=== PATIENT | female | born 1935 | race Caucasian/White ===

== ENCOUNTER 2017-04-04 11:18 | Emergency (ER) | payer MEDICARE ==
[~2017-04-04] VITALS: Ht 157.5 cm; Wt 55.8 kg
[~2017-04-04 11:18] MED LIST: ALPR0.254 PO; ASCO10002 PO; ASPI-630 PO; ATOR10TA60 PO; CEPH250C PO; CHOL200074 PO; CLON0.5T3 PO; CLOP75TA57 PO; CRAN500C6 PO; CYCL10TA2 PO; DIGO125T PO; DIGO125T16 PO; DIPH25CA3 PO; DIPH50CA PO; DOCU-150 PO; FERR-26 PO; FEXO180T81 PO; FISH400C4 PO; FURO20TA3 PO; FURO40TA4 PO; LEVO500T8 PO; LOSA100T6 PO; MULT-212 PO; OMEP40CA5 PO; ONDA4TAB12 PO; POTASSIUM CHLO10 MEQ PO; UBID30CA9 PO; VIT1TABL34 PO; VITA1CAP PO; WHEA1POW8 PO
--- NOTE | 2017-04-04 11:33 | EKG ---
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
[2017-04-04 11:55] LABS: BASO % 1 % (0-3); EOS % 2 % (0-3); HEMATOCRIT 29.4 % (36.0-47.0); HEMOGLOBIN 9.7 g/dL (12.0-15.5); LYMPH # 0.6 x10^3/uL (1.0-4.8); LYMPH % 9 % (24-48); MEAN CORPUSCULAR HEMOGLOBIN 27 pg (25-35); MEAN CORPUSCULAR HGB CONC 33 g/dL (31-37); MEAN CORPUSCULAR VOLUME 80 fL (79-100); MONO % 13 % (0-9); NEUT % 76 % (31-73); PLATELET COUNT 330 x10^3/uL (140-400); RED BLOOD COUNT 3.65 x10^6/uL (3.50-5.40); RED CELL DISTRIBUTION WIDTH 14.4 % (11.5-14.5); WHITE BLOOD COUNT 6.7 x10^3/uL (4.0-11.0)
[2017-04-04] MEDS ORDERED: LIDO:MAALOX:DONNATAL 1:1:1 15 ML SINGLE DOSE SWSW ONE (12:00)
[2017-04-04 12:02] LABS: INR 1.1 (0.8-1.1); PROTHROMBIN TIME PATIENT 13.1 SEC (11.7-14.0)
[2017-04-04 12:10] LABS: CALCIUM 8.8 mg/dL (8.5-10.1); CREATININE 0.6 mg/dL (0.6-1.0); GFR 95.9; POTASSIUM 3.6 mmol/L (3.5-5.1)
--- NOTE | 2017-04-04 12:14 | RAD ---
Indication chest pain. Shortness of air. History of cardiac arrhythmia. A single view of the chest was obtained. Comparison is made to an exam October 16, 2016. There is mild stable cardiomegaly. There is no gross congestive heart failure. There is no consolidated pneumonia significant pleural fluid collection or pneumothorax. IMPRESSION: Stable mild enlargement of the heart. No acute finding in the chest
[2017-04-04 12:16] LABS: ALBUMIN 3.2 g/dL (3.4-5.0); ALBUMIN/GLOBULIN RATIO 0.9 (1.0-1.7); MAGNESIUM 1.6 mg/dL (1.8-2.4); TOTAL BILIRUBIN 0.3 mg/dL (0.2-1.0); TOTAL PROTEIN 6.6 g/dL (6.4-8.2)
[2017-04-04] MEDS ORDERED: IV NORMAL SALINE 500ML BAG 500 ML IV ONE (12:30)
--- NOTE | 2017-04-04 12:33 | PHYS DOC ---
Past Medical History Past Medical History: A-Fib, Hypertension, MT Additional Past Medical Histor: CARDIOMYOPATHY, OSTEOARTHRITIS, CHRONIC BACK PAIN Past Surgical History: Other Additional Past Surgical Histo: BACK SX Alcohol Use: Rarely Drug Use: None Adult General Chief Complaint Chief Complaint: diarrhea HPI HPI Patient is a 81 year old female who presents with diarrhea that's been occurring since Saturday of this week. She states it's been watery, foul-smelling , difficult to get to the restroom and she's had several accidents. She denies any fevers, no abdominal pain. She's had some intermittent body aches when she gets frequently with GERD. She's not taking any medication for this specifically. She gets a acidic feeling in the base of her throat. She denies any dysuria or increased urinary frequency. Primary care physician is Dr. Jaron Briggs Review of Systems Review of Systems Constitutional: Denies fever or chills [] Eyes: Denies change in visual acuity, redness, or eye pain [] HENT: Denies nasal congestion or sore throat [] Respiratory: Denies cough or shortness of breath [] Cardiovascular: Chest pain substernal that radiates up into her throat, she also has diffuse chest and back pain at times GI: Denies aren't abdominal pain, nausea, or vomiting : Denies dysuria or hematuria [] Musculoskeletal: Denies back pain or joint pain [] Integument: Denies rash or skin lesions [] Neurologic: Denies headache, focal weakness or sensory changes [] Current Medications Current Medications Current Medications Medications (Trade) Dose Ordered Sig/Zander Start Time Stop Time Status Last Admin Dose Admin Ketorolac Tromethamine (Toradol) 30 mg 1X ONCE 04/04/17 13:00 04/04/17 13:01 DC 04/04/17 12:46 30 MG Multi-Ingredient Mouthwash/Gargle (Gi Cocktail Single Dose) 15 ml 1X ONCE 04/04/17 12:00 04/04/17 12:01 DC 04/04/17 12:00 15 ML Sodium Chloride 500 ml @ 500 mls/hr 1X ONCE 04/04/17 12:30 04/04/17 13:29 DC 04/04/17 12:46 500 MLS/HR Allergies Allergies Allergies Coded Allergies Type Severity Reaction Last Updated Verified acyclovir Allergy Intermediate Itching 01/02/16 Yes amitriptyline Allergy Intermediate Itching 01/02/16 Yes amlodipine Allergy Intermediate Itching 01/02/16 Yes atenolol Allergy Intermediate Itching 01/02/16 Yes fentanyl Allergy Intermediate Itching 01/02/16 Yes lisinopril Allergy Intermediate Itching 01/02/16 Yes tramadol Allergy Intermediate Itching 01/02/16 Yes warfarin Allergy Intermediate 01/03/16 Yes I S O L A T I O N *CONTACT* Allergy Unknown 01/06/16 Yes codeine Adverse Reaction Intermediate Nausea and Vomiting 01/02/16 Yes hydromorphone Adverse Reaction Intermediate Nausea and Vomiting 01/02/16 Yes Physical Exam Physical Exam Constitutional: Well developed, well nourished, no acute distress, non-toxic appearance. Pale HENT: Normocephalic, atraumatic, bilateral external ears normal, oropharynx moist, no oral exudates, nose normal. [] Eyes: PERRLA, EOMI, conjunctiva normal, no discharge. [] Neck: Normal range of motion, no tenderness, supple, no stridor. [] Cardiovascular:Heart rate regular with regular rhythm, no murmur [] Lungs & Thorax: Bilateral breath sounds clear to auscultation, no wheeze or crackles Abdomen: Bowel sounds normal, soft, no tenderness, no masses, no pulsatile masses.no guarding or peritoneal signs Skin: Warm, dry, no erythema, no rash. [] Back: No tenderness, no CVA tenderness. [] Extremities: No tenderness, no cyanosis, no clubbing, ROM intact, no edema. [] Neurologic: Alert and oriented X 3, normal motor function, normal sensory function, no focal deficits noted. [] Psychologic: Affect normal, judgement normal, mood normal. [] Current Patient Data Vital Signs Vital Signs Date Time Temp Pulse Resp B/P (MAP) Pulse Ox O2 Delivery O2 Flow Rate FiO2 04/04/17 13:50 78 18 159/74 (102) 96 04/04/17 11:29 98.3 Room Air 98.3 Lab Values Laboratory Tests Test 04/04/17 11:40 White Blood Count 6.7 x10^3/uL (4.0-11.0) Red Blood Count 3.65 x10^6/uL (3.50-5.40) Hemoglobin 9.7 g/dL (12.0-15.5) L Hematocrit 29.4 % (36.0-47.0) L Mean Corpuscular Volume 80 fL (79-100) Mean Corpuscular Hemoglobin 27 pg (25-35) Mean Corpuscular Hemoglobin Concent 33 g/dL (31-37) Red Cell Distribution Width 14.4 % (11.5-14.5) Platelet Count 330 x10^3/uL (140-400) Neutrophils (%) (Auto) 76 % (31-73) H Lymphocytes (%) (Auto) 9 % (24-48) L Monocytes (%) (Auto) 13 % (0-9) H Eosinophils (%) (Auto) 2 % (0-3) Basophils (%) (Auto) 1 % (0-3) Neutrophils # (Auto) 5.1 x10^3uL (1.8-7.7) Lymphocytes # (Auto) 0.6 x10^3/uL (1.0-4.8) L Monocytes # (Auto) 0.8 x10^3/uL (0.0-1.1) Eosinophils # (Auto) 0.1 x10^3/uL (0.0-0.7) Basophils # (Auto) 0.0 x10^3/uL (0.0-0.2) Prothrombin Time 13.1 SEC (11.7-14.0) Prothrombin Time INR 1.1 (0.8-1.1) Sodium Level 134 mmol/L (136-145) L Potassium Level 3.6 mmol/L (3.5-5.1) Chloride Level 98 mmol/L (98-107) Carbon Dioxide Level 27 mmol/L (21-32) Anion Gap 9 (6-14) Blood Urea Nitrogen 11 mg/dL (7-20) Creatinine 0.6 mg/dL (0.6-1.0) Estimated GFR (Cockcroft-Gault) 95.9 BUN/Creatinine Ratio 18 (6-20) Glucose Level 99 mg/dL (70-99) Calcium Level 8.8 mg/dL (8.5-10.1) Magnesium Level 1.6 mg/dL (1.8-2.4) L Total Bilirubin 0.3 mg/dL (0.2-1.0) Aspartate Amino Transferase (AST) 23 U/L (15-37) Alanine Aminotransferase (ALT) 22 U/L (14-59) Alkaline Phosphatase 103 U/L (46-116) Troponin I Quantitative 0.022 ng/mL (0.000-0.055) ID-Ytk-S-Type Natriuretic Peptide 2736 pg/mL (0-449) H Total Protein 6.6 g/dL (6.4-8.2) Albumin 3.2 g/dL (3.4-5.0) L Albumin/Globulin Ratio 0.9 (1.0-1.7) L Laboratory Tests 04/04/17 11:40 Laboratory Tests 04/04/17 11:40 EKG EKG 90 beats per minute, afib normal axis, QTC of 459, no ST elevation, ST depression noted in V4 him interpreted by me [] Radiology/Procedures Radiology/Procedures CXR: IMPRESSION: Stable mild enlargement of the heart. No acute finding in the chest [] Course & Med Decision Making Course & Med Decision Making Pertinent Labs and Imaging studies reviewed. (See chart for details) Pt given GI cocktail. Pt could be c diff but wasn't able to provide stool in ED , WBC normal, more likely gastroenteritis. Pt wants to go home. Recommend loperamide for stool, f/u with PCP. Dragon Disclaimer Dragon Disclaimer This electronic medical record was generated, in whole or in part, using a voice recognition dictation system. Departure Departure Impression: Primary Impression: Gastroenteritis Disposition: 01 HOME, SELF-CARE Condition: STABLE Referrals: MATTHEW BRAMBILA (PCP) Scripts Loperamide Hcl (LOPERAMIDE) 2 Mg Tablet 2 MG PO after loose stool Y for DIARRHEA, #16 TAB take 1 tablet after each loose stool, up to 8 tablets per day. Prov: JOSE BANSAL MD 04/04/17 JOSE BANSAL MD Apr 04, 2017 12:33
[2017-04-04] MEDS ORDERED: KETOROLAC TROMETHAMINE 30 MG/ML INJ. IV ONE (13:00)
[2017-04-04] MEDS ORDERED: LOPE2TAB27 PO (13:16)
[2017-04-04] MEDS ORDERED: IV NORMAL SALINE 1000ML BAG 1,000 ML IV ONE (13:30)
[2017-04-04 13:50] VITALS: BP 159/74
== END 2017-04-04 14:00 | disposition home or self-care (01) ==
LOC: ER 11:18
DX: K52.9 Noninfective gastroenteritis and colitis, unspecified (principal); I48.91 Unspecified atrial fibrillation; I11.9 Hypertensive heart disease without heart failure; I42.9 Cardiomyopathy, unspecified; K21.9 Gastro-esophageal reflux disease without esophagitis; G89.29 Other chronic pain; I25.2 Old myocardial infarction; M19.90 Unspecified osteoarthritis, unspecified site; Z88.5 Allergy status to narcotic agent; Z88.8 Allergy status to other drugs, medicaments and biological substances; Z88.4 Allergy status to anesthetic agent; Z91.041 Radiographic dye allergy status
CPT/HCPCS: 36415; 71010; 80053; 83735; 83880; 84484; 85027; 85610; 93005; 96361; 96374; 99285; C1887; J1885; J7040

== ENCOUNTER → 2017-10-17 | Outpatient (CLI) | payer MEDICARE | END | disposition home or self-care (01) | LOC: ECHO 12:47 | DX: I36.1 Nonrheumatic tricuspid (valve) insufficiency (principal); I37.1 Nonrheumatic pulmonary valve insufficiency; I27.20 Pulmonary hypertension, unspecified; I70.0 Atherosclerosis of aorta; Z95.0 Presence of cardiac pacemaker | CPT/HCPCS: 93306 ==

== ENCOUNTER 2017-12-06 11:14 | Outpatient (CLI) | payer MEDICARE | END 2017-12-10 | disposition home or self-care (01) | LOC: MAMMO 12-10 09:22 | DX: N63.20 Unspecified lump in the left breast, unspecified quadrant (principal) | CPT/HCPCS: 76641; 77066; G0279 ==

== ENCOUNTER → 2017-12-27 | Outpatient (CLI) | payer MEDICARE ==
[~2017-12-27] MED LIST changes: -ALPR0.254 PO; -ASCO10002 PO; -ASPI-630 PO; -ATOR10TA60 PO; -CEPH250C PO; -CHOL200074 PO; -CLON0.5T3 PO; -CLOP75TA57 PO; -CRAN500C6 PO; -CYCL10TA2 PO; -DIGO125T PO; -DIGO125T16 PO; -DIPH25CA3 PO; -DIPH50CA PO; -DOCU-150 PO; -FERR-26 PO; -FEXO180T81 PO; -FISH400C4 PO; -FURO20TA3 PO; -FURO40TA4 PO; -LEVO500T8 PO; +LIDOCAINE 2%/EPI 1:100,000 20 ML VIAL. IJ; -LOSA100T6 PO; -MULT-212 PO; -OMEP40CA5 PO; -ONDA4TAB12 PO; -POTASSIUM CHLO10 MEQ PO; -UBID30CA9 PO; -VIT1TABL34 PO; -VITA1CAP PO; -WHEA1POW8 PO
== END | disposition home or self-care (01) ==
LOC: US 09:16
DX: C50.912 Malignant neoplasm of unspecified site of left female breast (principal); Z98.41 Cataract extraction status, right eye; Z98.42 Cataract extraction status, left eye; I50.9 Heart failure, unspecified; I42.9 Cardiomyopathy, unspecified; I48.91 Unspecified atrial fibrillation; I11.0 Hypertensive heart disease with heart failure; Z87.01 Personal history of pneumonia (recurrent); Z90.49 Acquired absence of other specified parts of digestive tract; K21.9 Gastro-esophageal reflux disease without esophagitis; M19.90 Unspecified osteoarthritis, unspecified site; F41.9 Anxiety disorder, unspecified; D64.9 Anemia, unspecified; Z98.890 Other specified postprocedural states; Z88.8 Allergy status to other drugs, medicaments and biological substances; Z88.5 Allergy status to narcotic agent; Z90.710 Acquired absence of both cervix and uterus; Z95.5 Presence of coronary angioplasty implant and graft; Z96.611 Presence of right artificial shoulder joint; Z87.440 Personal history of urinary (tract) infections; Z79.01 Long term (current) use of anticoagulants
CPT/HCPCS: 19081; 76942; 77065; 88305; 88361; C1713

== ENCOUNTER → 2018-01-08 | Outpatient (CLI) | payer MEDICARE ==
[2018-01-08 14:07] LABS: ADD MAN DIFF? NO
[2018-01-08 14:10] LABS: BASO % 1 % (0-3); EOS # 0.1 x10^3/uL (0.0-0.7); EOS % 1 % (0-3); HEMATOCRIT 42.6 % (36.0-47.0); HEMOGLOBIN 14.5 g/dL (12.0-15.5); LYMPH # 1.2 x10^3/uL (1.0-4.8); LYMPH % 20 % (24-48); MEAN CORPUSCULAR HEMOGLOBIN 31 pg (25-35); MEAN CORPUSCULAR HGB CONC 34 g/dL (31-37); MEAN CORPUSCULAR VOLUME 90 fL (79-100); MONO # 0.7 x10^3/uL (0.0-1.1); MONO % 11 % (0-9); NEUT # 4.2 x10^3uL (1.8-7.7); NEUT % 68 % (31-73); PLATELET COUNT 307 x10^3/uL (140-400); RED BLOOD COUNT 4.76 x10^6/uL (3.50-5.40); RED CELL DISTRIBUTION WIDTH 13.8 % (11.5-14.5); WHITE BLOOD COUNT 6.2 x10^3/uL (4.0-11.0)
[2018-01-08 14:19] LABS: ANION GAP 7 (6-14); BLOOD UREA NITROGEN 17 mg/dL (7-20); CALCIUM 9.2 mg/dL (8.5-10.1); CARBON DIOXIDE 31 mmol/L (21-32); CHLORIDE 98 mmol/L (98-107); CREATININE 0.8 mg/dL (0.6-1.0); GFR 68.7; GLUCOSE 123 mg/dL (70-99); POTASSIUM 4.1 mmol/L (3.5-5.1); SODIUM 136 mmol/L (136-145)
== END | disposition home or self-care (01) ==
LOC: SURGPAT 13:26
DX: Z01.818 Encounter for other preprocedural examination (principal); C50.912 Malignant neoplasm of unspecified site of left female breast
CPT/HCPCS: 36415; 80048; 85025

== ENCOUNTER 2018-01-13 07:30 | Inpatient (IN) | payer MEDICARE ==
[~2018-01-13 07:30] MED LIST changes: +LIDOCAINE 1% PF 2 ML VIAL. ID; -LIDOCAINE 2%/EPI 1:100,000 20 ML VIAL. IJ; +MORPHINE SULFATE 4 MG/ML DISP.SYRIN. IV; +ONDANSETRON PF 4 MG/2 ML VIAL. IV; +PROCHLORPERAZINE 10 MG/2 ML VIAL. IV
[2018-01-13] MEDS: IV RINGERS,LACTATED 1000ML 1,000 ML IV ×2 (08:31→11:59)
[2018-01-13] MEDS ORDERED: DEXAMETHASONE SOD PHOS 20 MG/5 ML VIAL. (08:50)
[2018-01-13] MEDS ORDERED: PROPOFOL 20 ML IV (08:50)
[2018-01-13] MEDS ORDERED: LIDOCAINE 2% PF Vial for OR 5 ML VIAL. (08:50)
[2018-01-13] MEDS ORDERED: ONDANSETRON PF 4 MG/2 ML VIAL. (08:50)
[2018-01-13] MEDS ORDERED: fentaNYL PF VIAL 100 MCG/2 ML VIAL (08:51)
[2018-01-13] MEDS: LIDOCAINE WITH 8.4% SOD BICARB 3 ML DISP.SYRIN. INJ (09:23)
[2018-01-13] MEDS: ISOSULFAN BLUE 50 MG/5 ML VIAL. SQ (10:10)
[2018-01-13] MEDS ORDERED: ceFAZolin 2GM PREMIX 2 GM/50 ML BAG IV (12:00)
[2018-01-13] MEDS ORDERED: LIDOCAINE 1% PF 2 ML VIAL. ID (12:00)
[2018-01-13] MEDS ORDERED: fentaNYL PF VIAL 100 MCG/2 ML VIAL IV (12:00)
[2018-01-13] MEDS ORDERED: MORPHINE SULFATE 2 MG/ML DISP.SYRIN. IV (12:00)
[2018-01-13] MEDS ORDERED: ONDANSETRON PF 4 MG/2 ML VIAL. IV ×2 (12:00→12:15)
[2018-01-13] MEDS ORDERED: PROCHLORPERAZINE 10 MG/2 ML VIAL. IV (12:00)
[2018-01-13] MEDS: fentaNYL PF VIAL 100 MCG/2 ML VIAL IV ×5 (12:07→14:10)
[2018-01-13] MEDS ORDERED: CYCLOBENZAPRINE 10 MG TABLET. PO (12:15)
[2018-01-13] MEDS ORDERED: 0.9 % SODIUM CHLORIDE 10 ML DISP.SYRIN. IV (12:15)
[2018-01-13] MEDS ORDERED: diphenhydrAMINE 50 MG/ML VIAL IV (12:15)
[2018-01-13] MEDS ORDERED: hydrALAZINE 20 MG/ML VIAL. (12:56)
[2018-01-13] MEDS: hydrALAZINE 20 MG/ML VIAL. IVP (12:58)
[2018-01-13] MEDS: POTASSIUM CL 20MEQ-0.45% NACL 1,000 ML IV (14:00)
[2018-01-13] MEDS: CARVEDILOL 6.25 MG TABLET. PO (17:30)
[2018-01-13] MEDS: HYDROcodone/APAP 5/325MG 1 TAB TABLET PO ×2 (17:30→22:29)
[2018-01-13] MEDS: clonazePAM 0.5 MG TABLET PO (21:21)
[2018-01-13] MEDS: ATORVASTATIN CALCIUM 10 MG TABLET. PO (21:21)
[2018-01-13] MEDS: ALPRAZolam 0.25 MG TABLET PO (21:22)
[2018-01-13] MEDS: DOCUSATE SODIUM 100 MG CAPSULE. PO (21:22)
[2018-01-13] MEDS: POTASSIUM CHLORIDE 10 MEQ TABLET.ER. PO (21:22)
[2018-01-14] MEDS: HYDROcodone/APAP 5/325MG 1 TAB TABLET PO ×3 (02:45→21:24)
[2018-01-14] MEDS: POTASSIUM CL 20MEQ-0.45% NACL 1,000 ML IV (03:14)
[2018-01-14] MEDS: ENOXAPARIN 30 MG/0.3 ML SYRINGE. SQ (05:48)
[2018-01-14] MEDS: POTASSIUM CHLORIDE 10 MEQ TABLET.ER. PO ×2 (09:32→21:25)
[2018-01-14] MEDS: DIGOXIN 125 MCG TABLET. PO (09:33)
[2018-01-14] MEDS: ALPRAZolam 0.25 MG TABLET PO ×2 (09:34→21:25)
[2018-01-14] MEDS: CARVEDILOL 6.25 MG TABLET. PO ×2 (09:35→17:42)
[2018-01-14] MEDS: FERROUS SULFATE 325 MG TABLET. PO (09:36)
[2018-01-14] MEDS: FUROSEMIDE 20 MG TABLET PO (09:37)
[2018-01-14] MEDS: DOCUSATE SODIUM 100 MG CAPSULE. PO ×2 (09:37→21:25)
[2018-01-14] MEDS: CETIRIZINE HCL 10 MG TABLET. PO (09:37)
[2018-01-14] MEDS: ASPIRIN CHEWABLE 81 MG TABLET. PO (09:38)
[2018-01-14] MEDS: clonazePAM 0.5 MG TABLET PO (21:25)
[2018-01-14] MEDS: ATORVASTATIN CALCIUM 10 MG TABLET. PO (21:25)
[2018-01-14] MEDS: diphenhydrAMINE HCL 25 MG CAPSULE PO (21:25)
[2018-01-15] MEDS: HYDROcodone/APAP 5/325MG 1 TAB TABLET PO ×2 (04:44→13:02)
[2018-01-15] MEDS: ENOXAPARIN 30 MG/0.3 ML SYRINGE. SQ (06:11)
[2018-01-15] MEDS: DOCUSATE SODIUM 100 MG CAPSULE. PO (08:32)
[2018-01-15] MEDS: FUROSEMIDE 20 MG TABLET PO (08:32)
[2018-01-15] MEDS: ASPIRIN CHEWABLE 81 MG TABLET. PO (08:32)
[2018-01-15] MEDS: ALPRAZolam 0.25 MG TABLET PO (08:32)
[2018-01-15] MEDS: FERROUS SULFATE 325 MG TABLET. PO (08:32)
[2018-01-15] MEDS: POTASSIUM CHLORIDE 10 MEQ TABLET.ER. PO (08:32)
[2018-01-15] MEDS: CETIRIZINE HCL 10 MG TABLET. PO (08:32)
[2018-01-15] MEDS: CARVEDILOL 6.25 MG TABLET. PO (08:33)
[2018-01-15] MEDS: DIGOXIN 125 MCG TABLET. PO (08:34)
== END 2018-01-15 13:25 | disposition home or self-care (01) | DRG 581 ==
LOC: SURG 07:30 → 4 NORTH 12:06
PROC: 0HTT0ZZ Resection of Right Breast, Open Approach (ICD-10-PCS; principal; 2018-01-13 09:30)
PROC: 07B60ZX Excision of Left Axillary Lymphatic, Open Approach, Diagnostic (ICD-10-PCS; 2018-01-13 09:30)
PROC: 0HTU0ZZ Resection of Left Breast, Open Approach (ICD-10-PCS; 2018-01-13 09:30)
DX: C50.912 Malignant neoplasm of unspecified site of left female breast (principal); I48.91 Unspecified atrial fibrillation; K21.9 Gastro-esophageal reflux disease without esophagitis; Z88.1 Allergy status to other antibiotic agents; Z90.13 Acquired absence of bilateral breasts and nipples; Z88.6 Allergy status to analgesic agent; Z88.8 Allergy status to other drugs, medicaments and biological substances; Z79.01 Long term (current) use of anticoagulants; Z90.49 Acquired absence of other specified parts of digestive tract
CPT/HCPCS: 38792; 96374; 97116-GP; 97162-GP; 97166-GO; A7015; A9541; J0360; J0690; J1100; J1650; J2405; J2704; J3010; J7030; Q0163; Q9968

== ENCOUNTER → 2018-02-25 | Outpatient (CLI) | payer MEDICARE | END | disposition home or self-care (01) | LOC: KCIC DEXA 13:59 | DX: C50.912 Malignant neoplasm of unspecified site of left female breast (principal); M85.88 Other specified disorders of bone density and structure, other site; I13.0 Hypertensive heart and chronic kidney disease with heart failure and stage 1 through stage 4 chronic kidney disease, or unspecified chronic kidney disease; I50.9 Heart failure, unspecified; N18.9 Chronic kidney disease, unspecified; Z78.0 Asymptomatic menopausal state | CPT/HCPCS: 77080 ==

== ENCOUNTER → 2018-10-17 | Outpatient (CLI) | payer MEDICARE ==
[2018-09-01 11:46] VITALS: BP 148/53
[~2018-10-17] MED LIST changes: +ALPR0.254 PO; +ASCO10002 PO; +ASPI-630 PO; +ATOR10TA60 PO; +CARV6.25 PO; +CARV6.2511 PO; +CEPH250C PO; +CHOL200074 PO; +CLON0.5T11 PO; +CLOP75TA PO; +CLOP75TA57 PO; +CRAN500C6 PO; +CYCL10TA2 PO; +DIGO125T PO; +DIGO125T79 PO; +DIPH25CA3 PO; +DIPH50CA PO; +DOCU-150 PO; +FERR325T14 PO; +FEXO180T81 PO; +FISH400C4 PO; +FLUT9.9S NS; +FURO20TA3 PO; +FURO40TA4 PO; +HYDR-2761 PO; +LEVO500T8 PO; -LIDOCAINE 1% PF 2 ML VIAL. ID; +LOPE2TAB27 PO; +LORA10TA68 PO; +LOSA100T14 PO; -MORPHINE SULFATE 4 MG/ML DISP.SYRIN. IV; +MULT-212 PO; +NITR50CA PO; +OMEP40CA5 PO; +ONDA4TAB12 PO; -ONDANSETRON PF 4 MG/2 ML VIAL. IV; +POTA10TA12 PO; -PROCHLORPERAZINE 10 MG/2 ML VIAL. IV; +PROP150T2 PO; +RANO500T2 PO; +REGADENOSON 0.4 MG/5 ML DISP.SYRIN. IV ONE; +UBID30CA9 PO; +VIT1TABL34 PO; +VITA1CAP PO; +WHEA1POW8 PO
--- NOTE | 2018-10-17 12:28 | RAD ---
MR#: [id number] Date of Study: 10/17/2018 Ordering Physician: RAPHAEL HOLT, Referring Physician: MARLENE CHAVEZ Tech: GRACE Kaminski, ARRT (R) (N) APPROVED REPORT Test Type: Pharmacological Stress Nurse/Tech: Doris Zhang RN Test Indications: CAD, chest pain, reflux Cardiac History: stent x 2, HTN, pacemaker Medications: See Electronic Medical Record Medical History: See Electronic Medical Record Resting ECG: v paced Resting Heart Rate: 69 bpm Resting Blood Pressure: 161/75mmHg Pretest Chest Pain: None Nurse/Tech Notes Lungs CTA, S1S2 Consent: The procedure was explained to the patient in lay terms. Informed consent was witnessed. Brando eout was entered into [employer]. History and Stress Test performed by Doris Zhang Pharm. Details Pharmacologic stress testing was performed using 0.4mg per 5ml of regadenoson given intravenously ove r 7-10 seconds. Stress Symptoms dyspnea, chest pain 6/10 that resolved by end of test. Pt very light headed after exam POST EXERCISE Reason for Termination: Infusion complete Max HR: 103 bpm Max Blood Pressure: 154/62mmHg Blood Pressure response to exercise: Normal blood pressure response during stress. Heart Rate response to exercise: Normal response Chest Pain: Yes. 6/10 that resolved by termination of test Arrhythmia: No. ST Change: No. INTERPRETATION Stress EKG Conclusion: Baseline EKG showed ventricular paced rhythm. Nondiagnostic changes at peak st ress. No arrhythmias. Imaging Protocol IMAGE PROTOCOL: Rest Tc-99m/stress Tc-99m 1 day Rest: Stress: Viability: Radiopharm.Tc99m NffkqlldjIj37m Sestamibi Tdiy99yNo 32mCi Img Date 10/17/2018 10/17/2018 Inj-Img Lmgh50jxm. 60min. Rest Admin Site:IV - Right AntecubitalAdministrator:Mac Russo RT (R)(N) Stress Admin Site: IV - Right AntecubitalAdministrator: RT Gisella (R)(N) STRESS DATA End Diast. Vol.128.0mlAv. Heart Rate75.0bpm End Syst. Vol.60.0mlCO Index BSA0.0L/min Myocardial Ivdn781.0gEject. Fnfchztq86.0% Stress Rates Pk. Fill Rate1.96EDV/secLVtime Pk. Fill 166.40msec Pk. Empty Rate3.29ESV/secLVtime Pk. Nvazq537.90msec 1/3 Pk. Fill0.82EDV/sec Stress Scores Regional WT3.00Summed WT24.00 Regional WM0.00Summed WM21.00 LV Perfusion Scintigraphic images did not show any significant perfusion defects. However, there was transient isc hemic dilatation of 1.63 at peak stress. Wall Motion Abnormal septal motion probably from paced rhythm. The ejection fraction is preserved at 53%. LV Perf. Quant 17 Seg. SSS4.00 17 Seg. SRS3.00 17 Seg. SDS1.00 Stress Defect Extent (% LAD)0.00Rest Defect Extent (% LAD)0.00Rev. Defect Extent (% LAD)0.00 Stress Defect Extent (% LCX) 27.50Rest Defect Extent (% LCX)31.30Rev. Defect Extent (% LCX)0.00 Stress Defect Extent (% RCA)4.40Rest Defect Extent (% RCA)0.00Rev. Defect Extent (% RCA)0.00 Stress Defect Extent (% ZACH)5.70Rest Defect Extent (% ZACH)5.40Rev. Defect Extent (% ZACH)0.00 Conclusion 1. Regadenoson cardioisotope stress test did not show any significant perfusion defects but there was transient ischemic dilatation of 1.63 that could indicate balanced ischemia/multivessel disease. 2. Abnormal septal motion probably from paced rhythm. The ejection fraction is preserved at 53%. 3. Consider cardiac catheterization. Signed by : Davi Mtz, Electronically Approved : 10/17/2018 12:26:18
== END | disposition home or self-care (01) ==
LOC: NM 09:04
PROVIDERS: ATTEND Internal Medicine Cardiovascular Disease
DX: I25.10 Atherosclerotic heart disease of native coronary artery without angina pectoris (principal); I10 Essential (primary) hypertension; Z95.0 Presence of cardiac pacemaker
CPT/HCPCS: 78452; 93017; 96374; A9500; J2785

== ENCOUNTER 2018-11-12 08:45 | Observation (INO) | payer MEDICARE ==
[~2018-11-12] VITALS: Ht 158.8 cm; Wt 57.3 kg
[2018-11-12] VITALS (15 sets, daily range): BP systolic 120–163; BP diastolic 44–79
[~2018-11-12 08:45] MED LIST changes: -REGADENOSON 0.4 MG/5 ML DISP.SYRIN. IV ONE
[2018-11-12] MEDS ORDERED: CYAN100072 PO (09:12)
[2018-11-12] MEDS ORDERED: OMEG1CAP38 PO (09:12)
[2018-11-12 09:26] LABS: HEMATOCRIT 26.4 % (36.0-47.0); HEMOGLOBIN 8.2 g/dL (12.0-15.5); RED BLOOD COUNT 4.32 x10^6/uL (3.50-5.40); RED CELL DISTRIBUTION WIDTH 18.4 % (11.5-14.5); WHITE BLOOD COUNT 9.6 x10^3/uL (4.0-11.0)
[2018-11-12 09:40] LABS: PROTHROMBIN TIME PATIENT 14.8 SEC (11.7-14.0)
[2018-11-12 09:59] LABS: CALCIUM 9.2 mg/dL (8.5-10.1); CREATININE 0.9 mg/dL (0.6-1.0); GFR 59.8; POTASSIUM 4.2 mmol/L (3.5-5.1)
[2018-11-12] MEDS ORDERED: IOHEXOL 300 MG/ML 100ML VIAL. ONE ×2 (11:04→12:11)
[2018-11-12] MEDS ORDERED: HEPARIN for ARTERIAL LINE 1,500 ML ONE (11:04)
[2018-11-12] MEDS ORDERED: LIDOCAINE 1% Multi-Dose 20 ML VIAL. ONE (11:04)
[2018-11-12] MEDS ORDERED: fentaNYL PF VIAL 100 MCG/2 ML VIAL ONE (11:22)
[2018-11-12] MEDS ORDERED: MIDAZOLAM HCL/PF 2 MG/2 ML VIAL. ONE ×3 (11:23→13:20)
[2018-11-12] MEDS ORDERED: ONDANSETRON PF 4 MG/2 ML VIAL. ONE (11:34)
[2018-11-12] MEDS ORDERED: MORPHINE SULFATE 10 MG/ML VIAL. ONE (11:34)
[2018-11-12] MEDS ORDERED: NITROGLYCERIN OINT 1 GM PACKET. ONE (11:49)
[2018-11-12] MEDS ORDERED: HEPARIN for IV BOLUS 10,000 UNIT/10 ML VIAL. ONE (12:04)
[2018-11-12] MEDS ORDERED: BIVALIRUDIN 250 MG VIAL. IV ONE ×2 (12:12→14:30)
[2018-11-12] MEDS ORDERED: NITROGLYCERIN 200 MCG/2 ML SYRINGE FOR CATH/VASC LAB. ONE (12:38)
[2018-11-12] MEDS ORDERED: IODIXANOL 320 MG/ML 100 ML VIAL. ONE (12:40)
[2018-11-12] MEDS ORDERED: CLOPIDOGREL BISULFATE 75 MG TABLET ONE (13:03)
[2018-11-12] MEDS ORDERED: MIDAZOLAM HCL/PF 2 MG/2 ML VIAL. IV ONE ×3 (14:30)
[2018-11-12] MEDS ORDERED: CLOPIDOGREL BISULFATE 75 MG TABLET PO ONE (14:30)
[2018-11-12] MEDS ORDERED: MORPHINE SULFATE 10 MG/ML VIAL. IV ONE (14:30)
[2018-11-12] MEDS ORDERED: IOHEXOL 300 MG/ML 100ML VIAL. IART ONE (14:30)
[2018-11-12] MEDS ORDERED: HEPARIN for IV BOLUS 10,000 UNIT/10 ML VIAL. IV ONE (14:30)
[2018-11-12] MEDS ORDERED: ONDANSETRON PF 4 MG/2 ML VIAL. IV ONE (14:30)
[2018-11-12] MEDS ORDERED: NITROGLYCERIN OINT 1 GM PACKET. TP ONE (14:30)
[2018-11-12] MEDS ORDERED: LIDOCAINE 1% Multi-Dose 20 ML VIAL. INJ ONE (14:30)
--- NOTE | 2018-11-12 14:53 | CARD ---
MR#: [id number] Date of Study: 11/12/2018 Ordering Physician: RAPHAEL RIVERA, Referring Physician: RAPAHEL RIVERA, Tech: Santana Dejesus RT (R) APPROVED REPORT Procedures Left heart catheterization Left ventriculogram Selective coronary angiogram IFR measurements of the LAD and left circumflex vessels 2 bare-metal stents placed to the LAD. The patient is an 83-year-old female with a history of coronary artery disease. She was evaluated for increasing shortness of breath. MPI testing showed a significant TID. Patient's discomfort was progr essive. Cardiac catheterization was recommended. Risks and benefits were discussed with the patient. She agreed to proceed. After informed consent was obtained the patient was brought to the heart catheterization lab. The are a of the right femoral artery was prepared usual manner with Betadine, sterile draping and local anes thetic. An 18-gauge needle was used to enter the right femoral artery, a wire placed and a Wallisian she ath placed over the wire. A 6 Wallisian JL4 diagnostic catheter was advanced to the ascending aorta. It was then used to engage the left system and sequential injections in various views were obtained. A 6 Wallisian Deni diagnostic catheter was advanced to the ascending aorta. It was used to engage the r ight coronary artery and sequential injections in various views were obtained. A pigtail catheter was then passed to the ascending aorta and then the left ventricle. A 30 WHITE left ventriculogram was pe rformed. Pull back pressures were measured. The images were reviewed and the patient was found to hav e possibly significant lesions in the LAD and LCX. We proceeded to do a IFR measurements of these ves sels. 1000 units of heparin was administered. A 6 Wallisian JL4 guiding catheter was used to engage the left c oronary system. IFR measurements of the LAD lesion was positive with a measurement of < 0.70. We then proceeded to revascularize this area. Using a PT choice wire the lesion was recrossed. There was a 7 0-80% lesion in the vessel just proximally to a previously placed stent and a 70-80% lesion at the di stal portion of the stent. Angiomax as protocol was administered. A 2.5 x [address] ent was placed at the proximal lesion. The stent was deployed at 15 adan for 15 seconds. Residual lesi on was 0. Attempts at plain balloon angioplasty of the more distal lesion in the stent proved to be s uboptimal. Therefore an additional 2.5 x 15 MultiLink mini vision was stent was deployed at the dista l part of the stent. The stent was deployed at 15 adan for 15 seconds. Sequential inflation of this ba lloon more proximally throughout the previously placed stent were performed at 15 adan for 10 seconds. Residual lesion was 0%. We then turned our attention to a borderline left circumflex lesion. This le neda was then crossed with the FloWire. However measurements of this lesion were normal at 0.99. The wire and the guiding system were removed from the patient. Injection the sheath showed normal placeme nt. The sheath was removed and sealed with an Angio-Seal product. The patient was moved to the [facility] in stable condition. Findings. Hemodynamics. LV pressure of 160/12, aortic root pressure of 154/82. Coronaries. Left main. Left main had a 10% distal lesion. Left anterior descending. The LAD had a mid 30% lesion. In its mid to distal vessel there was a previ ously placed stent with 80% lesion in the vessel just prior to the stent and an additional 80% lesion in the distal stent into the distal vessel. A small diagonal 1 branch had a 90% ostial lesion. Left circumflex. The left circumflex had a proximal 20% lesion mid 50-60% lesion and a distal 40% les ion. Right coronary artery. The right coronary was a very small nondominant vessel. It had a mid 70% lesion and a more distal 85% lesion. Left ventriculogram. The left ventricle showed normal left ventricular systolic function with an ejection fraction of 55%. <Conclusion> Severe single-vessel coronary disease in the LAD as above. Bare-metal stent placement 2 with a 0% re sidual lesion. Moderate disease in the left circumflex. IFR measurements were within normal limits. Very small nondominant right coronary artery with lesions as above. This will be treated medically du e to its small size. Intact LV systolic function. Signed by : Raphael Rivera MD Electronically Approved : 11/12/2018 14:52:50
[2018-11-12] MEDS ORDERED: ACETAMINOPHEN 325 MG TABLET. PO PRN ×2 (15:15→17:00)
[2018-11-12] MEDS ORDERED: ONDANSETRON PF 4 MG/2 ML VIAL. IV PRN (15:45)
[2018-11-12] MEDS ORDERED: MORPHINE SULFATE 4 MG/ML VIAL. IV ONE (15:45)
[2018-11-12] MEDS ORDERED: IV NORMAL SALINE 1000ML BAG 1,000 ML IV SCH (16:53)
[2018-11-12] MEDS ORDERED: ATROPINE 0.5 MG/5 ML DISP.SYRINGE. IV PRN (17:00)
[2018-11-12] MEDS ORDERED: AMIODARONE 150 MG in IV DEXTROSE 5% 100ML 100 ML IV PRN (17:00)
[2018-11-12] MEDS ORDERED: fentaNYL PF VIAL 100 MCG/2 ML VIAL IV PRN (17:00)
[2018-11-12] MEDS ORDERED: 0.9 % SODIUM CHLORIDE 10 ML DISP.SYRIN. IV PRN (17:00)
[2018-11-12] MEDS ORDERED: NITROGLYCERIN SUBLINGUAL 0.4 MG BOTTLE OF 25. SL PRN (17:00)
[2018-11-12] MEDS ORDERED: LIDOCAINE 2% 100 MG/5 ML SYRINGE. IV PRN (17:00)
--- NOTE | 2018-11-12 17:21 | EKG ---
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
[2018-11-12] MEDS: POTASSIUM CHLORIDE 10 MEQ TABLET.ER. PO SCH (18:03)
[2018-11-12] MEDS: CARVEDILOL 6.25 MG TABLET. PO SCH (18:05)
[2018-11-12] MEDS: PROPAFENONE 150 MG TABLET. PO SCH (21:28)
[2018-11-12] MEDS: clonazePAM 0.5 MG TABLET PO SCH (21:29)
[2018-11-12] MEDS: RANOLAZINE 500 MG TAB.ER.12H PO SCH (21:30)
[2018-11-13 02:03] VITALS: BP 129/51
[2018-11-13 04:41] LABS: BASO % 1 % (0-3); EOS # 0.1 x10^3/uL (0.0-0.7); EOS % 2 % (0-3); HEMATOCRIT 23.2 % (36.0-47.0); HEMOGLOBIN 7.1 g/dL (12.0-15.5); LYMPH # 2.4 x10^3/uL (1.0-4.8); LYMPH % 40 % (24-48); MEAN CORPUSCULAR HEMOGLOBIN 19 pg (25-35); MEAN CORPUSCULAR HGB CONC 31 g/dL (31-37); MEAN CORPUSCULAR VOLUME 61 fL (79-100); MONO # 0.5 x10^3/uL (0.0-1.1); MONO % 8 % (0-9); NEUT # 2.9 x10^3uL (1.8-7.7); NEUT % 49 % (31-73); PLATELET COUNT 330 x10^3/uL (140-400); RED CELL DISTRIBUTION WIDTH 18.6 % (11.5-14.5); WHITE BLOOD COUNT 5.9 x10^3/uL (4.0-11.0)
[2018-11-13 05:10] LABS: CALCIUM 8.4 mg/dL (8.5-10.1); CREATININE 0.9 mg/dL (0.6-1.0); GFR 59.8; POTASSIUM 4.4 mmol/L (3.5-5.1)
[2018-11-13] MEDS: PANTOPRAZOLE 40 MG TABLET.DR. PO SCH ×2 (06:20→08:17)
--- NOTE | 2018-11-13 06:25 | EKG ---
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
[2018-11-13 07:00] VITALS: BP 154/68
[2018-11-13] MEDS ORDERED: CLOPIDOGREL BISULFATE 75 MG TABLET PO SCH (08:00)
[2018-11-13] MEDS: POTASSIUM CHLORIDE 10 MEQ TABLET.ER. PO SCH ×2 (08:16→17:09)
[2018-11-13] MEDS: CARVEDILOL 6.25 MG TABLET. PO SCH ×2 (08:16→17:08)
[2018-11-13] MEDS: FUROSEMIDE 40 MG TABLET. PO SCH (08:16)
[2018-11-13] MEDS: ASPIRIN ENTERIC COATED 325 MG TABLET.DR. PO SCH (08:17)
[2018-11-13] MEDS: RANOLAZINE 500 MG TAB.ER.12H PO SCH ×2 (08:17→21:49)
[2018-11-13] MEDS: DIGOXIN 125 MCG TABLET. PO SCH (08:17)
[2018-11-13] MEDS: CLOPIDOGREL BISULFATE 75 MG TABLET PO SCH (09:00)
[2018-11-13] MEDS: PROPAFENONE 150 MG TABLET. PO SCH ×2 (09:35→21:50)
[2018-11-13 10:43] LABS: % EOS 3 % (0-5); % LYMPHS 11 % (24-48); % MONOS 14 % (0-10); % SEGS 72 % (35-66)
[2018-11-13 10:44] LABS: ANISOCYTOSIS SLIGHT; HYPOCHROMIA MARKED; MICROCYTOSIS MARKED; PLT ESTIMATE ADEQUATE (ADEQUATE)
[2018-11-13 10:45] LABS: ACANTHOCYTES PRESENT; POIKILOCYTOSIS PRESENT; SCHISTOCYTES FEW
[2018-11-13 11:00] VITALS: BP 138/65
--- NOTE | 2018-11-13 11:15 | NUR ---
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 Pt to be in contact precautions.
--- NOTE | 2018-11-13 12:51 | PDOC ---
CARDIO Progress Notes Date and Time Date of Service 11/13/18 Time of Evaluation 1145 Subjective Subjective: No Chest Pain, No shortness of breath, No Palpitations Vitals Vitals Vital Signs Date Time Temp Pulse Resp B/P (MAP) Pulse Ox O2 Delivery O2 Flow Rate FiO2 11/13/18 11:00 98.0 64 18 138/65 (89) 95 Room Air 98.0 11/12/18 14:30 2.0 Weight Weight [ ] Input and Output Intake and Output Intake and Output 11/13/18 06:59 Intake Total 830 ml Balance 830 ml Intake Oral 830 ml # Voids 3 Laboratory Labs Laboratory Tests Test 11/13/18 04:30 White Blood Count 5.9 x10^3/uL (4.0-11.0) Red Blood Count 3.80 x10^6/uL (3.50-5.40) Hemoglobin 7.1 g/dL (12.0-15.5) Hematocrit 23.2 % (36.0-47.0) Mean Corpuscular Volume 61 fL (79-100) Mean Corpuscular Hemoglobin 19 pg (25-35) Mean Corpuscular Hemoglobin Concent 31 g/dL (31-37) Red Cell Distribution Width 18.6 % (11.5-14.5) Platelet Count 330 x10^3/uL (140-400) Neutrophils (%) (Auto) 49 % (31-73) Lymphocytes (%) (Auto) 40 % (24-48) Monocytes (%) (Auto) 8 % (0-9) Eosinophils (%) (Auto) 2 % (0-3) Basophils (%) (Auto) 1 % (0-3) Neutrophils # (Auto) 2.9 x10^3uL (1.8-7.7) Lymphocytes # (Auto) 2.4 x10^3/uL (1.0-4.8) Monocytes # (Auto) 0.5 x10^3/uL (0.0-1.1) Eosinophils # (Auto) 0.1 x10^3/uL (0.0-0.7) Basophils # (Auto) 0.0 x10^3/uL (0.0-0.2) Segmented Neutrophils % 72 % (35-66) Lymphocytes % 11 % (24-48) Monocytes % 14 % (0-10) Eosinophils % 3 % (0-5) Platelet Estimate Adequate (ADEQUATE) Hypochromasia Marked Poikilocytosis Present Anisocytosis Slight Microcytosis Marked Acanthocytes Present Schistocytes Few Sodium Level 134 mmol/L (136-145) Potassium Level 4.4 mmol/L (3.5-5.1) Chloride Level 98 mmol/L (98-107) Carbon Dioxide Level 25 mmol/L (21-32) Anion Gap 11 (6-14) Blood Urea Nitrogen 17 mg/dL (7-20) Creatinine 0.9 mg/dL (0.6-1.0) Estimated GFR (Cockcroft-Gault) 59.8 Glucose Level 147 mg/dL (70-99) Calcium Level 8.4 mg/dL (8.5-10.1) Triglycerides Level 86 mg/dL (0-150) Cholesterol Level 132 mg/dL (0-200) LDL Cholesterol, Calculated 71 mg/dL (0-100) VLDL Cholesterol, Calculated 17 mg/dL (0-40) Non-HDL Cholesterol Calculated 88 mg/dL (0-129) HDL Cholesterol 44 mg/dL (40-60) Cholesterol/HDL Ratio 3.0 Physical Exam HEENT: Neck Supple W Full Motion Chest: Symmetric LUNGS: Clear to Auscultation Heart: S1S2, RRR Abdomen: Soft N/T Extremities: Other (right LE 1+ pitting edema. right groin arteriotomy site soft, clean, and dry. No hematoma present. Neurovascular status intact) Neurology: alert, oriented, follow commands Assessment Assessment 1. CAD s/p PCI/BMS to LAD. Tolerated procedure well. No acute events overnight on tele. 2. PAFIB; maintaining SR. On propafenone for rhythm maintenance 3. Chronic systolic heart failure; compensated 4. ICM; LVEF 45% 5. SSS s/p PPM 6. Hypertension; controlled 7. Iron deficiency anemia; pervious transfusions. hgb now 7.1. Normally in 9.0 range per review. Unable to take oral iron as it makes her sick 8. Right lower extremity edema, pain; has been present since 08/2018. Recommendations Monitor hgb overnight. Recheck labs in am. Transfuse if hgb <7.0 Secondary prevention measures including DAPT with ASA and Plavix Continue BB, add statin RLE US to r/o DVT Cardiac rehab referral. ANAHI MIN APRN Nov 13, 2018 12:51
--- NOTE | 2018-11-13 13:54 | NUR ---
SS following for discharge planning. SS reviewed pt chart. Pt is from home with spouse and is currently on room air. No discharge needs noted at this time. SS will continue to follow for pending discharge needs.
[2018-11-13 15:00] VITALS: BP 158/67
--- NOTE | 2018-11-13 19:21 | RAD ---
MR#: [id number] Date of Study: 11/13/2018 Ordering Physician: ANAHI MIN, Referring Physician: RAPHAEL HOLT, Tech: Rosalind Porter RDMS RVT APPROVED REPORT Right Lower Extremity Venous Study for DVT Patient Location: IN-PATIENT Indications Lower Extremity Pain: Right Lower Extremity Edema: Right Findings The right lower extremity deep veins were evaluated for thrombus with color Doppler, spectral and gra yscale images. On the right the grayscale images of the common femoral, superficial femoral and popliteal veins do n ot demonstrate any evidence of thrombus and these veins appear to be compressible. The below-knee vei ns were not well visualized but grossly appear to be compressible. Spectral imaging and color Doppler do not reveal any evidence of obstruction to flow with normal respirophasic variation above the knee . Below the knee there is spontaneous flow noted. Critical Notification Critical Value: No <Conclusion> 1. No evidence of DVT in the RLE Signed by : Bartolo Fernandez, Electronically Approved : 11/13/2018 19:21:15
[2018-11-13 19:30] VITALS: BP 119/65
[2018-11-13] MEDS ORDERED: ATORVASTATIN CALCIUM 40 MG TABLET. PO SCH (21:00)
[2018-11-13] MEDS: clonazePAM 0.5 MG TABLET PO SCH (21:49)
[2018-11-13 23:25] VITALS: BP 143/48
[2018-11-14 02:26] VITALS: BP 139/95
[2018-11-14 04:38] LABS: BASO # 0.1 x10^3/uL (0.0-0.2); BASO % 1 % (0-3); EOS # 0.1 x10^3/uL (0.0-0.7); EOS % 2 % (0-3); HEMATOCRIT 23.4 % (36.0-47.0); HEMOGLOBIN 7.1 g/dL (12.0-15.5); LYMPH # 2.7 x10^3/uL (1.0-4.8); LYMPH % 40 % (24-48); MEAN CORPUSCULAR HEMOGLOBIN 19 pg (25-35); MEAN CORPUSCULAR HGB CONC 30 g/dL (31-37); MEAN CORPUSCULAR VOLUME 61 fL (79-100); MONO # 0.7 x10^3/uL (0.0-1.1); MONO % 10 % (0-9); NEUT # 3.3 x10^3uL (1.8-7.7); NEUT % 48 % (31-73); PLATELET COUNT 339 x10^3/uL (140-400); RED BLOOD COUNT 3.82 x10^6/uL (3.50-5.40); RED CELL DISTRIBUTION WIDTH 18.1 % (11.5-14.5); WHITE BLOOD COUNT 6.8 x10^3/uL (4.0-11.0)
[2018-11-14 04:45] LABS: CALCIUM 8.3 mg/dL (8.5-10.1); CREATININE 0.9 mg/dL (0.6-1.0); GFR 59.8; POTASSIUM 4.3 mmol/L (3.5-5.1)
[2018-11-14 07:00] VITALS: BP 168/70
[2018-11-14] MEDS: ASPIRIN ENTERIC COATED 325 MG TABLET.DR. PO SCH (08:36)
[2018-11-14] MEDS: FUROSEMIDE 40 MG TABLET. PO SCH (08:36)
[2018-11-14] MEDS: POTASSIUM CHLORIDE 10 MEQ TABLET.ER. PO SCH (08:37)
[2018-11-14] MEDS: CARVEDILOL 6.25 MG TABLET. PO SCH (08:37)
[2018-11-14] MEDS: DIGOXIN 125 MCG TABLET. PO SCH (08:38)
[2018-11-14] MEDS: PANTOPRAZOLE 40 MG TABLET.DR. PO SCH (08:38)
[2018-11-14] MEDS: RANOLAZINE 500 MG TAB.ER.12H PO SCH (08:39)
[2018-11-14] MEDS: PROPAFENONE 150 MG TABLET. PO SCH (08:40)
--- NOTE | 2018-11-14 09:31 | DISCH ---
DISCHARGE INSTRUCTIONS Condition on Discharge Condition on Discharge: Stable Activity After Discharge Activity Instructions for Disc: No restrictions Bathing Instructions: Shower-keep dressing dry (May shower, no tub baths. ) Lifting Instructions after Dis: No heavy lifting, No pulling or pushing, Do not lift >10 pounds Exercise Instruction after Dis: Progress as tolerated Driving Instructions after Dis: Other, see below Weight Bearing Status after Di: Full weight bearing Diet after Discharge Diet after Discharge: Cardiac, No Added Salt Diet Texture: Regular Liquid Texture: Thin Liquid Swallowing Supervision: None needed Wound Incision Care Wound/Incision Care: Keep wound/cast CDI (Keep right groin cath site clean and dry) Contacting the DRReva after DC Call your doctor for: Concerns you may have Treatment/Equipment after DC Adaptive Equipment Issued: None ANAHI MIN APRN Nov 14, 2018 09:31
--- NOTE | 2018-11-14 09:35 | PDOC3 ---
Discharge Summary Visit Information Date of Admission: Nov 12, 2018 Date of Discharge: Nov 14, 2018 Admitting Diagnosis: CAD, abnormal MPI Final Diagnosis CAD Brief Hospital Course Allergies Allergies Coded Allergies Type Severity Reaction Last Updated Verified acyclovir Allergy Intermediate Itching 01/13/18 Yes amitriptyline Allergy Intermediate Itching 01/13/18 Yes amlodipine Allergy Intermediate Itching 01/13/18 Yes atenolol Allergy Intermediate Itching 01/13/18 Yes fentanyl Allergy Intermediate Itching 01/13/18 Yes lisinopril Allergy Intermediate Itching 01/13/18 Yes tramadol Allergy Intermediate Itching 01/13/18 Yes warfarin Allergy Intermediate 01/13/18 Yes I S O L A T I O N *CONTACT* Allergy Unknown 01/14/18 Yes codeine Adverse Reaction Intermediate Nausea and Vomiting 01/13/18 Yes hydromorphone Adverse Reaction Intermediate Nausea and Vomiting 01/13/18 Yes Vital Signs Vital Signs Date Time Temp Pulse Resp B/P (MAP) Pulse Ox O2 Delivery O2 Flow Rate FiO2 11/14/18 08:40 83 168/70 11/14/18 07:00 97.4 18 93 Room Air 97.4 11/13/18 17:34 2.0 Lab Results Laboratory Tests Test 11/13/18 04:30 11/14/18 04:30 White Blood Count 5.9 x10^3/uL (4.0-11.0) 6.8 x10^3/uL (4.0-11.0) Red Blood Count 3.80 x10^6/uL (3.50-5.40) 3.82 x10^6/uL (3.50-5.40) Hemoglobin 7.1 g/dL (12.0-15.5) 7.1 g/dL (12.0-15.5) Hematocrit 23.2 % (36.0-47.0) 23.4 % (36.0-47.0) Mean Corpuscular Volume 61 fL (79-100) 61 fL (79-100) Mean Corpuscular Hemoglobin 19 pg (25-35) 19 pg (25-35) Mean Corpuscular Hemoglobin Concent 31 g/dL (31-37) 30 g/dL (31-37) Red Cell Distribution Width 18.6 % (11.5-14.5) 18.1 % (11.5-14.5) Platelet Count 330 x10^3/uL (140-400) 339 x10^3/uL (140-400) Neutrophils (%) (Auto) 49 % (31-73) 48 % (31-73) Lymphocytes (%) (Auto) 40 % (24-48) 40 % (24-48) Monocytes (%) (Auto) 8 % (0-9) 10 % (0-9) Eosinophils (%) (Auto) 2 % (0-3) 2 % (0-3) Basophils (%) (Auto) 1 % (0-3) 1 % (0-3) Neutrophils # (Auto) 2.9 x10^3uL (1.8-7.7) 3.3 x10^3uL (1.8-7.7) Lymphocytes # (Auto) 2.4 x10^3/uL (1.0-4.8) 2.7 x10^3/uL (1.0-4.8) Monocytes # (Auto) 0.5 x10^3/uL (0.0-1.1) 0.7 x10^3/uL (0.0-1.1) Eosinophils # (Auto) 0.1 x10^3/uL (0.0-0.7) 0.1 x10^3/uL (0.0-0.7) Basophils # (Auto) 0.0 x10^3/uL (0.0-0.2) 0.1 x10^3/uL (0.0-0.2) Segmented Neutrophils % 72 % (35-66) Lymphocytes % 11 % (24-48) Monocytes % 14 % (0-10) Eosinophils % 3 % (0-5) Platelet Estimate Adequate (ADEQUATE) Hypochromasia Marked Poikilocytosis Present Anisocytosis Slight Microcytosis Marked Acanthocytes Present Schistocytes Few Sodium Level 134 mmol/L (136-145) 136 mmol/L (136-145) Potassium Level 4.4 mmol/L (3.5-5.1) 4.3 mmol/L (3.5-5.1) Chloride Level 98 mmol/L (98-107) 99 mmol/L (98-107) Carbon Dioxide Level 25 mmol/L (21-32) 27 mmol/L (21-32) Anion Gap 11 (6-14) 10 (6-14) Blood Urea Nitrogen 17 mg/dL (7-20) 20 mg/dL (7-20) Creatinine 0.9 mg/dL (0.6-1.0) 0.9 mg/dL (0.6-1.0) Estimated GFR (Cockcroft-Gault) 59.8 59.8 Glucose Level 147 mg/dL (70-99) 114 mg/dL (70-99) Calcium Level 8.4 mg/dL (8.5-10.1) 8.3 mg/dL (8.5-10.1) Triglycerides Level 86 mg/dL (0-150) Cholesterol Level 132 mg/dL (0-200) LDL Cholesterol, Calculated 71 mg/dL (0-100) VLDL Cholesterol, Calculated 17 mg/dL (0-40) Non-HDL Cholesterol Calculated 88 mg/dL (0-129) HDL Cholesterol 44 mg/dL (40-60) Cholesterol/HDL Ratio 3.0 Laboratory Tests Test 11/14/18 04:30 White Blood Count 6.8 x10^3/uL (4.0-11.0) Red Blood Count 3.82 x10^6/uL (3.50-5.40) Hemoglobin 7.1 g/dL (12.0-15.5) Hematocrit 23.4 % (36.0-47.0) Mean Corpuscular Volume 61 fL (79-100) Mean Corpuscular Hemoglobin 19 pg (25-35) Mean Corpuscular Hemoglobin Concent 30 g/dL (31-37) Red Cell Distribution Width 18.1 % (11.5-14.5) Platelet Count 339 x10^3/uL (140-400) Neutrophils (%) (Auto) 48 % (31-73) Lymphocytes (%) (Auto) 40 % (24-48) Monocytes (%) (Auto) 10 % (0-9) Eosinophils (%) (Auto) 2 % (0-3) Basophils (%) (Auto) 1 % (0-3) Neutrophils # (Auto) 3.3 x10^3uL (1.8-7.7) Lymphocytes # (Auto) 2.7 x10^3/uL (1.0-4.8) Monocytes # (Auto) 0.7 x10^3/uL (0.0-1.1) Eosinophils # (Auto) 0.1 x10^3/uL (0.0-0.7) Basophils # (Auto) 0.1 x10^3/uL (0.0-0.2) Sodium Level 136 mmol/L (136-145) Potassium Level 4.3 mmol/L (3.5-5.1) Chloride Level 99 mmol/L (98-107) Carbon Dioxide Level 27 mmol/L (21-32) Anion Gap 10 (6-14) Blood Urea Nitrogen 20 mg/dL (7-20) Creatinine 0.9 mg/dL (0.6-1.0) Estimated GFR (Cockcroft-Gault) 59.8 Glucose Level 114 mg/dL (70-99) Calcium Level 8.3 mg/dL (8.5-10.1) Brief Hospital Course Ms. Matute is a 83 old female, with a history of coronary artery disease s/ p PCI/stent to the LAD, hypertension, congestive heart failure, atrial fibrillation, pacemaker implantation, and iron deficiency anemia, who presented to our office with complaints of atypical chest pain. Patient underwent Regadenoson cardioisotope stress test, which did not show any significant perfusion defects but there was transient ischemic dilatation of 1.63 that could indicate balanced ischemia/multivessel disease. Due to these findings recurrent episodes of chest pain, cardiac catheterization was discussed for definitive evaluation. Risk, benefits, and alternative were discussed and patient agreed to proceed. Patient underwent coronary angiogram, which revealed severe single-vessel coronary disease in the LAD, very small nondominant right coronary artery with a mid 70% lesion and a more distal 85% lesion, which will be treated medically due to its small size. There was also moderate disease in the left circumflex. IFR measurements were within normal limits. Patient underwent PCI/bare-metal stent placement 2 with a 0% residual lesion. Patient tolerated procedure will and was monitored overnight without any complications. Routine labs the following note a hemoglobin of 7.1, which was down from 8.2 the morning prior. No obvious signs or symptoms of bleeding. Right groin arteriotomy site was soft, clean, and dry. No hematoma present. Neurovascular status was intact. Patient also complained of right calf pain and had swelling in the right lower extremity. With concerns for DVT, patient underwent venous ultrasound, which did not reveal any acute abnormalities. Due to concerns for possible need for blood transfusion, patient was kept overnight with followup labs. Hemiglobin was stable at 7.1, so patient was discharged the following morning. Discharge instruction were review and patient verbalized an understanding. Patient was instructed to resume oral iron supplement and follow up with her primary care physician within one week. Discharge Information Condition at Discharge: Stable Follow Up: Weeks (4 weeks. 12/16/18 @ 2:15 pm.) Disposition/Orders: D/C to Home Scheduled Aspirin (Aspirin) 81 Mg Tab.chew, 1 TAB PO DAILY for heart, #30 Ref 3 (Reported) Entered as Reported by: JASE NORIEGA on 01/03/16215 Last Taken: Unknown Dose on 11/11/18 Last Action: Last Taken Edited on 911 by KEY CONTEH Atorvastatin Calcium (Atorvastatin Calcium) 40 Mg Tablet, 40 MG PO QHS for cholesterol for 30 Days, #30 Ref 2 Prescribed by: ANAHI MIN APRN on 11/14/18942 Carvedilol (Coreg ) 6.25 Mg Tablet, 6.25 MG PO BIDWMEALS for CARDIAC, ( Reported) Entered as Reported by: Hernan Eisenberg on 08/29/181938 Last Taken: Unknown Dose on 11/12/18 Last Action: Continued on 11/12/181500 by KAILEE SYED Cholecalciferol (Vitamin D3) (Vitamin D-3) 2,000 Unit Capsule, 2,000 UNIT PO DAILY, (Reported) Entered as Reported by: JASE NORIEGA on 01/03/16215 Last Taken: Unknown Dose on 11/11/18 Last Action: Last Taken Edited on 911 by KEY CONTEH Clonazepam (Clonazepam) 0.5 Mg Tablet, 1 TAB PO HS for ANXIETY, #30 (Reported) Entered as Reported by: JASE NORIEGA on 01/03/16215 Last Taken: Unknown Dose on 11/11/18 Last Action: Continued on 11/12/18 150 by KAILEE SYED Clopidogrel Bisulfate (Clopidogrel) 75 Mg Tablet, 1 TAB PO DAILY for afib, #90 Ref 1 (Reported) Entered as Reported by: Hernan Eisenberg on 08/29/181938 Last Taken: Unknown Dose on 11/11/18 Last Action: Continued on 11/12/18 1501 by KAILEE SYED Cranberry Extract (Cranberry) 500 Mg Capsule, 500 MG PO DAILY for supplement, ( Reported) Entered as Reported by: JASE NORIEGA on 01/03/16215 Last Taken: Unknown Dose on 11/11/18 Last Action: Last Taken Edited on 911 by KEY CONTEH Cyanocobalamin (Vitamin B-12) (B-12) 1,000 Mcg Tablet, 1,000 MCG PO DAILY for supplement, (Reported) Entered as Reported by: KEY CONTEH on 11/12/18911 Last Taken: Unknown Dose on 11/11/18 Last Action: New Order on 11/12/18911 by KEY CONTEH Digoxin (Lanoxin) 125 Mcg Tablet, 125 MCG PO DAILY, #30 Ref 3 Prescribed by: Memo Morris on 10/22/16 1024 Last Taken: Unknown Dose on 11/12/18 Last Action: Continued on 11/12/18 1501 by KAILEE SYED Fluticasone Propionate (Flonase Allergy Relief) 9.9 Ml [place].susp, 2 SPRAYS NS DAILY for allergy, (Reported) Entered as Reported by: KAILEE RODRIGUEZ on 08/03/18 1510 Last Taken: Unknown Dose on 11/11/18 Last Action: Last Taken Edited on 911 by KEY CONTEH Furosemide (Furosemide) 40 Mg Tablet, 1 TAB PO DAILY for edema, #90 Ref 3 ( Reported) Entered as Reported by: KAILEE RODRIGUEZ on 08/03/18 1510 Last Taken: Unknown Dose on 11/11/18 Last Action: Continued on 11/12/18 150 by KAILEE SYED Loratadine (Claritin) 10 Mg Tablet, 1 TAB PO DAILY, #30 Ref 5 (Reported) Entered as Reported by: JJ EISENBERG on 01/08/18 1354 Last Taken: Unknown Dose on 11/11/18 Last Action: Last Taken Edited on 911 by KEY CONTEH Multivit With Calcium,Iron,Min (Women's Daily Multivitamin) 1 Each Tablet, 1 EACH PO DAILY for supplement, (Reported) Entered as Reported by: JASE NORIEGA on 01/03/16215 Last Taken: Unknown Dose on 11/11/18 Last Action: Last Taken Edited on 911 by KEY CONTEH [place]-3 Fatty Acids/Fish Oil ([place] 3 Fish Oil Softgel) 1 Each Capsule.dr, 1 EACH PO DAILY for supplement, (Reported) Entered as Reported by: KEY CONTEH on 11/12/18911 Last Taken: Unknown Dose on 11/11/18 Last Action: New Order on 11/12/18911 by KEY CONTEH Omeprazole (Omeprazole) 40 Mg Capsule.dr, 40 MG PO BID for gerd, (Reported) Entered as Reported by: KAILEE RODRIGUEZ on 08/03/181509 Last Taken: Unknown Dose on 11/11/18 Last Action: Converted on 11/12/181500 by KAILEE SYED Potassium Chloride (Potassium Chloride) 10 Meq Capsule.er, 1 CAP PO BID for supplement, #90 Ref 1 (Reported) Entered as Reported by: JASE NORIEGA on 01/03/16215 Last Taken: Unknown Dose on 11/11/18 Last Action: Continued on 11/12/18 150 by KAILEE SYED Propafenone Hcl (Propafenone Hcl) 150 Mg Tablet, 0.5 TAB PO BID for hypertension , (Reported) Entered as Reported by: Hernan Eisenberg on 08/29/181938 Last Taken: Unknown Dose on 11/11/18 Last Action: Converted on 11/12/181500 by KAILEE SYED Ranolazine (Ranexa) 500 Mg Tab.er.12h, 1 TAB PO BID for v, #60 Ref 3 (Reported) Entered as Reported by: KAILEE RODRIGUEZ on 08/03/181509 Last Taken: Unknown Dose on 11/11/18 Last Action: Continued on 11/12/18 150 by KAILEE SYED Vit A/Vit C/Vit E/Zinc/Copper (Preservision Areds Tablet) 1 Each Tablet, 1 EACH PO DAILY for supplement, (Reported) Entered as Reported by: JASE NORIEGA on 01/03/16215 Last Taken: Unknown Dose on 11/11/18 Last Action: Last Taken Edited on 911 by KEY CONTEH Scheduled PRN Ondansetron (Ondansetron Odt) 4 Mg Tab.rapdis, 4 MG PO TID PRN PRN for NAUSEA, ( Reported) Entered as Reported by: KAILEE RODRIGUEZ on 08/03/18 6260 Patient Instructions Patient Instructions GENERAL INSTRUCTIONS: 1. Your dressing should be removed prior to leaving the hospital. 2. It is OK to shower the day after your procedure. 3. If you received stents, be sure to carry your stent information card with you in your wallet/purse at all times. 4. Call the office immediately at [phone] if you notice any fever or if there is redness, worsening tenderness/pain, increased bruising, or drainage from the puncture site. 5. Should you have bleeding from the site, lie down immediately & put pressure on the site. The pressure should be hard enough to stop the bleeding. Have the nearest person call 911. DO NOT try to drive to the ER with active bleeding. 6. If you notice a change in color, coolness to touch, or loss of feeling in the affected extremity, come to the emergency room. Please have someone drive you or call 911 if no one is available. DO NOT drive yourself. 7. If you normally take glucophage (metformin), please do not take this medicine for 48 hours following your procedure. 8. DO NOT STOP TAKING YOUR PLAVIX OR ASPIRIN UNLESS IT IS CLEARED BY A BLANKET WEAVER OF YOUR ORNAMENTAL IRON WORKER AT OUR OFFICE. 9. QUIT SMOKING: the [place] [employer], [employer] [employer], & [place] [employer] have cessation resources available on their websites 10. Please have someone available to drive you home from the hospital as you may be limited by sedation medications given during the procedure. Femoral (Groin) access: 1. Do no lifting, pushing, pulling, bending, stooping, or recurrent stair climbing for 3 days following your procedure. 2. Once past the first 3 days, do not do any HEAVY exertion or lifting for one week following the procedure. No gym workouts, running, lifting greater than a gallon of milk, etc 3. Do not submerge in bath or pool for one week. OK to drive 3 days following your procedure, but if going long distance, do not go alone & take hourly breaks to get out of car and walk around. Radial Artery (Wrist) access: 1. No pushing, pulling, lifting, typing, or anything that requires repetitive use/movement of the affected wrist for 3 days following your procedure. 2. OK to drive the day following your procedure. (This is because of effects of sedating medications.) Call the office at [phone] for any questions or concerns. ANAHI MIN APRN Nov 14, 2018 09:35
[2018-11-14] MEDS: CLOPIDOGREL BISULFATE 75 MG TABLET PO SCH (09:36)
--- NOTE | 2018-11-14 09:37 | PDOC ---
Core Measures: STEMI/NSTEMI Preference Ernesto: ASA on Arrival: No (NA- outpatient cardiac cath) ASA on Discharge: Yes Discharge Beta Gregory: No (Allergy to BB) Discharge KEISHA-I/ARB: No (Allergy to ACEi) Discharge statin: Yes Smoking cessation counseling: No (NA) Cardiac rehabilitation: Yes Eval of LV Systolic Function: Yes (LVEF 45%) ANAHI MIN APRN Nov 14, 2018 09:37
[2018-11-14] MEDS ORDERED: ATOR40TA59 PO (09:43)
[2018-11-14 11:00] VITALS: BP 153/65
--- NOTE | 2018-11-14 13:38 | NUR ---
Discharge Note: MARCIN SMITH [address] [place] [address] Discharge instructions and discharge home medications reviewed with Patient and a copy given. All questions have been answered and understanding verbalized. The following instructions and handouts were given: Coronary Anigiography with stent after care Discontinued IV Patient discharged to home with self care via wheelchair
== END 2018-11-14 13:43 | disposition home or self-care (01) ==
LOC: CCL 08:45 → INTOOBSV 12:30 → 2 SOUTH 12:30
PROVIDERS: ADMIT Internal Medicine Cardiovascular Disease; ATTEND Internal Medicine Cardiovascular Disease
DX: I25.10 Atherosclerotic heart disease of native coronary artery without angina pectoris (principal); R07.89 Other chest pain; I11.0 Hypertensive heart disease with heart failure; I50.9 Heart failure, unspecified; D50.9 Iron deficiency anemia, unspecified; I25.2 Old myocardial infarction; Z95.0 Presence of cardiac pacemaker; I48.91 Unspecified atrial fibrillation; K21.9 Gastro-esophageal reflux disease without esophagitis; M54.9 Dorsalgia, unspecified; M19.90 Unspecified osteoarthritis, unspecified site; K44.9 Diaphragmatic hernia without obstruction or gangrene; Z85.3 Personal history of malignant neoplasm of breast; Z90.710 Acquired absence of both cervix and uterus; Z98.890 Other specified postprocedural states; M79.661 Pain in right lower leg; M79.89 Other specified soft tissue disorders
CPT/HCPCS: 36415; 80048; 80061; 85007; 85025; 85027; 85610; 92928; 93005; 93458; 93571; 93971; 96374; 96375; 96376; C1725; C1769; C1771; C1877; C1887; G0269; G0378; G0379; J0583; J1644; J2250; J2270; J2405; J7030; Q9967; 37252; 99152; 99153; C1760

== ENCOUNTER → 2018-12-29 | Outpatient (CLI) | payer MEDICARE ==
[~2018-12-29] MED LIST changes: +ATOR40TA59 PO; +CYAN100072 PO; +HYDR-3164 PO; +OMEG1CAP38 PO
--- NOTE | 2018-12-29 16:05 | KCIC ---
ABDOMEN COMPLETE History: Abdominal mass, midline hernia surgery about 9 years ago Comparison: None. Findings: Multiple sonographic images of the abdomen are submitted. Pancreas is not well-visualized due to bowel gas. There is coarsening of the hepatic echotexture. Right lobe of liver measured about 13.4 cm longitudinal. Abdominal aortic caliber is within normal limits up to about 1.9 cm proximally. There has been cholecystectomy. Common bile duct measures about 0.9 cm in caliber. Right kidney measured 100.4 x 3.5 x 4.6 cm. Left kidney measured 10.1 x 4.4 x 4.3 cm. There is no hydronephrosis of either kidney. Spleen is poorly visualized, estimated about 8.2 cm in length. At the area of lump near the surgical site at midline, there is vague focus of hypoechogenicity and shadowing, no discrete fluid collection or definitive bowel. Impression: 1. There is a vague focus of hypoechogenicity and shadowing at site of surgery which may be due to fibrotic change, no defined fluid collection or bowel containing hernia. 2. Common bile duct can be considered within normal limits given previous cholecystectomy and patient's age. 3. There is hepatic steatosis. Electronically signed by: Memo Alcala MD (12/29/2018 4:02 PM) [facility]
== END | disposition home or self-care (01) ==
LOC: KCIC US 11:50
PROVIDERS: ATTEND Physician Assistant
DX: K76.0 Fatty (change of) liver, not elsewhere classified (principal); R19.00 Intra-abdominal and pelvic swelling, mass and lump, unspecified site; Z90.49 Acquired absence of other specified parts of digestive tract
CPT/HCPCS: 76700

== ENCOUNTER 2019-01-01 04:07 | Emergency (ER) | payer MEDICARE ==
[~2019-01-01] VITALS: Ht 167.6 cm; Wt 57.2 kg
[~2019-01-01 04:07] MED LIST changes: -HYDR-3164 PO
[2019-01-01] MEDS ORDERED: HYDROcodone/APAP 5/325MG 1 TAB TABLET PO ONE (04:30)
[2019-01-01] MEDS ORDERED: ONDANSETRON ODT 4 MG TAB.RAPDIS. PO ONE (04:30)
--- NOTE | 2019-01-01 05:15 | RAD ---
CT cervical spine without contrast PQRS statement: CT scans at this facility use dose reduction including either automated exposure control, iterative reconstructions, and /or weight based radiation dosing via mA and kV modification when appropriate to reduce radiation dose to as low as reasonably achievable. HISTORY: Neck pain after fall. TECHNIQUE: Helical multiplanar reconstructed noncontrast CT imaging of the cervical spine was acquired. FINDINGS: Craniocervical junction intact. Cervical vertebral body height and alignment intact. 2 mm anterolisthesis C2 on C3 associated with facet arthritis. No fracture of the cervical spine. Cervical discectomy and interbody bone fusion C3-C4 through C6-C7, and cerclage wires C5-C7 and posterior lateral osseous fusion at C4-C7. Endplate osteophyte C3-C4 with spinal canal stenosis. At the C1 and C2 atlantodental joint there is marked joint capsular thickening which combined with C2 anterolisthesis contributes to severe canal stenosis between the joint capsule and the C1 lamina and likely increases the probability for spinal cord impingement. Lung apices and paraspinal tissues are unremarkable. IMPRESSION: No acute osseous injury of the cervical spine. Postsurgical changes as described above. Cervical disc disease and arthritic change most notably at the C1-C2 vertebral level with severe spinal canal stenosis as described above. Electronically signed by: Satinder Carpenter MD (01/01/2019 5:11 AM) [facility] [place]
[2019-01-01] MEDS ORDERED: HYDR-3164 PO (05:31)
--- NOTE | 2019-01-01 05:45 | PHYS DOC ---
Past Medical History Past Medical History: A-Fib, Cancer, CHF, Hypertension, HI, Other Additional Past Medical Histor: CARDIOMYOPATHY, OSTEOARTHRITIS, CHRONIC BACK PAIN,BOWEL OBSTRUCTION Past Surgical History: Pacemaker, Other Additional Past Surgical Histo: HERNIA REPAIR WITH MESH,SMALL BOWEL RESECTION, BILAT MASTECTOMY Alcohol Use: Rarely Drug Use: None Adult General Chief Complaint Chief Complaint: MECHANICAL FALL HPI HPI Patient is a 83 year old female is presenting with a chief complaint of neck pain and back pain apparently she had a mechanical fall she tripped she bumped the left side of her neck on the wall or a piece of furniture last week no loss of consciousness she has had progressive left lateral neck pain she woke up tonight with upper back pain it scared her she called 911 she has chronic shortness of breath no change recently no fever she has been taking Concord but she only has one left it did help her a little bit the pain was dull in nature. Review of Systems Review of Systems Constitutional: Denies fever or chills [] Respiratory: Cardiovascular: No additional information not addressed in HPI [] GI: Denies abdominal pain, nausea, vomiting, bloody stools or diarrhea [] Musculoskeletal: Integument: Denies rash or skin lesions [] Neurologic: Denies headache, focal weakness or sensory changes [] Endocrine: Denies polyuria or polydipsia [] All other systems were reviewed and found to be within normal limits, except as documented in this note. Current Medications Current Medications Current Medications Medications (Trade) Dose Ordered Sig/Zander Start Time Stop Time Status Last Admin Dose Admin Acetaminophen/ Hydrocodone Bitart (Lortab 5/325) 2 tab 1X ONCE 01/01/19 04:30 01/01/19 04:31 DC 01/01/19 04:57 2 TAB Ondansetron HCl (Zofran Odt) 4 mg 1X ONCE 01/01/19 04:30 01/01/19 04:31 DC 01/01/19 04:57 4 MG Allergies Allergies Allergies Coded Allergies Type Severity Reaction Last Updated Verified acyclovir Allergy Intermediate Itching 01/13/18 Yes amitriptyline Allergy Intermediate Itching 01/13/18 Yes amlodipine Allergy Intermediate Itching 01/13/18 Yes atenolol Allergy Intermediate Itching 01/13/18 Yes fentanyl Allergy Intermediate Itching 01/13/18 Yes lisinopril Allergy Intermediate Itching 01/13/18 Yes tramadol Allergy Intermediate Itching 01/13/18 Yes warfarin Allergy Intermediate 01/13/18 Yes I S O L A T I O N *CONTACT* Allergy Unknown 01/14/18 Yes codeine Adverse Reaction Intermediate Nausea and Vomiting 01/13/18 Yes hydromorphone Adverse Reaction Intermediate Nausea and Vomiting 01/13/18 Yes Physical Exam Physical Exam Constitutional: Well developed, well nourished, no acute distress, non-toxic appearance. [] HENT: Normocephalic, atraumatic, bilateral external ears normal, oropharynx moist, no oral exudates, nose normal. [] Eyes: PERRLA, EOMI, conjunctiva normal, no discharge. [] Neck: Patient is lateral neck tenderness in the C4-5 area and a very pinpoint location. There is mild tenderness to palpation noted there Cardiovascular:Heart rate regular rhythm, no murmur [] Lungs & Thorax: Decreased percent of the lung bases Abdomen: Bowel sounds normal, soft, no tenderness, no masses, no pulsatile masses. [] Skin: Warm, dry, no erythema, no rash. [] Back: There is midline tenderness at T4-5 area upper back Extremities: No tenderness, no cyanosis, no clubbing, ROM intact, 1+ edema bilaterally patient is improved from baseline Neurologic: Alert and oriented X 3, normal motor function, normal sensory function, no focal deficits noted. [] Psychologic: Affect normal, judgement normal, mood normal. [] Current Patient Data Vital Signs Vital Signs Date Time Temp Pulse Resp B/P (MAP) Pulse Ox O2 Delivery O2 Flow Rate FiO2 01/01/19 04:57 20 Room Air 01/01/19 04:15 98.6 98 157/83 (107) 99 98.6 EKG EKG [] Radiology/Procedures Radiology/Procedures []My read of the thoracic spine x-ray showed arthritis was no obvious fracture my read of the chest x-ray showed a stable appearing opacity at the left lung base probably a pleural effusion similar to prior Impressions: IMPRESSION: No acute osseous injury of the cervical spine. Postsurgical changes as described above. Cervical disc disease and arthritic change most notably at the C1-C2 vertebral level with severe spinal canal stenosis as described above. Electronically signed by: Satinder Carpenter MD (01/01/2019 5:11 AM) [facility] [place] DICTATED and SIGNED BY: SATINDER CARPENTER MD DATE: 01/01/19510 Course & Med Decision Making Course & Med Decision Making Pertinent Labs and Imaging studies reviewed. (See chart for details) []83-year-old female with a known history of prior cervical neck surgery congestive heart failure breast cancer multiple other medical problems who is presenting after mechanical fall with progressive upper neck and back pain 1 week there is reproducibility on examination CT of the neck was negative acute as noted above likely revealed thoracic spine was also negative patient was stable in the emergency room was given Concord with some improvement she was counseled on the risks of this medication short-term use only. At this point time she'll be discharged in stable condition apparently she is going to wait until sunrise to call her family member to come pick her up. No neurologic deficits noted Dragon Disclaimer Dragon Disclaimer This electronic medical record was generated, in whole or in part, using a voice recognition dictation system. Departure Departure Impression: Primary Impression: Neck pain Disposition: 01 HOME, SELF-CARE Condition: STABLE Patient Instructions: Strain-SportsMed Scripts Hydrocodone/Apap 5-325 (NORCO 5-325 TABLET) 1 Each Tablet 1-2 EACH PO PRN Q6HRS PRN for PAIN, #15 as needed for pain Prov: NELLY VELASQUEZ MD 01/01/19 NELLY VELASQUEZ MD Jan 01, 2019 05:45
[2019-01-01 07:30] VITALS: BP 133/58
--- NOTE | 2019-01-01 08:07 | RAD ---
Portable chest, 01/01/2019: HISTORY: Upper back pain after a fall Comparison is made to a study from 08/29/2018. Comparison is made to a study from 08/29/2018. A left-sided transvenous pacemaker remains in place with a single lead extending into the right ventricle. The heart is enlarged. The pulmonary vascularity is within normal limits. No pulmonary infiltrate is seen. There is no evidence of pleural fluid or pneumothorax. Postsurgical change is noted at the right shoulder. IMPRESSION: 1. Mild cardiomegaly. 2. No acute abnormality is detected. Electronically signed by: Shaq Jones MD (01/01/2019 8:04 AM) [facility]
--- NOTE | 2019-01-01 08:13 | RAD ---
Thoracic spine, 3 views, 01/01/2019: HISTORY: Fall, back pain The bony structures are demineralized. There are mild scattered marginal spurs. No thoracic fracture or subluxation is evident. Postsurgical changes are noted in the lower cervical spine. There is mild anterolisthesis at C2-3 as described on the current CT cervical spine exam. IMPRESSION: 1. Demineralization. 2. Scattered degenerative changes. 3. No acute thoracic spine abnormality is detected. Electronically signed by: Shaq Jones MD (01/01/2019 8:10 AM) [facility]
== END 2019-01-01 09:14 | disposition home or self-care (01) ==
LOC: ER 04:07
DX: M54.2 Cervicalgia (principal); M54.6 Pain in thoracic spine; G89.11 Acute pain due to trauma; G89.29 Other chronic pain; I11.0 Hypertensive heart disease with heart failure; I50.9 Heart failure, unspecified; I48.91 Unspecified atrial fibrillation; I25.2 Old myocardial infarction; Z95.0 Presence of cardiac pacemaker; Z98.890 Other specified postprocedural states; Z88.4 Allergy status to anesthetic agent; Z88.5 Allergy status to narcotic agent; Z91.041 Radiographic dye allergy status; Z88.6 Allergy status to analgesic agent; Z88.8 Allergy status to other drugs, medicaments and biological substances; W01.198A Fall on same level from slipping, tripping and stumbling with subsequent striking against other object, initial encounter; Y93.89 Activity, other specified; Y92.89 Other specified places as the place of occurrence of the external cause; Y99.8 Other external cause status
CPT/HCPCS: 71045; 72072; 72125; 99284; Q0162

== ENCOUNTER → 2019-01-09 | Outpatient (CLI) | payer MEDICARE ==
[2019-01-01 07:30] VITALS: BP 133/58
[~2019-01-09] MED LIST changes: +HYDR-3164 PO
[2019-01-09 14:45] LABS: BASO % 1 % (0-3); EOS % 1 % (0-3); HEMATOCRIT 36.3 % (36.0-47.0); HEMOGLOBIN 11.7 g/dL (12.0-15.5); LYMPH # 1.4 x10^3/uL (1.0-4.8); LYMPH % 22 % (24-48); MEAN CORPUSCULAR HEMOGLOBIN 26 pg (25-35); MEAN CORPUSCULAR HGB CONC 32 g/dL (31-37); MEAN CORPUSCULAR VOLUME 79 fL (79-100); MONO # 0.5 x10^3/uL (0.0-1.1); MONO % 8 % (0-9); NEUT # 4.4 x10^3uL (1.8-7.7); NEUT % 68 % (31-73); PLATELET COUNT 282 x10^3/uL (140-400); RED BLOOD COUNT 4.59 x10^6/uL (3.50-5.40); RED CELL DISTRIBUTION WIDTH 29.7 % (11.5-14.5); WHITE BLOOD COUNT 6.5 x10^3/uL (4.0-11.0)
[2019-01-09 15:26] LABS: HYPOCHROMIA SLIGHT; PLT ESTIMATE ADEQUATE (ADEQUATE)
[2019-01-09 15:27] LABS: ANISOCYTOSIS MOD; MICROCYTOSIS SLIGHT; POIKILOCYTOSIS SLIGHT; SCHISTOCYTES OCC; TARGET CELLS OCC
== END | disposition home or self-care (01) ==
LOC: LAB 14:15
PROVIDERS: ATTEND Internal Medicine Gastroenterology
DX: K62.5 Hemorrhage of anus and rectum (principal)
CPT/HCPCS: 36415; 85025

== ENCOUNTER → 2019-02-04 | Outpatient (CLI) | payer MEDICARE ==
[~2019-02-04] MED LIST changes: +CONTRAST GIVEN. MC PRN; +IOHEXOL 240 MG/ML 50ML VIAL. PO ONE; +IOHEXOL 300 MG/ML 100ML VIAL. IV ONE
--- NOTE | 2019-02-04 12:41 | RAD ---
CT of the abdomen and pelvis with contrast, 02/04/2019: HISTORY: Epigastric pain Multidetector CT imaging was performed following oral and IV administration of contrast. There is moderate generalized cardiomegaly. A transvenous pacing lead extends into the right ventricle. Coronary artery calcifications are present. The gallbladder is surgically absent. The common bile duct is mildly prominent compatible with the postcholecystectomy state. No pancreatic abnormality is detected. The spleen is of normal size. The right kidney is malrotated. There is mild renal cortical scarring, worse on the right. The kidneys show no evidence of obstruction. There is a 1.7 cm left adrenal nodule demonstrates an internal CT number of approximately 109 Hounsfield units on these postcontrast scans. It is unchanged since 08/04/2018. The right adrenal gland is unremarkable. There is moderate aortoiliac calcific plaquing. There is a surgical clip in the region of the proximal right renal artery. No abdominal or pelvic adenopathy is evident. The uterus appears be surgically absent. The cecum extends medially to the midline. There appears to be soft tissue thickening involving the colon near the level of the ileocecal valve. There is no evidence of bowel obstruction. A small amount of free fluid is present in the abdomen and pelvis. Moderate multilevel degenerative changes are present in the spine. There is streaky subcutaneous edema particularly in the flank regions and pelvis suggesting anasarca. IMPRESSION: 1. Probable mass involving the right colon near the ileocecal valve level. Correlation with colonoscopic findings is suggested. 2. Small volume of ascites. 3. Mild anasarca. 4. Stable left adrenal nodule. 5. Additional miscellaneous chronic findings as described above. PQRS Compliance Statement: One or more of the following individualized dose reduction techniques were utilized for this examination: 1. Automated exposure control 2. Adjustment of the mA and/or kV according to patient size 3. Use of iterative reconstruction technique Electronically signed by: Shaq Jones MD (02/04/2019 12:39 PM) [facility]
== END | disposition home or self-care (01) ==
LOC: CT 10:25
PROVIDERS: ATTEND Surgery
DX: E27.8 Other specified disorders of adrenal gland (principal); R18.8 Other ascites; I25.10 Atherosclerotic heart disease of native coronary artery without angina pectoris; M47.819 Spondylosis without myelopathy or radiculopathy, site unspecified; I11.0 Hypertensive heart disease with heart failure; I50.9 Heart failure, unspecified; I48.91 Unspecified atrial fibrillation; M19.90 Unspecified osteoarthritis, unspecified site; Z90.49 Acquired absence of other specified parts of digestive tract; Z90.722 Acquired absence of ovaries, bilateral; Z90.710 Acquired absence of both cervix and uterus; Z95.0 Presence of cardiac pacemaker; Z88.5 Allergy status to narcotic agent; Z88.8 Allergy status to other drugs, medicaments and biological substances; Z85.3 Personal history of malignant neoplasm of breast
CPT/HCPCS: 74177; Q9966; Q9967

== ENCOUNTER 2019-02-13 07:14 | Observation (INO) | payer MEDICARE ==
[2019-02-13] VITALS (14 sets, daily range): BP systolic 134–178; BP diastolic 65–87
[~2019-02-13] VITALS: Ht 157.5 cm; Wt 58.1 kg
[~2019-02-13 07:14] MED LIST changes: -CONTRAST GIVEN. MC PRN; -IOHEXOL 240 MG/ML 50ML VIAL. PO ONE; -IOHEXOL 300 MG/ML 100ML VIAL. IV ONE
[2019-02-13 07:47] LABS: HEMATOCRIT 38.7 % (36.0-47.0); HEMOGLOBIN 12.9 g/dL (12.0-15.5); RED BLOOD COUNT 4.52 x10^6/uL (3.50-5.40); RED CELL DISTRIBUTION WIDTH 15.2 % (11.5-14.5); WHITE BLOOD COUNT 5.5 x10^3/uL (4.0-11.0)
[2019-02-13] MEDS ORDERED: LIDOCAINE 1% Multi-Dose 20 ML VIAL. ONE (07:54)
[2019-02-13] MEDS ORDERED: IODIXANOL 320 MG/ML 100 ML VIAL. ONE (07:54)
[2019-02-13] MEDS ORDERED: HEPARIN for ARTERIAL LINE 1,500 ML ONE (07:54)
[2019-02-13 07:56] LABS: PROTHROMBIN TIME PATIENT 14.8 SEC (11.7-14.0)
[2019-02-13 08:04] LABS: CALCIUM 9.2 mg/dL (8.5-10.1); CREATININE 0.8 mg/dL (0.6-1.0); GFR 68.5; POTASSIUM 4.1 mmol/L (3.5-5.1)
[2019-02-13] MEDS ORDERED: MIDAZOLAM HCL/PF 2 MG/2 ML VIAL. ONE ×2 (08:11→09:11)
[2019-02-13] MEDS ORDERED: fentaNYL PF VIAL 100 MCG/2 ML VIAL ONE (08:11)
--- NOTE | 2019-02-13 08:47 | PDOC ---
MODERATE SEDATION ASSESSMENT RISKS/ALTERNATIVES Risks/Alternatives Risks and alternatives of this type of sedation and procedure discussed with: RISK/ALTERNATIVES: Patient H & P ON CHART H & P H & P on chart and reviewed for co-morbid conditions and appropriate labs. H&P ON CHART: Yes STATUS PREG STATUS ASSESSED: Yes MEDS/ALLERGIES REVIEWED Meds/Allergies Reviewed Medications and Allergies including time and route of recently administered narcotics and sedatives. MEDS/ALLERGIES REVIEWED: Yes ASA RATING ASA RATING: II AIRWAY ASSESSMENT Airway Assessment Airway patency, oral function limitations, presence of caps, crowns, dentures, partials, and ability to extend neck assessed. AIRWAY ASSESSMENT: Yes MALLAMPATI SCORE MALLAMPATI SCORE: II PRE-SEDATION ASSESSMENT PRE-SEDATION ASSESSMENT: Yes RAPHAEL HOLT MD February 13, 2019 08:47
[2019-02-13] MEDS ORDERED: MORPHINE SULFATE 10 MG/ML VIAL. ONE (08:56)
[2019-02-13] MEDS ORDERED: MORPHINE SULFATE 2 MG/ML VIAL. IV ONE (09:15)
[2019-02-13] MEDS ORDERED: MIDAZOLAM HCL/PF 2 MG/2 ML VIAL. IV ONE (09:15)
[2019-02-13] MEDS ORDERED: LIDOCAINE 1% Multi-Dose 20 ML VIAL. INJ ONE (09:15)
[2019-02-13] MEDS ORDERED: IODIXANOL 320 MG/ML 100 ML VIAL. IART ONE (09:15)
[2019-02-13] MEDS ORDERED: BIVALIRUDIN 250 MG VIAL. IV ONE ×2 (09:17→09:21)
[2019-02-13] MEDS ORDERED: IOHEXOL 300 MG/ML 100ML VIAL. ONE (09:36)
[2019-02-13] MEDS ORDERED: TICAGRELOR 90 MG TABLET. PO ONE (10:00)
[2019-02-13] MEDS ORDERED: IV NORMAL SALINE 1000ML BAG 1,000 ML IV SCH (10:08)
[2019-02-13] MEDS ORDERED: NITROGLYCERIN SUBLINGUAL 0.4 MG BOTTLE OF 25. SL PRN (10:15)
[2019-02-13] MEDS ORDERED: 0.9 % SODIUM CHLORIDE 10 ML DISP.SYRIN. IV PRN (10:15)
[2019-02-13] MEDS ORDERED: ACETAMINOPHEN 325 MG TABLET. PO PRN (10:15)
[2019-02-13] MEDS ORDERED: AMIODARONE 150 MG in IV DEXTROSE 5% 100ML 100 ML IV PRN (10:15)
[2019-02-13] MEDS ORDERED: ATROPINE 0.5 MG/5 ML DISP.SYRINGE. IV PRN (10:15)
[2019-02-13] MEDS ORDERED: LIDOCAINE 2% 100 MG/5 ML SYRINGE. IV PRN (10:15)
[2019-02-13] MEDS ORDERED: MORPHINE SULFATE 10 MG/ML VIAL. IV ONE (10:15)
--- NOTE | 2019-02-13 10:56 | NUR ---
right groin site continued to ooze , even with v-pad and pressure dressing in place. femstop applied to site , pressure upto 67 hgmm- no oozing, rt pedal pulse remains weak like it was prior to procedure and femstop application.
--- NOTE | 2019-02-13 11:15 | EKG ---
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
--- NOTE | 2019-02-13 13:12 | CARD ---
MR#: [id number] Date of Study: 02/13/2019 Ordering Physician: RAPHAEL RIVERA, Referring Physician: RAPHAEL RIVERA, Tech: Ra Robles, RT (R) APPROVED REPORT Procedures Left heart catheterization Selective coronary angiogram Balloon PTCA of restenosis of previously placed LAD stents. The patient is an 83-year-old female who had a catheterization 3 months ago that showed restenosis of the previously placed LAD stent. The procedure showed restenosis both in the proximal and distal por tion of the stent and the patient had overlapping bare metal stents placed both to to both locations. Patient's chest discomfort resolved but has recently returned. In the setting of recurrent chest di scomfort after resolution of chest discomfort post-stenting we recommended cardiac catheterization an d possible revascularization. Risks and benefits were discussed with the patient and she agreed to pr oceed. After informed consent was obtained the patient was brought to the heart catheterization lab. The are a of the right femoral artery was prepared the usual manner with Betadine, sterile draping and local anesthetic. An 18-gauge needle was used to enter the right femoral artery, a wire placed and a 6 Fren ch sheath placed over the wire. A 6 Azerbaijani JL4 diagnostic catheter was used to engage the left chandler ry system and sequential injections in various views were obtained. A 6 [place] Deni right diagnos tic catheter used to engage the right coronary artery and sequential injections in various views were obtained. A pigtail catheter was advanced to the ascending aorta and then the left ventricle. No lef t ventriculogram was performed. Pressures were obtained including pullback pressures. All exchanges w ere made over a J-wire. Review of the patient's images showed an unchanged angiogram except for reste nosis throughout the length of her LAD stents. This restenosis was up to 85-90%. We proceeded to milagro scularize the vessel. Angiomax as per protocol was administered. A 6 Azerbaijani JL4 guide was used to engage the left coronary system. The restenotic stents were crossed with a PT choice wire. Initial dilatations were with a 2.5 x 20 high pressure balloon with 6 inflations at 16 adan with a maximum pressure of with maximum time of 20 seconds. This greatly improved flow with at least was still some mild restenosis. A 2.75 x 12 high pressure balloon was then used for an additional 6 inflations at 17 adan for maximum time was 17 seconds across the length of the stent. Residual lesion following this was 10% or less. The balloon a nd wire were removed from the patient. The sheath was also removed. Injection of the sheath showed no rmal placement. The sheath was removed and sealed with an Angio-Seal product. The patient was moved t o the holding area in stable condition. Findings. Hemodynamics LV pressure of 132/80, 16. Aortic root pressure of 130/60. Coronaries. Left main. The left main was a normal-size vessel with a 10% distal lesion. Left anterior descending. The LAD had a mid 30% lesion. At the area of the previously placed stents t here was restenosis throughout the entire length of up to 90%. A small diagonal branch had a 90% lesi on. Left circumflex. The left circumflex is a dominant vessel. It had a proximal 30% lesion, a mid 50-60% lesion and a distal 40% lesion. IFR on the mid lesion was normal 3 months ago and the appearance is unchanged. Right coronary artery. Right coronary is a nondominant relatively small vessel. It has a mid 70% and a distal 85% lesion. A right ventricular branch has an 85% lesion. 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 Successful balloon angioplasty of the restenotic areas decreasing them to less than 10%. Moderate disease in the left circumflex system which is unchanged from an angiogram of 3 months ago. Diffuse disease in the small nondominant right coronary artery also not significantly changed from 3 months ago. Signed by : Raphael Rivera MD Electronically Approved : 02/13/2019 13:11:44
[2019-02-13] MEDS ORDERED: ONDANSETRON ODT 4 MG TAB.RAPDIS. PO PRN (15:30)
--- NOTE | 2019-02-13 16:12 | EKG ---
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
[2019-02-13] MEDS: PANTOPRAZOLE 40 MG TABLET.DR. PO SCH (16:46)
[2019-02-13] MEDS: CARVEDILOL 6.25 MG TABLET. PO SCH (16:47)
[2019-02-13] MEDS: POTASSIUM CHLORIDE 10 MEQ TABLET.ER. PO SCH (16:47)
[2019-02-13] MEDS ORDERED: CARVEDILOL 6.25 MG TABLET. PO SCH (17:00)
[2019-02-13] MEDS ORDERED: HYDR-2761 PO (20:45)
--- NOTE | 2019-02-13 20:56 | NUR ---
Pt started on frequent vitals after admitting to floor following ballooning of previous stents. Fem stop in place to right groin area. electrical laboratory technician remioved femstop frompt clean and dry dressing in place. No bleeding, oozing and site is still soft to touch. Vital signs printed and put into the chart.
[2019-02-13] MEDS ORDERED: clonazePAM 0.5 MG TABLET PO SCH (21:00)
[2019-02-13] MEDS ORDERED: ATORVASTATIN CALCIUM 40 MG TABLET. PO SCH (21:00)
[2019-02-13] MEDS ORDERED: ATORVASTATIN CALCIUM 20 MG TABLET PO SCH (21:00)
--- NOTE | 2019-02-13 21:10 | NUR ---
pt is requesting hs meds at 2230, because that is when she takes them at home.
[2019-02-13] MEDS: PROPAFENONE 150 MG TABLET. PO SCH (22:41)
[2019-02-14 03:32] VITALS: BP 119/61
[2019-02-14 05:00] LABS: BASO % 1 % (0-3); EOS # 0.1 x10^3/uL (0.0-0.7); EOS % 1 % (0-3); HEMOGLOBIN 11.5 g/dL (12.0-15.5); LYMPH % 16 % (24-48); MEAN CORPUSCULAR HEMOGLOBIN 28 pg (25-35); MEAN CORPUSCULAR HGB CONC 33 g/dL (31-37); MEAN CORPUSCULAR VOLUME 85 fL (79-100); MONO # 0.6 x10^3/uL (0.0-1.1); MONO % 10 % (0-9); NEUT # 4.5 x10^3uL (1.8-7.7); NEUT % 72 % (31-73); PLATELET COUNT 211 x10^3/uL (140-400); RED BLOOD COUNT 4.09 x10^6/uL (3.50-5.40); RED CELL DISTRIBUTION WIDTH 15.6 % (11.5-14.5); WHITE BLOOD COUNT 6.2 x10^3/uL (4.0-11.0)
[2019-02-14 05:42] LABS: CALCIUM 8.7 mg/dL (8.5-10.1); CREATININE 0.7 mg/dL (0.6-1.0); GFR 79.9; POTASSIUM 4.2 mmol/L (3.5-5.1)
[2019-02-14 05:44] LABS: CHOLESTEROL/HDL RATIO 2.8
--- NOTE | 2019-02-14 06:26 | EKG ---
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
[2019-02-14 06:47] LABS: % BANDS 1 % (0-9); % EOS 1 % (0-5); % LYMPHS 13 % (24-48); % MONOS 4 % (0-10); % SEGS 81 % (35-66)
[2019-02-14 06:48] LABS: ANISOCYTOSIS PRESENT; PLT ESTIMATE ADEQUATE (ADEQUATE); TARGET CELLS OCC
[2019-02-14] MEDS ORDERED: ASPIRIN ENTERIC COATED 81 MG TABLET.DR. PO SCH (08:00)
[2019-02-14 08:04] VITALS: BP 126/55
[2019-02-14] MEDS: PANTOPRAZOLE 40 MG TABLET.DR. PO SCH (08:50)
[2019-02-14] MEDS: POTASSIUM CHLORIDE 10 MEQ TABLET.ER. PO SCH (08:50)
[2019-02-14] MEDS: CARVEDILOL 6.25 MG TABLET. PO SCH (08:53)
[2019-02-14] MEDS: PROPAFENONE 150 MG TABLET. PO SCH (08:54)
[2019-02-14] MEDS ORDERED: CYANOCOBALAMIN (VITAMIN B-12) 1,000 MCG TABLET. PO SCH (09:00)
[2019-02-14] MEDS ORDERED: ASPIRIN CHEWABLE 81 MG TABLET. PO SCH (09:00)
[2019-02-14] MEDS ORDERED: OMEGA-3 FATTY ACIDS/FISH OIL 1,000 MG CAPSULE. PO SCH (09:00)
[2019-02-14] MEDS ORDERED: FUROSEMIDE 40 MG TABLET. PO SCH (09:00)
[2019-02-14] MEDS ORDERED: MULTIVITAMIN with MINERAL TABLET. PO SCH (09:00)
[2019-02-14] MEDS ORDERED: MULTIVITAMIN I-VITE TABLET. PO SCH (09:00)
[2019-02-14] MEDS ORDERED: NON FORMULARY ITEM (Cranberry Extract (Cranberry) 500 MG) PO SCH (09:00)
[2019-02-14] MEDS ORDERED: DIGOXIN 125 MCG TABLET. PO SCH (09:00)
[2019-02-14] MEDS ORDERED: CHOLECALCIFEROL (VITAMIN D3) 1,000 UNIT TABLET PO SCH (09:00)
[2019-02-14] MEDS ORDERED: TICAGRELOR 90 MG TABLET. PO SCH (09:00)
[2019-02-14] MEDS ORDERED: CETIRIZINE HCL 10 MG TABLET. PO SCH (09:00)
[2019-02-14 11:04] VITALS: BP 127/55
[2019-02-14] MEDS ORDERED: CLOPIDOGREL BISULFATE 75 MG TABLET PO ONE (11:45)
[2019-02-14] MEDS ORDERED: CLOP75TA PO (12:33)
--- NOTE | 2019-02-14 13:42 | NUR ---
Discharge Note: MARCIN SMITH [address] [place] [address] Discharge instructions and discharge home medications reviewed with Patient and a copy given. All questions have been answered and understanding verbalized. The following instructions and handouts were given: CP info, angioplasty/cardiac cath after care info, discharge instructions. Discontinued lines and drains: Peripheral IV intact. R groin dressing removed, site was soft, no bleeding, new dressing placed. Patient discharged to Home or Self Care with Family Member via Wheelchair at 1342.
[2019-02-15] MEDS ORDERED: CLOPIDOGREL BISULFATE 75 MG TABLET PO SCH (08:00)
--- NOTE | 2019-02-18 15:48 | PDOC3 ---
Discharge Summary Visit Information Date of Admission: February 13, 2019 Date of Discharge: Feb 14, 2019 Admitting Diagnosis: unstable angina Final Diagnosis Unstable angina. Restenosis of coronary artery stents. Brief Hospital Course Allergies Allergies Coded Allergies Type Severity Reaction Last Updated Verified acyclovir Allergy Intermediate Itching 01/13/18 Yes amitriptyline Allergy Intermediate Itching 01/13/18 Yes amlodipine Allergy Intermediate Itching 01/13/18 Yes atenolol Allergy Intermediate Itching 01/13/18 Yes fentanyl Allergy Intermediate Itching 01/13/18 Yes lisinopril Allergy Intermediate Itching 01/13/18 Yes tramadol Allergy Intermediate Itching 01/13/18 Yes warfarin Allergy Intermediate 01/13/18 Yes I S O L A T I O N *CONTACT* Allergy Unknown 01/14/18 Yes codeine Adverse Reaction Intermediate Nausea and Vomiting 01/13/18 Yes hydromorphone Adverse Reaction Intermediate Nausea and Vomiting 01/13/18 Yes Brief Hospital Course Patient is an 83-year-old female who had coronary stents placed approximately 3 months ago. ON her cath she had a previously existing LAD stent which had restenosed both in its proximal and distal portions and bare metal stents were placed both at the proximal and distal areas of the original stent. Residual lesion was 0%. She also had moderate disease in her left circumflex and right coronary systems. The patient's chest discomfort resolved after stenting for approximately 6 weeks. However over the past 4 weeks her chest pain had resumed. She is also being considered for possible upcoming surgery. In this setting she was scheduled for an outpatient catheterization. Catheterization was performed without complications and showed aggressive restenosis in the previously placed stents as was the original stent in the LAD. This area was treated with balloon angioplasty with a less than 0% residual lesion. Patient was monitored overnight and remained stable. She was discharged the following day in stable condition. Home medications are unchanged. Follow-up in 3 weeks. Discharge Information Condition at Discharge: Improved Follow Up: Weeks Disposition/Orders: D/C to Home Scheduled Aspirin (Aspirin) 81 Mg Tab.chew, 1 TAB PO DAILY for heart, #30 Ref 3 (Reported) Entered as Reported by: JASE NORIEGA on 01/03/16 0216 Last Taken: Unknown Dose on 02/12/19 Last Action: Continued on 02/13/19 1117 by ANAHI MIN APRN Atorvastatin Calcium (Atorvastatin Calcium) 40 Mg Tablet, 40 MG PO QHS for cholesterol for 30 Days, #30 Ref 2 Prescribed by: ANAHI MIN APRN on 11/14/18 0943 Last Taken: Unknown Dose on 02/12/19 Last Action: Continued on 02/13/191116 by ANAHI MIN APRN Carvedilol (Coreg ) 6.25 Mg Tablet, 6.25 MG PO BIDWMEALS for CARDIAC, (Reported) Entered as Reported by: Hernan Eisenberg on 08/29/181938 Last Taken: Unknown Dose on 02/12/19 Last Action: Continued on 02/13/191116 by ANAHI MIN APRN Cholecalciferol (Vitamin D3) (Vitamin D-3) 2,000 Unit Capsule, 2,000 UNIT PO DAILY, (Reported) Entered as Reported by: JASE NORIEGA on 01/03/16215 Last Taken: Unknown Dose on 02/12/19 Last Action: Converted on 02/13/191116 by ANAHI MIN APRN Clonazepam (Clonazepam) 0.5 Mg Tablet, 1 TAB PO HS for ANXIETY, #30 (Reported) Entered as Reported by: JASE NORIEGA on 01/03/16215 Last Taken: Unknown Dose on 02/12/19 Last Action: Continued on 02/13/191116 by ANAHI MIN APRN Clopidogrel Bisulfate (Clopidogrel) 75 Mg Tablet, 1 TAB PO DAILY for stent, #90 Ref 1 (Reported) Entered as Reported by: ALIA CARDOZO on 02/14/19 1233 Cranberry Extract (Cranberry) 500 Mg Capsule, 500 MG PO DAILY for supplement, (Reported) Entered as Reported by: JASE NORIEGA on 01/03/16215 Last Taken: Unknown Dose on 02/12/19 Last Action: Converted on 02/13/191116 by ANAHI MIN APRN Cyanocobalamin (Vitamin B-12) (B-12) 1,000 Mcg Tablet, 1,000 MCG PO DAILY for supplement, (Reported) Entered as Reported by: KEY CONTEH on 11/12/18 0912 Last Taken: Unknown Dose on 02/12/19 Last Action: Continued on 02/13/191116 by ANAHI MIN APRN Digoxin (Lanoxin) 125 Mcg Tablet, 125 MCG PO DAILY, #30 Ref 3 Prescribed by: Memo Morris on 10/22/16 1024 Last Taken: Unknown Dose on 02/12/19 Last Action: Continued on 02/13/191116 by ANAHI MIN APRN Furosemide (Furosemide) 40 Mg Tablet, 1 TAB PO DAILY for edema, #90 Ref 3 (Reported) Entered as Reported by: KAILEE RODRIGUEZ on 08/03/18 1510 Last Taken: Unknown Dose on 02/12/19 Last Action: Continued on 02/13/191116 by ANAHI MIN APRN Loratadine (Claritin) 10 Mg Tablet, 1 TAB PO DAILY, #30 Ref 5 (Reported) Entered as Reported by: JJ EISENBERG on 01/08/18 1354 Last Taken: Unknown Dose on 02/12/19 Last Action: Converted on 02/13/191116 by ANAHI MIN APRN Multivit With Calcium,Iron,Min (Women's Daily Multivitamin) 1 Each Tablet, 1 EACH PO DAILY for supplement, (Reported) Entered as Reported by: JASE NORIEGA on 01/03/16215 Last Taken: Unknown Dose on 02/12/19 Last Action: Converted on 02/13/191116 by ANAHI MIN APRN [place]-3 Fatty Acids/Fish Oil ([place] 3 Fish Oil Softgel) 1 Each Capsule.dr, 1 EACH PO DAILY for supplement, (Reported) Entered as Reported by: KEY CONTEH on 11/12/18 0912 Last Taken: Unknown Dose on 02/12/19 Last Action: Converted on 02/13/191116 by ANAHI MIN APRN Omeprazole (Omeprazole) 40 Mg Capsule.dr, 40 MG PO BID for gerd, (Reported) Entered as Reported by: KAILEE RODRIGEUZ on 08/03/18 1510 Last Taken: Unknown Dose on 02/12/19 Last Action: Converted on 02/13/191116 by ANAHI MIN APRN Potassium Chloride (Potassium Chloride) 10 Meq Capsule.er, 1 CAP PO BID for supplement, #90 Ref 1 (Reported) Entered as Reported by: JASE NORIEGA on 01/03/16 0216 Last Taken: Unknown Dose on 02/12/19 Last Action: Continued on 02/13/191116 by ANAHI MIN APRN Propafenone Hcl (Propafenone Hcl) 150 Mg Tablet, 0.5 TAB PO BID for hypertension, (Reported) Entered as Reported by: Hernan Eisenberg on 08/29/181938 Last Taken: Unknown Dose on 02/13/19 Last Action: Converted on 02/13/191116 by ANAHI MIN APRN Vit A/Vit C/Vit E/Zinc/Copper (Preservision Areds Tablet) 1 Each Tablet, 1 EACH PO DAILY for supplement, (Reported) Entered as Reported by: JASE NORIEGA on 01/03/16215 Last Taken: Unknown Dose on 02/12/19 Last Action: Converted on 02/13/191116 by ANAHI MIN APRN Scheduled PRN Hydrocodone Bit/Acetaminophen (Hydrocodone-Apap 5-325 ) 1 Tab Tablet, 1 TAB PO PRN Q6HRS PRN for PAIN, Ref 0 (Reported) Entered as Reported by: FRANCOIS MCKEE on 02/13/192044 Last Action: New Order on 02/13/192044 by FRANCOIS MCKEE Hydrocodone Bit/Acetaminophen (Hydrocodone-Apap 5-325 ) 1 Tab Tablet, 2 TAB PO PRN Q6HRS PRN for PAIN, Ref 0 (Reported) Entered as Reported by: FRANCOIS MCKEE on 02/13/192044 Last Action: New Order on 02/13/192044 by FRANCOIS MCKEE Discontinued Medications Clopidogrel Bisulfate (Clopidogrel) 75 Mg Tablet, 1 TAB PO DAILY for afib, #90 Ref 1 (Reported) Entered as Reported by: Hernan Eisenberg on 08/29/181938 Last Taken: Unknown Dose on 02/12/19 Last Action: Discontinued on 02/13/191116 by ANAHI MIN APRN Patient Instructions Patient Instructions 1. Continue present medications including Plavix. 2. Gradually increase activities. 3. Office follow-up in 3 weeks. RAPHAEL HOLT MD Feb 18, 2019 15:48
== END 2019-02-14 13:42 | disposition home or self-care (01) ==
LOC: CCL 07:14 → 2 NORTH 09:40
PROVIDERS: ADMIT Internal Medicine Cardiovascular Disease; ATTEND Internal Medicine Cardiovascular Disease
DX: I25.110 Atherosclerotic heart disease of native coronary artery with unstable angina pectoris (principal); I48.91 Unspecified atrial fibrillation; K21.9 Gastro-esophageal reflux disease without esophagitis; M54.9 Dorsalgia, unspecified; I11.0 Hypertensive heart disease with heart failure; I50.9 Heart failure, unspecified; J30.2 Other seasonal allergic rhinitis; K44.9 Diaphragmatic hernia without obstruction or gangrene; M19.90 Unspecified osteoarthritis, unspecified site; I25.2 Old myocardial infarction; Z85.3 Personal history of malignant neoplasm of breast; Z90.49 Acquired absence of other specified parts of digestive tract; Z90.710 Acquired absence of both cervix and uterus; Z95.0 Presence of cardiac pacemaker; Z98.890 Other specified postprocedural states; Z95.5 Presence of coronary angioplasty implant and graft
CPT/HCPCS: 36415; 80048; 80061; 85007; 85025; 85027; 85610; 87086; 87186; 92920; 93005; 93458; C1725; C1760; C1769; C1887; C1892; G0269; G0378; G0379; J0583; J1644; J2250; J2270; J7030; Q0162; Q9967; 99152; 99153; C1771

== ENCOUNTER → 2019-05-05 | Outpatient (CLI) | payer MEDICARE ==
[~2019-05-05] MED LIST changes: +CLON-77 PO; -CLON0.5T11 PO
[2019-05-05 15:53] LABS: BASO % 1 % (0-3); EOS # 0.1 x10^3/uL (0.0-0.7); EOS % 2 % (0-3); HEMATOCRIT 36.8 % (36.0-47.0); HEMOGLOBIN 12.7 g/dL (12.0-15.5); LYMPH # 1.2 x10^3/uL (1.0-4.8); LYMPH % 20 % (24-48); MEAN CORPUSCULAR HEMOGLOBIN 31 pg (25-35); MEAN CORPUSCULAR HGB CONC 35 g/dL (31-37); MEAN CORPUSCULAR VOLUME 89 fL (79-100); MONO # 0.7 x10^3/uL (0.0-1.1); MONO % 12 % (0-9); NEUT % 66 % (31-73); PLATELET COUNT 274 x10^3/uL (140-400); RED BLOOD COUNT 4.13 x10^6/uL (3.50-5.40); RED CELL DISTRIBUTION WIDTH 14.5 % (11.5-14.5)
[2019-05-05 16:11] LABS: ANION GAP 9 (6-14); BLOOD UREA NITROGEN 14 mg/dL (7-20); CALCIUM 8.9 mg/dL (8.5-10.1); CARBON DIOXIDE 27 mmol/L (21-32); CHLORIDE 93 mmol/L (98-107); CREATININE 0.7 mg/dL (0.6-1.0); DIG 0.6 ng/mL (0.9-2.0); GFR 79.9; GLUCOSE 107 mg/dL (70-99); SODIUM 129 mmol/L (136-145)
== END | disposition home or self-care (01) ==
LOC: LAB 15:16
PROVIDERS: ATTEND Internal Medicine Cardiovascular Disease
DX: I25.10 Atherosclerotic heart disease of native coronary artery without angina pectoris (principal); I48.91 Unspecified atrial fibrillation; R53.1 Weakness
CPT/HCPCS: 36415; 80048; 80162; 83735; 85025

== ENCOUNTER 2019-06-28 01:09 | Inpatient (IN) | payer MEDICARE ==
[~2019-06-28] VITALS: Ht 152.4 cm; Wt 56.8 kg
[~2019-06-28 01:09] MED LIST changes: +DIPH25CA23 PO; -DIPH25CA3 PO; +OMEP40CA45 PO; -OMEP40CA5 PO
--- NOTE | 2019-06-28 01:24 | PHYS DOC ---
Past Medical History Past Medical History: A-Fib, Cancer, CHF, Hypertension, MS, Other Additional Past Medical Histor: CARDIOMYOPATHY, OSTEOARTHRITIS, CHRONIC BACK PAIN,BOWEL OBSTRUCTION Past Surgical History: Pacemaker, Other Additional Past Surgical Histo: HERNIA REPAIR WITH MESH,SMALL BOWEL RESEC TION,BILAT MASTECTOMY Alcohol Use: Rarely Drug Use: None Adult General Chief Complaint Chief Complaint: CHEST PAIN [facility] HPI Patient is an 83-year-old female who presents with complaint of chest pain that started a little over an hour ago at home. She states the pain radiates up into her neck and her jaw. She states the pain also radiates into her back. She states the pain is sharp and stabbing in nature. She reports worsening of pain with breathing and with movement. She does have a cardiac history, having had stents in the past. Patient rates her pain had a 10 out of 10. She states that nothing is improving her pain.[] Review of Systems Review of Systems Constitutional: Denies fever or chills [] Respiratory: Denies cough or shortness of breath [] Cardiovascular: No additional information not addressed in HPI [] GI: Denies abdominal pain, nausea, vomiting or diarrhea [] Integument: Denies rash or skin lesions [] Neurologic: Denies headache, focal weakness or sensory changes [] All other systems were reviewed and found to be within normal limits, except as documented in this note. Current Medications Current Medications Current Medications Medications (Trade) Dose Ordered Sig/Zander Start Time Stop Time Status Last Admin Dose Admin Morphine Sulfate (Morphine Sulfate) 2 mg PRN Q15MIN PRN 06/28/19 01:30 06/29/19 01:29 06/28/19 01:44 2 MG Ondansetron HCl (Zofran) 4 mg 1X ONCE 06/28/19 01:30 06/28/19 01:31 DC 06/28/19 01:46 4 MG Sodium Chloride 1,000 ml @ 1,000 mls/hr Q1H 06/28/19 01:30 06/28/19 02:29 DC 06/28/19 01:47 1,000 MLS/HR Allergies Allergies Allergies Coded Allergies Type Severity Reaction Last Updated Verified acyclovir Allergy Intermediate Itching 01/13/18 Yes amitriptyline Allergy Intermediate Itching 01/13/18 Yes amlodipine Allergy Intermediate Itching 01/13/18 Yes atenolol Allergy Intermediate Itching 01/13/18 Yes fentanyl Allergy Intermediate Itching 01/13/18 Yes lisinopril Allergy Intermediate Itching 01/13/18 Yes tramadol Allergy Intermediate Itching 01/13/18 Yes warfarin Allergy Intermediate 01/13/18 Yes I S O L A T I O N *CONTACT* Allergy Unknown 01/14/18 Yes codeine Adverse Reaction Intermediate Nausea and Vomiting 01/13/18 Yes hydromorphone Adverse Reaction Intermediate Nausea and Vomiting 01/13/18 Yes Physical Exam Physical Exam Constitutional: Well developed, well nourished, no acute distress, non-toxic appearance. [] HENT: Normocephalic, atraumatic, bilateral external ears normal, oropharynx moist, no oral exudates, nose normal. [] Eyes: PERRLA, EOMI, conjunctiva normal, no discharge. [] Neck: Normal range of motion, no tenderness, supple, no stridor. [] Cardiovascular: Regular rate and rhythm[] Lungs & Thorax: Bilateral breath sounds clear to auscultation [] Abdomen: Bowel sounds normal, soft, no tenderness. [] Skin: Warm, dry, no erythema, no rash. [] Extremities: No tenderness, no cyanosis, no clubbing, ROM intact. [] Neurologic: Alert and oriented X 3, no focal deficits noted. [] Current Patient Data Vital Signs Vital Signs Date Time Temp Pulse Resp B/P (MAP) Pulse Ox O2 Delivery O2 Flow Rate FiO2 06/28/19 01:44 28 91 Nasal Cannula 2.0 06/28/19 01:12 97.8 63 180/83 (115) 97.8 Lab Values Laboratory Tests Test 06/28/19 01:35 White Blood Count 7.1 x10^3/uL (4.0-11.0) Red Blood Count 4.22 x10^6/uL (3.50-5.40) Hemoglobin 12.9 g/dL (12.0-15.5) Hematocrit 38.2 % (36.0-47.0) Mean Corpuscular Volume 91 fL (79-100) Mean Corpuscular Hemoglobin 31 pg (25-35) Mean Corpuscular Hemoglobin Concent 34 g/dL (31-37) Red Cell Distribution Width 13.6 % (11.5-14.5) Platelet Count 258 x10^3/uL (140-400) Neutrophils (%) (Auto) 69 % (31-73) Lymphocytes (%) (Auto) 16 % (24-48) L Monocytes (%) (Auto) 12 % (0-9) H Eosinophils (%) (Auto) 2 % (0-3) Basophils (%) (Auto) 1 % (0-3) Neutrophils # (Auto) 4.9 x10^3/uL (1.8-7.7) Lymphocytes # (Auto) 1.1 x10^3/uL (1.0-4.8) Monocytes # (Auto) 0.9 x10^3/uL (0.0-1.1) Eosinophils # (Auto) 0.2 x10^3/uL (0.0-0.7) Basophils # (Auto) 0.0 x10^3/uL (0.0-0.2) Sodium Level 133 mmol/L (136-145) L Potassium Level 4.0 mmol/L (3.5-5.1) Chloride Level 96 mmol/L (98-107) L Carbon Dioxide Level 26 mmol/L (21-32) Anion Gap 11 (6-14) Blood Urea Nitrogen 17 mg/dL (7-20) Creatinine 0.9 mg/dL (0.6-1.0) Estimated GFR (Cockcroft-Gault) 59.8 BUN/Creatinine Ratio 19 (6-20) Glucose Level 123 mg/dL (70-99) H Calcium Level 9.4 mg/dL (8.5-10.1) Magnesium Level 2.0 mg/dL (1.8-2.4) Total Bilirubin 0.5 mg/dL (0.2-1.0) Aspartate Amino Transferase (AST) 30 U/L (15-37) Alanine Aminotransferase (ALT) 23 U/L (14-59) Alkaline Phosphatase 137 U/L (46-116) H Troponin I Quantitative < 0.017 ng/mL (0.000-0.055) FK-Mhh-R-Type Natriuretic Peptide 3344 pg/mL (0-449) H Total Protein 7.4 g/dL (6.4-8.2) Albumin 3.6 g/dL (3.4-5.0) Albumin/Globulin Ratio 0.9 (1.0-1.7) L Laboratory Tests 06/28/19 01:35 Laboratory Tests 06/28/19 01:35 EKG EKG [] Interpretation Time: EKG demonstrates a ventricular paced rhythm with rate of 62. Radiology/Procedures Radiology/Procedures [] Course & Med Decision Making Course & Med Decision Making Pertinent Labs and Imaging studies reviewed. (See chart for details) [] Dragon Disclaimer Dragon Disclaimer This electronic medical record was generated, in whole or in part, using a voice recognition dictation system. Departure Departure Impression: Primary Impression: Chest pain Disposition: ADMITTED INPATIENT Admitting Physician: Jaron Briggs Condition: IMPROVED Referrals: JARON BRIGGS MD (PCP) Problem Qualifiers Primary Impression: Chest pain Chest pain type: unspecified Qualified Codes: R07.9 - Chest pain, unspecified DALIA BRUNO Jr. DO Jun 28, 2019 01:24
[2019-06-28] MEDS ORDERED: ONDANSETRON PF 4 MG/2 ML VIAL. IV ONE (01:30)
[2019-06-28] MEDS ORDERED: IV NORMAL SALINE 1000ML BAG 1,000 ML IV SCH (01:30)
[2019-06-28 01:42] LABS: BASO % 1 % (0-3); EOS # 0.2 x10^3/uL (0.0-0.7); EOS % 2 % (0-3); HEMATOCRIT 38.2 % (36.0-47.0); HEMOGLOBIN 12.9 g/dL (12.0-15.5); LYMPH # 1.1 x10^3/uL (1.0-4.8); LYMPH % 16 % (24-48); MEAN CORPUSCULAR HEMOGLOBIN 31 pg (25-35); MEAN CORPUSCULAR HGB CONC 34 g/dL (31-37); MEAN CORPUSCULAR VOLUME 91 fL (79-100); MONO # 0.9 x10^3/uL (0.0-1.1); MONO % 12 % (0-9); NEUT # 4.9 x10^3/uL (1.8-7.7); NEUT % 69 % (31-73); PLATELET COUNT 258 x10^3/uL (140-400); RED BLOOD COUNT 4.22 x10^6/uL (3.50-5.40); RED CELL DISTRIBUTION WIDTH 13.6 % (11.5-14.5); WHITE BLOOD COUNT 7.1 x10^3/uL (4.0-11.0)
[2019-06-28] MEDS: MORPHINE SULFATE 2 MG/ML VIAL. IV/SQ PRN ×2 (01:44→03:02)
[2019-06-28 02:02] LABS: CALCIUM 9.4 mg/dL (8.5-10.1); CREATININE 0.9 mg/dL (0.6-1.0); GFR 59.8
[2019-06-28 02:06] LABS: ALBUMIN 3.6 g/dL (3.4-5.0); ALBUMIN/GLOBULIN RATIO 0.9 (1.0-1.7); TOTAL BILIRUBIN 0.5 mg/dL (0.2-1.0); TOTAL PROTEIN 7.4 g/dL (6.4-8.2)
[2019-06-28] MEDS ORDERED: ONDANSETRON PF 4 MG/2 ML VIAL. IV PRN (02:45)
[2019-06-28 03:30] VITALS: BP 191/97
[2019-06-28] MEDS ORDERED: cloNIDine HCL 0.1 MG TABLET PO PRN (03:45)
[2019-06-28] MEDS ORDERED: cloNIDine HCL 0.2 MG TABLET PO PRN (03:45)
[2019-06-28] MEDS: MORPHINE SULFATE 2 MG/ML VIAL. IV PRN ×4 (06:10→19:50)
[2019-06-28 07:48] VITALS: BP 147/65
--- NOTE | 2019-06-28 08:11 | RAD ---
PORTABLE CHEST 1V History: Chest pain Comparison: January 01, 2019 Findings: Single view of the chest is submitted. There is again single lead left electronic cardiac device. Pericardial cardiac silhouette is somewhat enlarged as seen previously. There is no pneumothorax or significant dependent pleural fluid. No new lobar consolidation is identified. Impression: 1. No acute radiographic abnormality is identified. Electronically signed by: Memo Alcala MD (06/28/2019 8:08 AM) [facility]
[2019-06-28] MEDS ORDERED: ONDA4TAB7 PO (09:21)
[2019-06-28] MEDS ORDERED: GUAI-108 PO (09:21)
[2019-06-28] MEDS ORDERED: FLUT9.9S NS (09:21)
[2019-06-28] MEDS ORDERED: NITR50CA PO (09:21)
[2019-06-28] MEDS ORDERED: FERR325T14 PO (09:21)
[2019-06-28 10:35] VITALS: BP 191/82
[2019-06-28] MEDS ORDERED: NITROGLYCERIN PREMIX 250 ML IV PRN (11:00)
[2019-06-28] MEDS ORDERED: HYDROcodone/APAP 5/325MG 1 TAB TABLET PO PRN (11:00)
--- NOTE | 2019-06-28 11:00 | PDOC ---
Provider Note Provider Note [id number] CHARLIE GERMAN MD Jun 28, 2019 11:00
[2019-06-28] MEDS ORDERED: HEPARIN for IV BOLUS 10,000 UNIT/10 ML VIAL. IV ONE (11:15)
[2019-06-28] MEDS: ONDANSETRON PF 4 MG/2 ML VIAL. IVP PRN ×2 (11:19→17:24)
[2019-06-28] MEDS ORDERED: HEPARIN for IV BOLUS 10,000 UNIT/10 ML VIAL. IV PRN (11:30)
[2019-06-28] MEDS ORDERED: HEPARIN 25,000UTS/500ML PREMIX 500 ML IV PRN (11:30)
[2019-06-28] MEDS ORDERED: DIGOXIN 125 MCG TABLET. PO SCH (12:00)
[2019-06-28] MEDS: ASPIRIN CHEWABLE 81 MG TABLET. PO SCH (12:11)
[2019-06-28] MEDS: CYANOCOBALAMIN (VITAMIN B-12) 1,000 MCG TABLET. PO SCH (12:11)
[2019-06-28] MEDS: CARVEDILOL 6.25 MG TABLET. PO SCH ×2 (12:11→16:33)
[2019-06-28] MEDS: CLOPIDOGREL BISULFATE 75 MG TABLET PO SCH (12:11)
[2019-06-28] MEDS: FUROSEMIDE 40 MG TABLET. PO SCH (12:12)
[2019-06-28] MEDS: POTASSIUM CHLORIDE 10 MEQ TABLET.ER. PO SCH ×2 (12:15→21:06)
--- NOTE | 2019-06-28 12:47 | HP ---
ADMIT DATE: 06/28/2019 CHIEF COMPLAINT: Chest pain. HISTORY OF PRESENT ILLNESS: This is an 83-year-old white female with history of coronary artery disease and a pacemaker and has had stents placed in the past and is uncertain when her last intervention was. She was doing normal activity at home when she was hit by fairly severe knife-like chest pain, midsternal to the neck and jaw and continues to have pain despite even morphine use, but now she has nausea too. She denies shortness of breath or any recent exertional chest pain. PAST MEDICAL HISTORY: MEDICATIONS: Multiple meds listed. ALLERGIES: See the old record for all the details. SOCIAL HISTORY: She is , lives alone, nonsmoker, nondrinker. FAMILY HISTORY: Unremarkable. REVIEW OF SYSTEMS: No other complaints. OBJECTIVE: ENT: All within normal limits except for mild pallor. NECK: No bruits, JVD or nodes. LUNGS: Clear. CARDIOVASCULAR: Regular rate, rate 90. No murmurs heard. ABDOMEN: Soft, benign, nontender. EXTREMITIES: Decreased pedal pulses, but the feet warm. No edema. No joint or skin lesions. NEUROLOGIC: Physiologic, alert, appropriate, responsive. ASSESSMENT: Non-ST elevated myocardial infarction, likely as troponin has gone above 1 with no apparent EKG changes present. She has a history of coronary artery disease as well as poor nutrition and chronic anemia. PLAN: DNR at her request. We will add morphine and nitroglycerin drip as well as heparin for now pending Cardiovascular consultation as she likely will need a consideration of urgent cardiac catheterization versus comfort care measures. CHARLIE GERMAN MD DR: ÁNGEL/parish JOB#: [id number] / [id number]
--- NOTE | 2019-06-28 12:50 | CONS ---
DATE OF CONSULTATION: 06/28/2019 REASON FOR CONSULTATION: Elevated troponin. HISTORY OF PRESENT ILLNESS: The patient is an 83-year-old woman with multiple cardiovascular comorbidities as noted below who presented to the hospital in the setting of progressive chest pain. Of note, she recently underwent percutaneous coronary intervention of her LAD in-stent restenosis in 01/2019. She reports that her pain progressively got worse after she was getting up to take her winter coat out of her closet and in this setting was brought to the ER. Upon arrival to the ER, she was noted to be significantly hypertensive with blood pressure above 200 and was admitted overnight for observation. Her peak troponin has now gone to 5.3 and she is currently on a nitroglycerin and heparin drip. Her EKG initially in the ER revealed a paced rhythm without any obvious ST-T wave changes to suggest occlusion of any coronary vessels. PAST MEDICAL HISTORY: 1. Atrial fibrillation, on no current anticoagulation, presumably due to history of anemia. 2. Coronary artery disease status post PCI to LAD. 3. Ischemic cardiomyopathy with ejection fraction 45%. 4. Sick sinus syndrome status post pacemaker. 5. Hypertension. 6. History of iron deficiency anemia, previous blood transfusions. SOCIAL HISTORY: The patient denies any alcohol, tobacco or illicit drug use. ALLERGIES: To multiple cardiovascular medications including AMLODIPINE, ATENOLOL and LISINOPRIL. FAMILY HISTORY: Noncontributory. REVIEW OF SYSTEMS: Negative unless otherwise mentioned above in HPI. PHYSICAL EXAMINATION: VITAL SIGNS: Afebrile, 60, 26, 177/82, 93% on 2 liters nasal cannula. GENERAL: She is in no acute distress, but appears emaciated and frail. HEAD AND NECK: Unremarkable. CARDIAC: Regular rate without any obvious murmurs, rubs or gallops. Her regular rate is likely related to pacing at 60 beats per minute rather than true sinus rhythm and I suspect she has underlying atrial fibrillation. ABDOMEN: Soft, nontender. CHEST: Unremarkable. ABDOMEN: Soft. NEUROLOGIC: No focal deficits. MUSCULOSKELETAL: No trauma. EXTREMITIES: 2+ radial and 1+ dorsalis pedis pulses. DIAGNOSTIC STUDIES: Troponin 5.5. BNP 3334. Hemoglobin 12.9 with normal platelet count. Creatinine and potassium are within normal limits. Coronary angiogram in 01/2019 revealed in-stent restenosis of the LAD status post balloon angioplasty with 2.75 x 12 mm stents. IMPRESSION: 1. Non-ST elevation myocardial infarction. 2. Hypertensive emergency. 3. Dyslipidemia. 4. Chronically debilitated and ill individual. RECOMMENDATIONS: 1. Agree with continuation of heparin drip and nitroglycerin drip. 2. Continue her home cardiovascular medications including aspirin, carvedilol, atorvastatin, Plavix. Plan for cardiac catheterization tomorrow morning with Dr. Adams. Thank you for this consultation. BARBER SAENZ MD DR: TYSON/parish JOB#: [id number] / [id number]
[2019-06-28 14:31] VITALS: BP 166/73
[2019-06-28] MEDS: hydrALAZINE 20 MG/ML VIAL. IVP PRN (16:34)
--- NOTE | 2019-06-28 17:32 | EKG ---
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
[2019-06-28] MEDS ORDERED: diphenhydrAMINE 50 MG/ML VIAL IM ONE (18:15)
[2019-06-28] MEDS ORDERED: LABETALOL 20 MG/4 ML DISP.SYRIN. IVP ONE (18:15)
[2019-06-28] MEDS ORDERED: clonazePAM 0.5 MG TABLET PO PRN (18:30)
--- NOTE | 2019-06-28 18:30 | NUR ---
PT reports increased chest pain 10/10 radiating to back and jaw. EKG changes and elevated trops called to tow picker. Received medication orders. will continue to monitor.
[2019-06-28 19:55] VITALS: BP 112/52
[2019-06-28] MEDS: clonazePAM 0.5 MG TABLET PO SCH (21:00)
--- NOTE | 2019-06-28 21:04 | NUR ---
HS dose of clonazepam held at this time. PRN dose given at 1828.
[2019-06-28] MEDS: ATORVASTATIN CALCIUM 40 MG TABLET. PO SCH (21:06)
[2019-06-28] MEDS: DIGOXIN 125 MCG TABLET. PO SCH (21:07)
[2019-06-28 22:29] VITALS: BP 118/57
[2019-06-29] VITALS (20 sets, daily range): BP systolic 102–172; BP diastolic 56–76
[2019-06-29] MEDS: MORPHINE SULFATE 2 MG/ML VIAL. IV PRN ×2 (05:05→08:26)
[2019-06-29 05:22] LABS: HEMATOCRIT 34.7 % (36.0-47.0); HEMOGLOBIN 11.9 g/dL (12.0-15.5); RED BLOOD COUNT 3.82 x10^6/uL (3.50-5.40); RED CELL DISTRIBUTION WIDTH 13.9 % (11.5-14.5); WHITE BLOOD COUNT 8.5 x10^3/uL (4.0-11.0)
[2019-06-29] MEDS: ASPIRIN CHEWABLE 81 MG TABLET. PO SCH (08:26)
[2019-06-29] MEDS: CLOPIDOGREL BISULFATE 75 MG TABLET PO SCH (08:26)
[2019-06-29] MEDS: CARVEDILOL 6.25 MG TABLET. PO SCH ×2 (08:26→18:21)
[2019-06-29] MEDS: ONDANSETRON PF 4 MG/2 ML VIAL. IVP PRN ×2 (08:27→20:17)
[2019-06-29 08:52] LABS: PROTHROMBIN TIME PATIENT 13.6 SEC (11.7-14.0)
[2019-06-29] MEDS ORDERED: MORPHINE SULFATE 2 MG/ML VIAL. IV PRN (09:00)
--- NOTE | 2019-06-29 09:01 | PDOC ---
Provider Note Provider Note still having some chest and jaw pain despite all measures- troponin bump noted- d/w daughter, cath today , ms as needed for comfort CHARLIE GERMAN MD Jun 29, 2019 09:01
--- NOTE | 2019-06-29 09:12 | NUR ---
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
--- NOTE | 2019-06-29 09:15 | EKG ---
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
[2019-06-29] MEDS ORDERED: IOHEXOL 300 MG/ML 100ML VIAL. ONE ×3 (10:47→12:12)
[2019-06-29] MEDS ORDERED: LIDOCAINE 1% PF 2 ML VIAL. ONE (10:47)
[2019-06-29] MEDS ORDERED: MIDAZOLAM HCL/PF 2 MG/2 ML VIAL. ONE (10:57)
[2019-06-29] MEDS ORDERED: HEPARIN for IV BOLUS 10,000 UNIT/10 ML VIAL. ONE (10:57)
[2019-06-29] MEDS ORDERED: fentaNYL PF VIAL 100 MCG/2 ML VIAL ONE (10:57)
[2019-06-29] MEDS ORDERED: NITROGLYCERIN 200 MCG/2 ML SYRINGE FOR CATH/VASC LAB. ONE (10:57)
[2019-06-29] MEDS ORDERED: VERAPAMIL 5 MG/2 ML VIAL. ONE ×2 (10:57→11:00)
[2019-06-29] MEDS ORDERED: MORPHINE SULFATE 10 MG/ML VIAL. ONE (10:59)
[2019-06-29] MEDS ORDERED: LIDOCAINE 1% Multi-Dose 20 ML VIAL. ONE (11:15)
[2019-06-29] MEDS ORDERED: ONDANSETRON PF 4 MG/2 ML VIAL. ONE (11:23)
[2019-06-29] MEDS ORDERED: VERAPAMIL 5 MG/2 ML VIAL. IART ONE (11:30)
[2019-06-29] MEDS ORDERED: NITROGLYCERIN 200 MCG/2 ML SYRINGE FOR CATH/VASC LAB. IART ONE ×2 (11:30→12:30)
[2019-06-29] MEDS ORDERED: ONDANSETRON PF 4 MG/2 ML VIAL. IVP ONE (11:30)
[2019-06-29] MEDS ORDERED: MIDAZOLAM HCL/PF 2 MG/2 ML VIAL. IV ONE (11:30)
[2019-06-29] MEDS ORDERED: IODIXANOL 320 MG/ML 100 ML VIAL. IART ONE (11:30)
[2019-06-29] MEDS ORDERED: HEPARIN for IV BOLUS 10,000 UNIT/10 ML VIAL. IART ONE (11:30)
[2019-06-29] MEDS ORDERED: MORPHINE SULFATE 10 MG/ML VIAL. IV ONE (11:30)
[2019-06-29] MEDS ORDERED: LIDOCAINE 1% Multi-Dose 20 ML VIAL. INJ ONE (11:30)
[2019-06-29] MEDS ORDERED: LIDOCAINE 1% PF 2 ML VIAL. INJ ONE (11:30)
[2019-06-29] MEDS ORDERED: BIVALIRUDIN 250 MG VIAL. IV ONE ×2 (11:50→12:00)
[2019-06-29] MEDS ORDERED: TICAGRELOR 90 MG TABLET. ONE (12:22)
[2019-06-29] MEDS ORDERED: TICAGRELOR 90 MG TABLET. PO ONE (12:30)
[2019-06-29] MEDS: FUROSEMIDE 40 MG TABLET. PO SCH (13:25)
[2019-06-29] MEDS: CYANOCOBALAMIN (VITAMIN B-12) 1,000 MCG TABLET. PO SCH (13:25)
[2019-06-29] MEDS: POTASSIUM CHLORIDE 10 MEQ TABLET.ER. PO SCH ×2 (13:25→22:53)
[2019-06-29] MEDS: hydrALAZINE 20 MG/ML VIAL. IVP PRN (13:27)
--- NOTE | 2019-06-29 16:02 | NUR ---
SS following for discharge planning. SS reviewed pt chart. Pt is from home and is currently requiring oxygen. SS will continue to follow for discharge planning.
--- NOTE | 2019-06-29 16:11 | CARD ---
MR#: [id number] Date of Study: 06/29/2019 Ordering Physician: CHARLIE GERMAN, Referring Physician: CHARLIE GERMAN Tech: ROBSON PORTILLO RTR APPROVED REPORT Procedures Left heart catheterization Left ventriculogram Selective coronary angiogram Bare-metal stent placements to the left circumflex vessel. The patient is an 83-year-old female with a history of coronary artery disease and previous stents in cluding stents to the LAD with recurrent restenosis. The patient was admitted to the hospital with a non-ST elevated myocardial infarction. In this setting catheterization and possible revascularization were recommended. Risks and benefits were discussed. The patient agreed to proceed. After informed consent was obtained the patient was brought to the heart catheterization lab. The are a of the right femoral artery was prepared in the usual manner with Betadine, sterile draping and loc al anesthetic. An 18-gauge needle was used to enter the right femoral artery, a wire placed and a 6 F rench sheath placed over the wire. A 6 [place] JL4 diagnostic catheter was advanced to the ascending a helena over a wire. It was then used to engage the left system and sequential injections in various vie ws were obtained. A 6 [place] Deni diagnostic right catheter was advanced to the ascending aorta. It was used to engage the right system and sequential injections were obtained. A pigtail catheter ad vanced ascending aorta and then the left ventricle. Pressure measurements were obtained. A 30 WHITE le ft ventriculogram was performed. Pullback pressures were measured. The catheter was removed from the patient. Imaging showed again restenosis of the stent to the LAD. However it showed a new total occlu neda of the mid left circumflex vessel. After reviewing the images and the patient's non-ST elevated myocardial infarction we proceeded to revascularize her left circumflex. Angiomax as per protocol was administered. A 6 [place] XB 3.5 guiding catheter was used to engage the left system. The total occlusion was crossed with a PT choice wire. A aspiration catheter was initial ly used in the area of the lesion with a single pass. The lesion was then dilated with a 2.5 x 15 mm Trek balloon. Initial resumption of flow showed a more distal 80% lesion which was also treated with the 2.5 x 15 mm balloon. A total of 5 inflations at a maximum pressure of 8 adan for maximum time of 2 0seconds were performed. A 2.5 x 23 bare metal multi-link mini vision stent was then used to cover th e area of the initial occlusion and the more distal lesion and deploted with one inflation at 15 adan for 15 seconds. A more proximal >70% lesion was treated with a 2.5 x 12 mm multi-link mini vision st ent with one inflation at 16 adan for 16 seconds. Residual lesions were 0%. The system was removed fro m the patient. Injection the sheath showed normal placement the sheath which was removed and sealed w ith an Angio-Seal product. The patient was then moved to the holding area in stable condition. Findings. Hemodynamics. Left ventricular pressure 125/12, 18. Aortic root pressure of 122/76. Coronaries. Left main. The left main was a normal-size vessel with no lesions. Left anterior descending. The LAD was a moderate size vessel. It had a mid 40% lesion. In a long area of previous stenting in the mid to distal vessel which again had restenosis of up to 90%. Left circumflex. The left circumflex had a mid occlusion. Once the occlusion was treated the vessel h ad a more distal 80% lesion. A branch vessel had a 75% lesion. Right coronary artery. The right coronary was a smaller nondominant vessel. It a mid 95% lesion and a right ventricular branch with 95% lesion. Left ventriculogram. The left ventricle showed inferior apical hypokinesis. Ejection fraction was estimated at 38%. <Conclusion> Occluded mid left circumflex vessel. Successful bare metal stents placed to the left circumflex vessel with 0% residual lesions. Continued aggressive restenosis of the patient's LAD stents with a 90% or greater area of restenosis. Nondominant right coronary artery with greater than 90% lesions in the vessel and a right ventricular branch. Moderately decreased LV systolic function in the setting of a myocardial infarction. Signed by : Marcos Rivera MD Electronically Approved : 06/29/2019 16:10:50
[2019-06-29] MEDS ORDERED: IV NORMAL SALINE 1000ML BAG 1,000 ML IV SCH (16:25)
[2019-06-29] MEDS ORDERED: LIDOCAINE 2% 100 MG/5 ML SYRINGE. IV PRN (16:30)
[2019-06-29] MEDS ORDERED: NITROGLYCERIN SUBLINGUAL 0.4 MG BOTTLE OF 25. SL PRN (16:30)
[2019-06-29] MEDS ORDERED: 0.9 % SODIUM CHLORIDE 10 ML DISP.SYRIN. IV PRN (16:30)
[2019-06-29] MEDS ORDERED: ACETAMINOPHEN 325 MG TABLET. PO PRN (16:30)
[2019-06-29] MEDS ORDERED: AMIODARONE 150 MG in IV DEXTROSE 5% 100ML 100 ML IV PRN (16:30)
[2019-06-29] MEDS ORDERED: ATROPINE 0.5 MG/5 ML DISP.SYRINGE. IV PRN (16:30)
--- NOTE | 2019-06-29 18:37 | EKG ---
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
[2019-06-29] MEDS: ATORVASTATIN CALCIUM 40 MG TABLET. PO SCH (22:52)
[2019-06-29] MEDS: clonazePAM 0.5 MG TABLET PO SCH (22:52)
[2019-06-29] MEDS: TICAGRELOR 90 MG TABLET. PO SCH (22:53)
[2019-06-29] MEDS: DIGOXIN 125 MCG TABLET. PO SCH (22:53)
[2019-06-30 03:00] VITALS: BP 100/52
[2019-06-30 04:29] LABS: BASO % 0 % (0-3); EOS % 0 % (0-3); HEMATOCRIT 34.1 % (36.0-47.0); HEMOGLOBIN 11.7 g/dL (12.0-15.5); LYMPH # 0.8 x10^3/uL (1.0-4.8); LYMPH % 8 % (24-48); MEAN CORPUSCULAR HEMOGLOBIN 31 pg (25-35); MEAN CORPUSCULAR HGB CONC 34 g/dL (31-37); MEAN CORPUSCULAR VOLUME 91 fL (79-100); MONO # 1.6 x10^3/uL (0.0-1.1); MONO % 16 % (0-9); NEUT # 7.6 x10^3/uL (1.8-7.7); NEUT % 76 % (31-73); PLATELET COUNT 208 x10^3/uL (140-400); RED BLOOD COUNT 3.74 x10^6/uL (3.50-5.40); RED CELL DISTRIBUTION WIDTH 14.1 % (11.5-14.5)
[2019-06-30 04:46] LABS: CALCIUM 8.7 mg/dL (8.5-10.1); CREATININE 0.8 mg/dL (0.6-1.0); GFR 68.5; POTASSIUM 4.3 mmol/L (3.5-5.1)
[2019-06-30 07:00] VITALS: BP 134/58
--- NOTE | 2019-06-30 07:20 | EKG ---
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
[2019-06-30] MEDS ORDERED: ASPIRIN ENTERIC COATED 81 MG TABLET.DR. PO SCH (08:00)
[2019-06-30] MEDS: POTASSIUM CHLORIDE 10 MEQ TABLET.ER. PO SCH ×2 (08:44→20:43)
[2019-06-30] MEDS: CYANOCOBALAMIN (VITAMIN B-12) 1,000 MCG TABLET. PO SCH (08:44)
[2019-06-30] MEDS: CARVEDILOL 6.25 MG TABLET. PO SCH ×2 (08:44→17:25)
[2019-06-30] MEDS: TICAGRELOR 90 MG TABLET. PO SCH ×2 (08:45→20:43)
[2019-06-30] MEDS: FUROSEMIDE 40 MG TABLET. PO SCH (08:45)
[2019-06-30] MEDS: ASPIRIN CHEWABLE 81 MG TABLET. PO SCH ×2 (08:45→20:43)
--- NOTE | 2019-06-30 08:47 | PDOC ---
Provider Note Provider Note feels better after 2 circ stents- vss, bp ok, labs same- cont same care for now CHARLIE GERMAN MD Jun 30, 2019 08:47
[2019-06-30] MEDS ORDERED: TICAGRELOR 90 MG TABLET. PO SCH (09:00)
[2019-06-30 11:00] VITALS: BP 131/62
[2019-06-30] MEDS: ONDANSETRON PF 4 MG/2 ML VIAL. IVP PRN ×2 (11:35→17:25)
[2019-06-30 11:45] LABS: CHOLESTEROL/HDL RATIO 2.5
--- NOTE | 2019-06-30 13:21 | PDOC ---
CARDIO Progress Notes Date and Time Date of Service 06/30/19 Time of Evaluation 1300 Subjective Subjective: No Chest Pain, No shortness of breath, Other (c/o cramping in her left foot. ) Vitals Vitals Vital Signs Date Time Temp Pulse Resp B/P (MAP) Pulse Ox O2 Delivery O2 Flow Rate FiO2 06/30/19 11:00 97.7 82 18 131/62 (85) 95 Room Air 97.7 06/29/19 19:37 2.0 Weight Weight [ ] Input and Output Intake and Output Intake and Output 06/30/19 06:59 Intake Total 440 ml Output Total 780 ml Balance -340 ml Intake Oral 440 ml Output Urine Total 780 ml # Voids 1 Laboratory Labs Laboratory Tests Test 06/30/19 03:55 White Blood Count 10.0 x10^3/uL (4.0-11.0) Red Blood Count 3.74 x10^6/uL (3.50-5.40) Hemoglobin 11.7 g/dL (12.0-15.5) Hematocrit 34.1 % (36.0-47.0) Mean Corpuscular Volume 91 fL (79-100) Mean Corpuscular Hemoglobin 31 pg (25-35) Mean Corpuscular Hemoglobin Concent 34 g/dL (31-37) Red Cell Distribution Width 14.1 % (11.5-14.5) Platelet Count 208 x10^3/uL (140-400) Neutrophils (%) (Auto) 76 % (31-73) Lymphocytes (%) (Auto) 8 % (24-48) Monocytes (%) (Auto) 16 % (0-9) Eosinophils (%) (Auto) 0 % (0-3) Basophils (%) (Auto) 0 % (0-3) Neutrophils # (Auto) 7.6 x10^3/uL (1.8-7.7) Lymphocytes # (Auto) 0.8 x10^3/uL (1.0-4.8) Monocytes # (Auto) 1.6 x10^3/uL (0.0-1.1) Eosinophils # (Auto) 0.0 x10^3/uL (0.0-0.7) Basophils # (Auto) 0.0 x10^3/uL (0.0-0.2) Sodium Level 133 mmol/L (136-145) Potassium Level 4.3 mmol/L (3.5-5.1) Chloride Level 99 mmol/L (98-107) Carbon Dioxide Level 28 mmol/L (21-32) Anion Gap 6 (6-14) Blood Urea Nitrogen 17 mg/dL (7-20) Creatinine 0.8 mg/dL (0.6-1.0) Estimated GFR (Cockcroft-Gault) 68.5 Glucose Level 103 mg/dL (70-99) Calcium Level 8.7 mg/dL (8.5-10.1) Triglycerides Level 53 mg/dL (0-150) Cholesterol Level 129 mg/dL (0-200) LDL Cholesterol, Calculated 66 mg/dL (0-100) VLDL Cholesterol, Calculated 11 mg/dL (0-40) Non-HDL Cholesterol Calculated 77 mg/dL (0-129) HDL Cholesterol 52 mg/dL (40-60) Cholesterol/HDL Ratio 2.5 Physical Exam HEENT: Neck Supple W Full Motion Chest: Symmetric LUNGS: Clear to Auscultation Heart: irregularly irregular, other (2/6 systolic murmur ) Abdomen: Soft N/T Extremities: 2+ Dorsalis Pedis, No Edema Neurology: alert, oriented, follow commands Assessment Assessment 1. NSTEMI 2. CAD; s/p PCI/stent to the LAD . Cath earlier this year with re- stenosis of LAD stent. S/p balloon angioplasty at that time. Cath yesterday showed in-stent restenosis of the LAD stenosis again along with occluded mid LCx. S/p successful PCI/BMS to the LCx. 3. ICM; LVEF 45% per echo 07/2018 4. Chronic systolic CHF; clinically compensated 5. Hypertension; controlled 6. Hyperlipidemia; statin 7. Chronic AFIB; rate controlled with dig and BB therapy 8. SSS s/p PPM ([facility]) Recommendations Echocardiogram Continue secondary prevention measures including DAPT with ASA and Brilinta Cardiac rehab referral Risk stratification modification Outpatient referral to CTS given recurrent in-stent restenosis of the LAD stent. ANAHI MIN APRN Jun 30, 2019 13:21
[2019-06-30 15:00] VITALS: BP 122/59
[2019-06-30 19:00] VITALS: BP 114/57
[2019-06-30] MEDS: clonazePAM 0.5 MG TABLET PO SCH (20:42)
[2019-06-30] MEDS: ATORVASTATIN CALCIUM 40 MG TABLET. PO SCH (20:43)
[2019-06-30] MEDS: DIGOXIN 125 MCG TABLET. PO SCH (20:43)
[2019-06-30 23:00] VITALS: BP 129/70
[2019-07-01 03:00] VITALS: BP 151/77
[2019-07-01 03:57] LABS: BILIRUBIN,URINE NEGATIVE (NEG); CLARITY,URINE CLEAR; COLOR,URINE YELLOW; NITRITE,URINE NEGATIVE (NEG); PH,URINE 5.5; PROTEIN,URINE NEGATIVE (NEG-TRACE)
[2019-07-01 04:05] LABS: BACTERIA,URINE MANY /HPF (0-FEW); RBC,URINE 0 /HPF (0-2); SQUAMOUS EPITHELIAL CELL,UR FEW /LPF
[2019-07-01 04:34] LABS: HEMATOCRIT 32.4 % (36.0-47.0); RED BLOOD COUNT 3.57 x10^6/uL (3.50-5.40); RED CELL DISTRIBUTION WIDTH 14.1 % (11.5-14.5)
[2019-07-01 07:42] VITALS: BP 146/67
[2019-07-01] MEDS: POTASSIUM CHLORIDE 10 MEQ TABLET.ER. PO SCH ×2 (09:42→22:30)
[2019-07-01] MEDS: CARVEDILOL 6.25 MG TABLET. PO SCH ×2 (09:42→17:27)
[2019-07-01] MEDS: TICAGRELOR 90 MG TABLET. PO SCH ×2 (09:42→22:31)
[2019-07-01] MEDS: CYANOCOBALAMIN (VITAMIN B-12) 1,000 MCG TABLET. PO SCH (09:43)
--- NOTE | 2019-07-01 09:45 | PDOC ---
Provider Note Provider Note c/o L foot pain 2 days, no injury- tender diffusely , no edema/redness, good pulses- will xr CHARLIE GERMAN MD Jul 01, 2019 09:45
--- NOTE | 2019-07-01 10:48 | NUR ---
SS following up with discharge planning. PT recommended home with home healthcare at discharge. SS met with pt to discuss home healthcare and home healthcare options. Pt reported that she did not feel that home healthcare was necessary at this time. Pt reported that she is independent at home and reported that she is initially going to discharge to her daughter's home until she feels fully recovered prior to returning home. SS will continue to follow for discharge planning.
--- NOTE | 2019-07-01 11:14 | CARD ---
MR#: [id number] Date of Study: 07/01/2019 Ordering Physician: ANAHI MIN, Referring Physician: ANAHI MIN, Tech: Rosalind Hidalgo TALIA APPROVED REPORT EXAM: Two-dimensional and M-mode echocardiogram with Doppler and color Doppler. Other Information Quality : AverageHR: 84bpm Rhythm : Other INDICATION Non STEMI 2D DIMENSIONS RVDd3.9 (2.9-3.5cm)Left Atrium(2D)4.7 (1.6-4.0cm) IVSd1.7 (0.7-1.1cm)Aortic Root(2D)2.7 (2.0-3.7cm) LVDd4.2 (3.9-5.9cm)LVOT Diameter2.0 (1.8-2.4cm) PWd1.5 (0.7-1.1cm)LVDs3.6 (2.5-4.0cm) FS (%) 16.1 %SV27.3 ml LVEF(%)34.2 (>50%) M-Mode DIMENSIONS Left Atrium(MM)4.72 (2.5-4.0cm)Aortic Root2.78 (2.2-3.7cm) Aortic Valve AoV Peak Wil.164.5cm/sAoV VTI23.3cm AO Peak GR.10.8mmHgLVOT VTI 8.28cm AO Mean GR.4mmHgAVA (VTI)1.30cm2 Mitral Valve MV E Vdjxtfgx191.4cm/sMV E Peak Gr.58mmHg MV DECEL ANIQ323kgGB A Mfljzuwd58.2cm/s MV E Mean Gr.3mmHgE/A Ratio4.9 MV A [id number] Tricuspid Valve TR P. Anidictm756tj/sRAP [id number] TR Peak Gr.49bcJrQHGT25cvWs LEFT VENTRICLE The left ventricle is normal size. There is moderate concentric left ventricular hypertrophy. The sys tolic function is moderately impaired. The Ejection Fraction is 35-40%. There is global hypokinesis o f the left ventricle. Septal motion suggestive of conduction defect. Tissue Doppler imaging reveals m oderate left ventricular diastolic dysfunction. RIGHT VENTRICLE The right ventricle is mildly dilated. There is normal right ventricular wall thickness. RV Systolic function is mildly reduced. ATRIA The left atrium is moderately dilated. The right atrium is moderately dilated. The interatrial septum is intact with no evidence for an atrial septal defect or patent foramen ovale as noted on 2-D or Do ppler imaging. AORTIC VALVE The aortic valve is mildly calcified. The aortic valve is trileaflet. Doppler and Color Flow revealed no significant aortic regurgitation. There is no significant aortic valvular stenosis. There is no a ortic valvular vegetation. MITRAL VALVE Mitral annular calcification is mild to moderate. There is no evidence of mitral valve prolapse. Ther e is no mitral valve stenosis. Doppler and Color-flow revealed trace mitral regurgitation. TRICUSPID VALVE The tricuspid valve is normal in structure and function. Doppler and Color Flow revealed mild tricusp id regurgitation. There is moderate pulmonary hypertension. The PA pressure was estimated at 47 mmHg. There is no tricuspid valve prolapse or vegetation. There is no tricuspid valve stenosis. PULMONIC VALVE Doppler and Color Flow revealed trace pulmonic valvular regurgitation. There is no pulmonic valvular stenosis. GREAT VESSELS The aortic root is normal in size. The ascending aorta is normal in size. The IVC is dilated and carmen apses >50% with inspiration. PERICARDIAL EFFUSION There is no evidence of significant pericardial effusion. Critical Notification Critical Value: No <Conclusion> The systolic function is moderately impaired. The Ejection Fraction is 35-40%. There is global hypokinesis of the left ventricle. Septal motion suggestive of conduction defect. Doppler and Color Flow revealed mild tricuspid regurgitation. There is moderate pulmonary hypertensio n. The PA pressure was estimated at 47 mmHg. Signed by : Bartolo Fernandez, Electronically Approved : 07/01/2019 11:13:46
[2019-07-01] MEDS ORDERED: FUROSEMIDE 40 MG/4 ML VIAL. IVP ONE (11:15)
--- NOTE | 2019-07-01 11:23 | PDOC ---
CARDIO Progress Notes Date and Time Date of Service 07/01/2019 Time of Evaluation 1040 Subjective Subjective: No Chest Pain, No shortness of breath, No Palpitations, Other (Still has SOA with activity) Vitals Vitals Vital Signs Date Time Temp Pulse Resp B/P (MAP) Pulse Ox O2 Delivery O2 Flow Rate FiO2 07/01/19 09:42 74 146/67 07/01/19 08:00 Room Air 07/01/19 07:42 97.5 93 2.0 97.5 07/01/19 03:00 20 Weight Weight [ ] Input and Output Intake and Output Intake and Output 07/01/19 07:00 Intake Total 1530 ml Output Total 750 ml Balance 780 ml Intake Oral 540 ml IV Total 990 ml Output Urine Total 750 ml # Voids 1 Laboratory Labs Laboratory Tests Test 07/01/19 02:45 07/01/19 04:15 Urine Color Yellow Urine Clarity Clear Urine pH 5.5 Urine Specific [place] 1.020 Urine Protein Negative mg/dL (NEG-TRACE) Urine Glucose (UA) Negative mg/dL (NEG) Urine Ketones (Stick) Negative mg/dL (NEG) Urine Blood Negative (NEG) Urine Nitrite Negative (NEG) Urine Bilirubin Negative (NEG) Urine Urobilinogen Dipstick 1.0 mg/dL (0.2 mg/dL) Urine Leukocyte Esterase Small (NEG) Urine RBC 0 /HPF (0-2) Urine WBC 5-10 /HPF (0-4) Urine Squamous Epithelial Cells Few /LPF Urine Bacteria Many /HPF (0-FEW) Urine Mucus Slight /LPF White Blood Count 8.0 x10^3/uL (4.0-11.0) Red Blood Count 3.57 x10^6/uL (3.50-5.40) Hemoglobin 11.0 g/dL (12.0-15.5) Hematocrit 32.4 % (36.0-47.0) Mean Corpuscular Volume 91 fL (79-100) Mean Corpuscular Hemoglobin 31 pg (25-35) Mean Corpuscular Hemoglobin Concent 34 g/dL (31-37) Red Cell Distribution Width 14.1 % (11.5-14.5) Platelet Count 202 x10^3/uL (140-400) Uric Acid 6.5 mg/dL (2.6-6.0) Physical Exam HEENT: Neck Supple W Full Motion Chest: Symmetric LUNGS: Other (basilar crackles) Heart: irregularly irregular (AFIB) Abdomen: Soft N/T Extremities: 2+ Dorsalis Pedis, No Edema Neurology: alert, oriented, follow commands Assessment Assessment 1. NSTEMI: S/P PCI/BMS to LCx and has significant lesion to smaller nondominant vessel. It a mid 95% lesion and a right ventricular branch with 95% lesion (treat medically) 2. CAD; s/p PCI/stent to the LAD with recent PTCA of ISR 3. ICM; past LVEF 45% now preliminary at 35% 4. Chronic systolic CHF: still overloaded but no SOA. 5. Hypertension; controlled 6. Hyperlipidemia; statin 7. Chronic AFIB; rate controlled with dig and BB therapy 8. SSS s/p PPM ([facility]) Recommendations 1. Continue secondary prevention measures including DAPT with ASA and Brilinta 2. Cardiac rehab referral 3. Start on imdur. Await final TTE report to note EF. Lasix therapy 4. Outpatient referral to CTS given recurrent in-stent restenosis of the LAD stent. If surgical candidate then SHELDON ligation would be possible 5. If not a surgical candidate then would need watchman referral. 6. Pt potentially developed LE microthrombosis with warfarin and would not like to start on Xa inhibitors due to cost. ASA for now for stroke prevention. Will discuss further for potential Xa inhibitor use as an outpt if she would qualify for assistance 7. Unable to place on ACEi due to allergy, no angioedema but notable for pruritus. PREETHI WADDELL APRN Jul 01, 2019 11:23
--- NOTE | 2019-07-01 12:29 | RAD ---
Examination: FOOT LEFT 2V History: Left foot pain. No known injury. Comparison/Correlation: None Findings: 2 view examination of the left foot was performed. Small calcaneal spur is present. Joint spaces are unremarkable. No acute fracture or bony destruction. Osteopenia noted. Impression: Osteopenia. No significant degenerative change for the patient's age. Electronically signed by: Joseluis Ramirez MD (07/01/2019 12:26 PM) [facility]
[2019-07-01 14:55] VITALS: BP 122/60
[2019-07-01] MEDS: ONDANSETRON PF 4 MG/2 ML VIAL. IVP PRN (17:26)
[2019-07-01 19:26] VITALS: BP 140/64
[2019-07-01] MEDS: clonazePAM 0.5 MG TABLET PO SCH (22:29)
[2019-07-01] MEDS: ATORVASTATIN CALCIUM 40 MG TABLET. PO SCH (22:30)
[2019-07-01] MEDS: DIGOXIN 125 MCG TABLET. PO SCH (22:30)
[2019-07-01] MEDS: ASPIRIN CHEWABLE 81 MG TABLET. PO SCH (22:31)
[2019-07-01 22:51] VITALS: BP 143/78
[2019-07-02 03:50] VITALS: BP 134/67
[2019-07-02 07:00] VITALS: BP 140/90
[2019-07-02 09:00] VITALS: BP 140/90
[2019-07-02] MEDS: CARVEDILOL 6.25 MG TABLET. PO SCH (09:00)
[2019-07-02] MEDS: POTASSIUM CHLORIDE 10 MEQ TABLET.ER. PO SCH (09:00)
[2019-07-02] MEDS ORDERED: FUROSEMIDE 40 MG TABLET. PO SCH (09:00)
[2019-07-02] MEDS: CYANOCOBALAMIN (VITAMIN B-12) 1,000 MCG TABLET. PO SCH (09:00)
[2019-07-02] MEDS ORDERED: ISOSORBIDE MONONITRATE ER 30 MG TAB.ER.24H PO SCH (09:00)
[2019-07-02] MEDS: TICAGRELOR 90 MG TABLET. PO SCH (09:01)
--- NOTE | 2019-07-02 09:10 | PDOC ---
Provider Note Provider Note [id number] CHARLIE GERMAN MD Jul 02, 2019 09:10
[2019-07-02 09:18] LABS: CALCIUM 8.9 mg/dL (8.5-10.1); CREATININE 0.7 mg/dL (0.6-1.0); GFR 79.9; MAGNESIUM 1.9 mg/dL (1.8-2.4)
[2019-07-02 09:45] LABS: POTASSIUM 4.3 mmol/L (3.5-5.1)
--- NOTE | 2019-07-02 10:51 | PDOC ---
CARDIO Progress Notes Date and Time Date of Service 07/02/19 Time of Evaluation 1035 Subjective Subjective: No Chest Pain, No shortness of breath, No Palpitations Vitals Vitals Vital Signs Date Time Temp Pulse Resp B/P (MAP) Pulse Ox O2 Delivery O2 Flow Rate FiO2 07/02/19 09:00 67 140/90 07/02/19 08:00 Room Air 07/02/19 07:00 97.5 16 91 97.5 07/01/19 20:00 2.0 Weight Weight [ ] Input and Output Intake and Output Intake and Output 07/02/19 07:00 Intake Total 410 ml Output Total 1025 ml Balance -615 ml Intake Oral 410 ml Output Urine Total 1025 ml Laboratory Labs Laboratory Tests Test 07/02/19 08:55 Sodium Level 133 mmol/L (136-145) Potassium Level 4.3 mmol/L (3.5-5.1) Chloride Level 97 mmol/L (98-107) Carbon Dioxide Level 27 mmol/L (21-32) Anion Gap 9 (6-14) Blood Urea Nitrogen 13 mg/dL (7-20) Creatinine 0.7 mg/dL (0.6-1.0) Estimated GFR (Cockcroft-Gault) 79.9 Glucose Level 116 mg/dL (70-99) Calcium Level 8.9 mg/dL (8.5-10.1) Magnesium Level 1.9 mg/dL (1.8-2.4) Physical Exam HEENT: Neck Supple W Full Motion Chest: Symmetric LUNGS: Other (basilar crackles) Heart: irregularly irregular (AFIB) Abdomen: Soft N/T Extremities: 2+ Dorsalis Pedis, No Edema Neurology: alert, oriented, follow commands Assessment Assessment 1. NSTEMI 2. CAD; s/p PCI/stent to the LAD . Cath earlier this year with re- stenosis of LAD stent. S/p balloon angioplasty at that time. Cath yesterday showed in-stent restenosis of the LAD stenosis again along with occluded mid LCx. S/p successful PCI/BMS to the LCx. 3. ICM; LVEF repeat echo with LVEF 35-40% 4. Chronic systolic CHF; clinically compensated 5. Hypertension; controlled 6. Hyperlipidemia; statin 7. Chronic AFIB; rate controlled with dig and BB therapy 8. SSS s/p PPM ([facility]) Recommendations Continue secondary prevention measures including DAPT with ASA and Brilinta. Will need Brilinta therapy rather than Plavix due to recurrent in-stent rethrombosis. 1 month supply of Brilinta samples provided along with co-pay card for Medicare patients. Office nurse will also apply for patient assistance program. Risk stratification modification Supportive care. Optimization therapy. Allergy to ACEi May discharge from a CV standpoint and f/u in our office with Dr. Adams 08/10/19 at 2:30pm. ANAHI MIN APRN Jul 02, 2019 10:51
[2019-07-02] MEDS ORDERED: ISOS30TA4 PO (10:56)
[2019-07-02] MEDS ORDERED: TICA90TA PO (10:56)
--- NOTE | 2019-07-02 13:15 | NUR ---
Discharge Note: [facility] Discharge instructions and discharge home medications reviewed with Patient and a copy given. All questions have been answered and understanding verbalized. Prescriptions given to patient. Follow up appointment information given to patient. The following instructions and handouts were given: Post cardiac catheterization care, brilinta, Imdur, chest pain, and angioplasty Discontinued lines and drains: Peripheral IV intact. Patient discharged to Home or Self Care with Self via Wheelchair
--- NOTE | 2019-07-02 17:50 | DS ---
DATE OF DISCHARGE: 07/02/2019 HOSPITAL SUMMARY: An 83-year-old white female with previous history of coronary artery disease, came in with increasing chest pain, very suspicious for unstable angina with increasing troponins of up from 1.2 to 17 after admission. Chemistry profile and CBC were normal and the cholesterol was 129, HDL 52, LDL 66. Uric acid was 6.5. Chest x-ray showed no acute change and the foot x-ray showed no changes as well. She was given IV heparin and nitroglycerin and ultimately taken to the animal laboratory helper and the stent was placed in the left circumflex with good improvement in her pain. Echocardiogram was done prior to dismissal and showed mildly reduced ejection fraction of about 35-40% with moderate pulmonary hypertension present. She is comfortable to be followed as an outpatient at this point now that she is medically stable. FINAL DIAGNOSES: 1. Non-ST elevated myocardial infarction. 2. Systolic dysfunction secondary to myocardial infarction. 3. Chronic atrial fibrillation. OPERATIONS AND PROCEDURES: Cardiac catheterization and stent placement. COMPLICATIONS: None. CONSULTATIONS: Dr. Fernandez's group. DISPOSITION: Meds remain the same with the addition of Imdur 30 mg daily and any other medications per Cardiology. Office followup with Dr. Briggs, in 1-[address] Fernandez as well and her prognosis is guarded. She remains a DNR patient by her own choice. CHARLIE BRIGGS MD DR: ÁNGEL/parish JOB#: [id number] / [id number]
--- NOTE | 2019-07-09 17:47 | PDOC4 ---
OPERATIVE NOTE: Additional note for clarification of a heart catheterization on 06/29/19. As outlined in the note the patient had a total occlusion of the left circumflex vessel. A wire was passed across the lesion and an aspiration catheter was passed into the lesion for an aspiration thrombectomy. The aspiration catheter was removed and the vessel stented as outlined in the catheterization note. Aspiration thrombectomy of a an occluded left circumflex vessel prior to stenting. RAPHAEL HOLT MD Jul 09, 2019 17:47
== END 2019-07-02 13:15 | disposition home or self-care (01) | DRG 248 ==
LOC: ER 01:09 → 2 SOUTH 02:41
PROVIDERS: ADMIT Family Medicine; ATTEND Family Medicine
PROC: 02703EZ Dilation of Coronary Artery, One Artery with Two Intraluminal Devices, Percutaneous Approach (ICD-10-PCS; principal; 2019-06-29)
PROC: 4A023N7 Measurement of Cardiac Sampling and Pressure, Left Heart, Percutaneous Approach (ICD-10-PCS; 2019-06-29)
PROC: B2111ZZ Fluoroscopy of Multiple Coronary Arteries using Low Osmolar Contrast (ICD-10-PCS; 2019-06-29)
PROC: B2151ZZ Fluoroscopy of Left Heart using Low Osmolar Contrast (ICD-10-PCS; 2019-06-29)
PROC: 02C03ZZ Extirpation of Matter from Coronary Artery, One Artery, Percutaneous Approach (ICD-10-PCS; 2019-06-29)
DX: T82.855A Stenosis of coronary artery stent, initial encounter (principal); I21.4 Non-ST elevation (NSTEMI) myocardial infarction; I50.23 Acute on chronic systolic (congestive) heart failure; I16.1 Hypertensive emergency; I48.20 Chronic atrial fibrillation, unspecified; I25.110 Atherosclerotic heart disease of native coronary artery with unstable angina pectoris; G89.29 Other chronic pain; I11.0 Hypertensive heart disease with heart failure; M19.90 Unspecified osteoarthritis, unspecified site; I25.10 Atherosclerotic heart disease of native coronary artery without angina pectoris; I25.5 Ischemic cardiomyopathy; I49.5 Sick sinus syndrome; E78.5 Hyperlipidemia, unspecified; I25.2 Old myocardial infarction; Z88.5 Allergy status to narcotic agent; Z88.8 Allergy status to other drugs, medicaments and biological substances; Z91.041 Radiographic dye allergy status; Z95.0 Presence of cardiac pacemaker; Z98.61 Coronary angioplasty status; Y83.1 Surgical operation with implant of artificial internal device as the cause of abnormal reaction of the patient, or of later complication, without mention of misadventure at the time of the procedure
CPT/HCPCS: 37184; 92928; 93458; 96361; 96374; 96375; 96376; 99285; G0269; 36415; 71045; 73620; 80048; 80053; 80061; 81001; 83735; 83880; 84484; 84550; 85025; 85027; 85520; 85610; 85730; 87086; 87186; 93005; 93306; 99152; 99153; C1725; C1757; C1760; C1769; C1876; C1887; C1892; J0360; J0583; J1200; J1644; J1940; J2250; J2270; J2405; J3490; J7030; Q9967; 97116; 97530; 97535; C1771; G0378

== ENCOUNTER 2020-02-27 11:40 | Emergency (ER) | payer MEDICARE ==
[~2020-02-27] VITALS: Ht 158.8 cm; Wt 54.3 kg
[~2020-02-27 11:40] MED LIST changes: -DIGO125T PO; +DIGO125T3 PO; +GUAI-108 PO; +ISOS30TA4 PO; +ONDA4TAB7 PO; +TICA90TA PO
--- NOTE | 2020-02-27 13:12 | RAD ---
EXAM: CT Head without IV contrast INDICATION: Reason: fell, neck pain / Spl. Instructions: / History: TECHNIQUE: Multi-detector row CT images were obtained of the head without the use of IV contrast. All CT scans performed at this facility utilize dose optimization techniques as appropriate to the exam, including the following: Automated exposure control and adjustment of the mA and/or KV according to patient size (this includes techniques or standardized protocols for targeted exams where dose is indication/reason for exam). COMPARISON: None FINDINGS: BRAIN PARENCHYMA: No evidence of acute intraparenchymal hemorrhage or infarct. No abnormal parenchymal density or mass. VENTRICLES & EXTRA-AXIAL SPACES: Ventricles are within normal limits. Basilar cisterns are patent. No pathologic extra-axial fluid collection or mass. ORBITS: Orbital contents are unremarkable. SINUSES: Visualized paranasal sinuses and mastoid air cells are clear. OSSEOUS & SOFT TISSUES: Calvarium and skull base are intact. IMPRESSION: No acute intracranial pathology EXAM: CT Maxillofacial without IV contrast INDICATION: Reason: fell, neck pain / Spl. Instructions: / History: TECHNIQUE: Multi-detector row CT images were obtained through the maxillofacial region without the use of IV contrast. Post-processing reconstructed images were obtained for interpretation. All CT scans performed at this facility utilize dose optimization techniques as appropriate to the exam, including the following: Automated exposure control and adjustment of the mA and/or KV according to patient size (this includes techniques or standardized protocols for targeted exams where dose is indication/reason for exam). COMPARISON: None FINDINGS: OSSEOUS: No evidence of fracture or bone destruction. VISUALIZED INTRACRANIAL STRUCTURES: Unremarkable. ORBITS: Orbital contents are unremarkable.. SINUSES: Visualized paranasal sinuses and mastoid air cells are clear. SOFT TISSUES: Unremarkable. IMPRESSION: Unremarkable CT maxillofacial without contrast. EXAM: CT Cervical Spine without IV contrast INDICATION: Reason: fell, neck pain / Spl. Instructions: / History: TECHNIQUE: Multi-detector row CT images were obtained through the cervical spine without the use of IV contrast. Post-processing sagittal and coronal reconstructed images were obtained for interpretation. All CT scans performed at this facility utilize dose optimization techniques as appropriate to the exam, including the following: Automated exposure control and adjustment of the mA and/or KV according to patient size (this includes techniques or standardized protocols for targeted exams where dose is indication/reason for exam). COMPARISON: 01/01/2019 CT C-spine without IV contrast FINDINGS: CRANIOCERVICAL JUNCTION: There persists prominent atlantodens soft tissue thickening compatible with pannus formation that in association with the posterior arch of C1, results in at least moderate central canal stenosis, similar to prior. AP diameter measures 4.5 mm. ALIGNMENT: Unchanged grade 1 anterolisthesis of C2 on C3 of 3 mm. OSSEOUS: No evidence of fracture or bone destruction. Generalized demineralization. No acute fracture or aggressive appearing osseous lesions. There are surgical changes from previous interbody fusion spanning C3-C4 through C6-C7 with interspinous cerclage wires. DISC SPACES: Mild disc space narrowing at C2-C3 and at C7-T1, similar to prior. FACET JOINTS: Unremarkable. 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 NEUROFORAMINA: Unremarkable. SOFT TISSUES: No prevertebral soft tissue swelling or evidence of an epidural or paraspinal hematoma. IMPRESSION: 1. No acute traumatic findings in the cervical spine. 2. 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 Probable additional sites of stenosis in the cervical spine would be better delineated with MRI or CT cervical myelography if clinically warranted. Electronically signed by: Eli Paniagua MD (02/27/2020 1:09 PM) [id number]
[2020-02-27] MEDS ORDERED: DIPH,PERTUSS(ACELL),TET VAC/PF 0.5 ML SYRINGE. VAX IM ONE (13:30)
--- NOTE | 2020-02-27 13:57 | RAD ---
EXAM: CHEST AP ONLY, WRIST BILAT 3V, KNEE BILAT 3V INDICATION: Reason: fell, chest pain / Spl. Instructions: / History: . TECHNIQUE: Single view COMPARISON: Chest x-ray 08/24/2019 FINDINGS: Left chest dual-chamber pacemaker is redemonstrated. Heart is enlarged, similar to prior. The great vessels appear unremarkable. There is no hilar or mediastinal mass. The lungs are clear. There is no pleural effusion or pneumothorax. Bones again show degenerative changes in the bilateral acromioclavicular joints and to a lesser extent the glenohumeral joints especially on the left. Cerclage wires in the lower cervical spine are present. Better demonstrated on this examination is a suture anchor in the right humeral head consistent with previous rotator cuff surgery. No acute fracture or aggressive appearing osseous lesions are seen. IMPRESSION: No active cardiopulmonary disease. PROCEDURE: CHEST AP ONLY, WRIST BILAT 3V, KNEE BILAT 3V STUDY DATE: 02/27/2020 CLINICAL INDICATION / HISTORY: Bilateral wrist pain after a fall. TECHNIQUE: Bilateral wrist 3 views. AP, lateral, oblique views. COMPARISON: None FINDINGS: In the right wrist, mild to moderate degenerative changes of the first CMC joint are noted. Otherwise the the radiocarpal and intracarpal relationships are maintained. There is no fracture or dislocation. The bone density is normal. No soft tissue abnormality is seen. Left wrist, there is suggestion of mild scapholunate widening and chondrocalcinosis along the radiocarpal row. Moderately advanced carpal metacarpal degenerative change of the first digit and triscaphe a joint degenerative change is present. No acute fracture or traumatic malalignment. Soft tissues show arterial vascular calcifications bilaterally. IMPRESSION: No acute osseous abnormality in either wrist but degenerative changes in the first CMC joints are apparent. PROCEDURE: CHEST AP ONLY, WRIST BILAT 3V, KNEE BILAT 3V STUDY DATE: 02/27/2020 CLINICAL INDICATION / HISTORY: Bilateral knee pain after a fall.. TECHNIQUE: AP, lateral, and tunnel views of the bilateral knees. COMPARISON: No relevant comparisons currently available FINDINGS: No acute fracture in either knee is identified. No traumatic malalignment shown. Both knees show chondrocalcinosis in the medial and lateral compartments consistent with meniscal degenerative change. Soft tissues show arterial vascular calcifications. No joint effusion or loose body.. IMPRESSION: No acute traumatic findings in either knee are identified. Electronically signed by: Eli Paniagua MD (02/27/2020 1:54 PM) [id number]
[2020-02-27 15:01] VITALS: BP 163/77
--- NOTE | 2020-02-27 15:16 | PHYS DOC ---
Past Medical History Past Medical History: A-Fib, Cancer, CHF, Hypertension, GA, Other Additional Past Medical Histor: CARDIOMYOPATHY, OSTEOARTHRITIS, CHRONIC BACK PAIN,BOWEL OBSTRUCTION Past Surgical History: Pacemaker, Other Additional Past Surgical Histo: HERNIA REPAIR WITH MESH,SMALL BOWEL RESECTION,BILAT MASTECTOMY Smoking Status: Never Smoker Alcohol Use: Rarely Drug Use: None General Adult EDM: Chief Complaint: MECHANICAL FALL HPI: HPI: Patient is a 84 year old female who presented to the ER for evaluation after a fall in her backyard. Patient said she was in her garden, missed a hole in her garden, and she fell forward, hit her face on the ground. Patient is on blood thinner. She was not sure if she passed out. She is complaining of facial pain, lips swollen, bilateral hands pain bilateral knees pain. Patient also complained of right side ribs pain. NO shortness of air, no back pain,no hip pain, no neck pain. Patient said it just happened about 45 minutes ago. Review of Systems: Review of Systems: Constitutional: Denies fever or chills. [] Eyes: Denies change in visual acuity. [] HENT: Denies nasal congestion or sore throat. [] Respiratory: Denies cough or shortness of breath. [] Cardiovascular: Denies chest pain or edema. [] GI: Denies abdominal pain, nausea, vomiting, bloody stools or diarrhea. [] : Denies dysuria. [] Musculoskeletal: Denies back pain , positive for wrists pain, knees pain. Integument: positive for skin abrasion. Neurologic: Positive for headache, no focal weakness or sensory changes. [] Endocrine: Denies polyuria or polydipsia. [] Lymphatic: Denies swollen glands. [] Psychiatric: Denies depression or anxiety. [] Heart Score: Risk Factors: Risk Factors: DM, Current or recent (<one month) smoker, HTN, HLP, family history of CAD, obesity. Risk Scores: Score 0 - 3: 2.5% MACE over next 6 weeks - Discharge Home Score 4 - 6: 20.3% MACE over next 6 weeks - Admit for Clinical Observation Score 7 - 10: 72.7% MACE over next 6 weeks - Early Invasive Strategies Current Medications: Current Medications Medications (Trade) Dose Ordered Sig/Zander Start Time Stop Time Status Last Admin Dose Admin Diphtheria/ Tetanus/Acell Pertussis (ADACEL TDap SYRINGE) 0.5 ml ONCE ONCE 02/27/20 13:30 02/27/20 13:31 DC 02/27/20 14:38 0.5 ML Allergies: Allergies: Allergies Coded Allergies Type Severity Reaction Last Updated Verified isosorbide Allergy Severe 08/25/19 Yes acyclovir Allergy Intermediate Itching 01/13/18 Yes amitriptyline Allergy Intermediate Itching 01/13/18 Yes amlodipine Allergy Intermediate Itching 01/13/18 Yes atenolol Allergy Intermediate Itching 01/13/18 Yes fentanyl Allergy Intermediate Itching 01/13/18 Yes lisinopril Allergy Intermediate Itching 01/13/18 Yes tramadol Allergy Intermediate Itching 01/13/18 Yes warfarin Allergy Intermediate 01/13/18 Yes acetaminophen Adverse Reaction Intermediate 08/25/19 Yes codeine Adverse Reaction Intermediate Nausea and Vomiting 01/13/18 Yes hydromorphone Adverse Reaction Intermediate Nausea and Vomiting 01/13/18 Yes Physical Exam: PE: Constitutional: Well developed, well nourished, no acute distress, non-toxic appearance. [] HENT: Normocephalic, forehead skin contusion, lower lip skin contusion and swelling with inner oral mucosa abrasion, no through and through laceration, upper lip swollen, nasal bridge contused and swelling, no septal hematoma, no active nose bleeding, bilateral external ears normal, oropharynx moist, no oral exudates. [] Eyes: PERRLA, EOMI, conjunctiva normal, no discharge. [] Neck: Normal range of motion, no tenderness, supple, no stridor. [] Cardiovascular:Heart rate regular rhythm, no murmur [] Lungs & Thorax: Bilateral breath sounds clear to auscultation , Right side chest wall tender to palpation, no crepitus... Abdomen: Bowel sounds normal, soft, no tenderness, no masses, no pulsatile masses. [] Skin: Warm, dry, facial skin contusion... Back: No tenderness, no CVA tenderness. [] Extremities: Bilateral palm contusion, bilateral knee contusion, no bony deformity, no laceration, no cyanosis, no clubbing, ROM intact, no edema. [] Neurologic: Alert and oriented X 3, normal motor function, normal sensory function, no focal deficits noted. [] Psychologic: Affect normal, judgement normal, mood normal. [] Current Patient Data: Vital Signs: Current Medications Medications (Trade) Dose Ordered Sig/Zander Route PRN Reason Start Time Stop Time Status Last Admin Dose Admin Diphtheria/ Tetanus/Acell Pertussis (ADACEL TDap SYRINGE) 0.5 ml ONCE ONCE VAX IM 02/27/20 13:30 02/27/20 13:31 DC 02/27/20 14:38 EKG: EKG: [] Radiology/Procedures: Radiology/Procedures: [facility] [address] [place] [address] IMAGING REPORT Signed PATIENT: MARCIN SMITH AACCOUNT: [id number] : 1935 LOCATION: ER AGE: 84 SEX: F EXAM STATUS: REG ER ORD. PHYSICIAN: JONG STEVENSON DO REASON: fell, hit head and face on ground, no plavix PROCEDURE: CT HEAD AND MAXILLOFACIAL WO EXAM: CT Head without IV contrast INDICATION: Reason: fell, neck pain / Spl. Instructions: / History: TECHNIQUE: Multi-detector row CT images were obtained of the head without the use of IV contrast. All CT scans performed at this facility utilize dose optimization techniques as appropriate to the exam, including the following: Automated exposure control and adjustment of the mA and/or KV according to patient size (this includes techniques or standardized protocols for targeted exams where dose is indication/reason for exam). COMPARISON: None FINDINGS: BRAIN PARENCHYMA: No evidence of acute intraparenchymal hemorrhage or infarct. No abnormal parenchymal density or mass. VENTRICLES & EXTRA-AXIAL SPACES: Ventricles are within normal limits. Basilar cisterns are patent. No pathologic extra-axial fluid collection or mass. ORBITS: Orbital contents are unremarkable. SINUSES: Visualized paranasal sinuses and mastoid air cells are clear. OSSEOUS & SOFT TISSUES: Calvarium and skull base are intact. IMPRESSION: No acute intracranial pathology EXAM: CT Maxillofacial without IV contrast INDICATION: Reason: fell, neck pain / Spl. Instructions: / History: TECHNIQUE: Multi-detector row CT images were obtained through the maxillofacial region without the use of IV contrast. Post-processing reconstructed images were obtained for interpretation. All CT scans performed at this facility utilize dose optimization techniques as appropriate to the exam, including the following: Automated exposure control and adjustment of the mA and/or KV according to patient size (this includes techniques or standardized protocols for targeted exams where dose is indication/reason for exam). COMPARISON: None FINDINGS: OSSEOUS: No evidence of fracture or bone destruction. VISUALIZED INTRACRANIAL STRUCTURES: Unremarkable. ORBITS: Orbital contents are unremarkable.. SINUSES: Visualized paranasal sinuses and mastoid air cells are clear. SOFT TISSUES: Unremarkable. IMPRESSION: Unremarkable CT maxillofacial without contrast. EXAM: CT Cervical Spine without IV contrast INDICATION: Reason: fell, neck pain / Spl. Instructions: / History: TECHNIQUE: Multi-detector row CT images were obtained through the cervical spine without the use of IV contrast. Post-processing sagittal and coronal reconstructed images were obtained for interpretation. All CT scans performed at this facility utilize dose optimization techniques as appropriate to the exam, including the following: Automated exposure control and adjustment of the mA and/or KV according to patient size (this includes techniques or standardized protocols for targeted exams where dose is indication/reason for exam). COMPARISON: 01/01/2019 CT C-spine without IV contrast FINDINGS: CRANIOCERVICAL JUNCTION: There persists prominent atlantodens soft tissue thickening compatible with pannus formation that in association with the posterior arch of C1, results in at least moderate central canal stenosis, similar to prior. AP diameter measures 4.5 mm. ALIGNMENT: Unchanged grade 1 anterolisthesis of C2 on C3 of 3 mm. OSSEOUS: No evidence of fracture or bone destruction. Generalized demineralization. No acute fracture or aggressive appearing osseous lesions. There are surgical changes from previous interbody fusion spanning C3-C4 through C6-C7 with interspinous cerclage wires. DISC SPACES: Mild disc space narrowing at C2-C3 and at C7-T1, similar to prior. FACET JOINTS: Unremarkable. 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 NEUROFORAMINA: Unremarkable. SOFT TISSUES: No prevertebral soft tissue swelling or evidence of an epidural or paraspinal hematoma. IMPRESSION: 1. No acute traumatic findings in the cervical spine. 2. 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 Probable additional sites of stenosis in the cervical spine would be better delineated with MRI or CT cervical myelography if clinically warranted. Electronically signed by: Reena Paniagua MD (02/27/2020 1:09 PM) [id number] DICTATED and SIGNED BY: REENA PANIAGUA MD DATE: 02/27/20 1309 [] [facility] [address] [place] [address] IMAGING REPORT Signed PATIENT: MARCIN SMITH AACCOUNT: [id number] : 1935 LOCATION: ER AGE: 84 SEX: F EXAM STATUS: REG ER ORD. PHYSICIAN: JONG STEVENSON DO REASON: fell, both knees injured, both wrists pain PROCEDURE: WRIST BILAT 3V EXAM: CHEST AP ONLY, WRIST BILAT 3V, KNEE BILAT 3V INDICATION: Reason: fell, chest pain / Spl. Instructions: / History: . TECHNIQUE: Single view COMPARISON: Chest x-ray 08/24/2019 FINDINGS: Left chest dual-chamber pacemaker is redemonstrated. Heart is enlarged, similar to prior. The great vessels appear unremarkable. There is no hilar or mediastinal mass. The lungs are clear. There is no pleural effusion or pneumothorax. Bones again show degenerative changes in the bilateral acromioclavicular joints and to a lesser extent the glenohumeral joints especially on the left. Cerclage wires in the lower cervical spine are present. Better demonstrated on this examination is a suture anchor in the right humeral head consistent with previous rotator cuff surgery. No acute fracture or aggressive appearing osseous lesions are seen. IMPRESSION: No active cardiopulmonary disease. PROCEDURE: CHEST AP ONLY, WRIST BILAT 3V, KNEE BILAT 3V STUDY DATE: 02/27/2020 CLINICAL INDICATION / HISTORY: Bilateral wrist pain after a fall. TECHNIQUE: Bilateral wrist 3 views. AP, lateral, oblique views. COMPARISON: None FINDINGS: In the right wrist, mild to moderate degenerative changes of the first CMC joint are noted. Otherwise the the radiocarpal and intracarpal relationships are maintained. There is no fracture or dislocation. The bone density is normal. No soft tissue abnormality is seen. Left wrist, there is suggestion of mild scapholunate widening and chondrocalcinosis along the radiocarpal row. Moderately advanced carpal metacarpal degenerative change of the first digit and triscaphe a joint degenerative change is present. No acute fracture or traumatic malalignment. Soft tissues show arterial vascular calcifications bilaterally. IMPRESSION: No acute osseous abnormality in either wrist but degenerative changes in the first CMC joints are apparent. PROCEDURE: CHEST AP ONLY, WRIST BILAT 3V, KNEE BILAT 3V STUDY DATE: 02/27/2020 CLINICAL INDICATION / HISTORY: Bilateral knee pain after a fall.. TECHNIQUE: AP, lateral, and tunnel views of the bilateral knees. COMPARISON: No relevant comparisons currently available FINDINGS: No acute fracture in either knee is identified. No traumatic malalignment shown. Both knees show chondrocalcinosis in the medial and lateral compartments consistent with meniscal degenerative change. Soft tissues show arterial vascular calcifications. No joint effusion or loose body.. IMPRESSION: No acute traumatic findings in either knee are identified. Electronically signed by: Reena Paniagua MD (02/27/2020 1:54 PM) [id number] DICTATED and SIGNED BY: REENA PANIAGUA MD DATE: 02/27/20 1354 Course & Med Decision Making: Course & Med Decision Making Pertinent Labs and Imaging studies reviewed. (See chart for details) [] Saranya Disclaimer: Saranya Disclaimer: This electronic medical record was generated, in whole or in part, using a voice recognition dictation system. Departure Departure Impression: Primary Impression: Contusion of face Additional Impressions: Knee contusion Contusion, hand Head injury Disposition: 01 HOME, SELF-CARE Condition: STABLE Referrals: CHARLIE GERMAN MD (PCP) PLEASE CALL YOUR FAMILY DOCTOR FOR FOLLOW UP NEXT WEEK. Patient Instructions: Contusion, Facial or Scalp Contusion Justicifation of Admission Dx: Justifications for Admission: Justification of Admission Dx: N/A JONG STEVENSON DO Feb 27, 2020 15:16
== END 2020-02-27 15:37 | disposition home or self-care (01) ==
LOC: ER 11:40
DX: S00.83XA Contusion of other part of head, initial encounter (principal); S80.02XA Contusion of left knee, initial encounter; S80.01XA Contusion of right knee, initial encounter; S60.221A Contusion of right hand, initial encounter; S60.222A Contusion of left hand, initial encounter; R07.89 Other chest pain; G89.29 Other chronic pain; I48.91 Unspecified atrial fibrillation; I11.0 Hypertensive heart disease with heart failure; I50.9 Heart failure, unspecified; I25.2 Old myocardial infarction; Z95.0 Presence of cardiac pacemaker; Z88.4 Allergy status to anesthetic agent; Z88.5 Allergy status to narcotic agent; Z88.6 Allergy status to analgesic agent; Z88.8 Allergy status to other drugs, medicaments and biological substances; W18.39XA Other fall on same level, initial encounter; Y93.89 Activity, other specified; Y92.89 Other specified places as the place of occurrence of the external cause; Y99.8 Other external cause status
CPT/HCPCS: 70450; 70486; 71045; 72125; 73110; 73562; 90471; 90715; 99285-25

== ENCOUNTER 2020-02-27 22:12 | Emergency (ER) | payer MEDICARE ==
[~2020-02-27] VITALS: Ht 158.8 cm; Wt 54.0 kg
[2020-02-27 22:51] LABS: BASO % 0 % (0-3); EOS % 0 % (0-3); HEMATOCRIT 37.2 % (36.0-47.0); HEMOGLOBIN 12.6 g/dL (12.0-15.5); LYMPH # 1.2 x10^3/uL (1.0-4.8); LYMPH % 13 % (24-48); MEAN CORPUSCULAR HEMOGLOBIN 31 pg (25-35); MEAN CORPUSCULAR HGB CONC 34 g/dL (31-37); MEAN CORPUSCULAR VOLUME 91 fL (79-100); MONO # 1.1 x10^3/uL (0.0-1.1); MONO % 11 % (0-9); NEUT # 7.1 x10^3/uL (1.8-7.7); NEUT % 75 % (31-73); PLATELET COUNT 208 x10^3/uL (140-400); RED BLOOD COUNT 4.08 x10^6/uL (3.50-5.40); RED CELL DISTRIBUTION WIDTH 13.9 % (11.5-14.5); WHITE BLOOD COUNT 9.5 x10^3/uL (4.0-11.0)
[2020-02-27] MEDS ORDERED: MORPHINE SULFATE 4 MG/ML VIAL. IM ONE (23:15)
[2020-02-27] MEDS ORDERED: ONDANSETRON ODT 4 MG TAB.RAPDIS. PO ONE (23:15)
[2020-02-27] MEDS ORDERED: ONDANSETRON ODT 4 MG TAB.RAPDIS. ONE (23:16)
--- NOTE | 2020-02-27 23:55 | PHYS DOC ---
Past Medical History Past Medical History: A-Fib, Cancer, CHF, Hypertension, ID, Other Additional Past Medical Histor: CARDIOMYOPATHY, OSTEOARTHRITIS, CHRONIC BACK PAIN,BOWEL OBSTRUCTION Past Surgical History: Pacemaker, Other Additional Past Surgical Histo: HERNIA REPAIR WITH MESH,SMALL BOWEL RESEC TION,BILAT MASTECTOMY Smoking Status: Never Smoker Alcohol Use: Rarely Drug Use: None General Adult EDM: Chief Complaint: NOSEBLEED HPI: HPI: Patient is a 84 year old female who presents with complaint of nosebleed from right naris tonight. Patient had been seen in the emergency room earlier this morning and was discharged home after being evaluated for fall. Patient did have CT imaging of head and maxillofacial to rule out any fractures and patient was told that there were no fractures. She states that bleeding had started over an hour ago and she has not been able to stop it. Patient feels like she has passed quite a bit of blood. She does admit to some lightheadedness. She denies any headache but does complain of facial pain. [] Review of Systems: Review of Systems: Constitutional: Denies fever or chills. [] Eyes: Denies change in visual acuity. [] HENT: Positive epistaxis. [] Respiratory: Denies cough or shortness of breath. [] Cardiovascular: Denies chest pain or edema. [] Heart Score: Risk Factors: Risk Factors: DM, Current or recent (<one month) smoker, HTN, HLP, family history of CAD, obesity. Risk Scores: Score 0 - 3: 2.5% MACE over next 6 weeks - Discharge Home Score 4 - 6: 20.3% MACE over next 6 weeks - Admit for Clinical Observation Score 7 - 10: 72.7% MACE over next 6 weeks - Early Invasive Strategies Current Medications: Current Medications Medications (Trade) Dose Ordered Sig/Zander Start Time Stop Time Status Last Admin Dose Admin Morphine Sulfate (Morphine Sulfate) 4 mg 1X ONCE 02/27/20 23:15 02/27/20 23:19 DC 02/27/20 23:34 4 MG Ondansetron HCl (Zofran Odt) 4 mg STK-MED ONCE 02/27/20 23:16 02/27/20 23:19 DC Allergies: Allergies: Allergies Coded Allergies Type Severity Reaction Last Updated Verified isosorbide Allergy Severe 08/25/19 Yes acyclovir Allergy Intermediate Itching 01/13/18 Yes amitriptyline Allergy Intermediate Itching 01/13/18 Yes amlodipine Allergy Intermediate Itching 01/13/18 Yes atenolol Allergy Intermediate Itching 01/13/18 Yes fentanyl Allergy Intermediate Itching 01/13/18 Yes lisinopril Allergy Intermediate Itching 01/13/18 Yes tramadol Allergy Intermediate Itching 01/13/18 Yes warfarin Allergy Intermediate 01/13/18 Yes acetaminophen Adverse Reaction Intermediate 08/25/19 Yes codeine Adverse Reaction Intermediate Nausea and Vomiting 01/13/18 Yes hydromorphone Adverse Reaction Intermediate Nausea and Vomiting 01/13/18 Yes Physical Exam: PE: Constitutional: Well developed, well nourished, no acute distress, non-toxic appearance. [] HENT: Normocephalic, with multiple facial contusions and bilateral shiners, bilateral external ears normal, oropharynx moist, no oral exudates, clots noted in right naris. [] Cardiovascular: Regular rate and rhythm [] Lungs & Thorax: Bilateral breath sounds clear to auscultation [] Neurologic: Alert and oriented X 3, no focal deficits noted. [] Current Patient Data: Labs: Laboratory Tests Test 02/27/20 22:44 White Blood Count 9.5 x10^3/uL (4.0-11.0) Red Blood Count 4.08 x10^6/uL (3.50-5.40) Hemoglobin 12.6 g/dL (12.0-15.5) Hematocrit 37.2 % (36.0-47.0) Mean Corpuscular Volume 91 fL (79-100) Mean Corpuscular Hemoglobin 31 pg (25-35) Mean Corpuscular Hemoglobin Concent 34 g/dL (31-37) Red Cell Distribution Width 13.9 % (11.5-14.5) Platelet Count 208 x10^3/uL (140-400) Neutrophils (%) (Auto) 75 % (31-73) H Lymphocytes (%) (Auto) 13 % (24-48) L Monocytes (%) (Auto) 11 % (0-9) H Eosinophils (%) (Auto) 0 % (0-3) Basophils (%) (Auto) 0 % (0-3) Neutrophils # (Auto) 7.1 x10^3/uL (1.8-7.7) Lymphocytes # (Auto) 1.2 x10^3/uL (1.0-4.8) Monocytes # (Auto) 1.1 x10^3/uL (0.0-1.1) Eosinophils # (Auto) 0.0 x10^3/uL (0.0-0.7) Basophils # (Auto) 0.0 x10^3/uL (0.0-0.2) Laboratory Tests 02/27/20 22:44 Vital Signs: Vital Signs Date Time Temp Pulse Resp B/P (MAP) Pulse Ox O2 Delivery O2 Flow Rate FiO2 02/27/20 23:34 18 94 02/27/20 22:15 98.2 82 203/87 (125) Room Air 98.2 EKG: EKG: [] Radiology/Procedures: Radiology/Procedures: [] Course & Med Decision Making: Course & Med Decision Making Pertinent Labs and Imaging studies reviewed. (See chart for details) Patient moved to room upon arrival was evaluated by ER medical staff and nose clamp was placed. Clamp was removed after approximately 20 minutes and patient had no further bleeding noted. No further intervention was done other than checking H&H. Dragon Disclaimer: Dragon Disclaimer: This electronic medical record was generated, in whole or in part, using a voice recognition dictation system. Departure Departure Impression: Primary Impression: Epistaxis Disposition: 01 HOME, SELF-CARE Condition: STABLE Referrals: CHARLIE GERMAN MD (PCP) Patient Instructions: Nosebleed Justicifation of Admission Dx: Justifications for Admission: Justification of Admission Dx: N/A DALIA BRUNO Jr. DO Feb 27, 2020 23:55
[2020-02-27 23:59] VITALS: BP 163/69
== END 2020-02-27 23:59 | disposition home or self-care (01) ==
LOC: ER 22:12
DX: R04.0 Epistaxis (principal); I48.91 Unspecified atrial fibrillation; I11.0 Hypertensive heart disease with heart failure; I50.9 Heart failure, unspecified; G89.29 Other chronic pain; I25.2 Old myocardial infarction; Z95.0 Presence of cardiac pacemaker; Z88.4 Allergy status to anesthetic agent; Z88.5 Allergy status to narcotic agent; Z88.6 Allergy status to analgesic agent; Z88.8 Allergy status to other drugs, medicaments and biological substances
CPT/HCPCS: 36415; 85025; 96372; 99285; J2270

== ENCOUNTER 2020-03-21 10:55 | Inpatient (IN) | payer MEDICARE ==
[~2020-03-21] VITALS: Ht 158.8 cm; Wt 58.0 kg
[~2020-03-21 10:55] MED LIST changes: +ASCO100019 PO; -ASCO10002 PO
[2020-03-21] MEDS ORDERED: ONDANSETRON PF 4 MG/2 ML VIAL. IVP ONE (11:45)
[2020-03-21] MEDS ORDERED: FAMOTIDINE 20 MG/2 ML VIAL IVP ONE (11:45)
[2020-03-21] MEDS ORDERED: NITROGLYCERIN SUBLINGUAL 0.4 MG BOTTLE OF 25. SL PRN (11:45)
[2020-03-21 11:58] LABS: BILIRUBIN,URINE NEGATIVE (NEG); CLARITY,URINE CLEAR; COLOR,URINE YELLOW; NITRITE,URINE NEGATIVE (NEG); PH,URINE 7.5 (<5.0-8.0); PROTEIN,URINE NEGATIVE (NEG-TRACE); UROBILINOGEN,URINE 0.2 mg/dL (0.2 mg/dL)
[2020-03-21 12:04] LABS: BASO % 1 % (0-3); EOS # 0.1 x10^3/uL (0.0-0.7); EOS % 2 % (0-3); HEMATOCRIT 35.4 % (36.0-47.0); HEMOGLOBIN 12.2 g/dL (12.0-15.5); LYMPH # 0.8 x10^3/uL (1.0-4.8); LYMPH % 15 % (24-48); MEAN CORPUSCULAR HEMOGLOBIN 31 pg (25-35); MEAN CORPUSCULAR HGB CONC 34 g/dL (31-37); MEAN CORPUSCULAR VOLUME 90 fL (79-100); MONO # 0.6 x10^3/uL (0.0-1.1); MONO % 12 % (0-9); NEUT # 3.5 x10^3/uL (1.8-7.7); NEUT % 70 % (31-73); PLATELET COUNT 224 x10^3/uL (140-400); RED BLOOD COUNT 3.93 x10^6/uL (3.50-5.40); RED CELL DISTRIBUTION WIDTH 13.4 % (11.5-14.5)
[2020-03-21 12:14] LABS: SQUAMOUS EPITHELIAL CELL,UR MOD /LPF
[2020-03-21 12:15] LABS: BACTERIA,URINE MANY /HPF (0-FEW); RBC,URINE OCC /HPF (0-2)
[2020-03-21 12:18] LABS: PROTHROMBIN TIME PATIENT 14.7 SEC (11.7-14.0)
[2020-03-21 12:19] LABS: CALCIUM 8.3 mg/dL (8.5-10.1); CREATININE 0.8 mg/dL (0.6-1.0); GFR 68.3; POTASSIUM 4.4 mmol/L (3.5-5.1)
[2020-03-21 12:25] LABS: ALBUMIN 3.4 g/dL (3.4-5.0); ALBUMIN/GLOBULIN RATIO 1.1 (1.0-1.7); TOTAL BILIRUBIN 0.7 mg/dL (0.2-1.0); TOTAL PROTEIN 6.5 g/dL (6.4-8.2)
--- NOTE | 2020-03-21 13:10 | RAD ---
AP chest. HISTORY: Short of air, chest pressure AP view was taken of the chest. Heart is enlarged. Left pacemaker is unchanged. There is pleural thickening or small effusion on the left similar to the recent study. There are no new infiltrates. IMPRESSION: 1. No change from the recent study. 2. No new infiltrates. 3. Pleural thickening or small effusion on the left similar to the recent study. Electronically signed by: Raudel Leach MD (03/21/2020 1:07 PM) [facility]
--- NOTE | 2020-03-21 15:41 | PHYS DOC ---
Past Medical History Past Medical History: A-Fib, Cancer, CHF, Hypertension, [place], Other Additional Past Medical Histor: CARDIOMYOPATHY, OSTEOARTHRITIS, CHRONIC BACK PAIN,BOWEL OBSTRUCTION Past Surgical History: Pacemaker, Other Additional Past Surgical Histo: HERNIA REPAIR WITH MESH,SMALL BOWEL RESEC TION,BILAT MASTECTOMY Smoking Status: Never Smoker Alcohol Use: Rarely Drug Use: None General Adult EDM: Chief Complaint: Congestion HPI: HPI: Patient is a 84 year old FEMALE who presents with chest pain and increased soa with increased bilateral peripheral edema. 2 weeks ago went in the for vacation and she talked to Dr. Valera about this and knew she was can eat better. Dr. Valera told her to double up on her diuretic. She says she did that but she still has increased bilateral lower peripheral edema. She also states she has increased shortness of air and chest pressure. She rates her chest pressure about 8 out of 10. Denies radiation. Review of Systems: Review of Systems: Constitutional: Denies fever or chills. [] Eyes: Denies change in visual acuity. [] HENT: Denies nasal congestion or sore throat. [] Respiratory: Denies cough. + shortness of breath. [] Cardiovascular: chest pain or edema. [] GI: Denies abdominal pain, nausea, vomiting, bloody stools or diarrhea. [] : Denies dysuria. [] Musculoskeletal: Denies back pain or joint pain. [] Integument: Denies rash. [] Neurologic: Denies headache, focal weakness or sensory changes. [] Endocrine: Denies polyuria or polydipsia. [] Lymphatic: Denies swollen glands. [] Psychiatric: Denies depression or anxiety. [] Heart Score: HEART Score for Chest Pain: HEART Score for Chest Pain Response (Comments) Value History Moderately Suspicious 1 ECG Nonspecific Repolarizatio 1 Age > 65 2 Risk Factors >3 Risk Factors or Hx CAD 2 Troponin < Normal Limit 0 Total 6 Risk Factors: Risk Factors: DM, Current or recent (<one month) smoker, HTN, HLP, family history of CAD, obesity. Risk Scores: Score 0 - 3: 2.5% MACE over next 6 weeks - Discharge Home Score 4 - 6: 20.3% MACE over next 6 weeks - Admit for Clinical Observation Score 7 - 10: 72.7% MACE over next 6 weeks - Early Invasive Strategies Current Medications: Current Medications Medications (Trade) Dose Ordered Sig/Zander Start Time Stop Time Status Last Admin Dose Admin Famotidine (Pepcid Vial) 20 mg 1X ONCE 03/21/20 11:45 03/21/20 11:56 DC 03/21/20 12:06 20 MG Nitroglycerin (Nitrostat) 0.4 mg PRN Q5MIN PRN 03/21/20 11:45 03/22/20 11:44 UNV Ondansetron HCl (Zofran) 4 mg 1X ONCE 03/21/20 11:45 03/21/20 11:56 DC 03/21/20 12:03 4 MG Allergies: Allergies: Allergies Coded Allergies Type Severity Reaction Last Updated Verified isosorbide Allergy Severe 08/25/19 Yes acyclovir Allergy Intermediate Itching 01/13/18 Yes amitriptyline Allergy Intermediate Itching 01/13/18 Yes amlodipine Allergy Intermediate Itching 01/13/18 Yes atenolol Allergy Intermediate Itching 01/13/18 Yes fentanyl Allergy Intermediate Itching 01/13/18 Yes lisinopril Allergy Intermediate Itching 01/13/18 Yes tramadol Allergy Intermediate Itching 01/13/18 Yes warfarin Allergy Intermediate 01/13/18 Yes acetaminophen Adverse Reaction Intermediate 08/25/19 Yes codeine Adverse Reaction Intermediate Nausea and Vomiting 01/13/18 Yes hydromorphone Adverse Reaction Intermediate Nausea and Vomiting 01/13/18 Yes Physical Exam: PE: Constitutional: Well developed, well nourished, no acute distress, non-toxic appearance. [] HENT: Normocephalic, atraumatic, bilateral external ears normal, oropharynx moist, no oral exudates, nose normal. [] Eyes: PERRLA, EOMI, conjunctiva normal, no discharge. [] Neck: Normal range of motion, no tenderness, supple, no stridor. [] Cardiovascular:Heart rate regular rhythm, no murmur [] Lungs & Thorax: Bilateral upper breath sounds clear and lower diminished to auscultation [] Abdomen: Bowel sounds normal, soft, no tenderness, no masses, no pulsatile masses. [] Skin: Warm, dry, no erythema, no rash. [] Back: No tenderness, no CVA tenderness. [] Extremities: No tenderness, no cyanosis, no clubbing, ROM intact, bilateral lower extremities 2+ edema. [] Neurologic: Alert and oriented X 3, normal motor function, normal sensory function, no focal deficits noted. [] Psychologic: Affect normal, judgement normal, mood normal. [] Current Patient Data: Labs: Laboratory Tests Test 03/21/20 11:26 03/21/20 11:51 Urine Collection Type Unknown Urine Color Yellow Urine Clarity Clear Urine pH 7.5 (<5.0-8.0) Urine Specific [place] <=1.005 (1.000-1.030) Urine Protein Negative mg/dL (NEG-TRACE) Urine Glucose (UA) Negative mg/dL (NEG) Urine Ketones (Stick) Negative mg/dL (NEG) Urine Blood Negative (NEG) Urine Nitrite Negative (NEG) Urine Bilirubin Negative (NEG) Urine Urobilinogen Dipstick 0.2 mg/dL (0.2 mg/dL) Urine Leukocyte Esterase Trace (NEG) Urine RBC Occ /HPF (0-2) Urine WBC 1-4 /HPF (0-4) Urine Squamous Epithelial Cells Mod /LPF Urine Bacteria Many /HPF (0-FEW) White Blood Count 5.0 x10^3/uL (4.0-11.0) Red Blood Count 3.93 x10^6/uL (3.50-5.40) Hemoglobin 12.2 g/dL (12.0-15.5) Hematocrit 35.4 % (36.0-47.0) L Mean Corpuscular Volume 90 fL (79-100) Mean Corpuscular Hemoglobin 31 pg (25-35) Mean Corpuscular Hemoglobin Concent 34 g/dL (31-37) Red Cell Distribution Width 13.4 % (11.5-14.5) Platelet Count 224 x10^3/uL (140-400) Neutrophils (%) (Auto) 70 % (31-73) Lymphocytes (%) (Auto) 15 % (24-48) L Monocytes (%) (Auto) 12 % (0-9) H Eosinophils (%) (Auto) 2 % (0-3) Basophils (%) (Auto) 1 % (0-3) Neutrophils # (Auto) 3.5 x10^3/uL (1.8-7.7) Lymphocytes # (Auto) 0.8 x10^3/uL (1.0-4.8) L Monocytes # (Auto) 0.6 x10^3/uL (0.0-1.1) Eosinophils # (Auto) 0.1 x10^3/uL (0.0-0.7) Basophils # (Auto) 0.0 x10^3/uL (0.0-0.2) Prothrombin Time 14.7 SEC (11.7-14.0) H Prothrombin Time INR 1.2 (0.8-1.1) H Sodium Level 125 mmol/L (136-145) L Potassium Level 4.4 mmol/L (3.5-5.1) Chloride Level 89 mmol/L (98-107) L Carbon Dioxide Level 29 mmol/L (21-32) Anion Gap 7 (6-14) Blood Urea Nitrogen 14 mg/dL (7-20) Creatinine 0.8 mg/dL (0.6-1.0) Estimated GFR (Cockcroft-Gault) 68.3 BUN/Creatinine Ratio 18 (6-20) Glucose Level 111 mg/dL (70-99) H Calcium Level 8.3 mg/dL (8.5-10.1) L Total Bilirubin 0.7 mg/dL (0.2-1.0) Aspartate Amino Transferase (AST) 21 U/L (15-37) Alanine Aminotransferase (ALT) 22 U/L (14-59) Alkaline Phosphatase 165 U/L (46-116) H Troponin I Quantitative < 0.017 ng/mL (0.000-0.055) AU-Qwy-U-Type Natriuretic Peptide 3489 pg/mL (0-449) H Total Protein 6.5 g/dL (6.4-8.2) Albumin 3.4 g/dL (3.4-5.0) Albumin/Globulin Ratio 1.1 (1.0-1.7) Lipase 160 U/L (73-393) Laboratory Tests 03/21/20 11:51 Laboratory Tests 03/21/20 11:51 Vital Signs: Vital Signs Date Time Temp Pulse Resp B/P (MAP) Pulse Ox O2 Delivery O2 Flow Rate FiO2 03/21/20 13:30 66 15 176/71 (106) 94 Room Air 03/21/20 11:24 98.3 98.3 EKG: EK and read by Dr. Meade is a irregular sinus rhythm. [] Radiology/Procedures: Radiology/Procedures: [] Impression: [facility] [address] [place] [address] IMAGING REPORT Signed PATIENT: MARCIN SMITH AACCOUNT: [id number] : 1935 LOCATION: ER AGE: 84 SEX: F EXAM STATUS: REG ER ORD. PHYSICIAN: JULIANNA RIVERA APRN REASON: soa, chest pressure PROCEDURE: PORTABLE CHEST 1V AP chest. HISTORY: Short of air, chest pressure AP view was taken of the chest. Heart is enlarged. Left pacemaker is unchanged. There is pleural thickening or small effusion on the left similar to the recent study. There are no new infiltrates. IMPRESSION: 1. No change from the recent study. 2. No new infiltrates. 3. Pleural thickening or small effusion on the left similar to the recent study. Electronically signed by: Raudel Leach MD (03/21/2020 1:07 PM) [facility] DICTATED and SIGNED BY: RAUDEL LEACH MD DATE: 03/21/20 3177 Course & Med Decision Making: Course & Med Decision Making Pertinent Labs and Imaging studies reviewed. (See chart for details) Bilateral 2+ edema. No calf tenderness. Lungs are clear in upper lobes but diminished in lower lobes. Heart score 6. Patient denies nausea, vomiting, abdominal pain, dizziness, syncope, headache, numbness or tingling, vision changes, focal weakness. Vital signs are within normal limits. I have called and spoken to Dr. German for admission for chest pain. [] Dragon Disclaimer: Dragon Disclaimer: This electronic medical record was generated, in whole or in part, using a voice recognition dictation system. Departure Departure Impression: Primary Impression: Chest pain Qualified Codes: R07.9 - Chest pain, unspecified Disposition: ADMITTED INPATIENT Admitting Physician: Charlie German Condition: STABLE Referrals: CHARLIE GERMAN MD (PCP) Justicifation of Admission Dx: Justifications for Admission: Justification of Admission Dx: Yes Comments: chest pain JULIANNA RIVERA APRN Mar 21, 2020 15:41
[2020-03-21 18:03] VITALS: BP 128/81
[2020-03-21] MEDS ORDERED: RANO500T2 PO (18:10)
[2020-03-21] MEDS ORDERED: DOCU100C28 PO (18:52)
[2020-03-21] MEDS: ONDANSETRON PF 4 MG/2 ML VIAL. IV PRN (20:47)
[2020-03-21 22:08] VITALS: BP 162/65
--- NOTE | 2020-03-22 01:11 | NUR ---
Patient states that she takes her digoxin at night so that it does not make her sleepy, and okayed this with Dr. Adams. She is concerned that she did not receive this tonight but upon discussion, is willing to wait until am to address home medications with Dr. Briggs and Dr. Adams. She does not want this RN to call Dr. Briggs for clonazepam tonight, and will wait for MD rounds in the am. Addendum: 03/22/20 at 0118 by FROYLAN MAST RN Pt does state that her chest pain/pressure and epigastric discomfort was eased from medication administered in the ER (pepcid and zofran), but that her lower back is bothering her tonight which was eased by her HS toileting activity routine. She states she does NOT want tylenol nor morphine nor any other pain relieving medication at this time.
[2020-03-22 02:06] VITALS: BP 142/76
[2020-03-22] MEDS: ONDANSETRON PF 4 MG/2 ML VIAL. IV PRN ×2 (02:42→14:30)
[2020-03-22 07:00] VITALS: BP 140/65
--- NOTE | 2020-03-22 07:13 | EKG ---
[facility] [address] [place] [address] Test Date: 2020-03-21 Test Time: 11:53:21 Pat Name: MARCIN SMITH Department: Room: Gender: F Dietician: : 1935 Requested By: JULIANNA RIVERA Order Number: [id number] Reading MD: Measurements Intervals [place] Rate: 62 P: SC: QRS: 121 QRSD: 190 T: -46 QT: 466 QTc: 476 Interpretive Statements IRREGULAR RHYTHM, NO P-WAVE FOUND VENTRICULAR PREMATURE COMPLEX(ES) ABNORMAL RIGHT AXIS DEVIATION NON SPECIFIC INTRAVENTRICULAR BLOCK ABNORMAL ECG RI6.02 No previous ECG available for comparison
[2020-03-22] MEDS: POTASSIUM CHLORIDE 10 MEQ TABLET.ER. PO SCH ×2 (09:00→19:13)
[2020-03-22] MEDS ORDERED: DIGOXIN 125 MCG TABLET. PO SCH (09:00)
[2020-03-22] MEDS ORDERED: ASPIRIN CHEWABLE 81 MG TABLET. PO SCH (09:00)
[2020-03-22] MEDS ORDERED: DOCUSATE SODIUM 100 MG CAPSULE. PO SCH (09:00)
--- NOTE | 2020-03-22 09:00 | PDOC ---
Provider Note Provider Note [id number] Justicifation of Admission Dx: Justifications for Admission: Justification of Admission Dx: Yes CHARLIE GERMAN MD Mar 22, 2020 09:00
--- NOTE | 2020-03-22 09:08 | HP ---
ADMIT DATE: 03/21/2020 CHIEF COMPLAINT: Shortness of breath. HISTORY OF PRESENT ILLNESS: This 84-year-old white female with known ischemic cardiomyopathy and recent fall who has had increasing shortness of breath and swelling. She has been taking extra Lasix and still has shortness of breath and came to the ER. Sodium was found to be 125 and she was admitted for further evaluation. PAST MEDICAL HISTORY: Multiple. MEDICATIONS: Listed per the chart. ALLERGIES: MULTIPLE ALLERGIES NOTED. She does not take anticoagulants except for aspirin because of fall risk as she had a recent fall. SOCIAL HISTORY: , nonsmoker, nondrinker. FAMILY HISTORY: Unremarkable. REVIEW OF SYSTEMS: No other complaints. OBJECTIVE: ENT: She has diffuse bruising around the eyes, which has been there for about 2 weeks, otherwise normal. NECK: Revealed 2 cm JVD, no masses are felt. LUNGS: Decreased breath sounds, bibasilar crackles, no tachypnea. CARDIOVASCULAR: Irregular rate consistent with atrial fibrillation. No S3 is heard. ABDOMEN: Soft, benign and nontender. EXTREMITIES: 1-2+ edema in the lower ankles and feet, diffuse bruising around the knees. Pedal pulses diminished. NEUROLOGIC: Physiologic normal for her. ASSESSMENT: 1. Acute on chronic congestive heart failure secondary to ischemic cardiomyopathy, previous coronary artery disease and stents. 2. Hyponatremia, likely secondary to diuretic use. 3. Chronic kidney disease 3, stable. 4. Chronic atrial fibrillation with apparent ectopy. PLAN: DNR as per her request. We will follow the sodium daily, not give any saline or hypertonic saline now because of her heart status. Prognosis is very guarded given the balances of medicines that she needs. CHARLIE GERMAN MD DR: ÁNGEL/parish JOB#: [id number] / [id number]
[2020-03-22 09:10] LABS: CHOLESTEROL/HDL RATIO 2.7
--- NOTE | 2020-03-22 09:25 | NUR ---
SS following for discharge planning. SS reviewed pt chart and discussed with pt RN. Pt is from home and is currently on room air. ECHO ordered. Per RN, pt had fall at home. SS requested PT/OT orders to assess needs. SS will continue to follow for discharge planning.
[2020-03-22] MEDS: RANOLAZINE 500 MG TAB.ER.12H PO SCH ×2 (09:27→21:43)
[2020-03-22 09:50] LABS: CALCIUM 8.7 mg/dL (8.5-10.1); CREATININE 0.8 mg/dL (0.6-1.0); GFR 68.3
[2020-03-22] MEDS ORDERED: OMEP40CA45 PO (10:38)
[2020-03-22] MEDS ORDERED: CARV25TA PO (10:39)
[2020-03-22 11:00] VITALS: BP 150/65
[2020-03-22] MEDS ORDERED: POTASSIUM CHLORIDE 20 MEQ TABLET.ER. PO ONE (12:15)
[2020-03-22] MEDS ORDERED: FUROSEMIDE 100 MG/10 ML VIAL. IVP ONE (12:15)
--- NOTE | 2020-03-22 12:21 | PDOC2 ---
PREETHI WADDELL BUTTER MAKER 03/22/20 1220: CARDIAC CONSULT DATE OF CONSULT Date of Consult DATE: 03/22/20 TIME: 929 REASON FOR CONSULT Reason for Consult: Chest pain REFERRING PHYSICIAN Referring Physician: Sofia SOURCE Source: Chart review, Patient HISTORY OF PRESENT ILLNESS HISTORY OF PRESENT ILLNESS This is a pleasant 84 yo female admitted for complains of shortness of breath. Reports that she has been having some SOA and leg swelling in the last 2 weeks and yesterday her SOA was worse. Her lasix has been increased lately and reports increase urine production. Its just her SOA was worse. Had some chest tightness but not lasting. She also had a fall about 3 weeks ago as she tripped on her cat and reports no associated passing out or dizziness. No fractures or significant injury but she did land on her right side and has periorbital ecchymoses which is getting better. She is compliant with her medications. She takes her plavix as directed. Verbalized diet compliance. No fever or chills, productive cough or any recent exposure to Covid-19. PAST MEDICAL HISTORY Past Medical History Cardiovascular: AFIB, CAD, CHF, HTN, Syncope, SSS Pulmonary: Bronchitis GI: Diverticulosis, GERD Heme/Onc: Cancer Hepatobiliary: Cholelithiasis Psych: No pertinent hx, Anxiety Musculoskeletal: low back pain, Osteoarthritis PAST SURGICAL HISTORY Past Surgical History Cholecystectomy, Hernia Repair, Hysterectomy, Other (mastectomy, PCI, PPM FAMILY HISTORY Family History: Hypertension SOCIAL HISTORY Smoke: No ALCOHOL: none Drugs: None Lives: Alone (lives with cat) CURRENT MEDICATIONS CURRENT MEDICATIONS Current Medications Medications (Trade) Dose Ordered Sig/Zander Route PRN Reason Start Time Stop Time Status Last Admin Dose Admin Ondansetron HCl (Zofran) 4 mg PRN Q8HRS PRN IV NAUSEA/VOMITING 03/21/20 15:45 03/22/20 15:44 03/22/20 02:42 Aspirin (Aspirin Chewable) 81 mg DAILY PO 03/22/20 09:00 03/22/20 09:26 Docusate Sodium (Colace) 100 mg DAILY PO 03/22/20 09:00 03/22/20 09:26 Ranolazine (Ranexa) 500 mg BID PO 03/22/20 09:00 03/22/20 09:27 ALLERGIES ALLERGIES: Coded Allergies: isosorbide (Verified Allergy, Severe, 08/25/19) severe hives acyclovir (Verified Allergy, Intermediate, Itching, 01/13/18) amitriptyline (Verified Allergy, Intermediate, Itching, 01/13/18) amlodipine (Verified Allergy, Intermediate, Itching, 01/13/18) atenolol (Verified Allergy, Intermediate, Itching, 01/13/18) HAS RECEIVED METOPROLOL IV IN PAST ADMISSION fentanyl (Verified Allergy, Intermediate, Itching, 01/13/18) lisinopril (Verified Allergy, Intermediate, Itching, 01/13/18) tramadol (Verified Allergy, Intermediate, Itching, 01/13/18) warfarin (Verified Allergy, Intermediate, 01/13/18) Patient states that warfarin caused "scars" on BLE ticagrelor (Verified Allergy, Mild, Hives, 03/22/20) acetaminophen (Verified Adverse Reaction, Intermediate, 08/25/19) jumpy legs codeine (Verified Adverse Reaction, Intermediate, Nausea and Vomiting, 01/13/18) hydromorphone (Verified Adverse Reaction, Intermediate, Nausea and Vomiting, 01/13/18) ROS Review of System 14 point ROS evaluated with pertinent positives noted per HPI PHYSICAL EXAM General: Alert, Oriented X3, Cooperative, No acute distress HEENT: Mucous membr. moist/pink Lungs: Other (diminished bases) Heart: Other (distant heart sounds; AFIB with intermittent pacing) Abdomen: Soft, No tenderness Extremities: Other (2-3+ bilateral LE pitting edema) Skin: No breakdown, No significant lesion Neuro: Normal speech, Sensation intact Psych/Mental Status: Mental status NL, Mood NL MUSCULOSKELETAL: Osteoarthritic changes both hands VITALS/I&O VITALS/I&O: Vital Signs Date Time Temp Pulse Resp B/P (MAP) Pulse Ox O2 Delivery O2 Flow Rate FiO2 03/22/20 09:27 73 140/65 03/22/20 08:00 Room Air 03/22/20 07:00 97.3 16 94 97.3 I & O 03/21/20 03/21/20 03/22/20 15:00 23:00 07:00 Intake Total 480 ml 120 ml Output Total 400 ml 400 ml Balance -400 ml 80 ml 120 ml LABS Lab: Laboratory Tests Test 03/22/20 08:50 Sodium Level 129 mmol/L (136-145) L Potassium Level 4.0 mmol/L (3.5-5.1) Chloride Level 92 mmol/L (98-107) L Carbon Dioxide Level 30 mmol/L (21-32) Anion Gap 7 (6-14) Blood Urea Nitrogen 14 mg/dL (7-20) Creatinine 0.8 mg/dL (0.6-1.0) Estimated GFR (Cockcroft-Gault) 68.3 Glucose Level 157 mg/dL (70-99) H Calcium Level 8.7 mg/dL (8.5-10.1) Magnesium Level 2.1 mg/dL (1.8-2.4) Troponin I Quantitative < 0.017 ng/mL (0.000-0.055) Laboratory Tests 03/22/20 08:50 ECHOCARDIOGRAM ECHOCARDIOGRAM <Conclusion> The systolic function is moderately impaired. The Ejection Fraction is 35-40%. There is global hypokinesis of the left ventricle. Septal motion suggestive of conduction defect. Doppler and Color Flow revealed mild tricuspid regurgitation. There is moderate pulmonary hypertension. The PA pressure was estimated at 47 mmHg. DATE: 07/01/19 1104 HEART CATH HEART CATH Findings. Hemodynamics. Left ventricular pressure 125/12, 18. Aortic root pressure of 122/76. Coronaries. Left main. The left main was a normal-size vessel with no lesions. Left anterior descending. The LAD was a moderate size vessel. It had a mid 40% lesion. In a long area of previous stenting in the mid to distal vessel which again had restenosis of up to 90%. Left circumflex. The left circumflex had a mid occlusion. Once the occlusion was treated the vessel had a more distal 80% lesion. A branch vessel had a 75% lesion. Right coronary artery. The right coronary was a smaller nondominant vessel. It a mid 95% lesion and a right ventricular branch with 95% lesion. Left ventriculogram. The left ventricle showed inferior apical hypokinesis. Ejection fraction was estimated at 38%. <Conclusion> Occluded mid left circumflex vessel. Successful bare metal stents placed to the left circumflex vessel with 0% residual lesions. Continued aggressive restenosis of the patient's LAD stents with a 90% or greater area of restenosis. Nondominant right coronary artery with greater than 90% lesions in the vessel and a right ventricular branch. Moderately decreased LV systolic function in the setting of a myocardial infarction. DATE: 06/29/19 1231 Additional note for clarification of a heart catheterization on 06/29/19. As outlined in the note the patient had a total occlusion of the left circumflex vessel. A wire was passed across the lesion and an aspiration catheter was passed into the lesion for an aspiration thrombectomy. The aspiration catheter was removed and the vessel stented as outlined in the catheterization note. Aspiration thrombectomy of a an occluded left circumflex vessel prior to stenting. DATE: 07/09/19 174 ASSESSMENT/PLAN ASSESSMENT/PLAN 1. Acute on chronic diastolic/systolic CHF 2. ICM: Prior EF at 35-40% NYHA 2 3. CAD; s/p PCI/stent to the LAD with recent PTCA of ISR and S/P PCI/BMS to LCx. Clinically stable 4. Chronic AFIB: rate controlled with PVCs 5. Hypertension; labile episode now better controlled 6. HLP: close to goal 7. SSS s/p PPM ([facility]): VVIR with intermittent pacing 8. Hx of recurring LAD ISR 9. Nontraumatic mechanical fall: periorbital eechymoses 10. Hyponatremia: due to CHF Recommendations 1. Continue secondary prevention measures HF regimen. Unable to tolerate brilinta due to hives. Continue with plavix. 2. prior noted she has refused Xa inhibitors due to cost and she potentially developed LE microthrombosis with warfarin. ASA for stroke prevention 3. Daily wt, Srict I & 0. FR 2L. HBPM. Lasix IV 4. Poor candidate for assistant terminal manager anticoagulation. Consider for [facility] referral 5. Pt is allergic to ACEi. Continue home digoxin, coreg for rate control. 6. Obtain TTE. Interrogate device and note any frequent RVR episodes. RAPHAEL HOLT MD 03/22/20 1626: CARDIAC CONSULT ASSESSMENT/PLAN ASSESSMENT/PLAN Patient seen and examined I agree with our nurse practitioners assessment and plan. Acute systolic heart failure. Ejection fraction at 35 to 40%. Mild diuresis. Echocardiogram. Coronary artery disease. Previous stenting as above. No chest pain. Continue present medications including Plavix. Chronic atrial fibrillation. Rate controlled. Patient has not wished anticoagulation as outlined above. Sick sinus syndrome. Pacemaker in place. Will interrogate. Hyponatremia. Thank you for allowing us to participate in the care of your patient. PREETHI WADDELL APRN Mar 22, 2020 12:20 RAPHAEL HOLT MD Mar 22, 2020 16:26
[2020-03-22] MEDS: PANTOPRAZOLE 40 MG TABLET.DR. PO SCH (12:22)
[2020-03-22] MEDS ORDERED: FUROSEMIDE 20 MG/2 ML VIAL. IVP ONE (13:45)
[2020-03-22 19:10] VITALS: BP 150/54
[2020-03-22] MEDS: CARVEDILOL 6.25 MG TABLET. PO SCH (19:13)
[2020-03-22] MEDS: clonazePAM 0.5 MG TABLET PO SCH (21:41)
[2020-03-22] MEDS: ATORVASTATIN CALCIUM 40 MG TABLET. PO SCH (21:42)
[2020-03-22] MEDS: DIGOXIN 125 MCG TABLET. PO SCH (21:42)
[2020-03-22 22:50] VITALS: BP 162/69
[2020-03-22] MEDS: ONDANSETRON ODT 4 MG TAB.RAPDIS. PO PRN (23:24)
[2020-03-23 03:30] VITALS: BP 122/51
[2020-03-23 06:33] LABS: CALCIUM 8.5 mg/dL (8.5-10.1); GFR 52.8; POTASSIUM 4.3 mmol/L (3.5-5.1)
[2020-03-23 07:00] VITALS: BP 155/70
[2020-03-23] MEDS: PANTOPRAZOLE 40 MG TABLET.DR. PO SCH (07:57)
[2020-03-23] MEDS: ONDANSETRON ODT 4 MG TAB.RAPDIS. PO PRN (07:57)
--- NOTE | 2020-03-23 08:16 | CARD ---
MR#: [id number] Date of Study: 03/22/2020 Ordering Physician: PREETHI WADDELL, Referring Physician: PREETHI WADDELL, Tech: Yanci العراقي APPROVED REPORT EXAM: Two-dimensional and M-mode echocardiogram with Doppler and color Doppler. Other Information Quality : GoodHR: 79bpm INDICATION Cardiac Disease: CAD Chest Pain Congestive Heart Failure Non STEMI Surgery/Intervention Pacemaker: 2D DIMENSIONS Left Atrium(2D)4.6 (1.6-4.0cm)IVSd1.0 (0.7-1.1cm) Aortic Root(2D)3.0 (2.0-3.7cm)LVDd5.2 (3.9-5.9cm) LVOT Diameter1.9 (1.8-2.4cm)PWd1.1 (0.7-1.1cm) LVDs4.1 (2.5-4.0cm)FS (%) 21.7 % SV56.9 mlLVEF(%)43.6 (>50%) Aortic Valve AoV Peak Wil.126.9cm/sAoV VTI24.4cm AO Peak GR.6.4mmHgLVOT Peak Wil.79.4cm/s LVOT VTI 16.94cmAO Mean GR.3mmHg FLORENCE (VMAX)1.70hq4STV (VTI)1.94cm2 Mitral Valve MV E Ttcnzxef71.4cm/sMV DECEL [id number] MV A Mhbpunjh37.4cm/sMV E Mean Gr.2mmHg MV DJY52xyR/A Ratio3.5 MVA (PHT)4.21cm2 TDI E/Lateral E'9.1E/Medial E'16.1 Pulmonary Valve PV Peak Xqcczlba31.9cm/sPV Peak Grad.1mmHg Tricuspid Valve TR P. Ttyredcz011yq/sRAP [id number] TR Peak Gr.95tvQwXYUU37txFy LEFT VENTRICLE The left ventricle is normal size. There is normal left ventricular wall thickness. The systolic func tion is moderately impaired. The Ejection Fraction is 30-35%. Wall motion suggestive of prior CABG an d pacing. Moderate global hypokinesis. Tissue Doppler imaging reveals moderate left ventricular diast olic dysfunction. RIGHT VENTRICLE The right ventricle is moderately dilated. The right ventricle is moderately hypertrophied. The right ventricular systolic function is normal. ATRIA The left atrium size is normal. The right atrium is moderately dilated. The interatrial septum is int act with no evidence for an atrial septal defect or patent foramen ovale as noted on 2-D or Doppler i maging. AORTIC VALVE The aortic valve is normal in structure and function. Doppler and Color Flow revealed trace aortic re gurgitation. There is no significant aortic valvular stenosis. Calculated aortic valve area is 1.79 c m2 with maximum pressure gradient of 9 mmHg and mean pressure gradient of 4 mmHg. MITRAL VALVE The mitral valve is mildly thickened. There is no evidence of mitral valve prolapse. There is no mitr al valve stenosis. Doppler and Color-flow revealed mild mitral regurgitation. TRICUSPID VALVE The tricuspid valve is normal in structure and function. Doppler and Color Flow revealed moderate to severe tricuspid regurgitation with an estimated PAP of 92 mmHg. There is severe pulmonary hypertensi on. There is no tricuspid valve stenosis. PULMONIC VALVE The pulmonic valve is not well visualized. Doppler and Color Flow revealed trace to mild pulmonic edenilson vular regurgitation. There is no pulmonic valvular stenosis. GREAT VESSELS The aortic root is normal in size. The IVC is dilated and collapses <50% with inspiration. PERICARDIAL EFFUSION There is no evidence of significant pericardial effusion. Critical Notification Critical Value: No <Conclusion> The systolic function is moderately impaired. The Ejection Fraction is 30-35%. Wall motion suggestive of prior CABG and pacing. Moderate global hypokinesis. Tissue Doppler imaging reveals moderate left ventricular diastolic dysfunction. The right ventricle is moderately dilated. Doppler and Color Flow revealed moderate to severe tricuspid regurgitation with an estimated PAP of 9 2 mmHg. There is severe pulmonary hypertension. Signed by : Bartolo Fernandez, Electronically Approved : 03/23/2020 08:16:13
--- NOTE | 2020-03-23 08:19 | PDOC ---
Provider Note Provider Note same, Na+ 130, exam same- will add mom at her request, echo pending Justicifation of Admission Dx: Justifications for Admission: Justification of Admission Dx: Yes CHARLIE GERMAN MD Mar 23, 2020 08:19
[2020-03-23] MEDS ORDERED: FUROSEMIDE 40 MG/4 ML VIAL. IVP ONE (08:30)
[2020-03-23] MEDS: RANOLAZINE 500 MG TAB.ER.12H PO SCH ×2 (09:00→22:06)
[2020-03-23] MEDS: CARVEDILOL 6.25 MG TABLET. PO SCH ×2 (09:19→18:25)
[2020-03-23] MEDS: POTASSIUM CHLORIDE 10 MEQ TABLET.ER. PO SCH ×2 (09:19→18:25)
[2020-03-23] MEDS: CLOPIDOGREL BISULFATE 75 MG TABLET PO SCH (09:19)
--- NOTE | 2020-03-23 09:28 | PDOC ---
CARDIO Progress Notes Date and Time Date of Service 03/23/2020 Time of Evaluation 1000 Subjective Subjective: No Chest Pain, No shortness of breath, No Palpitations Vitals Vitals Vital Signs Date Time Temp Pulse Resp B/P (MAP) Pulse Ox O2 Delivery O2 Flow Rate FiO2 03/23/20 09:19 74 155/70 03/23/20 07:00 97.5 18 92 Room Air 97.5 Weight Weight [ ] Input and Output Intake and Output Intake and Output 03/23/20 07:00 Intake Total 480 ml Output Total 400 ml Balance 80 ml Intake Oral 480 ml Output Urine Total 400 ml # Voids 1 Laboratory Labs Laboratory Tests Test 03/23/20 04:00 Sodium Level 130 mmol/L (136-145) Potassium Level 4.3 mmol/L (3.5-5.1) Chloride Level 95 mmol/L (98-107) Carbon Dioxide Level 29 mmol/L (21-32) Anion Gap 6 (6-14) Blood Urea Nitrogen 18 mg/dL (7-20) Creatinine 1.0 mg/dL (0.6-1.0) Estimated GFR (Cockcroft-Gault) 52.8 Glucose Level 100 mg/dL (70-99) Calcium Level 8.5 mg/dL (8.5-10.1) Microbiology Micro Microbiology 03/21/20 Urine Culture - Preliminary, Resulted Physical Exam HEENT: Neck Supple W Full Motion Chest: Symmetric LUNGS: Other (fine basilar crackles) Heart: irregularly irregular (AFIB rate controlled) Abdomen: Soft N/T Extremities: No Calf Tenderness, Other (2+ bilateral LE pitting edema) Neurology: alert, oriented, follow commands Assessment Assessment 1. Acute on chronic diastolic/systolic CHF: improved 2. ICM: Prior EF at 30-35% NYHA 2 3. CAD; s/p PCI/stent to the LAD with recent PTCA of ISR and S/P PCI/ BMS to LCx. Clinically stable 4. Chronic AFIB: rate controlled with PVCs 5. Hypertension; mild labile episode 6. HLP: close to goal 7. SSS s/p PPM ([facility]): VVIR with intermittent pacing. Interrogation revealed 59% RV pacing, 10 yr battery life with no HVRs 8. Hx of recurring LAD ISR 9. Nontraumatic mechanical fall: periorbital eechymoses 10. Hyponatremia: due to CHF. improving 11. Atypical CP: possibly MSK, trops nml 12. Secondary severe pulmonary HTN/cor pulmonale: PAP 92 mmHg with mod to severe TR Recommendations 1. Continue secondary prevention measures HF regimen. Unable to tolerate brilinta due to hives. Continue with plavix. 2. prior noted she has refused Xa inhibitors due to cost and she potentially developed LE microthrombosis with warfarin. ASA for stroke prevention 3. Daily wt, Srict I & 0. FR 2L. HBPM. Lasix IV 4. Poor candidate for custodial anticoagulation. Consider for LAAO referral 5. ACEI allergy is cough. Will consider for ARB as pt refuses entresto due to c ost. Continue home digoxin, coreg for rate control. 6. Reeval after 3 months of cardiac optimization and consideration for AICD transition. Anticipate DC tomorrow. Justicifation of Admission Dx: Justifications for Admission: Justification of Admission Dx: Yes PREETHI WADDELL APRN Mar 23, 2020 09:27
--- NOTE | 2020-03-23 10:33 | NUR ---
SS following up with discharge planning. SS reviewed pt chart and discussed with pt RN. Pt is currently on room air. Discharge plan is to home when medically stable. SS will continue to follow for discharge planning.
[2020-03-23 11:00] VITALS: BP 111/51
[2020-03-23 15:00] VITALS: BP 143/56
[2020-03-23] MEDS ORDERED: MAGNESIUM HYDROXIDE 2,400 MG/30 ML ORAL.SUSP. PO PRN (18:45)
[2020-03-23 19:00] VITALS: BP 132/77
[2020-03-23] MEDS ORDERED: ASPIRIN CHEWABLE 81 MG TABLET. PO SCH (21:00)
[2020-03-23] MEDS: clonazePAM 0.5 MG TABLET PO SCH (22:05)
[2020-03-23] MEDS: ATORVASTATIN CALCIUM 40 MG TABLET. PO SCH (22:06)
[2020-03-23] MEDS: DIGOXIN 125 MCG TABLET. PO SCH (22:07)
[2020-03-23 23:00] VITALS: BP 137/77
[2020-03-24 02:46] VITALS: BP 121/52
[2020-03-24 04:54] LABS: CALCIUM 8.6 mg/dL (8.5-10.1); CREATININE 0.8 mg/dL (0.6-1.0); GFR 68.3; POTASSIUM 4.2 mmol/L (3.5-5.1)
[2020-03-24 07:00] VITALS: BP 125/50
[2020-03-24] MEDS: CARVEDILOL 6.25 MG TABLET. PO SCH (08:27)
[2020-03-24] MEDS: PANTOPRAZOLE 40 MG TABLET.DR. PO SCH (08:28)
[2020-03-24] MEDS: RANOLAZINE 500 MG TAB.ER.12H PO SCH (08:28)
[2020-03-24] MEDS: POTASSIUM CHLORIDE 10 MEQ TABLET.ER. PO SCH (08:29)
[2020-03-24] MEDS: CLOPIDOGREL BISULFATE 75 MG TABLET PO SCH (08:30)
--- NOTE | 2020-03-24 08:38 | PDOC ---
Provider Note Provider Note [id number] Justicifation of Admission Dx: Justifications for Admission: Justification of Admission Dx: Yes CHARLIE GERMAN MD Mar 24, 2020 08:37
--- NOTE | 2020-03-24 08:54 | DS ---
DATE OF DISCHARGE: 03/24/2020 HOSPITAL SUMMARY: An 84-year-old with a history of known moderate cardiomyopathy, came in with mild congestive heart failure symptoms and mild fluid on the chest x-ray. Sodium was low at 129, remains the same. Chemistry studies, CBC, and urinalysis unremarkable. Echocardiogram repeated showed continued ejection fraction of 30-35% with no acute changes otherwise. She was given a few doses of Lasix and her dyspnea and orthopnea improved, losartan was added by Cardiology and she is comfortable to be followed by them and us as an outpatient at this point, if they are comfortable today. FINAL DIAGNOSES: 1. Acute on chronic congestive heart failure. 2. Anemia of chronic disease. OPERATIONS, PROCEDURES, AND COMPLICATIONS: None. CONSULTATIONS: Dr. Valera's group. DISPOSITION: Meds remain the same. They are currently adding losartan 25 mg daily to her regimen. We will need to watch her electrolytes as it could perhaps reduce her sodium further. Office followup with them in 2 weeks, myself as needed, and prognosis is guarded given her moderate cardiomyopathy. CHARLIE GERMAN MD DR: ÁNGEL/parish JOB#: [id number] / [id number]
[2020-03-24] MEDS ORDERED: LOSARTAN POTASSIUM 25 MG TABLET. PO SCH (09:00)
[2020-03-24] MEDS ORDERED: LOSA-73 PO (09:58)
[2020-03-24] MEDS ORDERED: FUROSEMIDE 40 MG/4 ML VIAL. IVP ONE (10:00)
[2020-03-24 11:00] VITALS: BP 126/49
--- NOTE | 2020-03-24 12:18 | PDOC ---
PREETHI WADDELL [employer] 03/24/20 1218: CARDIO Progress Notes Date and Time Date of Service 03/24/2020 Time of Evaluation 1000 Subjective Subjective: No Chest Pain, No shortness of breath, No Palpitations Vitals Vitals Vital Signs Date Time Temp Pulse Resp B/P (MAP) Pulse Ox O2 Delivery O2 Flow Rate FiO2 03/24/20 08:30 62 125/50 03/24/20 08:00 Room Air 03/24/20 07:00 98.2 20 94 98.2 Weight Weight [ ] Input and Output Intake and Output Intake and Output 03/24/20 07:00 Intake Total 1310 ml Output Total 2050 ml Balance -740 ml Intake Oral 1310 ml Output Urine Total 2050 ml Laboratory Labs Laboratory Tests Test 03/24/20 03:31 Sodium Level 130 mmol/L (136-145) Potassium Level 4.2 mmol/L (3.5-5.1) Chloride Level 95 mmol/L (98-107) Carbon Dioxide Level 30 mmol/L (21-32) Anion Gap 5 (6-14) Blood Urea Nitrogen 19 mg/dL (7-20) Creatinine 0.8 mg/dL (0.6-1.0) Estimated GFR (Cockcroft-Gault) 68.3 Glucose Level 98 mg/dL (70-99) Calcium Level 8.6 mg/dL (8.5-10.1) Microbiology Micro Microbiology 03/21/20 Urine Culture - Final, Complete 03/21/20 Antimicrobic Susceptibility - Final, Complete Physical Exam HEENT: Neck Supple W Full Motion Chest: Symmetric LUNGS: Other (fine basilar crackles) Heart: irregularly irregular (AFIB rate controlled) Abdomen: Soft N/T Extremities: No Calf Tenderness, Other (2+ bilateral LE pitting edema) Neurology: alert, oriented, follow commands Assessment Assessment 1. Acute on chronic diastolic/systolic CHF: compensated 2. ICM: EF at 30-35% NYHA 2 3. CAD; s/p PCI/stent to the LAD with recent PTCA of ISR and S/P PCI/BMS to LCx. Clinically stable 4. Chronic AFIB: rate controlled with PVCs 5. Hypertension; better controlled with losartan addition 6. HLP: close to goal 7. SSS s/p PPM ([facility]): VVIR with intermittent pacing. Interrogation revealed 59% RV pacing, 10 yr battery life with no HVRs 8. Hx of recurring LAD ISR 9. Nontraumatic mechanical fall: periorbital eechymoses 10. Hyponatremia: due to CHF. improving 11. Atypical CP: possibly MSK, trops nml 12. Secondary severe pulmonary HTN/cor pulmonale: PAP 92 mmHg with mod to severe TR Recommendations 1. Continue secondary prevention measures HF regimen. Unable to tolerate br ilinta due to hives. Continue with plavix. 2. prior noted she has refused Xa inhibitors due to cost and she potentially developed LE microthrombosis with warfarin. ASA for stroke prevention 3. Daily wt, Srict I & 0. FR 2L. HBPM. Lasix IV today then po when discharge. 4. Poor candidate for termite treater helper anticoagulation. Consider for LAAO referral 5. ACEI allergy is cough. Will consider for ARB as pt refuses entresto due to cost. Continue home digoxin, coreg for rate control. 6. Reeval after 3 months of cardiac optimization and consideration for AICD transition. 7. Follow up with Dr. Rivera as scheduled apr 19 at 1 PM Justicifation of Admission Dx: Justifications for Admission: Justification of Admission Dx: Yes RAPHAEL RIVERA MD 03/24/20 4128: CARDIO Progress Notes Assessment Assessment Patient seen and examined I agree with our nurse practitioners assessment and plan. Acute on chronic diastolic/systolic CHF: Ejection fraction of 30 to 35%. Compensated CAD; s/p PCI/stent to the LAD with recent PTCA of ISR and S/P PCI/BMS to LCx. Clinically stable Chronic AFIB: rate controlled with PVCs SSS s/p PPM ([facility]): VVIR with intermittent pacing. 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
--- NOTE | 2020-03-24 12:45 | NUR ---
Discharge Note: MARCIN SMITH Discharge instructions and discharge home medications reviewed with Patient and a copy given. All questions have been answered and understanding verbalized. The following instructions and handouts were given: losartan, daily weight log Patient discharged to home with daughter via wheelchair.
== END 2020-03-24 12:46 | disposition home or self-care (01) | DRG 291 ==
LOC: ER 10:55 → 2 NORTH 15:43
PROVIDERS: ADMIT Family Medicine; ATTEND Family Medicine
DX: I13.0 Hypertensive heart and chronic kidney disease with heart failure and stage 1 through stage 4 chronic kidney disease, or unspecified chronic kidney disease (principal); I50.43 Acute on chronic combined systolic (congestive) and diastolic (congestive) heart failure; E87.1 Hypo-osmolality and hyponatremia; I48.20 Chronic atrial fibrillation, unspecified; D63.8 Anemia in other chronic diseases classified elsewhere; E78.5 Hyperlipidemia, unspecified; I07.1 Rheumatic tricuspid insufficiency; G89.29 Other chronic pain; K21.9 Gastro-esophageal reflux disease without esophagitis; K57.90 Diverticulosis of intestine, part unspecified, without perforation or abscess without bleeding; I25.10 Atherosclerotic heart disease of native coronary artery without angina pectoris; I27.29 Other secondary pulmonary hypertension; I25.5 Ischemic cardiomyopathy; I27.81 Cor pulmonale (chronic); R07.89 Other chest pain; M19.90 Unspecified osteoarthritis, unspecified site; I49.5 Sick sinus syndrome; N18.3 Chronic kidney disease, stage 3 (moderate); Z95.5 Presence of coronary angioplasty implant and graft; Z95.0 Presence of cardiac pacemaker; Z90.710 Acquired absence of both cervix and uterus; Z82.49 Family history of ischemic heart disease and other diseases of the circulatory system; Z91.81 History of falling; Z90.49 Acquired absence of other specified parts of digestive tract; Z88.6 Allergy status to analgesic agent; Z88.4 Allergy status to anesthetic agent; Z88.5 Allergy status to narcotic agent; Z88.8 Allergy status to other drugs, medicaments and biological substances
CPT/HCPCS: 36415; 71045; 80048; 80053; 80061; 81001; 83690; 83735; 83880; 84484; 85025; 85610; 87077; 87086; 87186; 93005; 93306; 96374; 96375; 99285; J1940; J2405; J3490; 97110-GP; 97116-GP; 97530-GP; G0378

== ENCOUNTER 2020-04-04 03:14 | Inpatient (IN) | payer MEDICARE ==
[2020-04-04] VITALS (12 sets, daily range): BP systolic 125–157; BP diastolic 51–70
[~2020-04-04] VITALS: Ht 158.8 cm; Wt 58.7 kg
[~2020-04-04 03:14] MED LIST changes: -ASCO100019 PO; +ASCO10002 PO; +CARV25TA PO; +DOCU100C28 PO; +LOSA-73 PO
--- NOTE | 2020-04-04 03:30 | PHYS DOC ---
Past Medical History Past Medical History: A-Fib, Cancer, CHF, Hypertension, SD, Other Additional Past Medical Histor: CARDIOMYOPATHY, OSTEOARTHRITIS, CHRONIC BACK PAIN,BOWEL OBSTRUCTION Past Surgical History: Pacemaker, Other Additional Past Surgical Histo: HERNIA REPAIR WITH MESH,SMALL BOWEL RESECTION,BILAT MASTECTOMY Smoking Status: Never Smoker Alcohol Use: Rarely Drug Use: None General Adult EDM: Chief Complaint: NAUSEA/VOMITING/DIARRHA HPI: HPI: 84-year-old presents with a 1 day history of nausea. Patient is a very poor historian and history and physical are limited due to this. Patient is fixated on the fact that this is caused by losartan but cannot tell me how long she has been on this medication. Patient denies any pain fever but has been nauseous for the last 24 hours. Patient denies headache. No diarrhea. Review of Systems: Review of Systems: Constitutional: Denies fever or chills. [] Eyes: Denies change in visual acuity. [] HENT: Denies nasal congestion or sore throat. [] Respiratory: Denies cough or shortness of breath. [] Cardiovascular: Denies chest pain or edema. [] GI: Denies abdominal pain,, bloody stools or diarrhea. [] Complains of nausea : Denies dysuria. [] Musculoskeletal: Denies back pain or joint pain. [] Integument: Denies rash. [] Neurologic: Denies headache, focal weakness or sensory changes. [] Endocrine: Denies polyuria or polydipsia. [] Lymphatic: Denies swollen glands. [] Psychiatric: Denies depression or anxiety. [] Heart Score: Risk Factors: Risk Factors: DM, Current or recent (<one month) smoker, HTN, HLP, family history of CAD, obesity. Risk Scores: Score 0 - 3: 2.5% MACE over next 6 weeks - Discharge Home Score 4 - 6: 20.3% MACE over next 6 weeks - Admit for Clinical Observation Score 7 - 10: 72.7% MACE over next 6 weeks - Early Invasive Strategies Allergies: Allergies: Allergies Coded Allergies Type Severity Reaction Last Updated Verified isosorbide Allergy Severe 08/25/19 Yes acyclovir Allergy Intermediate Itching 01/13/18 Yes amitriptyline Allergy Intermediate Itching 01/13/18 Yes amlodipine Allergy Intermediate Itching 01/13/18 Yes atenolol Allergy Intermediate Itching 01/13/18 Yes fentanyl Allergy Intermediate Itching 01/13/18 Yes lisinopril Allergy Intermediate Itching 01/13/18 Yes tramadol Allergy Intermediate Itching 01/13/18 Yes warfarin Allergy Intermediate 01/13/18 Yes ticagrelor Allergy Mild Hives 03/22/20 Yes acetaminophen Adverse Reaction Intermediate 08/25/19 Yes codeine Adverse Reaction Intermediate Nausea and Vomiting 01/13/18 Yes hydromorphone Adverse Reaction Intermediate Nausea and Vomiting 01/13/18 Yes Physical Exam: PE: Constitutional: Well developed, well nourished, mild acute distress, non-toxic appearance. HENT: No trismus Eyes: Conjunctiva clear, EOMI Neck: Normal range of motion, no tenderness, supple, no stridor. [] Cardiovascular: Irregularly irregular, pulses intact distally Lungs & Thorax: No respiratory distress Abdomen: No distension, soft, nontender, no guarding, no rebound Rectal exam: Performed rebar bender black stool Skin: Diffuse: Intact, no rash, pale Back: Full ROM Extremities: Normal inspection, no edema Neurologic: Alert and oriented X 3, normal motor function, , no focal deficits noted. Psychologic: Affect normal, judgement normal, mood normal. Current Patient Data: Labs: Laboratory Tests Test 04/04/20 03:35 04/04/20 04:05 White Blood Count 7.8 x10^3/uL Red Blood Count 2.09 x10^6/uL Hemoglobin 6.5 g/dL Hematocrit 18.7 % Mean Corpuscular Volume 90 fL Mean Corpuscular Hemoglobin 31 pg Mean Corpuscular Hemoglobin Concent 35 g/dL Red Cell Distribution Width 13.4 % Platelet Count 186 x10^3/uL Neutrophils (%) (Auto) 78 % Lymphocytes (%) (Auto) 15 % Monocytes (%) (Auto) 6 % Eosinophils (%) (Auto) 0 % Basophils (%) (Auto) 1 % Neutrophils # (Auto) 6.0 x10^3/uL Lymphocytes # (Auto) 1.2 x10^3/uL Monocytes # (Auto) 0.5 x10^3/uL Eosinophils # (Auto) 0.0 x10^3/uL Basophils # (Auto) 0.1 x10^3/uL Sodium Level 130 mmol/L Potassium Level 3.8 mmol/L Chloride Level 95 mmol/L Carbon Dioxide Level 25 mmol/L Anion Gap 10 Blood Urea Nitrogen 36 mg/dL Creatinine 0.8 mg/dL Estimated GFR (Cockcroft-Gault) 68.3 BUN/Creatinine Ratio 45 Glucose Level 160 mg/dL Calcium Level 8.3 mg/dL Total Bilirubin 0.5 mg/dL Aspartate Amino Transf (AST/SGOT) 18 U/L Alanine Aminotransferase (ALT/SGPT) 17 U/L Alkaline Phosphatase 113 U/L Total Protein 6.1 g/dL Albumin 3.1 g/dL Albumin/Globulin Ratio 1.0 Lipase 152 U/L Stool Occult Blood Positive Current Medications Medications (Trade) Dose Ordered Sig/Zander Route PRN Reason Start Time Stop Time Status Last Admin Dose Admin Ondansetron HCl (Zofran) 4 mg 1X ONCE IVP 04/04/20 04:00 04/04/20 04:01 DC 04/04/20 03:42 Sodium Chloride 500 ml @ 500 mls/hr 1X ONCE IV 04/04/20 04:00 04/04/20 04:59 04/04/20 03:43 Pantoprazole Sodium 80 mg/ Sodium Chloride 100 ml @ 10 mls/hr Q10H IV 04/04/20 04:15 UNV Pantoprazole Sodium (PROTONIX VIAL for IV PUSH) 80 mg 1X ONCE IVP 04/04/20 04:15 04/04/20 04:16 UNV EKG: EKG: [] EKG interpreted by me atrial fibrillation with a rate of 97 left axis deviation right bundle branch block, nonspecific ST changes Radiology/Procedures: Radiology/Procedures: [] Course & Med Decision Making: Course & Med Decision Making Pertinent Labs and Imaging studies reviewed. (See chart for details) 84-year-old female presents with nausea. Patient found to have a significant drop in her hemoglobin and black stools on exam, elevated BUN all these are consistent with a significant upper GI bleed. Patient will be started on Protonix and a blood transfusion has been ordered. Patient be admitted to Dr. Elsa Briggs, I discussed the case with them at 4:17 AM. Patient will be admitted to the hospital and to have a GI consult placed. Critical care time was [35] minutes exclusive of procedures.] Critical care time was [35] minutes which includes time at bedside, spent in discussion of patient's care with specialist and/or family members, with inter pretation of laboratory and/or radiological studies and is exclusive of procedures. Critical condition: Upper GI bleed, anemia Critical interventions: Protonix drip, blood transfusion, admission with GI consult 4:38: D/W DR MICHAEL, WILL SEE IN AM Saranya Disclaimer: Saranya Disclaimer: This electronic medical record was generated, in whole or in part, using a voice recognition dictation system. Departure Departure Impression: Primary Impression: Upper GI bleed Additional Impression: Anemia Admitting Physician: Charlie Briggs Condition: GUARDED Referrals: CHARLIE BRIGGS MD (PCP) Justicifation of Admission Dx: Justifications for Admission: Justification of Admission Dx: Yes KEVIN SMITH MD Apr 04, 2020 03:30
[2020-04-04 03:44] LABS: BASO # 0.1 x10^3/uL (0.0-0.2); BASO % 1 % (0-3); EOS % 0 % (0-3); LYMPH # 1.2 x10^3/uL (1.0-4.8); LYMPH % 15 % (24-48); MEAN CORPUSCULAR HEMOGLOBIN 31 pg (25-35); MEAN CORPUSCULAR HGB CONC 35 g/dL (31-37); MEAN CORPUSCULAR VOLUME 90 fL (79-100); MONO # 0.5 x10^3/uL (0.0-1.1); MONO % 6 % (0-9); NEUT % 78 % (31-73); PLATELET COUNT 186 x10^3/uL (140-400); RED BLOOD COUNT 2.09 x10^6/uL (3.50-5.40); RED CELL DISTRIBUTION WIDTH 13.4 % (11.5-14.5); WHITE BLOOD COUNT 7.8 x10^3/uL (4.0-11.0)
[2020-04-04 03:50] LABS: CALCIUM 8.3 mg/dL (8.5-10.1); CREATININE 0.8 mg/dL (0.6-1.0); GFR 68.3; POTASSIUM 3.8 mmol/L (3.5-5.1)
[2020-04-04 03:52] LABS: HEMATOCRIT 18.7 % (36.0-47.0); HEMOGLOBIN 6.5 g/dL (12.0-15.5)
[2020-04-04 03:56] LABS: ALBUMIN 3.1 g/dL (3.4-5.0); TOTAL BILIRUBIN 0.5 mg/dL (0.2-1.0); TOTAL PROTEIN 6.1 g/dL (6.4-8.2)
[2020-04-04] MEDS ORDERED: ONDANSETRON PF 4 MG/2 ML VIAL. IVP ONE (04:00)
[2020-04-04] MEDS ORDERED: IV NORMAL SALINE 500ML BAG 500 ML IV ONE (04:00)
[2020-04-04 04:13] LABS: BILIRUBIN,URINE NEGATIVE (NEG); CLARITY,URINE CLEAR; COLOR,URINE YELLOW; NITRITE,URINE NEGATIVE (NEG); PROTEIN,URINE NEGATIVE (NEG-TRACE); UROBILINOGEN,URINE 0.2 mg/dL (0.2 mg/dL)
[2020-04-04 04:17] LABS: FECAL OB PT POSITIVE (NEG)
[2020-04-04 04:30] LABS: BACTERIA,URINE MANY /HPF (0-FEW); HYALINE CASTS, URINE OCCASIONAL /HPF; RBC,URINE OCC /HPF (0-2); SQUAMOUS EPITHELIAL CELL,UR MOD /LPF
[2020-04-04] MEDS ORDERED: PANTOPRAZOLE IV PUSH 40 MG VIAL. IVP ONE (04:30)
[2020-04-04] MEDS: PANTOPRAZOLE SODIUM IV DRIP 80 MG in IV NORMAL SALINE 100ML 100 ML IV SCH ×4 (04:33→21:32)
[2020-04-04] MEDS: IV NORMAL SALINE 1000ML BAG 1,000 ML IV SCH ×4 (04:35→21:33)
--- NOTE | 2020-04-04 05:18 | RAD ---
PROCEDURE: ACUTE ABDOMEN SERIES STUDY DATE: 04/04/2020 CLINICAL INDICATION / HISTORY: Reason: nausea ER#23 IMAGES WERE DONE PORTABLE TO WEAK TO STAND / Spl. Instructions: / History: . TECHNIQUE: Upright PA chest, supine and upright films of the abdomen were obtained. COMPARISON: Chest x-ray of 03/21/2020 FINDINGS: AP chest shows cardiomegaly, single lead pacemaker and coarse reticular markings the lungs bilaterally, similar to prior.. No free air is identified below the diaphragms. Supine and upright views of the abdomen reveal no dilated loops of bowel or air-fluid levels. There is evidence of previous ventral hernia mesh repair and a moderate amount of stool throughout the visualized large bowel including the rectal vault. No organomegaly is present. No destructive osseous lesions. IMPRESSION: No radiographic evidence for bowel obstruction. Moderate stool throughout the large bowel suggesting possible constipation in the appropriate clinical context. Electronically signed by: Eli Paniagua MD (04/04/2020 5:15 AM) [facility] [place]
[2020-04-04] MEDS: ONDANSETRON PF 4 MG/2 ML VIAL. IV PRN ×2 (08:17→15:55)
[2020-04-04] MEDS ORDERED: ISOSORBIDE MONONITRATE ER 30 MG TAB.ER.24H PO SCH (09:00)
[2020-04-04] MEDS ORDERED: NON FORMULARY ITEM (Omeprazole 1 CAP) PO SCH (09:00)
--- NOTE | 2020-04-04 09:22 | PDOC2 ---
GI CONSULT Reason For Consult: UGIB HPI: HPI: 84 y/o female who we've seen in the past. Not a great historian - somewhat supplemented by daughter Elyse. Feeling weak, also concern for adverse reaction to losartan. Has been having dark stools - can't say for how long. Also might notice some "pink" blood w/ wiping sometimes. Has some abdominal pain, might be related to previous hernia repair. Has lost about 5 pounds recently. Feels food get hung up in throat sometimes - goes down w/ water. H/o GERD on omeprazole QD. H/o CAD on Plavix and ASA. Was on iron but stopped when stools looked black - timing unclear. Denies NSAIDs. Noted to be anemic (Hgb 6.5, BUN 36, +Hemoccult), s/p transfusion 1 unit pRBCs. H/o anemia but most recently Hgb in 12s. ER physician d/w Dr. Barragan via phone early this morning. Additionally per ER, COVID swab collected. +H. pylori gastritis in 1989. Colonoscopy 09/[address] Larios for anemia: normal. EGD pathology in [address] Kineny: distal esophagus biopsy w/ no diagnostic abnormality, gastric biopsy w/ mild inactive chronic gastritis (negative for H. pylori), and duodenal biopsy w/o diagnostic abnormality. EGD 02/[address] Barragan for dysphagia/globus: grade 1 reflux esophagitis, normal stomach, normal duodenum. EGD pathology in 12/[address] Kinney: distal esophagus biopsy w/ chronic inflammation (no intestinal metaplasia or dyplasia), gastric antrum biopsy w/ focal surface erosive and focal intestinal metaplasia (no H. pylori), and duodenum biopsy negative for pathology (no sprue). Colonoscopy in 12/[address] Kinney for screening: sigmoid diverticulosis, 7mm adenomatous transverse colon polyp, four semi-sessile polyps in ascending colon, 20mm TVA (no high grade/invasive process) in cecum - not amendable to snare polypectomy, normal mucosa in entire colon. Office notes indicate had f/u w/ surgeon. S/p cholecystectomy. H/o hepatic steatosis on past imaging. H/o SBO s/p resection. PMH: PMH: A Fib, CAD w/ stent, CHF, ICM, HTN, CKD, OA, herpes zoster, YANET, breast cancer cholecystectomy, hysterectomy, SBR for partial obstruction, ventral hernia repair w/ mesh, cataract extraction, tonsillectomy, cystoscopy w/ fulguration of bladder lesions, pubovaginal sling, back surgery w/ aortic injury requiring re- exploration, pacemaker, mastectomy FH: Family History: No pertinent hx Social History: Smoke: No ALCOHOL: rare Drugs: None ROS: GEN: Denies fevers, chills, sweats HEENT: Denies blurred vision, sore throat CV: Denies chest pain RESP: Denies shortness of air, cough GI: Per HPI : Denies hematuria, dysuria ENDO: Denies weight changes NEURO: Denies confusion, dizziness MSK: +weakness SKIN: Denies jaundice, pruritus Vitals: Vitals: Vital Signs Date Time Temp Pulse Resp B/P (MAP) Pulse Ox O2 Delivery O2 Flow Rate FiO2 04/04/20 06:42 97.6 92 18 146/65 97.6 04/04/20 05:45 98 Room Air Labs: Labs: Laboratory Tests Test 04/04/20 03:35 04/04/20 04:00 04/04/20 04:05 White Blood Count 7.8 x10^3/uL (4.0-11.0) Red Blood Count 2.09 x10^6/uL (3.50-5.40) Hemoglobin 6.5 g/dL (12.0-15.5) Hematocrit 18.7 % (36.0-47.0) Mean Corpuscular Volume 90 fL (79-100) Mean Corpuscular Hemoglobin 31 pg (25-35) Mean Corpuscular Hemoglobin Concent 35 g/dL (31-37) Red Cell Distribution Width 13.4 % (11.5-14.5) Platelet Count 186 x10^3/uL (140-400) Neutrophils (%) (Auto) 78 % (31-73) Lymphocytes (%) (Auto) 15 % (24-48) Monocytes (%) (Auto) 6 % (0-9) Eosinophils (%) (Auto) 0 % (0-3) Basophils (%) (Auto) 1 % (0-3) Neutrophils # (Auto) 6.0 x10^3/uL (1.8-7.7) Lymphocytes # (Auto) 1.2 x10^3/uL (1.0-4.8) Monocytes # (Auto) 0.5 x10^3/uL (0.0-1.1) Eosinophils # (Auto) 0.0 x10^3/uL (0.0-0.7) Basophils # (Auto) 0.1 x10^3/uL (0.0-0.2) Activated Partial Thromboplast Time 30 SEC (24-38) Sodium Level 130 mmol/L (136-145) Potassium Level 3.8 mmol/L (3.5-5.1) Chloride Level 95 mmol/L (98-107) Carbon Dioxide Level 25 mmol/L (21-32) Anion Gap 10 (6-14) Blood Urea Nitrogen 36 mg/dL (7-20) Creatinine 0.8 mg/dL (0.6-1.0) Estimated GFR (Cockcroft-Gault) 68.3 BUN/Creatinine Ratio 45 (6-20) Glucose Level 160 mg/dL (70-99) Calcium Level 8.3 mg/dL (8.5-10.1) Total Bilirubin 0.5 mg/dL (0.2-1.0) Aspartate Amino Transf (AST/SGOT) 18 U/L (15-37) Alanine Aminotransferase (ALT/SGPT) 17 U/L (14-59) Alkaline Phosphatase 113 U/L (46-116) Total Protein 6.1 g/dL (6.4-8.2) Albumin 3.1 g/dL (3.4-5.0) Albumin/Globulin Ratio 1.0 (1.0-1.7) Lipase 152 U/L (73-393) Urine Collection Type U cath Urine Color Yellow Urine Clarity Clear Urine pH 5.0 (<5.0-8.0) Urine Specific [place] 1.015 (1.000-1.030) Urine Protein Negative mg/dL (NEG-TRACE) Urine Glucose (UA) Negative mg/dL (NEG) Urine Ketones (Stick) Trace mg/dL (NEG) Urine Blood Negative (NEG) Urine Nitrite Negative (NEG) Urine Bilirubin Negative (NEG) Urine Urobilinogen Dipstick 0.2 mg/dL (0.2 mg/dL) Urine Leukocyte Esterase Small (NEG) Urine RBC Occ /HPF (0-2) Urine WBC 1-4 /HPF (0-4) Urine Squamous Epithelial Cells Mod /LPF Urine Transitional Epithelial Cells Occ /LPF Urine Bacteria Many /HPF (0-FEW) Urine Hyaline Casts Occasional /HPF Urine Mucus Slight /LPF Stool Occult Blood Positive (NEG) Allergies: Coded Allergies: isosorbide (Verified Allergy, Severe, 08/25/19) severe hives acyclovir (Verified Allergy, Intermediate, Itching, 01/13/18) amitriptyline (Verified Allergy, Intermediate, Itching, 01/13/18) amlodipine (Verified Allergy, Intermediate, Itching, 01/13/18) atenolol (Verified Allergy, Intermediate, Itching, 01/13/18) HAS RECEIVED METOPROLOL IV IN PAST ADMISSION fentanyl (Verified Allergy, Intermediate, Itching, 01/13/18) lisinopril (Verified Allergy, Intermediate, Itching, 01/13/18) tramadol (Verified Allergy, Intermediate, Itching, 01/13/18) warfarin (Verified Allergy, Intermediate, 01/13/18) Patient states that warfarin caused "scars" on BLE ticagrelor (Verified Allergy, Mild, Hives, 03/22/20) acetaminophen (Verified Adverse Reaction, Intermediate, 08/25/19) jumpy legs codeine (Verified Adverse Reaction, Intermediate, Nausea and Vomiting, 01/13/18) hydromorphone (Verified Adverse Reaction, Intermediate, Nausea and Vomiting, 01/13/18) Medications: Current Medications Medications (Trade) Dose Ordered Sig/Zander Route PRN Reason Start Time Stop Time Status Last Admin Dose Admin Ondansetron HCl (Zofran) 4 mg 1X ONCE IVP 04/04/20 04:00 04/04/20 04:01 DC 04/04/20 03:42 Sodium Chloride 500 ml @ 500 mls/hr 1X ONCE IV 04/04/20 04:00 04/04/20 04:59 DC 04/04/20 03:43 Pantoprazole Sodium 80 mg/ Sodium Chloride 100 ml @ 10 mls/hr Q10H IV 04/04/20 05:00 04/05/20 04:59 04/04/20 04:33 Pantoprazole Sodium (PROTONIX VIAL for IV PUSH) 80 mg 1X ONCE IVP 04/04/20 04:30 04/04/20 04:31 DC 04/04/20 04:30 Ondansetron HCl (Zofran) 4 mg PRN Q8HRS PRN IV NAUSEA/VOMITING 1ST CHOICE 04/04/20 04:30 04/05/20 04:29 04/04/20 08:17 Sodium Chloride 1,000 ml @ 125 mls/hr Q8H IV 04/04/20 05:00 04/05/20 04:59 04/04/20 04:35 Imaging: Imaging: AAS IMPRESSION: No radiographic evidence for bowel obstruction. Moderate stool throughout the large bowel suggesting possible constipation in the appropriate clinical context. PE: GEN: chronically ill HEENT: Atraumatic, PERRL LUNGS: CTAB anteriorly HEART: RRR ABD: soft - difficult - currently on bedpan in ER EXTREMITY: No edema SKIN: No rashes, no jaundice NEURO/PSYCH: A & O x3, anxious A/P: A/P: Weakness, dark stools, anemia GERD, ?intermittent dysphagia CRC screen, h/o TVA in cecum (not amendable to polypectomy 2018) S/p cholecystectomy Hepatic steatosis H/o SBO/resection H/o CAD on Plavix and ASA -- Pt and daughter agreeable to EGD later today pending COVID testing. Has transfused - monitor labs. Agree w/ PPI. Unclear details re: cecal polyp - will follow-up. PAUL CHI Apr 04, 2020 09:21
[2020-04-04] MEDS: LOSARTAN POTASSIUM 25 MG TABLET. PO SCH (09:30)
--- NOTE | 2020-04-04 10:00 | HP ---
ADMIT DATE: 04/04/2020 CHIEF COMPLAINT: GI bleed. HISTORY OF PRESENT ILLNESS: This is an 82-year-old white female with significant ischemic cardiomyopathy and takes aspirin and Plavix because of previous stent placements who has had increasing weakness in the last few days and came to the ER for evaluation. She thought she was having a reaction to her medication, but had black stool and a hemoglobin down to 6.5. She is on IV Protonix and GI will be seeing her soon to perform upper endoscopy to assess the source of bleeding, which is felt to be medication induced most likely. She was recently in the hospital and her hemoglobin was much higher than it currently is. Medicines listed per the chart. She has a cardiomyopathy present. Stents were placed in the past. MEDICATIONS: Include aspirin and Plavix. ALLERGIES: Multiple allergies listed per the chart. SOCIAL HISTORY: . Nonsmoker, nondrinker. FAMILY HISTORY: Unremarkable. REVIEW OF SYSTEMS: No changes since last admission except for increasing weakness. PHYSICAL EXAMINATION: ENT: Moderate pallor, otherwise within normal limits. NECK: No bruits, masses or nodes. LUNGS: Clear. CARDIOVASCULAR: Regular rate. Grade 3 systolic flow murmur. Mild tachycardia. No ectopy. ABDOMEN: Soft, benign and nontender. EXTREMITIES: Pale nailbeds ____. Distal pulses diminished. Otherwise unremarkable. NEUROLOGIC: Physiologic and nonfocal. ASSESSMENT: Recent upper gastrointestinal bleed with significant microcytic anemia and melena. Most likely etiology would be aspirin and Plavix that she takes for her stent placements in the past. PLAN: DNR at her request. IV Protonix. Transfusions as needed. Upper endoscopy likely per GI. CHARLIE GERMAN MD DR: ÁNGEL/parish JOB#: [id number] / [id number]
--- NOTE | 2020-04-04 11:50 | EKG ---
[facility] [address] [place] [address] Test Date: 2020-04-04 Test Time: 03:52:20 Pat Name: MACRIN SMITH Department: Room: Gender: F Multifocal Button Generator: : 1935 Requested By: KEVIN SMITH Order Number: [id number] Reading MD: Measurements Intervals [place] Rate: 97 P: HI: QRS: -34 QRSD: 158 T: 51 QT: 398 QTc: 510 Interpretive Statements IRREGULAR RHYTHM, NO P-WAVE FOUND VENTRICULAR PREMATURE COMPLEX(ES) ABNORMAL LEFT AXIS DEVIATION RIGHT BUNDLE BRANCH BLOCK QRS(T) CONTOUR ABNORMALITY CONSIDER INFERIOR MYOCARDIAL DAMAGE ABNORMAL ECG RI6.02 No previous ECG available for comparison
[2020-04-04 13:28] LABS: BASO % 1 % (0-3); EOS % 0 % (0-3); HEMOGLOBIN 7.1 g/dL (12.0-15.5); LYMPH # 1.5 x10^3/uL (1.0-4.8); LYMPH % 20 % (24-48); MEAN CORPUSCULAR HEMOGLOBIN 31 pg (25-35); MEAN CORPUSCULAR HGB CONC 35 g/dL (31-37); MEAN CORPUSCULAR VOLUME 88 fL (79-100); MONO # 0.7 x10^3/uL (0.0-1.1); MONO % 9 % (0-9); NEUT # 5.5 x10^3/uL (1.8-7.7); NEUT % 71 % (31-73); PLATELET COUNT 167 x10^3/uL (140-400); RED BLOOD COUNT 2.29 x10^6/uL (3.50-5.40); RED CELL DISTRIBUTION WIDTH 13.4 % (11.5-14.5); WHITE BLOOD COUNT 7.7 x10^3/uL (4.0-11.0)
[2020-04-04 13:30] LABS: HEMATOCRIT 20.2 % (36.0-47.0)
[2020-04-04] MEDS ORDERED: diphenhydrAMINE ORAL ELIXIR 12.5 MG/5 ML ML PO PRN (15:45)
[2020-04-04] MEDS ORDERED: PROCHLORPERAZINE 5 MG TABLET. PO PRN (16:00)
[2020-04-04] MEDS: CARVEDILOL 12.5 MG TABLET. PO SCH ×2 (17:00→17:47)
[2020-04-04] MEDS ORDERED: PROCHLORPERAZINE 10 MG/2 ML VIAL. ONE (17:35)
[2020-04-04] MEDS: PROCHLORPERAZINE 10 MG/2 ML VIAL. IV PRN (17:47)
[2020-04-04] MEDS: clonazePAM 0.5 MG TABLET PO SCH (20:46)
[2020-04-04 21:05] LABS: HEMATOCRIT 22.5 % (36.0-47.0)
[2020-04-05] VITALS (8 sets, daily range): BP systolic 94–151; BP diastolic 36–79
[2020-04-05] MEDS ORDERED: IV RINGERS,LACTATED 1000ML 1,000 ML IV SCH (07:00)
--- NOTE | 2020-04-05 08:21 | PDOC ---
Provider Note Provider Note vss, no temp- bp ok- sleeping on pantop drip- hb 8 after 1/2 units- for egd today, poss colon depending on results- takes omep at home ?, not clear re history Justicifation of Admission Dx: Justifications for Admission: Justification of Admission Dx: Yes CHARLIE GERMAN MD Apr 05, 2020 08:21
[2020-04-05] MEDS: LOSARTAN POTASSIUM 25 MG TABLET. PO SCH (09:00)
[2020-04-05] MEDS: PROCHLORPERAZINE 10 MG/2 ML VIAL. IV PRN (09:54)
[2020-04-05] MEDS ORDERED: PROPOFOL 10 MG/ML (20ML) VIAL. IV ONE (10:47)
[2020-04-05] MEDS ORDERED: LIDOCAINE 2% PF 5 ML VIAL. ONE (10:47)
--- NOTE | 2020-04-05 11:08 | PDOC4 ---
PROCEDURE Procedure EGD Indication: Anemia/melena Meds: per anesthesia FIndings: E--Healed reflux at GEJ, baseline grade indeterminate. G--Normal D--Normal to fourth portion. -No potential or active bleeding site seen. Art. well. IMP: GERD, otherwise unremarkable exam. REC: Continue PPI. 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 Possible to lose one of her anti-platelet agents? Unless felt to be surgical candidate, repeating colonoscopy would not seem needed as not likely to alter management; will discuss. The villous adenoma last year was not felt to be able to be removed endoscopically. PORTER MICHAEL MD Apr 05, 2020 11:08
--- NOTE | 2020-04-05 13:27 | NUR ---
SS following for discharge planning. SS reviewed pt chart and discussed with pt RN. Pt is from home and is currently on room air. Pt had EGD today. PT/OT ordered. SS will continue to follow for discharge planning.
[2020-04-05] MEDS: CARVEDILOL 12.5 MG TABLET. PO SCH ×2 (14:12→17:00)
--- NOTE | 2020-04-05 17:42 | NUR ---
Patient refused her Losartan today states to blame for current health scare.
[2020-04-05] MEDS: clonazePAM 0.5 MG TABLET PO SCH (22:46)
[2020-04-06 03:00] VITALS: BP 133/71
[2020-04-06 03:40] LABS: HEMATOCRIT 23.8 % (36.0-47.0); HEMOGLOBIN 8.1 g/dL (12.0-15.5); RED BLOOD COUNT 2.62 x10^6/uL (3.50-5.40); WHITE BLOOD COUNT 7.3 x10^3/uL (4.0-11.0)
[2020-04-06 04:01] LABS: CALCIUM 8.1 mg/dL (8.5-10.1); CREATININE 0.9 mg/dL (0.6-1.0); GFR 59.7; POTASSIUM 3.4 mmol/L (3.5-5.1)
[2020-04-06 07:00] VITALS: BP 142/64
--- NOTE | 2020-04-06 07:43 | PDOC ---
Provider Note Provider Note vss, no more bleed- hb same 8, egd results pending- off asa/plavix for now,follow for more bleed, rest same- will encourage losartan use for her reduced ef Justicifation of Admission Dx: Justifications for Admission: Justification of Admission Dx: Yes CHARLIE GERMAN MD Apr 06, 2020 07:43
--- NOTE | 2020-04-06 08:00 | PDOC ---
Provider Note Provider Note she states she iss allergic to losartan re itching, so will dc Justicifation of Admission Dx: Justifications for Admission: Justification of Admission Dx: Yes CHARLIE GERMAN MD Apr 06, 2020 08:00
[2020-04-06] MEDS: CARVEDILOL 12.5 MG TABLET. PO SCH ×2 (08:49→17:30)
[2020-04-06] MEDS: PANTOPRAZOLE 40 MG TABLET.DR. PO SCH (08:49)
--- NOTE | 2020-04-06 09:19 | PDOC ---
Subjective: Subjective: Says she's grouchy - doesn't like being in bed, wants to be in a chair but not a recliner. Eating okay. Had a dark stool. Wants to take a bath. Objective: Vital Signs: Vital Signs Date Time Temp Pulse Resp B/P (MAP) Pulse Ox O2 Delivery O2 Flow Rate FiO2 04/06/20 08:49 106 142/64 04/06/20 07:00 98.5 20 96 Room Air 98.5 04/05/20 20:00 3.0 Labs: Laboratory Tests Test 04/06/20 02:55 White Blood Count 7.3 x10^3/uL Red Blood Count 2.62 x10^6/uL Hemoglobin 8.1 g/dL Hematocrit 23.8 % Mean Corpuscular Volume 91 fL Mean Corpuscular Hemoglobin 31 pg Mean Corpuscular Hemoglobin Concent 34 g/dL Red Cell Distribution Width 14.0 % Platelet Count 182 x10^3/uL Sodium Level 140 mmol/L Potassium Level 3.4 mmol/L Chloride Level 106 mmol/L Carbon Dioxide Level 24 mmol/L Anion Gap 10 Blood Urea Nitrogen 20 mg/dL Creatinine 0.9 mg/dL Estimated GFR (Cockcroft-Gault) 59.7 Glucose Level 110 mg/dL Calcium Level 8.1 mg/dL Imaging: EGD 04/05 E--Healed reflux at GEJ, baseline grade indeterminate. G--Normal D--Normal to fourth portion. -No potential or active bleeding site seen. IMP: GERD, otherwise unremarkable exam. REC: Continue PPI. 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 Possible to lose one of her anti-platelet agents? Unless felt to be surgical candidate, repeating colonoscopy would not seem needed as not likely to alter management; will discuss. The villous adenoma last year was not felt to be able to be removed endoscopically. 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 Justicifation of Admission Dx: Justifications for Admission: Justification of Admission Dx: Yes PAUL CHI Apr 06, 2020 09:19
[2020-04-06] MEDS ORDERED: POTASSIUM CHLORIDE 20 MEQ TABLET.ER. PO ONE (10:00)
[2020-04-06 11:00] VITALS: BP 124/49
[2020-04-06] MEDS: FERROUS SULFATE 325 MG TABLET. PO SCH ×2 (11:19→17:30)
--- NOTE | 2020-04-06 12:06 | NUR ---
SS following up with discharge planning. SS reviewed pt chart and discussed with pt RN. PT/OT recommended correction unit. Pt had EGD on 04/05/2020. SS met with pt and discussed discharge planning and correction unit. Pt declined correction unit and reported that she would discharge to her daughters home in [place], [place]. She reported that she will stay with her daughter until she feels stronger. She reported that the home is handicap accessible. Pt agreeable to home healthcare with no preference of company. SS will continue to follow for discharge planning.
[2020-04-06 15:02] VITALS: BP 141/60
[2020-04-06 19:53] VITALS: BP 120/38
[2020-04-06] MEDS: clonazePAM 0.5 MG TABLET PO SCH (22:17)
[2020-04-06 22:22] VITALS: BP 133/60
[2020-04-07] VITALS (9 sets, daily range): BP systolic 121–147; BP diastolic 54–85
[2020-04-07 04:36] LABS: HEMATOCRIT 21.1 % (36.0-47.0); HEMOGLOBIN 7.2 g/dL (12.0-15.5); RED BLOOD COUNT 2.32 x10^6/uL (3.50-5.40); RED CELL DISTRIBUTION WIDTH 14.3 % (11.5-14.5); WHITE BLOOD COUNT 6.7 x10^3/uL (4.0-11.0)
[2020-04-07] MEDS: PANTOPRAZOLE 40 MG TABLET.DR. PO SCH (08:23)
[2020-04-07] MEDS: FERROUS SULFATE 325 MG TABLET. PO SCH (08:23)
[2020-04-07] MEDS: CARVEDILOL 12.5 MG TABLET. PO SCH (08:25)
--- NOTE | 2020-04-07 08:37 | PDOC ---
Justicifation of Admission Dx: Justifications for Admission: Justification of Admission Dx: Yes CHARLIE GERMAN MD Apr 07, 2020 08:36
--- NOTE | 2020-04-07 08:39 | PDOC ---
Provider Note Provider Note [id number] Justicifation of Admission Dx: Justifications for Admission: Justification of Admission Dx: Yes CHARLIE GERMAN MD Apr 07, 2020 08:39
--- NOTE | 2020-04-07 09:40 | DS ---
DATE OF DISCHARGE: 04/07/2020 COURSE IN THE HOSPITAL: The patient came in with evidence of an upper GI bleed with melena, weakness and hemoglobin down to 6.5 where it had been about 12 a month or two ago. She received a unit of blood after admission and unit just prior to dismissal and repeat hemoglobin was 8.1 with a normal chemistry profile and coagulation parameters COVID negative and urine was clear. Acute abdomen series was unremarkable. She was given IV Protonix and then had an upper GI endoscopy, which revealed no acute lesions and was felt to be likely small bowel source of bleed from both aspirin and Plavix that she takes for coronary artery disease and stents. These drugs were held and she received a unit of blood prior to dismissal and we will follow her as an outpatient at this point. FINAL DIAGNOSES: Acute upper gastrointestinal bleed, likely secondary to small bowel; AV malformations; and anticoagulant medication. OPERATIONS AND PROCEDURES: EGD. COMPLICATIONS: None. CONSULTATIONS: Dr. Clay. DISPOSITION: She will stay off aspirin and Plavix for now. We will see in the office with a hemoglobin in 1 week. May be able to resume aspirin only at that point as loss of antiplatelet therapy would almost certainly lead to recurrent coronary artery stent, clotting and myocardial infarction. Her life threatening GI bleed is likely secondary to her medications, certainly these drugs are currently greater risk than benefit and will be held. Rest of home meds remain the same. She no longer takes losartan as she reacted with itching and will not take the drug. Office followup in 1 week. PROGNOSIS: Poor. She is a DNR patient. CHARLIE GERMAN MD DR: ÁNGEL/nts JOB#: [id number] / [id number]
--- NOTE | 2020-04-07 10:39 | PDOC ---
Subjective: Subjective: Says she's going to get a transfusion and then go home to stay with her daughter for a few days and then follow-up w/ Dr. Cantu. Talks a lot about adverse reaction (rash and itching) to Losartan. Says she was told she probably wouldn't survive any colon surgery. Says she'd like a dozen roses when we come back to check on her later. Objective: Vital Signs: Vital Signs Date Time Temp Pulse Resp B/P (MAP) Pulse Ox O2 Delivery O2 Flow Rate FiO2 04/07/20 08:25 82 126/76 04/07/20 08:00 Room Air 04/07/20 07:00 98.3 16 96 98.3 Labs: Laboratory Tests Test 04/07/20 03:25 White Blood Count 6.7 x10^3/uL Red Blood Count 2.32 x10^6/uL Hemoglobin 7.2 g/dL Hematocrit 21.1 % Mean Corpuscular Volume 91 fL Mean Corpuscular Hemoglobin 31 pg Mean Corpuscular Hemoglobin Concent 34 g/dL Red Cell Distribution Width 14.3 % Platelet Count 185 x10^3/uL PE: GEN: NAD LUNGS: CTAB HEART: RRR ABD: S/ND/NT NEURO/PSYCH: A & O 3 A/P: Melena, anemia - Hgb stable, 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 Continue PPI and iron. Justicifation of Admission Dx: Justifications for Admission: Justification of Admission Dx: Yes PAUL CHI Apr 07, 2020 10:39
--- NOTE | 2020-04-07 11:33 | NUR ---
SS following up with discharge planning. SS reviewed pt chart and discussed with pt RN. Discharge order on the chart for home with self care. Pt requesting home healthcare and walker. Pt's RN and SS reached out to Dr. Briggs's office and left message for Dr. Briggs. SS needing orders for walker and home healthcare. Pt reported having no preference of home healthcare company. SS will continue to follow for discharge planning.
--- NOTE | 2020-04-07 12:44 | NUR ---
SS following up with discharge planning. SS received home healthcare orders and walker script for pt. SS phoned and faxed walker order and clinical to [facility], ; fax [phone]. SS phoned and faxed discharge orders and clinical to [facility], ; fax [phone]. Pt's RN notified.
[2020-04-07] MEDS ORDERED: POTASSIUM CHLORIDE 10 MEQ TABLET.ER. PO ONE (15:00)
--- NOTE | 2020-04-07 15:17 | NUR ---
Blood transfusion finished & stopped at 1517. Patient tolerated well.
--- NOTE | 2020-04-07 16:30 | NUR ---
Discharge Note: MARCIN SMITH [address] [place] [address] Discharge instructions and discharge home medications reviewed with Patient and a copy given. All questions have been answered and understanding verbalized. The following instructions and handouts were given: discharge instructions, anemia info, GI bleed info. Discontinued lines and drains: Peripheral IV intact. Patient discharged to Home w/services with Family Member via Wheelchair at 1630.
[2020-04-07] MEDS ORDERED: POTASSIUM CHLORIDE 10 MEQ TABLET.ER. PO SCH (21:00)
== END 2020-04-07 16:30 | disposition home health service (06) | DRG 377 ==
LOC: ER 03:14 → 2 NORTH 04:55 → ED HOLD 04:57 → 2 NORTH 12:33
PROVIDERS: ADMIT Family Medicine; ATTEND Family Medicine
PROC: 30233N1 Transfusion of Nonautologous Red Blood Cells into Peripheral Vein, Percutaneous Approach (ICD-10-PCS; 2020-04-04)
PROC: 0DJ08ZZ Inspection of Upper Intestinal Tract, Via Natural or Artificial Opening Endoscopic (ICD-10-PCS; principal; 2020-04-05 11:00)
DX: K55.21 Angiodysplasia of colon with hemorrhage (principal); E43 Unspecified severe protein-calorie malnutrition; D62 Acute posthemorrhagic anemia; I13.0 Hypertensive heart and chronic kidney disease with heart failure and stage 1 through stage 4 chronic kidney disease, or unspecified chronic kidney disease; N18.9 Chronic kidney disease, unspecified; K57.30 Diverticulosis of large intestine without perforation or abscess without bleeding; K21.9 Gastro-esophageal reflux disease without esophagitis; I50.9 Heart failure, unspecified; I48.91 Unspecified atrial fibrillation; I25.5 Ischemic cardiomyopathy; I25.10 Atherosclerotic heart disease of native coronary artery without angina pectoris; K76.0 Fatty (change of) liver, not elsewhere classified; G89.29 Other chronic pain; M54.9 Dorsalgia, unspecified; Z20.828 Contact with and (suspected) exposure to other viral communicable diseases; Z95.5 Presence of coronary angioplasty implant and graft; Z90.710 Acquired absence of both cervix and uterus; Z90.49 Acquired absence of other specified parts of digestive tract; Z79.82 Long term (current) use of aspirin; Z68.23 Body mass index [BMI] 23.0-23.9, adult; Z88.6 Allergy status to analgesic agent; Z88.4 Allergy status to anesthetic agent; Z88.5 Allergy status to narcotic agent; Z88.8 Allergy status to other drugs, medicaments and biological substances
CPT/HCPCS: 36415; 43235; 74022; 80048; 80053; 81001; 82274; 83690; 85014; 85018; 85025; 85027; 85576; 85730; 86850; 86900; 86901; 86920; 87077; 87086; 87186; 93005; 96361; 96374; 96375; 99291; C9113; J0780; J2405; J2704; J7030; J7040; J7120; P9016; P9612; 97116-GP; 97530-GO; 97530-GP; 97535-GO; G0378; U0003-CS

== ENCOUNTER 2020-09-14 16:27 | Inpatient (IN) | payer MEDICARE ==
[~2020-09-14] VITALS: Ht 157.5 cm; Wt 55.4 kg
[~2020-09-14 16:27] MED LIST changes: +ASCO100019 PO; -ASCO10002 PO; +ATOR40TA PO; +CIPR250T30 PO; -DOCU-150 PO; +DOCU-158 PO; -ISOS30TA4 PO; +ISOS30TA68 PO; -OMEP40CA45 PO; +OMEP40CA7 PO; +PROPAFENONE HC225 M1 PO; +SPIR50TA4 PO
[2020-09-14 17:50] LABS: BILIRUBIN,URINE NEGATIVE (NEG); CLARITY,URINE CLEAR; COLOR,URINE YELLOW; NITRITE,URINE NEGATIVE (NEG); PH,URINE 5.5 (<5.0-8.0); PROTEIN,URINE NEGATIVE (NEG-TRACE); UROBILINOGEN,URINE 0.2 mg/dL (0.2 mg/dL)
[2020-09-14 17:51] LABS: BASO # 0.1 x10^3/uL (0.0-0.2); BASO % 1 % (0-3); EOS # 0.1 x10^3/uL (0.0-0.7); EOS % 2 % (0-3); HEMATOCRIT 36.3 % (36.0-47.0); HEMOGLOBIN 12.2 g/dL (12.0-15.5); LYMPH # 0.8 x10^3/uL (1.0-4.8); LYMPH % 12 % (24-48); MEAN CORPUSCULAR HEMOGLOBIN 30 pg (25-35); MEAN CORPUSCULAR HGB CONC 34 g/dL (31-37); MEAN CORPUSCULAR VOLUME 91 fL (79-100); MONO # 0.6 x10^3/uL (0.0-1.1); MONO % 9 % (0-9); NEUT # 5.1 x10^3/uL (1.8-7.7); NEUT % 77 % (31-73); PLATELET COUNT 222 x10^3/uL (140-400); WHITE BLOOD COUNT 6.6 x10^3/uL (4.0-11.0)
[2020-09-14 17:56] LABS: BARBITURATES NEG (NEG); BENZODIAZEPINES NEG (NEG); CANNABINOIDS NEG (NEG); COCAINE NEG (NEG); METHADONE NEG (NEG); OPIATES NEG (NEG); PHENCYCLIDINE NEG (NEG)
[2020-09-14 17:57] LABS: AMPHETAMINE/METHAMPHETAMINE NEG (NEG)
[2020-09-14 18:09] LABS: BACTERIA,URINE FEW /HPF (0-FEW)
[2020-09-14 18:10] LABS: HYALINE CASTS, URINE FEW /HPF
[2020-09-14 18:13] LABS: RBC,URINE 0 /HPF (0-2)
[2020-09-14 18:17] LABS: CALCIUM 9.4 mg/dL (8.5-10.1); CREATININE 0.9 mg/dL (0.6-1.0); GFR 59.5; POTASSIUM 4.9 mmol/L (3.5-5.1)
--- NOTE | 2020-09-14 18:20 | RAD ---
EXAM: AP View of the chest DATE: 09/14/2020 5:55 PM INDICATION: Shortness of air COMPARISON: 08/16/2020 03/21/2020 FINDINGS: Partial generator pack obscures a portion left upper lung. Small left pleural effusion. Bilateral pat jin parenchymal opacities. No pneumothorax. Glenohumeral and AC joint degenerative change IMPRESSION: 1. Bilateral parenchymal airspace opacities may represent atelectasis or developing consolidation. Electronically signed by: Mikhail Zhang MD (09/14/2020 6:18 PM) AMAURY
[2020-09-14 18:21] LABS: ALBUMIN 3.9 g/dL (3.4-5.0); ALBUMIN/GLOBULIN RATIO 1.1 (1.0-1.7); MAGNESIUM 2.4 mg/dL (1.8-2.4); TOTAL BILIRUBIN 0.7 mg/dL (0.2-1.0); TOTAL PROTEIN 7.5 g/dL (6.4-8.2)
[2020-09-14] MEDS ORDERED: FUROSEMIDE 40 MG/4 ML VIAL. IVP ONE (19:45)
--- NOTE | 2020-09-14 19:52 | PHYS DOC ---
Past Medical History Past Medical History: A-Fib, Anemia, Cancer, CHF, Hypertension, KS, Other Additional Past Medical Histor: CARDIOMYOPATHY, OSTEOARTHRITIS, CHRONIC BACK PAIN,BOWEL OBSTRUCTION Past Surgical History: Pacemaker, Other Additional Past Surgical Histo: HERNIA REPAIR WITH MESH,SMALL BOWEL RESECTION,BILAT MASTECTOMY Smoking Status: Never Smoker Alcohol Use: Rarely Drug Use: None General Adult EDM: Chief Complaint: SHORTNESS OF BREATH HPI: HPI: Patient is a 85 year old female with history of A. fib, hypertension, anemia, KS, CHF, who presents to the ED today complaining of increased abdominal and lower extremity swelling from CHF. Patient is also complaining of shortness of breath, symptoms for 1 week. Denies any coughing. Denies any fever. She states her symptoms are worse on exertion. Review of Systems: Review of Systems: Constitutional: Denies fever or chills. [] Eyes: Denies change in visual acuity. [] HENT: Denies nasal congestion or sore throat. [] Respiratory: Reports shortness of breath especially on exertion, denies coughing Cardiovascular: Reports abdominal swelling and lower extremity swelling, denies chest pain GI: Denies abdominal pain, nausea, vomiting, bloody stools or diarrhea. [] : Denies dysuria. [] Musculoskeletal: Denies back pain or joint pain. [] Integument: Denies rash. [] Neurologic: Denies headache, focal weakness or sensory changes. [] Psychiatric: Denies depression or anxiety. [] Heart Score: Risk Factors: Risk Factors: DM, Current or recent (<one month) smoker, HTN, HLP, family history of CAD, obesity. Risk Scores: Score 0 - 3: 2.5% MACE over next 6 weeks - Discharge Home Score 4 - 6: 20.3% MACE over next 6 weeks - Admit for Clinical Observation Score 7 - 10: 72.7% MACE over next 6 weeks - Early Invasive Strategies Current Medications: Current Medications Medications (Trade) Dose Ordered Sig/Zander Start Time Stop Time Status Last Admin Dose Admin Furosemide (Lasix) 40 mg 1X ONCE 09/14/20 19:45 09/14/20 19:46 UNV Allergies: Allergies: Allergies Coded Allergies Type Severity Reaction Last Updated Verified isosorbide Allergy Severe 08/25/19 Yes acyclovir Allergy Intermediate Itching 01/13/18 Yes amitriptyline Allergy Intermediate Itching 01/13/18 Yes amlodipine Allergy Intermediate Itching 01/13/18 Yes atenolol Allergy Intermediate Itching 01/13/18 Yes fentanyl Allergy Intermediate Itching 01/13/18 Yes lisinopril Allergy Intermediate Itching 01/13/18 Yes tramadol Allergy Intermediate Itching 01/13/18 Yes warfarin Allergy Intermediate 01/13/18 Yes ticagrelor Allergy Mild Hives 03/22/20 Yes acetaminophen Adverse Reaction Intermediate 08/25/19 Yes codeine Adverse Reaction Intermediate Nausea and Vomiting 01/13/18 Yes hydromorphone Adverse Reaction Intermediate Nausea and Vomiting 01/13/18 Yes Physical Exam: PE: Constitutional: Well developed, well nourished, no acute distress, non-toxic appearance. [] HENT: Normocephalic, atraumatic, bilateral external ears normal, oropharynx moist, no oral exudates, nose normal. [] Eyes: PERRLA, EOMI, conjunctiva normal, no discharge. [] Neck: Normal range of motion, no tenderness, supple, no stridor. [] Cardiovascular:Heart rate regular rhythm, no murmur [] Lungs & Thorax: Bilateral breath sounds clear to auscultation [] Abdomen: Bowel sounds normal, soft, no tenderness, no masses, no pulsatile masses. Rounded lower abdomen. Skin: Warm, dry, no erythema, no rash. [] Back: No tenderness, no CVA tenderness. [] Extremities: No tenderness, no cyanosis, no clubbing, ROM intact, +1 lateral pedal edema Neurologic: Alert and oriented X 3, normal motor function, normal sensory function, no focal deficits noted. [] Psychologic: Affect normal, judgement normal, mood normal. [] Current Patient Data: Labs: Laboratory Tests Test 09/14/20 17:20 09/14/20 17:30 Urine Collection Type Unknown Urine Color Yellow Urine Clarity Clear Urine pH 5.5 (<5.0-8.0) Urine Specific [place] 1.010 (1.000-1.030) Urine Protein Negative mg/dL (NEG-TRACE) Urine Glucose (UA) Negative mg/dL (NEG) Urine Ketones (Stick) Negative mg/dL (NEG) Urine Blood Negative (NEG) Urine Nitrite Negative (NEG) Urine Bilirubin Negative (NEG) Urine Urobilinogen Dipstick 0.2 mg/dL (0.2 mg/dL) Urine Leukocyte Esterase Negative (NEG) Urine RBC 0 /HPF (0-2) Urine WBC 5-10 /HPF (0-4) Urine Squamous Epithelial Cells Few /LPF Urine Bacteria Few /HPF (0-FEW) Urine Cellular Casts Few /HPF Urine Hyaline Casts Few /HPF Urine Mucus Slight /LPF Urine Opiates Screen Neg (NEG) Urine Methadone Screen Neg (NEG) Urine Barbiturates Neg (NEG) Urine Phencyclidine Screen Neg (NEG) Urine Amphetamine/Methamphetamine Neg (NEG) Urine Benzodiazepines Screen Neg (NEG) Urine Cocaine Screen Neg (NEG) Urine Cannabinoids Screen Neg (NEG) Urine Ethyl Alcohol Neg (NEG) White Blood Count 6.6 x10^3/uL (4.0-11.0) Red Blood Count 4.00 x10^6/uL (3.50-5.40) Hemoglobin 12.2 g/dL (12.0-15.5) Hematocrit 36.3 % (36.0-47.0) Mean Corpuscular Volume 91 fL (79-100) Mean Corpuscular Hemoglobin 30 pg (25-35) Mean Corpuscular Hemoglobin Concent 34 g/dL (31-37) Red Cell Distribution Width 15.0 % (11.5-14.5) H Platelet Count 222 x10^3/uL (140-400) Neutrophils (%) (Auto) 77 % (31-73) H Lymphocytes (%) (Auto) 12 % (24-48) L Monocytes (%) (Auto) 9 % (0-9) Eosinophils (%) (Auto) 2 % (0-3) Basophils (%) (Auto) 1 % (0-3) Neutrophils # (Auto) 5.1 x10^3/uL (1.8-7.7) Lymphocytes # (Auto) 0.8 x10^3/uL (1.0-4.8) L Monocytes # (Auto) 0.6 x10^3/uL (0.0-1.1) Eosinophils # (Auto) 0.1 x10^3/uL (0.0-0.7) Basophils # (Auto) 0.1 x10^3/uL (0.0-0.2) Sodium Level 122 mmol/L (136-145) L Potassium Level 4.9 mmol/L (3.5-5.1) Chloride Level 89 mmol/L (98-107) L Carbon Dioxide Level 24 mmol/L (21-32) Anion Gap 9 (6-14) Blood Urea Nitrogen 33 mg/dL (7-20) H Creatinine 0.9 mg/dL (0.6-1.0) Estimated GFR (Cockcroft-Gault) 59.5 BUN/Creatinine Ratio 37 (6-20) H Glucose Level 111 mg/dL (70-99) H Lactic Acid Level 1.0 mmol/L (0.4-2.0) Calcium Level 9.4 mg/dL (8.5-10.1) Magnesium Level 2.4 mg/dL (1.8-2.4) Total Bilirubin 0.7 mg/dL (0.2-1.0) Aspartate Amino Transferase (AST) 22 U/L (15-37) Alanine Aminotransferase (ALT) 20 U/L (14-59) Alkaline Phosphatase 133 U/L (46-116) H Creatine Kinase 85 U/L (26-192) Creatine Kinase MB (Mass) 2.1 ng/mL (0.0-3.6) Creatine Kinase MB Relative Index 2.5 % (0-4) Troponin I Quantitative < 0.017 ng/mL (0.000-0.055) AH-Lxj-C-Type Natriuretic Peptide 4943 pg/mL (0-449) H Total Protein 7.5 g/dL (6.4-8.2) Albumin 3.9 g/dL (3.4-5.0) Albumin/Globulin Ratio 1.1 (1.0-1.7) Procalcitonin < 0.10 ng/mL (0.00-0.10) Thyroid Stimulating Hormone (TSH) 0.919 uIU/mL (0.358-3.74) Laboratory Tests 09/14/20 17:30 Laboratory Tests 09/14/20 17:30 Vital Signs: Vital Signs Date Time Temp Pulse Resp B/P (MAP) Pulse Ox O2 Delivery O2 Flow Rate FiO2 09/14/20 17:06 97.8 77 16 173/75 (107) 97 Room Air 97.8 EKG: EK interpreted by Dr. Cummings sinus rhythm HR 75 no STEMI[] Radiology/Procedures: Radiology/Procedures: []PROCEDURE: PORTABLE CHEST 1V EXAM: AP View of the chest DATE: 09/14/2020 5:55 PM INDICATION: Shortness of air COMPARISON: 08/16/2020 03/21/2020 FINDINGS: Partial generator pack obscures a portion left upper lung. Small left pleural effusion. Bilateral patchy parenchymal opacities. No pneumothorax. Glenohumeral and AC joint degenerative change IMPRESSION: 1. Bilateral parenchymal airspace opacities may represent atelectasis or developing consolidation. Electronically signed by: Mikhail Church MD (09/14/2020 6:18 PM) [facility] DICTATED and SIGNED BY: MIKHAIL CHURCH MD DATE: 09/14/20 [id number] 0 Course & Med Decision Making: Course & Med Decision Making Pertinent Labs and Imaging studies reviewed. (See chart for details) This is a 85-year-old female patient presenting to the ED today with increased abdominal swelling as well as lower extremity swelling, he has history of CHF, is also complaining of shortness of breath on exertion, symptoms of been going on for 1 week. CBC with no acute findings, CMP with sodium of 122, potassium is normal. BNP 4943. Chest x-ray noted for bilateral parenchymal airspace opacities may represent atelectasis or developing consolidation. Spoke to Dr. German who accepted patient for admission and requested we give patient 1 dose of Lasix 40 mg IV Dragon Disclaimer: Dragon Disclaimer: This electronic medical record was generated, in whole or in part, using a voice recognition dictation system. Departure Departure Impression: Primary Impression: Hyponatremia Additional Impression: CHF exacerbation Qualified Codes: I50.9 - Heart failure, unspecified Disposition: 09 ADMITTED INPT THIS HOSP Condition: STABLE Referrals: CHARLIE GERMAN MD (PCP) ZAINAB WEBSTER VALLEZ FILTER OPERATOR Sep 14, 2020 19:52
[2020-09-15 03:53] VITALS: BP 104/54
[2020-09-15 07:00] VITALS: BP 168/74
[2020-09-15] MEDS: DOCUSATE SODIUM 100 MG CAPSULE. PO SCH (08:54)
[2020-09-15] MEDS: PANTOPRAZOLE 40 MG TABLET.DR. PO SCH ×2 (08:54→22:29)
[2020-09-15] MEDS: CARVEDILOL 12.5 MG TABLET. PO SCH ×2 (08:55→17:01)
[2020-09-15] MEDS ORDERED: POTASSIUM CHLORIDE 10 MEQ TABLET.ER. PO SCH (09:00)
[2020-09-15] MEDS ORDERED: DIGOXIN 125 MCG TABLET. PO SCH (09:00)
[2020-09-15] MEDS ORDERED: ASPIRIN CHEWABLE 81 MG TABLET. PO SCH (09:00)
[2020-09-15] MEDS: TRIAMCINOLONE ACETONIDE 0.1% TOPICAL CREAM 15GM TUBE. TP SCH ×2 (09:00→21:00)
[2020-09-15] MEDS ORDERED: CLOPIDOGREL BISULFATE 75 MG TABLET PO SCH (09:00)
[2020-09-15] MEDS ORDERED: NON FORMULARY ITEM (Spironolactone 1 TAB) PO SCH (09:00)
--- NOTE | 2020-09-15 09:07 | HP ---
ADMIT DATE: CHIEF COMPLAINT: Epigastric pain. HISTORY OF PRESENT ILLNESS: An 85-year-old with known severe cardiomyopathy, who was admitted about 3 weeks ago with upper abdominal pain that seemed to be related to ascites. She had a CT scan, which showed some ascites and spironolactone was started, which she has apparently been taking. She came to the office and then to the ER on the day of admission with some ongoing epigastric pain. She denies hematemesis, melena, hematochezia, dysphagia, cough, shortness of breath, trauma, or other complaints. She has a known ejection fraction of about 20% and has been a DNR patient for a long period of time. She does take aspirin and Plavix on a daily basis for coronary artery disease and stent placements in the past. PAST HISTORY: ALLERGIES: MULTIPLE ALLERGIES LISTED. MEDICATIONS: Listed per the chart. CT scan about 4 weeks ago showed no specific intra-abdominal pathology with ascites was noted. She was treated for UTI about 1 month ago as well. SOCIAL HISTORY: Has family in the area. She is . She is a nondrinker, nonsmoker. FAMILY HISTORY: Unremarkable. REVIEW OF SYSTEMS: No other complaints. OBJECTIVE: ENT: Mild proptosis, otherwise unremarkable. No jaundice is seen. NECK: No thyroid enlargement, masses, or JVD. LUNGS: Clear with decreased breath sounds. No tachypnea. CARDIOVASCULAR: Regular rate with very frequent VPCs. No S3 is heard. ABDOMEN: Mildly tender in the epigastrium. No masses are felt. No guarding. No significant ascites is noted. EXTREMITIES: Skin turgor decreased, pedal pulses decreased. No active joint or skin lesions are seen except for red spotty scaly rash on the left upper quadrant. Does not appear to be herpetic in nature. ASSESSMENT: Ongoing epigastric pain. Intragastric pathology such as an ulcer or gastritis certainly would be on top of list as she does take daily aspirin as well as Plavix despite taking some omeprazole. She has severe cardiomyopathy that appears to be stable at this time. General malnutrition is present. PLAN: We will add Carafate to omeprazole and stop the aspirin and Plavix for now. Hyponatremia is noted and we will hold diuretics, which are likely the cause of this and follow. She remains a DNR patient and her COVID pathology is pending. CHARLIE GERMAN MD DR: Peri JOB#: [id number] / [id number]
[2020-09-15] MEDS: MORPHINE SULFATE 2 MG/ML VIAL. IV PRN (09:31)
[2020-09-15] MEDS: ONDANSETRON PF 4 MG/2 ML VIAL. IV PRN ×2 (10:04→17:48)
[2020-09-15 11:00] VITALS: BP 124/59
[2020-09-15 11:21] LABS: ALBUMIN 3.3 g/dL (3.4-5.0); ALBUMIN/GLOBULIN RATIO 1.1 (1.0-1.7); CALCIUM 8.7 mg/dL (8.5-10.1); CREATININE 0.7 mg/dL (0.6-1.0); GFR 79.5; POTASSIUM 4.1 mmol/L (3.5-5.1); TOTAL BILIRUBIN 0.7 mg/dL (0.2-1.0); TOTAL PROTEIN 6.3 g/dL (6.4-8.2)
[2020-09-15] MEDS: SUCRALFATE 1 GM TABLET. PO SCH ×3 (11:55→22:29)
[2020-09-15 15:00] VITALS: BP 142/65
--- NOTE | 2020-09-15 15:44 | NUR ---
SW following for discharge planning. Spoke with RN and reviewed chart. SW consulted as pt high risk for readmission. SW attempted to call into pt's room, no answer. Pt COVID pending, ADA diet, room air, IV pain medication. Discharge plan is home, self-care. SW following. Addendum: 09/19/20 at 1229 by CHINO TERAN Patient transferred to CVICU. No further needs from this SW.
[2020-09-15] MEDS: ONDANSETRON ODT 4 MG TAB.RAPDIS. PO PRN ×2 (15:49→22:29)
[2020-09-15 19:00] VITALS: BP 146/62
[2020-09-15] MEDS: DIGOXIN 125 MCG TABLET. PO SCH (21:15)
[2020-09-15] MEDS: clonazePAM 0.5 MG TABLET PO SCH (22:29)
[2020-09-15 23:00] VITALS: BP 165/71
[2020-09-16 05:10] LABS: CALCIUM 8.6 mg/dL (8.5-10.1); CREATININE 0.8 mg/dL (0.6-1.0); GFR 68.2; POTASSIUM 4.6 mmol/L (3.5-5.1)
[2020-09-16 07:59] VITALS: BP 143/67
[2020-09-16] MEDS: SUCRALFATE 1 GM TABLET. PO SCH ×4 (09:49→22:47)
[2020-09-16] MEDS: DOCUSATE SODIUM 100 MG CAPSULE. PO SCH (09:49)
[2020-09-16] MEDS: CARVEDILOL 12.5 MG TABLET. PO SCH ×2 (09:49→17:27)
[2020-09-16] MEDS: PANTOPRAZOLE 40 MG TABLET.DR. PO SCH ×2 (09:49→22:46)
[2020-09-16] MEDS: TRIAMCINOLONE ACETONIDE 0.1% TOPICAL CREAM 15GM TUBE. TP SCH ×2 (09:50→22:59)
--- NOTE | 2020-09-16 10:54 | PDOC ---
Provider Note Date of Service: DATE: 09/16/20 TIME: 10:52 Provider Note sleeping, no orthopnea, vss- na+ 122/ 127/ now 124 off aldactone- will give 250 ml saline, follow- epigastric pain, now on carafate/ off asa, plavix as suspected gastritis- follow Na+ , pain- may need egd if pain persists, recent ct abd was clear of source Justifications for Admission Other Justification CHARLIE GERMAN MD Sep 16, 2020 10:54
[2020-09-16] MEDS ORDERED: IV NORMAL SALINE 500ML BAG 250 ML IV ONE (11:00)
[2020-09-16 11:16] VITALS: BP 132/63
[2020-09-16 15:03] VITALS: BP 121/58
[2020-09-16 19:00] VITALS: BP 137/63
[2020-09-16 20:44] VITALS: BP 137/63
[2020-09-16] MEDS: clonazePAM 0.5 MG TABLET PO SCH (22:46)
[2020-09-16] MEDS: DIGOXIN 125 MCG TABLET. PO SCH (22:47)
[2020-09-16 23:39] VITALS: BP 119/82
[2020-09-17 03:00] VITALS: BP 131/60
[2020-09-17 04:37] LABS: CREATININE 0.9 mg/dL (0.6-1.0); GFR 59.5; POTASSIUM 4.9 mmol/L (3.5-5.1)
[2020-09-17 07:16] VITALS: BP 151/70
[2020-09-17] MEDS: SUCRALFATE 1 GM TABLET. PO SCH ×4 (08:05→19:22)
[2020-09-17] MEDS: DOCUSATE SODIUM 100 MG CAPSULE. PO SCH (08:05)
[2020-09-17] MEDS: CARVEDILOL 12.5 MG TABLET. PO SCH ×2 (08:06→17:16)
[2020-09-17] MEDS: TRIAMCINOLONE ACETONIDE 0.1% TOPICAL CREAM 15GM TUBE. TP SCH ×2 (08:06→20:32)
[2020-09-17] MEDS: PANTOPRAZOLE 40 MG TABLET.DR. PO SCH ×2 (08:06→19:22)
[2020-09-17 11:18] VITALS: BP 170/70
[2020-09-17] MEDS: MORPHINE SULFATE 2 MG/ML VIAL. IV PRN ×3 (14:16→19:24)
[2020-09-17] MEDS: ONDANSETRON ODT 4 MG TAB.RAPDIS. PO PRN ×2 (14:16→19:23)
[2020-09-17 15:18] VITALS: BP 152/61
--- NOTE | 2020-09-17 16:00 | NUR ---
Patient is complaining of severe right upper quadrant abdominal pain. Patient complains of it getting worse. "It's the worst it's been so far." Patient was tearful. Pt received 2 doses of morphine. It helped.
--- NOTE | 2020-09-17 18:15 | PN ---
DATE: 09/17/2020 DAILY PROGRESS NOTE LOCATION: She is in room 652. SUBJECTIVE: The patient is awake and alert. States that her shortness of breath is much improved. She admits her epigastric pain also being improved with the addition of Carafate. She has been eating. OBJECTIVE: VITAL SIGNS: Stable. She is afebrile. GENERAL: She is COVID negative. CHEST: Reveals decreased breath sounds. HEART: Regular. ABDOMEN: Benign. LABORATORY DATA: Sodium is still low at 125. IMPRESSION: 1. History of congestive heart failure. 2. Hyponatremia. 3. Epigastric pain, improving. 4. Shortness of breath better with diuresis since admission without use of increased diuresis. PLAN: Continue present care. Follow sodium. Further workup on her abdominal pain to be determined by Dr. Briggs on his return, but does seem to be improved today. JAMESON GOMEZ MD DR: KAY/parish JOB#: [id number] / [id number]
[2020-09-17 19:00] VITALS: BP 167/79
[2020-09-17] MEDS: DIGOXIN 125 MCG TABLET. PO SCH (20:27)
[2020-09-17] MEDS: clonazePAM 0.5 MG TABLET PO SCH (20:32)
[2020-09-17 23:00] VITALS: BP 175/95
[2020-09-18] MEDS: PROCHLORPERAZINE 10 MG/2 ML VIAL. IV PRN ×2 (01:52→12:01)
[2020-09-18 05:17] LABS: CALCIUM 9.1 mg/dL (8.5-10.1); CREATININE 0.9 mg/dL (0.6-1.0); GFR 59.5; POTASSIUM 5.1 mmol/L (3.5-5.1)
[2020-09-18 07:00] VITALS: BP 151/63
[2020-09-18] MEDS: SUCRALFATE 1 GM TABLET. PO SCH ×4 (09:32→21:12)
[2020-09-18] MEDS: DOCUSATE SODIUM 100 MG CAPSULE. PO SCH (09:32)
[2020-09-18] MEDS: CARVEDILOL 12.5 MG TABLET. PO SCH ×2 (09:32→16:21)
[2020-09-18] MEDS: TRIAMCINOLONE ACETONIDE 0.1% TOPICAL CREAM 15GM TUBE. TP SCH ×2 (09:33→21:50)
[2020-09-18] MEDS: PANTOPRAZOLE 40 MG TABLET.DR. PO SCH ×2 (09:33→21:12)
[2020-09-18 11:00] VITALS: BP 141/66
--- NOTE | 2020-09-18 13:33 | PDOC2 ---
CONSULT Date of Consult Date of Consult DATE: 09/18/20 TIME: 13:31 Reason for Consult Reason for Consult: Abd pain s/p yue Past Medical History Cardiovascular: AFIB, CAD, CHF, HTN, Syncope, Other Pulmonary: Bronchitis GI: Diverticulosis, GERD Heme/Onc: Cancer Hepatobiliary: Cholelithiasis Psych: No pertinent hx, Anxiety Musculoskeletal: low back pain, Osteoarthritis Past Surgical History Past Surgical History: Cholecystectomy, Hernia Repair, Hysterectomy, Other Family History Family History: Hypertension Social History ALCOHOL: rare Drugs: None Lives: Alone Domestic Violence: Neg Current Problem List Problem List Problems Medical Problems: (1) CHF exacerbation Status: Acute (2) Hyponatremia Status: Acute Current Medications Current Medications Current Medications Furosemide (Lasix) 40 mg 1X ONCE IVP Last administered on 09/14/20at 20:01; Start 09/14/20 at 19:45; Stop 09/14/20 at 19:46; Status DC Ondansetron HCl (Zofran) 4 mg PRN Q8HRS PRN IV NAUSEA/VOMITING Last administered on 09/15/20at 17:48; Start 09/14/20 at 20:00; Stop 09/15/20 at 19:59; Status DC Aspirin (Aspirin Chewable) 81 mg DAILY PO ; Start 09/15/20 at 09:00; Stop 09/15/20 at 08:30; Status DC Clonazepam (KlonoPIN) 0.5 mg HS PO Last administered on 09/17/20at 20:32; Start 09/15/20 at 21:00 Clopidogrel Bisulfate (Plavix) 75 mg DAILY PO ; Start 09/15/20 at 09:00; Stop 09/15/20 at 08:30; Status DC Digoxin (Lanoxin) 125 mcg DAILY PO Last administered on 09/15/20at 08:54; Start 09/15/20 at 09:00; Stop 09/15/20 at 21:14; Status DC Docusate Sodium (Colace) 100 mg DAILY PO Last administered on 09/18/20at 09:32; Start 09/15/20 at 09:00 Potassium Chloride (Klor-Con) 10 meq BID PO ; Start 09/15/20 at 09:00; Stop 09/15/20 at 08:30; Status DC Carvedilol (Coreg) 12.5 mg BIDWMEALS PO Last administered on 09/18/20 09:32; Start 09/15/20 at 09:00 Pantoprazole Sodium (Protonix) 40 mg BID PO Last administered on 09/18/20 09:33; Start 09/15/20 at 09:00 Non-Formulary Medication (Spironolactone ) 1 tab DAILY PO ; Start 09/15/20 at 09:00; Stop 09/15/20 at 08:19; Status DC Sucralfate (Carafate) 1 gm QIDACHS PO Last administered on 09/18/20 11:58; Start 09/15/20 at 11:30 Triamcinolone Acetonide (Kenalog 0.1%) 1 flora BID TP Last administered on 09/18/20 09:33; Start 09/15/20 at 09:00 Morphine Sulfate (Morphine Sulfate) 2 mg PRN Q2HR PRN IV PAIN Last administered on 09/17/20 19:24; Start 09/15/20 at 08:45 Ondansetron HCl (Zofran Odt) 4 mg PRN Q6HRS PRN PO NAUSEA/VOMITING Last administered on 09/17/20 19:23; Start 09/15/20 at 08:45 Digoxin (Lanoxin) 125 mcg QHS PO Last administered on 09/16/20 22:47; Start 09/15/20 at 21:15 Sodium Chloride 250 ml @ 83 mls/hr 1X ONCE IV Last administered on 09/16/20 11:12; Start 09/16/20 at 11:00; Stop 09/16/20 at 14:00; Status DC Prochlorperazine Edisylate (Compazine) 2 mg PRN Q4HRS PRN IV NAUSEA/VOMITING 2ND CHOICE Last administered on 09/18/20 12:01; Start 09/18/20 at 01:45 Active Scripts Active Lanoxin (Digoxin) 125 Mcg Tablet 125 Mcg PO DAILY Reported Spironolactone 50 Mg Tablet 1 Tab PO DAILY Aspirin 81 Mg Tab.chew 1 Tab PO DAILY Clopidogrel (Clopidogrel Bisulfate) 75 Mg Tablet 1 Tab PO DAILY Coreg (Carvedilol) 25 Mg Tablet 12.5 Mg PO BIDWMEALS Omeprazole 40 Mg Capsule.dr 1 Cap PO BID Docusate Sodium 100 Mg Capsule 1 Cap PO DAILY 7 Days Flonase Allergy Relief (Fluticasone Propionate) 9.9 Ml Coker.susp 1 Sprays NS DAILY Furosemide 40 Mg Tablet 1.5 Tab PO DAILY Claritin (Loratadine) 10 Mg Tablet 1 Tab PO DAILY Women's Daily Multivitamin (Multivit With Calcium,Iron,Min) 1 Each Tablet 1 Each PO DAILY Preservision Areds Tablet (Vit A/Vit C/Vit E/Zinc/Copper) 1 Each Tablet 1 Each PO DAILY Vitamin D-3 (Cholecalciferol (Vitamin D3)) 2,000 Unit Capsule 2,000 Unit PO DAILY Potassium Chloride (Potassium Chloride) 10 Meq Capsule.er 1 Cap PO BID Clonazepam (Clonazepam) 0.5 Mg Tablet 1 Tab PO HS Allergies Allergies: Coded Allergies: amoxicillin (Verified Allergy, Severe, Rash, 09/15/20) isosorbide (Verified Allergy, Severe, 08/25/19) severe hives acyclovir (Verified Allergy, Intermediate, Itching, 01/13/18) amitriptyline (Verified Allergy, Intermediate, Itching, 01/13/18) amlodipine (Verified Allergy, Intermediate, Itching, 01/13/18) atenolol (Verified Allergy, Intermediate, Itching, 01/13/18) HAS RECEIVED METOPROLOL IV IN PAST ADMISSION fentanyl (Verified Allergy, Intermediate, Itching, 01/13/18) lisinopril (Verified Allergy, Intermediate, Itching, 01/13/18) ticagrelor (Verified Allergy, Intermediate, Hives, 09/14/20) tramadol (Verified Allergy, Intermediate, Itching, 01/13/18) warfarin (Verified Allergy, Intermediate, 01/13/18) Patient states that warfarin caused "scars" on BLE acetaminophen (Verified Adverse Reaction, Intermediate, 08/25/19) jumpy legs codeine (Verified Adverse Reaction, Intermediate, Nausea and Vomiting, 01/13/18) hydromorphone (Verified Adverse Reaction, Intermediate, Nausea and Vomiting, 01/13/18) Vitals VITALS Vital Signs Date Time Temp Pulse Resp B/P (MAP) Pulse Ox O2 Delivery O2 Flow Rate FiO2 09/18/20 11:00 95.8 60 16 141/66 (91) 93 Room Air 95.8 Labs Labs Laboratory Tests Test 09/17/20 03:30 09/18/20 04:00 Sodium Level 125 mmol/L (136-145) 126 mmol/L (136-145) Potassium Level 4.9 mmol/L (3.5-5.1) 5.1 mmol/L (3.5-5.1) Chloride Level 93 mmol/L (98-107) 93 mmol/L (98-107) Carbon Dioxide Level 27 mmol/L (21-32) 28 mmol/L (21-32) Anion Gap 5 (6-14) 5 (6-14) Blood Urea Nitrogen 22 mg/dL (7-20) 20 mg/dL (7-20) Creatinine 0.9 mg/dL (0.6-1.0) 0.9 mg/dL (0.6-1.0) Estimated GFR (Cockcroft-Gault) 59.5 59.5 Glucose Level 108 mg/dL (70-99) 105 mg/dL (70-99) Calcium Level 9.0 mg/dL (8.5-10.1) 9.1 mg/dL (8.5-10.1) Lipase 149 U/L (73-393) Laboratory Tests Test 09/18/20 04:00 Sodium Level 126 mmol/L (136-145) Potassium Level 5.1 mmol/L (3.5-5.1) Chloride Level 93 mmol/L (98-107) Carbon Dioxide Level 28 mmol/L (21-32) Anion Gap 5 (6-14) Blood Urea Nitrogen 20 mg/dL (7-20) Creatinine 0.9 mg/dL (0.6-1.0) Estimated GFR (Cockcroft-Gault) 59.5 Glucose Level 105 mg/dL (70-99) Calcium Level 9.1 mg/dL (8.5-10.1) Lipase 149 U/L (73-393) Assessment/Plan Assessment/Plan Abd pain s/p yue- with retained mesh. Differential includes: retained cbd st one, hernia with mesh, malignancy, adhesions, and/or PUD. Plan medical therapy US liver to further assess consider Ct scan and /or surgical consult pending above results nad clinical course Full note dictated KEVIN MARTINEZ MD Sep 18, 2020 13:33
[2020-09-18 15:00] VITALS: BP 149/59
[2020-09-18 19:30] VITALS: BP 134/60
[2020-09-18] MEDS: clonazePAM 0.5 MG TABLET PO SCH (21:12)
[2020-09-18] MEDS: DIGOXIN 125 MCG TABLET. PO SCH (21:12)
--- NOTE | 2020-09-18 22:43 | CONS ---
DATE OF CONSULTATION: 09/18/2020 GASTROINTESTINAL CONSULTATION REASON FOR CONSULTATION: Abdominal pain, status post cholecystectomy with retained mesh. HISTORY OF PRESENT ILLNESS: This is an 85-year-old female who has extensive past history including ischemic heart disease, AFib, congestive heart failure, chronic renal insufficiency, breast cancer, iron deficiency anemia, status post cholecystectomy, hysterectomy, small bowel resection, ventral hernia repair with mesh, cataract extraction, tonsillectomy, as well as pelvic sling, mastectomy, and pacemaker seen with recurrent epigastric right upper quadrant abdominal pain, which radiates through to her back. She states when her gallbladder taken out, she was without stones and it was just infected. She states that she felt that the mesh may need to be removed, but the surgeons are concerned with her increased morbidity and/or mortality rate with continued issues, additional evaluation is requested. PAST MEDICAL HISTORY: Organic heart disease, CHF, hypertension, renal insufficiency, osteoarthritis, herpes, iron deficiency anemia, breast cancer. PAST SURGICAL HISTORY: Status post cholecystectomy, hysterectomy, ventral mesh repair, cataract extraction, tonsillectomy, pelvic sling, mastectomy, pacemaker placement. ALLERGIES: Include CALCIUM CHANNEL BLOCKERS, AMITRIPTYLINE, PENICILLINS, ATENOLOL, MORPHINE, LISINOPRIL, WARFARIN. MEDICATIONS: Presently include aspirin, carvedilol, cholecalciferol, clonazepam, Plavix, digoxin, Flonase, furosemide, Claritin, omeprazole, potassium, spironolactone, vitamin A, vitamin C. FAMILY AND SOCIAL HISTORY: She is retired. She does not drink or smoke at this time. REVIEW OF SYSTEMS: Per records. PHYSICAL EXAMINATION: GENERAL: Reveals a pale white female who is alert, cooperative, in no acute distress. VITAL SIGNS: Temperature 95.8, pulse 60, respirations 16, blood pressure is 141/66. LUNGS: Reveal decreased breath sounds. CARDIOVASCULAR: S1, S2 without S3, S4 or appreciable murmur. ABDOMEN: Reveals a soft abdomen with epigastric tenderness to deep palpation. Multiple surgical incisions and retained mesh. EXTREMITIES: Reveals no cyanosis, clubbing or edema. LABORATORY STUDIES: Hemoglobin 12.2; hematocrit 36.3; white count 6.6; platelet count is 226,000. Sodium 136, potassium 5.1, chloride 93, bicarb 28, BUN 20, creatinine 0.9, glucose is 105, calcium is 9.1. Total bilirubin 0.7, AST of 19, ALT 21, alk phos 115, total protein 6.3, albumin 3.3. Chest x-ray reveals airspace opacities representing atelectasis or developing consolidation. IMPRESSION: Abdominal pain status post cholecystectomy. Differential includes peptic ulcer disease, malignancy incisional hernia with a mesh, retained common duct stones. I therefore recommend an ultrasound of the liver to further assess a medical therapy. If symptoms should worsen, then interval CT scan and/or surgical consultation may be recommended. KEVIN MARTINEZ MD DR: TREVOR/parish JOB#: [id number] / [id number]
[2020-09-18 23:00] VITALS: BP 153/67
--- NOTE | 2020-09-18 23:23 | PN ---
DATE: 09/18/2020 LOCATION: She is in room 652. SUBJECTIVE: The patient is awake and alert, complaining bitterly of epigastric pain, which radiates towards her right and through to the back. She did some ____. She did some vomiting in the last 24 hours, which she says she normally does not do with it, but thinks it might have been related to receiving morphine for the same. She is status post cholecystectomy and appendectomy and had a CT scanning of the abdomen and pelvis approximately a month ago, which showed some mild ascites, but otherwise was essentially negative She talks about mesh from her hernia repair, having been told that this was the cause for her abdominal pain in the past. OBJECTIVE: VITAL SIGNS: Stable. She is afebrile. CHEST: Reveals decreased breath sounds. HEART: Regular. ABDOMEN: With fairly significant epigastric right upper quadrant tenderness. EXTREMITIES: Without cyanosis, clubbing, edema. LABORATORY DATA: Sodium is 126 this morning, which is up 1. IMPRESSION: 1. History of congestive heart failure, compensated. 2. Hyponatremia, mild improvement. 3. Epigastric pain, worse. 4. Shortness of breath, improved. PLAN: Follow sodium. Continue present care. I am going to ask GI to see her and check a lipase on her this morning in addition. JAMESON GOMEZ MD DR: KAY/parish JOB#: [id number] / [id number]
[2020-09-19 03:00] VITALS: BP 112/42
[2020-09-19 07:20] VITALS: BP 119/56
--- NOTE | 2020-09-19 08:16 | RAD ---
US ABDOMEN LTD History: Reason: abd pain s/p yue / Spl. Instructions: / History: Comparison: CT changes of her second 2020. Technique: Transabdominal ultrasound images are obtained of the right upper quadrant. Findings: Heterogeneous hepatic echotexture with contour nodularity. Right hepatic lobe measures 13 cm. Portal flow is hepatopedal. Mild abdominal ascites. Prior cholecystectomy. Common bile duct measures 8.4 mm in diameter. Visualized pancreas unremarkable. The right kidney measures 8.7 x 4.1 x 3.8 cm. Increased renal cortical echogenicity. Visualized portions of the aorta and IVC have normal caliber. IMPRESSION: 1. Heterogeneous hepatic echotexture with nodularity, may indicate chronic liver disease. 2. Mild ascites. 3. Right renal atrophy. Electronically signed by: Juni Maradiaga DO (09/19/2020 8:14 AM) [id number]
[2020-09-19] MEDS: TRIAMCINOLONE ACETONIDE 0.1% TOPICAL CREAM 15GM TUBE. TP SCH ×2 (09:00→21:59)
--- NOTE | 2020-09-19 09:10 | PDOC ---
Provider Note Date of Service: DATE: 09/19/20 TIME: 09:08 Provider Note feels epigastric pain better, keep off asa /plavix as risk > benefit- Na+ still low, etiology ?, check cortisol, urinary NA=_ ? SIADH, addisons , etc- move to floor Justifications for Admission Other Justification CHARLIE GERMAN MD Sep 19, 2020 09:10
[2020-09-19] MEDS: SUCRALFATE 1 GM TABLET. PO SCH ×4 (09:14→21:59)
[2020-09-19] MEDS: CARVEDILOL 12.5 MG TABLET. PO SCH ×2 (09:14→16:36)
[2020-09-19] MEDS: DOCUSATE SODIUM 100 MG CAPSULE. PO SCH (09:15)
[2020-09-19] MEDS: PANTOPRAZOLE 40 MG TABLET.DR. PO SCH ×2 (09:15→21:59)
[2020-09-19 10:39] LABS: CALCIUM 9.1 mg/dL (8.5-10.1); CREATININE 0.7 mg/dL (0.6-1.0); GFR 79.5; POTASSIUM 4.6 mmol/L (3.5-5.1)
[2020-09-19 11:00] VITALS: BP 133/51
--- NOTE | 2020-09-19 11:31 | PDOC ---
Date of Service: DATE: 09/19/20 TIME: 11:20 Subjective: Subjective: She seemed a bit drowsy and lethargic when I saw her earlier this morning - she said her pain was better and told me currently did not have pain. Was located ("just a bad pain, I don't know") in RUQ wrapping around to back. Said not worse w/ eating and no change w/ stooling. Indicates she takes something for her stomach - can't remember the name. Objective: Objective: Nurse asks about restarting blood thinners - when we last saw had plans to stop Plavix and ASA. On PPI BID + Carafate here. Stool charted 09/16. Cortisol 23. Vital Signs: Vital Signs Date Time Temp Pulse Resp B/P (MAP) Pulse Ox O2 Delivery O2 Flow Rate FiO2 09/19/20 09:14 60 112/42 09/19/20 03:00 97.8 24 Room Air 97.8 09/18/20 15:00 97 Labs: Laboratory Tests Test 09/19/20 10:10 Sodium Level 126 mmol/L Potassium Level 4.6 mmol/L Chloride Level 93 mmol/L Carbon Dioxide Level 28 mmol/L Anion Gap 5 Blood Urea Nitrogen 17 mg/dL Creatinine 0.7 mg/dL Estimated GFR (Cockcroft-Gault) 79.5 Glucose Level 117 mg/dL Calcium Level 9.1 mg/dL Cortisol AM Sample 23.1 ug/dL Imaging: CT A/P 08/17 IMPRESSION: 1.Mild to moderate ascites. 2. Mild diffuse edema 3. Small bilateral pleural effusions. CXR 09/14 IMPRESSION: 1. Bilateral parenchymal airspace opacities may represent atelectasis or developing consolidation. RUQ US 09/19 Findings: Heterogeneous hepatic echotexture with contour nodularity. Right hepatic lobe measures 13 cm. Portal flow is hepatopedal. Mild abdominal ascites. Prior cholecystectomy. Common bile duct measures 8.4 mm in diameter. Visualized pancreas unremarkable. The right kidney measures 8.7 x 4.1 x 3.8 cm. Increased renal cortical echogenicity. Visualized portions of the aorta and IVC have normal caliber. IMPRESSION: 1. Heterogeneous hepatic echotexture with nodularity, may indicate chronic li chaparrita disease. 2. Mild ascites. 3. Right renal atrophy. PE: GEN: NAD - was asleep LUNGS: CTAB HEART: RRR ABD: soft, NABS, tender under right ribs NEURO/PSYCH: A & O 3, drowsy A/P: RUQ pain - better CHF, hyponatremia H/o GERD and TVA in cecum not amendable to polypectomy - EGD 03/2020 (normal except healed GERD), colonoscopy 2018 - no surgery pursued S/p cholecystectomy H/o hepatic steatosis, ?possible cirrhosis on US as above - normal LFTs and plt H/o SBO/resection H/o CAD COVID negative 09/14 -- ?improved? Will return later w/ Dr. Barragan. Justicifation of Admission Dx: Justifications for Admission: Justification of Admission Dx: Yes PAUL CHI Sep 19, 2020 11:31
[2020-09-19 15:00] VITALS: BP 127/61
--- NOTE | 2020-09-19 15:05 | NUR ---
SS following for discharge planning. SS reviewed pt chart and discussed with pt RN. Pt is from home and is currently on room air. COVID19 negative. Pt requesting to return home when medically stable. SS will continue to follow for discharge planning.
[2020-09-19 19:59] VITALS: BP 125/60
[2020-09-19] MEDS: DIGOXIN 125 MCG TABLET. PO SCH (21:59)
[2020-09-19] MEDS: clonazePAM 0.5 MG TABLET PO SCH (21:59)
[2020-09-19 23:03] VITALS: BP 132/53
[2020-09-20 03:30] VITALS: BP 146/67
[2020-09-20 07:00] VITALS: BP 152/73
[2020-09-20] MEDS: ONDANSETRON ODT 4 MG TAB.RAPDIS. PO PRN ×2 (07:22→20:36)
[2020-09-20] MEDS: SUCRALFATE 1 GM TABLET. PO SCH ×4 (08:21→20:37)
[2020-09-20] MEDS: TRIAMCINOLONE ACETONIDE 0.1% TOPICAL CREAM 15GM TUBE. TP SCH ×2 (09:00→20:37)
--- NOTE | 2020-09-20 09:03 | PDOC ---
Provider Note Date of Service: DATE: 09/20/20 TIME: 09:01 Provider Note hyponatremia persists off meds- cortisol ok, as is urinary Na+, going against SIADH- will get renal consult re ? hypertonic saline, other thoughts- epi pain seems better off asa/plavix Justifications for Admission Other Justification CHARLIE GERMAN MD Sep 20, 2020 09:03
[2020-09-20] MEDS: PANTOPRAZOLE 40 MG TABLET.DR. PO SCH ×2 (09:47→20:36)
[2020-09-20] MEDS: CARVEDILOL 12.5 MG TABLET. PO SCH ×2 (09:48→18:32)
[2020-09-20] MEDS: DOCUSATE SODIUM 100 MG CAPSULE. PO SCH (09:48)
--- NOTE | 2020-09-20 10:16 | PDOC ---
Date of Service: DATE: 09/20/20 TIME: 10:12 Subjective: Subjective: Feels better today, says she's sorry she was cranky yesterday. Wants to get home to her cats. Her daughter is going to get her some sleepytime tea. Tolerating diet - does feel full after eating, maybe some epigastric discomfort. Right-sided pain is better. Stooling. Talks a lot about sodium in her diet. Objective: Vital Signs: Vital Signs Date Time Temp Pulse Resp B/P (MAP) Pulse Ox O2 Delivery O2 Flow Rate FiO2 09/20/20 09:48 70 152/73 09/20/20 03:30 98.1 20 96 Room Air 98.1 Labs: Laboratory Tests Test 09/19/20 11:00 Urine Random Sodium <20 mmol/L PE: GEN: NAD LUNGS: CTAB HEART: RRR ABD: soft, non-tender for my exam, ?mildly distended NEURO/PSYCH: A & O 3 A/P: RUQ pain - resolving CHF, hyponatremia - nephrology to see H/o GERD, early satiety - on PPI BID - ?contributes to hyponatremia H/o TVA not amendable to polypectomy H/o hepatic steatosis, ?possible cirrhosis COVID negative 09/14 -- Better today GI-[facility]. Justicifation of Admission Dx: Justifications for Admission: Justification of Admission Dx: Yes PAUL CHI Sep 20, 2020 10:16
--- NOTE | 2020-09-20 10:35 | PDOC2 ---
CONSULT Date of Consult Date of Consult DATE: 09/20/20 TIME: 10:35 Reason for Consult Reason for Consult: HypoNatremia Identification/Chief Complaint Chief Complaint None, wants to know if she can go home tomorrow Source Source: Chart review, Patient History of Present Illness Reason for Visit: Pt is 85-year-old CF with severe cardiomyopathy, who was admitted about 3 weeks ago with upper abdominal pain that seemed to be related to ascites. She had a CT scan, which showed some ascites and spironolactone was started . She wnt to the PCP office and then to the ER on the day of admission with some ongoing epigastric pain. She denies hematemesis, melena, hematochezia, dysphagia, cough, shortness of breath, trauma, or other complaints. She denies any urinary complaints. 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 She denie any Sz, AMS or balance issues, no other Neurolog symptoms She has a known ejection fraction of about 20% and has been a DNR patient for a long period of time. She does take aspirin and Plavix on a daily basis for coronary artery disease and stent placements in the past. Past Medical History Cardiovascular: AFIB, CAD, CHF, HTN, Syncope, Other Pulmonary: Bronchitis GI: Diverticulosis, GERD Heme/Onc: Cancer Hepatobiliary: Cholelithiasis Psych: No pertinent hx, Anxiety Musculoskeletal: low back pain, Osteoarthritis Past Surgical History Past Surgical History: Cholecystectomy, Hernia Repair, Hysterectomy, Other Family History Family History: Hypertension Social History ALCOHOL: rare Drugs: None Lives: Alone Domestic Violence: Neg Current Problem List Problem List Problems Medical Problems: (1) CHF exacerbation Status: Acute (2) Hyponatremia Status: Acute Current Medications Current Medications Current Medications Furosemide (Lasix) 40 mg 1X ONCE IVP Last administered on 09/14/20at 20:01; Start 09/14/20 at 19:45; Stop 09/14/20 at 19:46; Status DC Ondansetron HCl (Zofran) 4 mg PRN Q8HRS PRN IV NAUSEA/VOMITING Last administered on 09/15/20at 17:48; Start 09/14/20 at 20:00; Stop 09/15/20 at 19:59; Status DC Aspirin (Aspirin Chewable) 81 mg DAILY PO ; Start 09/15/20 at 09:00; Stop 09/15/20 at 08:30; Status DC Clonazepam (KlonoPIN) 0.5 mg HS PO Last administered on 09/19/20 21:59; Start 09/15/20 at 21:00 Clopidogrel Bisulfate (Plavix) 75 mg DAILY PO ; Start 09/15/20 at 09:00; Stop 09/15/20 at 08:30; Status DC Digoxin (Lanoxin) 125 mcg DAILY PO Last administered on 09/15/20at 08:54; Start 09/15/20 at 09:00; Stop 09/15/20 at 21:14; Status DC Docusate Sodium (Colace) 100 mg DAILY PO Last administered on 09/20/20 09:48; Start 09/15/20 at 09:00 Potassium Chloride (Klor-Con) 10 meq BID PO ; Start 09/15/20 at 09:00; Stop 09/15/20 at 08:30; Status DC Carvedilol (Coreg) 12.5 mg BIDWMEALS PO Last administered on 09/20/20 09:48; Start 09/15/20 at 09:00 Pantoprazole Sodium (Protonix) 40 mg BID PO Last administered on 09/20/20 09:47; Start 09/15/20 at 09:00 Non-Formulary Medication (Spironolactone ) 1 tab DAILY PO ; Start 09/15/20 at 09:00; Stop 09/15/20 at 08:19; Status DC Sucralfate (Carafate) 1 gm QIDACHS PO Last administered on 09/20/20 08:21; Start 09/15/20 at 11:30 Triamcinolone Acetonide (Kenalog 0.1%) 1 flora BID TP Last administered on 09/19/20 21:59; Start 09/15/20 at 09:00 Morphine Sulfate (Morphine Sulfate) 2 mg PRN Q2HR PRN IV PAIN Last administered on 09/17/20 19:24; Start 09/15/20 at 08:45 Ondansetron HCl (Zofran Odt) 4 mg PRN Q6HRS PRN PO NAUSEA/VOMITING Last administered on 09/20/20 07:22; Start 09/15/20 at 08:45 Digoxin (Lanoxin) 125 mcg QHS PO Last administered on 09/19/20at 21:59; Start 09/15/20 at 21:15 Sodium Chloride 250 ml @ 83 mls/hr 1X ONCE IV Last administered on 09/16/20at 11:12; Start 09/16/20 at 11:00; Stop 09/16/20 at 14:00; Status DC Prochlorperazine Edisylate (Compazine) 2 mg PRN Q4HRS PRN IV NAUSEA/VOMITING 2ND CHOICE Last administered on 09/18/20at 12:01; Start 09/18/20 at 01:45 Active Scripts Active Lanoxin (Digoxin) 125 Mcg Tablet 125 Mcg PO DAILY Reported Spironolactone 50 Mg Tablet 1 Tab PO DAILY Aspirin 81 Mg Tab.chew 1 Tab PO DAILY Clopidogrel (Clopidogrel Bisulfate) 75 Mg Tablet 1 Tab PO DAILY Coreg (Carvedilol) 25 Mg Tablet 12.5 Mg PO BIDWMEALS Omeprazole 40 Mg Capsule.dr 1 Cap PO BID Docusate Sodium 100 Mg Capsule 1 Cap PO DAILY 7 Days Flonase Allergy Relief (Fluticasone Propionate) 9.[address] [place]susp 1 Sprays NS DAILY Furosemide 40 Mg Tablet 1.5 Tab PO DAILY Claritin (Loratadine) 10 Mg Tablet 1 Tab PO DAILY Women's Daily Multivitamin (Multivit With Calcium,Iron,Min) 1 Each Tablet 1 Each PO DAILY Preservision Areds Tablet (Vit A/Vit C/Vit E/Zinc/Copper) 1 Each Tablet 1 Each PO DAILY Vitamin D-3 (Cholecalciferol (Vitamin D3)) 2,000 Unit Capsule 2,000 Unit PO DAILY Potassium Chloride (Potassium Chloride) 10 Meq Capsule.er 1 Cap PO BID Clonazepam (Clonazepam) 0.5 Mg Tablet 1 Tab PO HS Allergies Allergies: Coded Allergies: amoxicillin (Verified Allergy, Severe, Rash, 09/15/20) isosorbide (Verified Allergy, Severe, 08/25/19) severe hives acyclovir (Verified Allergy, Intermediate, Itching, 01/13/18) amitriptyline (Verified Allergy, Intermediate, Itching, 01/13/18) amlodipine (Verified Allergy, Intermediate, Itching, 01/13/18) atenolol (Verified Allergy, Intermediate, Itching, 01/13/18) HAS RECEIVED METOPROLOL IV IN PAST ADMISSION fentanyl (Verified Allergy, Intermediate, Itching, 01/13/18) lisinopril (Verified Allergy, Intermediate, Itching, 01/13/18) ticagrelor (Verified Allergy, Intermediate, Hives, 09/14/20) tramadol (Verified Allergy, Intermediate, Itching, 01/13/18) warfarin (Verified Allergy, Intermediate, 01/13/18) Patient states that warfarin caused "scars" on BLE acetaminophen (Verified Adverse Reaction, Intermediate, 08/25/19) jumpy legs codeine (Verified Adverse Reaction, Intermediate, Nausea and Vomiting, 01/13/18) hydromorphone (Verified Adverse Reaction, Intermediate, Nausea and Vomiting, 01/13/18) ROS Review of System As per HPI, rest of the ROS is negative Physical Exam Physical Exam GEN: Awake, Oriented x [], In [] distress EYES: Vision Unchanged, Conjunctiva Normal EN: No EN Drainage, Mucous Membranes [] NECK: [] JVD, [] JVP, Supple, [] Thyromegaly CVS: S1S2, [] Murmur, No Gallop, No Rub,[] Edema RESP: [] Rales, [] Rhonchi,[] Acc. Muscle Use GI: BS + ve, NO Bruit, Non Tender, Non Distended : [] CVA tenderness, [] Suprapubic Tenderness Vital Signs Vital Signs Date Time Temp Pulse Resp B/P (MAP) Pulse Ox O2 Delivery O2 Flow Rate FiO2 09/20/20 09:48 70 152/73 09/20/20 03:30 98.1 20 96 Room Air 98.1 Assessment & Plan HypoNatremia- Chronic, mildly low since 2017 ; Na 122-133 since 2019, not sure if seen by us in the past . Per home med list she is on Lasix and Aldactone- though pt denies Suspect 2/2 CHF and very low Na in the diet , chronic liver disease and PPI may be contributing ; Ur Na Low . TSH normal, Patient is asymptomatic, recommend Increasing PO salt intake , consider IV NS with close monitoring of Resp status or Salt tablets(if available at [facility]) , strict I/O, restrict free water intake to 3726-5874 mls /day CT chest in 2018 - Prominent to borderline enlarged mediastinal lymph nodes, po ssibly reactive although metastatic disease is not excluded. If concerns please follow, defer to Primary Dx of CHF - EF 20% , Currently appears compensated Chronic Liver disease - Heterogeneous hepatic echotexture with nodularity and Mild ascites on US Right renal atrophy - Creatinine is Normal RUQ pain - resolving H/o GERD, early satiety - on PPI BID - ?contributes to hyponatremia H/o TVA not amendable to polypectomy COVID negative 09/14 Labs Labs Laboratory Tests Test 09/19/20 10:10 09/19/20 11:00 Sodium Level 126 mmol/L (136-145) Potassium Level 4.6 mmol/L (3.5-5.1) Chloride Level 93 mmol/L (98-107) Carbon Dioxide Level 28 mmol/L (21-32) Anion Gap 5 (6-14) Blood Urea Nitrogen 17 mg/dL (7-20) Creatinine 0.7 mg/dL (0.6-1.0) Estimated GFR (Cockcroft-Gault) 79.5 Glucose Level 117 mg/dL (70-99) Calcium Level 9.1 mg/dL (8.5-10.1) Cortisol AM Sample 23.1 ug/dL (4.3-22.4) Urine Random Sodium <20 mmol/L (Not Estab.) Laboratory Tests Test 09/19/20 11:00 Urine Random Sodium <20 mmol/L (Not Estab.) Review All relevant outside records, renal labs, imaging studies, telemetry/EKG's were reviewed. BROOKE BATISTA MD Sep 20, 2020 10:35
[2020-09-20 11:00] VITALS: BP 126/64
--- NOTE | 2020-09-20 11:42 | NUR ---
SS following up with discharge planning. SS reviewed pt chart and discussed with pt RN. Pt is from home and is currently on room air. COVID19 negative. SS will continue to follow for discharge planning.
[2020-09-20 15:00] VITALS: BP 136/77
[2020-09-20 19:27] VITALS: BP 144/55
[2020-09-20] MEDS: clonazePAM 0.5 MG TABLET PO SCH (20:37)
[2020-09-20] MEDS: DIGOXIN 125 MCG TABLET. PO SCH (20:37)
[2020-09-20 23:28] VITALS: BP 127/48
[2020-09-21] MEDS: PROCHLORPERAZINE 10 MG/2 ML VIAL. IV PRN (01:03)
[2020-09-21 01:11] LABS: SODIUM, URINE <20 mmol/L (Not Estab.)
[2020-09-21 03:25] VITALS: BP 128/51
[2020-09-21 07:00] VITALS: BP 137/53
[2020-09-21] MEDS: TRIAMCINOLONE ACETONIDE 0.1% TOPICAL CREAM 15GM TUBE. TP SCH ×2 (09:00→21:00)
[2020-09-21] MEDS: PANTOPRAZOLE 40 MG TABLET.DR. PO SCH ×2 (09:05→22:01)
[2020-09-21] MEDS: DOCUSATE SODIUM 100 MG CAPSULE. PO SCH (09:05)
[2020-09-21] MEDS: SUCRALFATE 1 GM TABLET. PO SCH ×4 (09:05→22:00)
[2020-09-21] MEDS: CARVEDILOL 12.5 MG TABLET. PO SCH ×2 (09:05→18:12)
--- NOTE | 2020-09-21 09:19 | PDOC ---
Provider Note Date of Service: DATE: 09/21/20 TIME: 09:18 Provider Note epi pain better, bmp pending , can dc if Na+ up to sfare level, re seizure risk Justifications for Admission Other Justification CHARLIE GERMAN MD Sep 21, 2020 09:19
--- NOTE | 2020-09-21 09:31 | PDOC ---
Date of Service: DATE: 09/21/20 TIME: 09:29 Subjective: Subjective: Was still sleeping when I saw - bit difficult to rouse - said she was okay, asked me to turn on the light and says she doesn't know if she can go home yet. Objective: Vital Signs: Vital Signs Date Time Temp Pulse Resp B/P (MAP) Pulse Ox O2 Delivery O2 Flow Rate FiO2 09/21/20 09:05 74 137/53 09/21/20 07:00 97.3 20 91 Room Air 97.3 Labs: Laboratory Tests Test 09/20/20 15:36 Urine Sodium <20 mmol/L Urine Potassium 27.0 mmol/L Urine Chloride <20 mmol/L PE: GEN: NAD - had not eaten breakfast yet LUNGS: clear HEART: RRR ABD: soft, non-tender NEURO/PSYCH: drowsy A/P: RUQ pain - resolved CHF, hyponatremia - BMP pending today GERD, early satiety - on PPI COVID negative 09/14 -- Stable from GI standpoint. DC per primary and nephrology. Justicifation of Admission Dx: Justifications for Admission: Justification of Admission Dx: Yes PAUL CHI Sep 21, 2020 09:31
--- NOTE | 2020-09-21 09:59 | PDOC ---
DATE OF SERVICE DATE: 09/21/20 TIME: 09:51 SUBJECTIVE ROS stable, no complaints OBJECTIVE Vital Signs Vital Signs Date Time Temp Pulse Resp B/P (MAP) Pulse Ox O2 Delivery O2 Flow Rate FiO2 09/21/20 09:05 74 137/53 09/21/20 07:00 97.3 20 91 Room Air 97.3 I & 0 Intake and Output 09/21/20 07:00 Intake Total 500 ml Output Total 550 ml Balance -50 ml Intake Oral 500 ml Output Urine Total 550 ml # Bowel Movements 1 PHYSICAL EXAM Physical Exam GEN NAD HEEN OM moist NECK: No thyroid enlargement LUNGS: Clear with decreased breath sounds. non labored CARDIOVASCULAR: Regular rate with very frequent VPCs. No S3 is heard. ABDOMEN: Soft EXTREMITIES: No Edema, NEURO AXOX3 , grossly normal DIAGNOSIS/ASSESSMENT Assessment & Plan HypoNatremia- Chronic, mildly low since 2017 ; Na 122-133 since 2019, not sure if seen by us in the past . Per home med list she is on Lasix and Aldactone- though pt denies Suspect 2/2 CHF and very low Na in the diet , chronic liver disease and PPI may be contributing ; Ur Na Low . TSH normal, Last labs on 09/19, Labs pending this am Patient is asymptomatic, recommend Increasing PO salt intake , consider IV NS with close monitoring of Resp status or Salt tablets(if available at [facility]) based on results , strict I/O, restrict free water intake to 7552-5698 mls /day CT chest in 2018 - Prominent to borderline enlarged mediastinal lymph nodes, possibly reactive although metastatic disease is not excluded. If concerns please follow, defer to Primary Dx of CHF - EF 20% , Currently appears compensated Chronic Liver disease - Heterogeneous hepatic echotexture with nodularity and Mild ascites on US Right renal atrophy - Creatinine is Normal RUQ pain - resolving H/o GERD, early satiety - on PPI BID - ?contributes to hyponatremia H/o TVA not amendable to polypectomy COVID negative 09/14 COMMENT/RELEVANT DATA Meds Current Medications Medications (Trade) Dose Ordered Sig/Zander Start Time Stop Time Status Last Admin Dose Admin Aspirin (Aspirin Chewable) 81 mg DAILY 09/15/20 09:00 09/15/20 08:30 DC Carvedilol (Coreg) 12.5 mg BIDWMEALS 09/15/20 09:00 09/21/20 09:05 12.5 MG Clonazepam (KlonoPIN) 0.5 mg HS 09/15/20 21:00 09/20/20 20:37 0.5 MG Clopidogrel Bisulfate (Plavix) 75 mg DAILY 09/15/20 09:00 09/15/20 08:30 DC Digoxin (Lanoxin) 125 mcg QHS 09/15/20 21:15 09/20/20 20:37 125 MCG Docusate Sodium (Colace) 100 mg DAILY 09/15/20 09:00 09/21/20 09:05 100 MG Furosemide (Lasix) 40 mg 1X ONCE 09/14/20 19:45 09/14/20 19:46 DC 09/14/20 20:01 40 MG Morphine Sulfate (Morphine Sulfate) 2 mg PRN Q2HR PRN 09/15/20 08:45 09/21/20 09:19 DC 09/17/20 19:24 2 MG Non-Formulary Medication (Spironolactone ) 1 tab DAILY 09/15/20 09:00 09/15/20 08:19 DC Ondansetron HCl (Zofran Odt) 4 mg PRN Q6HRS PRN 09/15/20 08:45 09/20/20 20:36 4 MG Ondansetron HCl (Zofran) 4 mg PRN Q8HRS PRN 09/14/20 20:00 09/15/20 19:59 DC 09/15/20 17:48 4 MG Pantoprazole Sodium (Protonix) 40 mg BID 09/15/20 09:00 09/21/20 09:05 40 MG Potassium Chloride (Klor-Con) 10 meq BID 09/15/20 09:00 09/15/20 08:30 DC Prochlorperazine Edisylate (Compazine) 2 mg PRN Q4HRS PRN 09/18/20 01:45 09/21/20 01:03 2 MG Sodium Chloride 250 ml @ 83 mls/hr 1X ONCE 09/16/20 11:00 09/16/20 14:00 DC 09/16/20 11:12 83 MLS/HR Sucralfate (Carafate) 1 gm QIDACHS 09/15/20 11:30 09/21/20 09:05 1 GM Triamcinolone Acetonide (Kenalog 0.1%) 1 flora BID 09/15/20 09:00 09/21/20 09:00 1 [facility] Laboratory Tests Test 09/20/20 15:36 Urine Sodium <20 mmol/L (Not Estab.) Urine Potassium 27.0 mmol/L (Not Estab.) Urine Chloride <20 mmol/L (Not Estab.) Results All relevant outside records, renal labs, imaging studies, telemetry/EKG's were reviewed. Justicifation of Admission Dx: Justifications for Admission: Justification of Admission Dx: Yes BROOKE BATISTA MD Sep 21, 2020 09:59
[2020-09-21 10:23] LABS: CALCIUM 8.8 mg/dL (8.5-10.1); CREATININE 0.9 mg/dL (0.6-1.0); GFR 59.5; POTASSIUM 4.8 mmol/L (3.5-5.1)
[2020-09-21 10:36] VITALS: BP 129/58
[2020-09-21] MEDS ORDERED: SODIUM CHLORIDE 3 % 250 ML IV ONE (12:30)
[2020-09-21 14:29] VITALS: BP 138/54
--- NOTE | 2020-09-21 16:26 | NUR ---
SS following up with discharge planning. SS reviewed pt chart and discussed with pt RN. Pt is currently on room air. Per Dr. Briggs sodium needs to improve prior to discharge. Discharge plan is to home when medically ready. SS will continue to follow for discharge planning.
[2020-09-21 18:33] VITALS: BP 148/68
[2020-09-21] MEDS: clonazePAM 0.5 MG TABLET PO SCH (22:00)
[2020-09-21] MEDS: DIGOXIN 125 MCG TABLET. PO SCH (22:00)
[2020-09-21 23:00] VITALS: BP 154/78
[2020-09-22 03:00] VITALS: BP 134/73
[2020-09-22 07:00] VITALS: BP 139/53
[2020-09-22 07:47] LABS: CALCIUM 8.7 mg/dL (8.5-10.1); CREATININE 0.8 mg/dL (0.6-1.0); GFR 68.2; POTASSIUM 4.7 mmol/L (3.5-5.1)
--- NOTE | 2020-09-22 08:13 | PDOC ---
Provider Note Date of Service: DATE: 09/22/20 TIME: 08:12 Provider Note [id number] Justifications for Admission Other Justification CHARLIE GERMAN MD Sep 22, 2020 08:13
--- NOTE | 2020-09-22 08:21 | DS ---
DATE OF DISCHARGE: 09/22/2020 HOSPITAL SUMMARY: An 85-year-old white female who came in with ongoing epigastric pain, weakness and fatigue. Her sodium was low at 127 and remained around that range despite cessation of diuretics. TSH and morning cortisol were normal as was the CBC, urine drug screen, COVID test. Epigastric pain was treated with the cessation of Plavix and the addition of Carafate and slowly improved and she has been eating well since then. Low sodium was evaluated with the above lab and urinary sodium, which was low, so the etiology is not clear, but it is not improving, but not worsening. The patient is aware the lower sodium gives her risk of seizures, but she is uncomfortable in the hospital and strongly wishes to be discharged home to be followed as an outpatient. She remains a DNR and comfort care. We will discharge her off the Plavix and aspirin and off the spironolactone as well and she will take omeprazole for ongoing recovery of her epigastric pain, likely from gastritis. FINAL DIAGNOSES: 1. Epigastric pain, likely secondary to drug-induced gastritis. 2. Hyponatremia, multifactorial. OPERATIONS, PROCEDURES, COMPLICATIONS: None. CONSULTATIONS: Dr. Muir. DISPOSITION: Meds listed above. Comfort care measures. See again p.r.n. Prognosis is terminal given her severe cardiomyopathy and coronary artery disease. CHARLIE GERMAN MD DR: ÁNGEL/parish JOB#: [id number] / [id number]
[2020-09-22] MEDS: TRIAMCINOLONE ACETONIDE 0.1% TOPICAL CREAM 15GM TUBE. TP SCH (09:00)
[2020-09-22] MEDS: SUCRALFATE 1 GM TABLET. PO SCH (09:03)
[2020-09-22] MEDS: CARVEDILOL 12.5 MG TABLET. PO SCH (09:03)
[2020-09-22] MEDS: DOCUSATE SODIUM 100 MG CAPSULE. PO SCH (09:03)
[2020-09-22] MEDS: PANTOPRAZOLE 40 MG TABLET.DR. PO SCH (09:03)
[2020-09-22] MEDS ORDERED: SODI650T PO (10:08)
[2020-09-22 11:05] VITALS: BP 136/58
--- NOTE | 2020-09-22 11:09 | PDOC ---
Date of Service: DATE: 09/22/20 TIME: 11:07 Objective: Objective: D/w nurse - no GI complaints - possible DC today. Vital Signs: Vital Signs Date Time Temp Pulse Resp B/P (MAP) Pulse Ox O2 Delivery O2 Flow Rate FiO2 09/22/20 09:03 61 139/53 09/22/20 08:00 Room Air 09/22/20 07:00 97.7 16 93 97.7 Labs: Laboratory Tests Test 09/22/20 07:10 Sodium Level 127 mmol/L Potassium Level 4.7 mmol/L Chloride Level 96 mmol/L Carbon Dioxide Level 27 mmol/L Anion Gap 4 Blood Urea Nitrogen 17 mg/dL Creatinine 0.8 mg/dL Estimated GFR (Cockcroft-Gault) 68.2 Glucose Level 96 mg/dL Calcium Level 8.7 mg/dL PE: GEN: NAD NEURO/PSYCH: sleeping - did not awaken A/P: CHF, hyponatremia GERD, early satiety COVID negative 09/14 -- Dc per primary. Continue PPI +/- Carafate. Justicifation of Admission Dx: Justifications for Admission: Justification of Admission Dx: Yes PAUL CHI Sep 22, 2020 11:09
--- NOTE | 2020-09-22 11:27 | NUR ---
Discharge instructions reviewed with pt, prescription was called in to pharmacy, education materials, discharge instructions and belongings all sent with pt. PIV and tele were dc'd earlier.
--- NOTE | 2020-09-22 11:47 | NUR ---
pt wheeled out via wc by rn to daughter's car
--- NOTE | 2020-09-22 12:17 | PDOC ---
DATE OF SERVICE DATE: 09/22/20 09:15 SUBJECTIVE ROS stable, no complaints OBJECTIVE Vital Signs Vital Signs Date Time Temp Pulse Resp B/P (MAP) Pulse Ox O2 Delivery O2 Flow Rate FiO2 09/22/20 11:05 97.0 64 18 136/58 (84) 95 Room Air 97.0 I & 0 Intake and Output 09/22/20 07:00 Intake Total 860 ml Output Total 500 ml Balance 360 ml Intake Oral 860 ml Output Urine Total 500 ml # Voids 2 PHYSICAL EXAM Physical Exam GEN NAD HEEN OM moist NECK: No thyroid enlargement LUNGS: Clear with decreased breath sounds. non labored CARDIOVASCULAR: Regular rate with very frequent VPCs. No S3 is heard. ABDOMEN: Soft EXTREMITIES: No Edema, NEURO AXOX3 , grossly normal DIAGNOSIS/ASSESSMENT Assessment & Plan HypoNatremia- Chronic, mildly low since 2017 ; Na 122-133 since 2019, not sure if seen by us in the past . Per home med list she is on Lasix and Aldactone- though pt denies Suspect 2/2 CHF and very low Na in the diet , chronic liver disease and PPI may be contributing ; Ur Na Low . TSH normal, Last labs on 09/19, Labs pending this am Patient is asymptomatic, recommend Increasing PO salt intake ,started 3 % last night, Na 127 , DC orders placed by primary, Recommend salt tabs 2 gm BID , defer to primary for follow up restrict free water intake to [id number] mls /day CT chest in 2018 - Prominent to borderline enlarged mediastinal lymph nodes, possibly reactive although metastatic disease is not excluded. If concerns please follow, defer to Primary Dx of CHF - EF 20% , Currently appears compensated Chronic Liver disease - Heterogeneous hepatic echotexture with nodularity and Mild ascites on US Right renal atrophy - Creatinine is Normal RUQ pain - resolving H/o GERD, early satiety - on PPI BID - ?contributes to hyponatremia H/o TVA not amendable to polypectomy COVID negative 09/14 COMMENT/RELEVANT DATA Meds Current Medications Medications (Trade) Dose Ordered Sig/Zander Start Time Stop Time Status Last Admin Dose Admin Aspirin (Aspirin Chewable) 81 mg DAILY 09/15/20 09:00 09/15/20 08:30 DC Carvedilol (Coreg) 12.5 mg BIDWMEALS 09/15/20 09:00 09/22/20 11:48 DC 09/22/20 09:03 12.5 MG Clonazepam (KlonoPIN) 0.5 mg HS 09/15/20 21:00 09/22/20 11:48 DC 09/21/20 22:00 0.5 MG Clopidogrel Bisulfate (Plavix) 75 mg DAILY 09/15/20 09:00 09/15/20 08:30 DC Digoxin (Lanoxin) 125 mcg QHS 09/15/20 21:15 09/22/20 11:48 DC 09/21/20 22:00 125 MCG Docusate Sodium (Colace) 100 mg DAILY 09/15/20 09:00 09/22/20 11:48 DC 09/22/20 09:03 100 MG Furosemide (Lasix) 40 mg 1X ONCE 09/14/20 19:45 09/14/20 19:46 DC 09/14/20 20:01 40 MG Morphine Sulfate (Morphine Sulfate) 2 mg PRN Q2HR PRN 09/15/20 08:45 09/21/20 09:19 DC 09/17/20 19:24 2 MG Non-Formulary Medication (Spironolactone ) 1 tab DAILY 09/15/20 09:00 09/15/20 08:19 DC Ondansetron HCl (Zofran Odt) 4 mg PRN Q6HRS PRN 09/15/20 08:45 09/22/20 11:48 DC 09/20/20 20:36 4 MG Ondansetron HCl (Zofran) 4 mg PRN Q8HRS PRN 09/14/20 20:00 09/15/20 19:59 DC 09/15/20 17:48 4 MG Pantoprazole Sodium (Protonix) 40 mg BID 09/15/20 09:00 09/22/20 11:48 DC 09/22/20 09:03 40 MG Potassium Chloride (Klor-Con) 10 meq BID 09/15/20 09:00 09/15/20 08:30 DC Prochlorperazine Edisylate (Compazine) 2 mg PRN Q4HRS PRN 09/18/20 01:45 09/22/20 11:48 DC 09/21/20 01:03 2 MG Sodium Chloride 250 ml @ 30 mls/hr 1X ONCE 09/21/20 12:30 09/21/20 20:49 DC 09/21/20 12:43 30 MLS/HR Sucralfate (Carafate) 1 gm QIDACHS 09/15/20 11:30 09/22/20 11:48 DC 09/22/20 09:03 1 GM Triamcinolone Acetonide (Kenalog 0.1%) 1 flora BID 09/15/20 09:00 09/22/20 11:48 DC 09/22/20 09:00 1 FLORA Lab Laboratory Tests Test 09/22/20 07:10 Sodium Level 127 mmol/L (136-145) Potassium Level 4.7 mmol/L (3.5-5.1) Chloride Level 96 mmol/L (98-107) Carbon Dioxide Level 27 mmol/L (21-32) Anion Gap 4 (6-14) Blood Urea Nitrogen 17 mg/dL (7-20) Creatinine 0.8 mg/dL (0.6-1.0) Estimated GFR (Cockcroft-Gault) 68.2 Glucose Level 96 mg/dL (70-99) Calcium Level 8.7 mg/dL (8.5-10.1) Results All relevant outside records, renal labs, imaging studies, telemetry/EKG's were reviewed. Justicifation of Admission Dx: Justifications for Admission: Justification of Admission Dx: Yes BROOKE BATISTA MD Sep 22, 2020 12:17
== END 2020-09-22 11:48 | disposition home or self-care (01) | DRG 291 ==
LOC: ER 16:27 → 6 SOUTH 19:42 → CVICU 09-18 15:30
PROVIDERS: ADMIT Family Medicine; ATTEND Family Medicine
DX: I13.0 Hypertensive heart and chronic kidney disease with heart failure and stage 1 through stage 4 chronic kidney disease, or unspecified chronic kidney disease (principal); I50.23 Acute on chronic systolic (congestive) heart failure; E87.1 Hypo-osmolality and hyponatremia; E46 Unspecified protein-calorie malnutrition; R18.8 Other ascites; K29.60 Other gastritis without bleeding; I42.9 Cardiomyopathy, unspecified; I25.10 Atherosclerotic heart disease of native coronary artery without angina pectoris; I48.91 Unspecified atrial fibrillation; I50.9 Heart failure, unspecified; K21.9 Gastro-esophageal reflux disease without esophagitis; K76.0 Fatty (change of) liver, not elsewhere classified; N18.9 Chronic kidney disease, unspecified; Z20.822 Contact with and (suspected) exposure to COVID-19; Z66 Do not resuscitate; Z79.82 Long term (current) use of aspirin; Z82.49 Family history of ischemic heart disease and other diseases of the circulatory system; Z85.3 Personal history of malignant neoplasm of breast; Z90.49 Acquired absence of other specified parts of digestive tract; Z90.710 Acquired absence of both cervix and uterus; Z95.0 Presence of cardiac pacemaker; Z95.5 Presence of coronary angioplasty implant and graft; G89.29 Other chronic pain; Z20.828 Contact with and (suspected) exposure to other viral communicable diseases; Z88.8 Allergy status to other drugs, medicaments and biological substances; T45.525A Adverse effect of antithrombotic drugs, initial encounter; Y92.89 Other specified places as the place of occurrence of the external cause
CPT/HCPCS: 36415; 71045; 76705; 80048; 80053; 80307; 81001; 82436; 82533; 82553; 83605; 83690; 83735; 83880; 83930; 83935; 84133; 84145; 84300; 84443; 84484; 85025; 87040; 87086; 93005; 96374; J0780; J1940; J2270; J2405; J3490; J7040; U0003; 99285-25; G0378

== ENCOUNTER 2020-10-07 11:57 | Inpatient (IN) | payer MEDICARE ==
[~2020-10-07] VITALS: Ht 157.5 cm; Wt 59.5 kg
[~2020-10-07 11:57] MED LIST changes: +DOCU-150 PO; -DOCU-158 PO; +ISOS30TA4 PO; -ISOS30TA68 PO; +OMEP40CA45 PO; -OMEP40CA7 PO; +SODI650T PO
[2020-10-07 12:37] LABS: BASO # 0.1 x10^3/uL (0.0-0.2); BASO % 1 % (0-3); EOS # 0.1 x10^3/uL (0.0-0.7); EOS % 2 % (0-3); HEMATOCRIT 36.7 % (36.0-47.0); HEMOGLOBIN 12.1 g/dL (12.0-15.5); LYMPH # 0.7 x10^3/uL (1.0-4.8); LYMPH % 12 % (24-48); MEAN CORPUSCULAR HEMOGLOBIN 30 pg (25-35); MEAN CORPUSCULAR HGB CONC 33 g/dL (31-37); MEAN CORPUSCULAR VOLUME 91 fL (79-100); MONO # 0.6 x10^3/uL (0.0-1.1); MONO % 10 % (0-9); NEUT # 4.4 x10^3/uL (1.8-7.7); NEUT % 75 % (31-73); PLATELET COUNT 217 x10^3/uL (140-400); RED BLOOD COUNT 4.04 x10^6/uL (3.50-5.40); RED CELL DISTRIBUTION WIDTH 14.7 % (11.5-14.5); WHITE BLOOD COUNT 5.9 x10^3/uL (4.0-11.0)
[2020-10-07 12:54] LABS: CALCIUM 9.3 mg/dL (8.5-10.1); CREATININE 0.9 mg/dL (0.6-1.0); GFR 59.5
[2020-10-07 12:59] LABS: ALBUMIN 3.6 g/dL (3.4-5.0); ALBUMIN/GLOBULIN RATIO 1.1 (1.0-1.7); TOTAL BILIRUBIN 0.9 mg/dL (0.2-1.0)
[2020-10-07 13:06] LABS: BILIRUBIN,URINE NEGATIVE (NEG); CLARITY,URINE CLEAR; COLOR,URINE YELLOW; NITRITE,URINE NEGATIVE (NEG); PROTEIN,URINE NEGATIVE (NEG-TRACE)
[2020-10-07 13:11] LABS: HYALINE CASTS, URINE FEW /HPF
[2020-10-07 13:12] LABS: BACTERIA,URINE 0 /HPF (0-FEW); RBC,URINE 0 /HPF (0-2)
[2020-10-07] MEDS ORDERED: ONDANSETRON PF 4 MG/2 ML VIAL. IVP ONE (13:15)
[2020-10-07 13:31] LABS: DIG 1.3 ng/mL (0.9-2.0)
[2020-10-07] MEDS ORDERED: IOHEXOL 300 MG/ML 100ML VIAL. IV ONE (13:45)
--- NOTE | 2020-10-07 15:29 | RAD ---
CT of the abdomen and pelvis with IV contrast compared to similar exam dated August 17, 2020 for abd ominal pain and distention. TECHNIQUE: Contiguous axial CT images are obtained from the apex of diaphragm to the pelvic floor fol lowing administration of IV contrast. Oral contrast was also administered. FINDINGS: There is four-chamber cardiomegaly, with small bilateral pleural effusions and Juan Miguel B-shun es suggesting interstitial pulmonary edema. Findings are similar to the prior scan, though the inters titial edema appears more prominent. Abdominal ascites is again evident, slightly more pronounced ninoska n on the prior examination. Anasarca is again present. Several dystrophic soft tissue calcifications are seen posteriorly and bilaterally. The liver appears cirrhotic with the right lobe being shrunken in the left lobe being compensatorily hypertrophied. There has been a prior cholecystectomy. Portal v ein is patent. There are patchy areas of scarring involving the right renal cortex. Left kidney is no rmal. No hydronephrosis. Pancreas and spleen are normal. Stable enhancing 1.7 cm left adrenal nodule. Right adrenal gland is normal. No suspicious mesenteric or retroperitoneal adenopathy. Urinary bladd er is fluid distended and grossly unremarkable. There is inhomogeneous opacification of large and sma ll bowel. Postsurgical changes are seen in the left lower quadrant. No areas of focal bowel wall thic kening or gross bowel dilatation are identified. Bulky multifocal calcified atherosclerosis is seen i ncluding moderate stenosis of the superior mesenteric artery, and severe stenosis of the right renal artery. There is likely at least moderate to severe stenosis of left renal artery as well severe dege nerative changes are seen throughout the lumbar spine. No suspicious osteoblastic or osteolytic bone lesions are evident. IMPRESSION: 1. Cardiomegaly with small pleural effusions and interstitial pulmonary edema, but 5 which is consist ent with congestive heart failure. 2. Abdominal ascites which has increased slightly since the prior exam. 3. Redemonstrated anasarca. 4. Stable left adrenal nodule. 5. Changes of hepatic cirrhosis with compensatory hypertrophy of the left liver. 6. 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 7. Other chronic changes as described. PQRS Compliance Statement: One or more of the following individualized dose reduction techniques were utilized for this examinat ion: 1. Automated exposure control 2. Adjustment of the mA and/or kV according to patient size 3. Use of iterative reconstruction technique Electronically signed by: Mj Lugo MD (10/07/2020 3:26 PM) [email or web address]
--- NOTE | 2020-10-07 15:37 | PHYS DOC ---
Past Medical History Past Medical History: A-Fib, Anemia, Cancer, CHF, GERD, Hypertension, [place], Other Additional Past Medical Histor: CARDIOMYOPATHY,OSTEOARTHRITIS,CHRONIC BACK PAIN,BOWEL OBSTRUCTION Past Surgical History: Appendectomy, Cholecystectomy, Hysterectomy, Pacemaker, Other Additional Past Surgical Histo: HERNIA REPAIR WITH MESH,SMALL BOWEL RESECTION,BILAT MASTECTOMY Smoking Status: Never Smoker Alcohol Use: Rarely Drug Use: None General Adult EDM: Chief Complaint: ABDOMINAL PAIN HPI: HPI: Patient is a 85 year old female who was sent here from her family physician clinic due to worsening swelling in her lower extremities and abdominal area. Patient was admitted here at the end of last August due to CHF exacerbation, anasarca. Sodium was low at the time as well. She was found to have abdominal ascites. Patient was discharged home on Leni. Patient said her condition is progressively getting worse. She is gaining more weight, having more trouble breathing with exertion, having more abdominal distention and lower extremity swelling. She called her family physician today who told to come to ER for evaluation. Patient denies any cough or fever. Review of Systems: Review of Systems: Constitutional: Denies fever or chills. [] Eyes: Denies change in visual acuity. [] HENT: Denies nasal congestion or sore throat. [] Respiratory: Denies cough or shortness of breath. [] Cardiovascular: Denies chest pain or edema. [] GI: Positive for abdominal distension, swelling, no nausea, vomiting, bloody stools or diarrhea. [] : Denies dysuria. [] Musculoskeletal: Positive for lower extremities swelling Integument: Denies rash. [] Neurologic: Denies headache, focal weakness or sensory changes. [] Endocrine: Denies polyuria or polydipsia. [] Lymphatic: Denies swollen glands. [] Psychiatric: Denies depression or anxiety. [] Heart Score: Risk Factors: Risk Factors: DM, Current or recent (<one month) smoker, HTN, HLP, family history of CAD, obesity. Risk Scores: Score 0 - 3: 2.5% MACE over next 6 weeks - Discharge Home Score 4 - 6: 20.3% MACE over next 6 weeks - Admit for Clinical Observation Score 7 - 10: 72.7% MACE over next 6 weeks - Early Invasive Strategies Current Medications: Current Medications Medications (Trade) Dose Ordered Sig/Zander Start Time Stop Time Status Last Admin Dose Admin Iohexol (Omnipaque 300 Mg/ml) 60 ml 1X ONCE 10/07/20 13:45 10/07/20 13:46 DC 10/07/20 14:08 60 ML Ondansetron HCl (Zofran) 4 mg 1X ONCE 10/07/20 13:15 10/07/20 13:18 DC 10/07/20 13:44 4 MG Allergies: Allergies: Allergies Coded Allergies Type Severity Reaction Last Updated Verified amoxicillin Allergy Severe Rash 09/15/20 Yes isosorbide Allergy Severe 08/25/19 Yes acyclovir Allergy Intermediate Itching 01/13/18 Yes amitriptyline Allergy Intermediate Itching 01/13/18 Yes amlodipine Allergy Intermediate Itching 01/13/18 Yes atenolol Allergy Intermediate Itching 01/13/18 Yes fentanyl Allergy Intermediate Itching 01/13/18 Yes lisinopril Allergy Intermediate Itching 01/13/18 Yes ticagrelor Allergy Intermediate Hives 09/14/20 Yes tramadol Allergy Intermediate Itching 01/13/18 Yes warfarin Allergy Intermediate 01/13/18 Yes acetaminophen Adverse Reaction Intermediate 08/25/19 Yes codeine Adverse Reaction Intermediate Nausea and Vomiting 01/13/18 Yes hydromorphone Adverse Reaction Intermediate Nausea and Vomiting 01/13/18 Yes Physical Exam: PE: Constitutional: Well developed, well nourished, no acute distress, non-toxic appearance. [] HENT: Normocephalic, atraumatic, bilateral external ears normal, oropharynx moist, no oral exudates, nose normal. [] Eyes: PERRLA, EOMI, conjunctiva normal, no discharge. [] Neck: Normal range of motion, no tenderness, supple, no stridor. [] Cardiovascular:Heart rate regular rhythm, no murmur [] Lungs & Thorax: Bilateral breath sounds with rales to to auscultation [] Abdomen: Bowel sounds normal, soft, no tenderness, no masses, no pulsatile masses. [] Skin: Warm, dry, no erythema, no rash. [] Back: No tenderness, no CVA tenderness. [] Extremities: No tenderness, no cyanosis, no clubbing, ROM intact, SEVERE 6 PLUS PITTING EDEMA OF LOWER EXTREMITIES TO THIGH, TO ABDOMINAL WALL AREA CONSISTENT WITH ANASARCA. Neurologic: Alert and oriented X 3, normal motor function, normal sensory function, no focal deficits noted. [] Psychologic: Affect normal, judgement normal, mood normal. [] Current Patient Data: Labs: Laboratory Tests Test 10/07/20 12:09 10/07/20 12:25 Urine Collection Type Unknown Urine Color Yellow Urine Clarity Clear Urine pH 6.0 (<5.0-8.0) Urine Specific Ault 1.010 (1.000-1.030) Urine Protein Negative mg/dL (NEG-TRACE) Urine Glucose (UA) Negative mg/dL (NEG) Urine Ketones (Stick) Negative mg/dL (NEG) Urine Blood Negative (NEG) Urine Nitrite Negative (NEG) Urine Bilirubin Negative (NEG) Urine Urobilinogen Dipstick 1.0 mg/dL (0.2 mg/dL) Urine Leukocyte Esterase Negative (NEG) Urine RBC 0 /HPF (0-2) Urine WBC 1-4 /HPF (0-4) Urine Squamous Epithelial Cells Few /LPF Urine Bacteria 0 /HPF (0-FEW) Urine Hyaline Casts Few /HPF White Blood Count 5.9 x10^3/uL (4.0-11.0) Red Blood Count 4.04 x10^6/uL (3.50-5.40) Hemoglobin 12.1 g/dL (12.0-15.5) Hematocrit 36.7 % (36.0-47.0) Mean Corpuscular Volume 91 fL (79-100) Mean Corpuscular Hemoglobin 30 pg (25-35) Mean Corpuscular Hemoglobin Concent 33 g/dL (31-37) Red Cell Distribution Width 14.7 % (11.5-14.5) H Platelet Count 217 x10^3/uL (140-400) Neutrophils (%) (Auto) 75 % (31-73) H Lymphocytes (%) (Auto) 12 % (24-48) L Monocytes (%) (Auto) 10 % (0-9) H Eosinophils (%) (Auto) 2 % (0-3) Basophils (%) (Auto) 1 % (0-3) Neutrophils # (Auto) 4.4 x10^3/uL (1.8-7.7) Lymphocytes # (Auto) 0.7 x10^3/uL (1.0-4.8) L Monocytes # (Auto) 0.6 x10^3/uL (0.0-1.1) Eosinophils # (Auto) 0.1 x10^3/uL (0.0-0.7) Basophils # (Auto) 0.1 x10^3/uL (0.0-0.2) Sodium Level 127 mmol/L (136-145) L Potassium Level 4.0 mmol/L (3.5-5.1) Chloride Level 89 mmol/L (98-107) L Carbon Dioxide Level 27 mmol/L (21-32) Anion Gap 11 (6-14) Blood Urea Nitrogen 16 mg/dL (7-20) Creatinine 0.9 mg/dL (0.6-1.0) Estimated GFR (Cockcroft-Gault) 59.5 BUN/Creatinine Ratio 18 (6-20) Glucose Level 115 mg/dL (70-99) H Calcium Level 9.3 mg/dL (8.5-10.1) Total Bilirubin 0.9 mg/dL (0.2-1.0) Aspartate Amino Transferase (AST) 23 U/L (15-37) Alanine Aminotransferase (ALT) 24 U/L (14-59) Alkaline Phosphatase 128 U/L (46-116) H Troponin I Quantitative 0.021 ng/mL (0.000-0.055) EN-Kto-F-Type Natriuretic Peptide 5703 pg/mL (0-449) H Total Protein 7.0 g/dL (6.4-8.2) Albumin 3.6 g/dL (3.4-5.0) Albumin/Globulin Ratio 1.1 (1.0-1.7) Lipase 147 U/L (73-393) Digoxin Level 1.3 ng/mL (0.9-2.0) Digoxin Last Dose Date Unknown Digoxin Last Dose Time Unknown Laboratory Tests 10/07/20 12:25 Laboratory Tests 10/07/20 12:25 Vital Signs: Vital Signs Date Time Temp Pulse Resp B/P (MAP) Pulse Ox O2 Delivery O2 Flow Rate FiO2 10/07/20 13:45 60 23 153/63 (93) 96 Room Air 10/07/20 12:02 97.9 97.9 EKG: EKG: EKG showed heart rate of 65 bpm, atrial fibrillation, PVC complexes. Radiology/Procedures: Radiology/Procedures: [][facility] [address] [place] [address] IMAGING REPORT Signed PATIENT: MARCIN SMITH AACCOUNT: [id number] : 1935 LOCATION: ER AGE: 85 SEX: F EXAM STATUS: REG ER ORD. PHYSICIAN: JONG STEVENSON DO REASON: ABDOMINAL PAIN AND DISTENTION PROCEDURE: CT ABD PELV W/ IV CONTRST ONLY CT of the abdomen and pelvis with IV contrast compared to similar exam dated August 17, 2020 for abdominal pain and distention. TECHNIQUE: Contiguous axial CT images are obtained from the apex of diaphragm to the pelvic floor following administration of IV contrast. Oral contrast was also administered. FINDINGS: There is four-chamber cardiomegaly, with small bilateral pleural effusions and Juan Miguel B-lines suggesting interstitial pulmonary edema. Findings are similar to the prior scan, though the interstitial edema appears more prominent. Abdominal ascites is again evident, slightly more pronounced than on the prior examination. Anasarca is again present. Several dystrophic soft tissue calcifications are seen posteriorly and bilaterally. The liver appears cirrhotic with the right lobe being shrunken in the left lobe being compensatorily hypertrophied. There has been a prior cholecystectomy. Portal vein is patent. There are patchy areas of scarring involving the right renal cortex. Left kidney is normal. No hydronephrosis. Pancreas and spleen are normal. Stable enhancing 1.7 cm left adrenal nodule. Right adrenal gland is normal. No suspicious mesenteric or retroperitoneal adenopathy. Urinary bladder is fluid distended and grossly unremarkable. There is inhomogeneous opacification of large and small bowel. Postsurgical changes are seen in the left lower quadrant. No areas of focal bowel wall thickening or gross bowel dilatation are identified. Bulky multifocal calcified atherosclerosis is seen including moderate stenosis of the superior mesenteric artery, and severe stenosis of the right renal artery. There is likely at least moderate to severe stenosis of left renal artery as well severe degenerative changes are seen throughout the lumbar spine. No suspicious osteoblastic or osteolytic bone lesions are evident. IMPRESSION: 1. Cardiomegaly with small pleural effusions and interstitial pulmonary edema, but 5 which is consistent with congestive heart failure. 2. Abdominal ascites which has increased slightly since the prior exam. 3. Redemonstrated anasarca. 4. Stable left adrenal nodule. 5. Changes of hepatic cirrhosis with compensatory hypertrophy of the left liver. 6. 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 7. Other chronic changes as described. PQRS Compliance Statement: One or more of the following individualized dose reduction techniques were utilized for this examination: 1. Automated exposure control 2. Adjustment of the mA and/or kV according to patient size 3. Use of iterative reconstruction technique Electronically signed by: Mj Crowder MD (10/07/2020 3:26 PM) [id number] DICTATED and SIGNED BY: MJ CROWDER MD DATE: 10/07/20 [id number] 0 Course & Med Decision Making: Course & Med Decision Making Pertinent Labs and Imaging studies reviewed. (See chart for details) Patient is an 85-year-old female who presented to ER due to generalized abdominal distention with extremity swelling and edema. Patient was found to have worsening CHF exacerbation with anasarca. Patient will be admitted to hospital for further evaluation and treatment. Discussed with her family physician Dr. Charlie Briggs who stated that patient is DNR, she had end-stage cardiomyopathy. He wanted HER to be admitted to hospital and he would like to give her 40 mg lasix iv. Dragon Disclaimer: Dragon Disclaimer: This electronic medical record was generated, in whole or in part, using a voice recognition dictation system. Departure Departure Impression: Primary Impression: CHF exacerbation Additional Impressions: Pulmonary edema Anasarca Disposition: ADMITTED INPT THIS HOSP Admitting Physician: Charlie Briggs Condition: STABLE Referrals: CHARLIE BRIGGS MD (PCP) JONG STEVENSON DO Oct 07, 2020 15:37
[2020-10-07] MEDS ORDERED: ONDANSETRON PF 4 MG/2 ML VIAL. IV PRN (17:30)
[2020-10-07] MEDS ORDERED: FUROSEMIDE 40 MG/4 ML VIAL. IVP ONE (17:30)
[2020-10-07 18:00] VITALS: BP 159/65
[2020-10-07 19:29] VITALS: BP 151/95
[2020-10-07 19:30] VITALS: BP 145/40
[2020-10-07 22:25] VITALS: BP 139/46
[2020-10-07] MEDS: clonazePAM 0.5 MG TABLET PO SCH (22:30)
[2020-10-07] MEDS: DIGOXIN 125 MCG TABLET. PO SCH (22:31)
[2020-10-08 02:49] VITALS: BP 97/33
[2020-10-08] MEDS: CYCLOBENZAPRINE 10 MG TABLET. PO PRN (04:04)
[2020-10-08 05:38] LABS: CALCIUM 8.3 mg/dL (8.5-10.1); CREATININE 0.9 mg/dL (0.6-1.0); GFR 59.5; POTASSIUM 3.5 mmol/L (3.5-5.1)
[2020-10-08 07:00] VITALS: BP 119/47
[2020-10-08] MEDS: FLUTICASONE 50MCG/NASAL SPRAY 16GM BOTTLE. NS SCH (09:00)
[2020-10-08] MEDS ORDERED: SODIUM BICARBONATE 650 MG TABLET. PO SCH (09:00)
[2020-10-08] MEDS ORDERED: CETIRIZINE HCL 10 MG TABLET. PO SCH (09:00)
[2020-10-08] MEDS: PANTOPRAZOLE 40 MG TABLET.DR. PO SCH ×2 (09:00→17:52)
[2020-10-08] MEDS ORDERED: MULTIVITAMIN with MINERAL TABLET. PO SCH (09:00)
[2020-10-08] MEDS: MULTIVITAMIN I-VITE TABLET. PO SCH (09:00)
[2020-10-08] MEDS ORDERED: CHOLECALCIFEROL (VITAMIN D3) 1,000 UNIT TABLET PO SCH (09:00)
[2020-10-08] MEDS: CARVEDILOL 12.5 MG TABLET. PO SCH ×2 (09:00→17:52)
[2020-10-08] MEDS: POTASSIUM CHLORIDE 10 MEQ TABLET.ER. PO SCH ×2 (09:00→17:52)
[2020-10-08] MEDS ORDERED: FUROSEMIDE 40 MG/4 ML VIAL. IVP ONE (10:30)
--- NOTE | 2020-10-08 10:45 | PDOC ---
Provider Note Date of Service: DATE: 10/08/20 TIME: 10:44 Provider Note [id number] Justifications for Admission Other Justification CHARLIE GERMAN MD Oct 08, 2020 10:45
--- NOTE | 2020-10-08 10:53 | HP ---
ADMIT DATE: CHIEF COMPLAINT: Shortness of breath. HISTORY OF PRESENT ILLNESS: An 85-year-old white female with known severe cardiomyopathy, ejection fraction reduced with an EF of about 20%, was seen in the office on the day of admission. She had increasing shortness of breath, fatigue and malaise and some upper abdominal discomfort. She was given IV Lasix x 1 and feels somewhat better at this time. She has been taking sodium bicarbonate tablets for about the last 2 weeks from the renal doctor because of chronic hyponatremia, but her sodium was 127 on admission, the same as when she was discharged 3 weeks ago. She admits to a relatively low sodium intake at home as well. PAST MEDICAL HISTORY: Severe cardiomyopathy. ALLERGIES: Multiple allergies listed per the chart. I took her off of spironolactone last admission because of the hyponatremia. She was treated with Carafate and Protonix. SOCIAL HISTORY: Lives alone, , nonsmoker, nondrinker. FAMILY HISTORY: Unremarkable. REVIEW OF SYSTEMS: No other complaints. OBJECTIVE: ENT: All within normal limits except for mild facial edema. NECK: No masses, nodes or bruits. LUNGS: Decreased breath sounds in both lung bases. No tachypnea or orthopnea. CARDIOVASCULAR: Irregular rate. Heart tones unremarkable otherwise. ABDOMEN: Moderately distended with ascites, but not relatively nontender. No masses are felt. EXTREMITIES: A 1+ ankle edema, otherwise unremarkable. Pedal pulses mildly reduced. NEUROLOGIC: Physiologic and nonfocal. ASSESSMENT: 1. Acute on chronic congestive heart failure, reduced ejection fraction with severe cardiomyopathy. 2. Chronic hyponatremia, multifactorial, not improved by sodium bicarbonate use. PLAN: We will hold bicarbonate tablets as risk greater than benefit with her congestive heart failure. More Lasix today and she remains a DNR patient per her choice. Comfort care otherwise. CHARLIE GERMAN MD DR: ÁNGEL/parish JOB#: [id number] / [id number]
[2020-10-08 11:00] VITALS: BP 106/48
[2020-10-08 15:00] VITALS: BP 117/52
[2020-10-08 19:49] VITALS: BP 114/43
[2020-10-08] MEDS: DIGOXIN 125 MCG TABLET. PO SCH (21:24)
[2020-10-08] MEDS: clonazePAM 0.5 MG TABLET PO SCH (21:24)
[2020-10-08 23:41] VITALS: BP 123/51
[2020-10-09] MEDS: CYCLOBENZAPRINE 10 MG TABLET. PO PRN (03:19)
[2020-10-09 03:59] VITALS: BP 127/47
[2020-10-09 07:00] VITALS: BP 145/57
[2020-10-09] MEDS: PANTOPRAZOLE 40 MG TABLET.DR. PO SCH (08:42)
[2020-10-09] MEDS: MULTIVITAMIN I-VITE TABLET. PO SCH (08:42)
[2020-10-09] MEDS: POTASSIUM CHLORIDE 10 MEQ TABLET.ER. PO SCH (08:43)
[2020-10-09] MEDS: CARVEDILOL 12.5 MG TABLET. PO SCH (08:43)
[2020-10-09] MEDS: FLUTICASONE 50MCG/NASAL SPRAY 16GM BOTTLE. NS SCH (09:00)
--- NOTE | 2020-10-09 10:12 | PDOC ---
Provider Note Date of Service: DATE: 10/09/20 TIME: 10:11 Provider Note [id number] Justifications for Admission Other Justification CHARLIE GERMAN MD Oct 09, 2020 10:12
[2020-10-09] MEDS ORDERED: FUROSEMIDE 40 MG TABLET. PO ONE (10:15)
--- NOTE | 2020-10-09 10:22 | DS ---
DATE OF DISCHARGE: HOSPITAL SUMMARY: An 85-year-old with known severe cardiomyopathy, came in with shortness of breath, pleural effusions and signs of congestive heart failure. Her sodium was 127 when she came in, but went up to 132 after diuresis. Renal status remained stable. Digoxin level was normal at 1.3. Urinalysis unremarkable. CT scan of the abdomen and pelvis revealed only cardiomegaly, and small pleural effusions and abdominal ascites, which has been preexisting. She has diffuse moderate stenoses of the mesenteric arteries and right renal and left renal artery as well. She was given IV Lasix and had good resolution of symptoms. She had been added sodium bicarbonate tablets per renal doctor last admission for her hyponatremia. The sodium was the same on admission, so it was felt that these tablets were not helpful in sodium maintenance, but exacerbated the heart failure, so they will be discontinued. KEISHA INHIBITORS ARE NOT USED BECAUSE OF HISTORY OF ALLERGY and also the multiple vascular stenoses would likely exacerbate her renal function. FINAL DIAGNOSES: 1. Acute on chronic congestive heart failure, ejection fraction reduced. 2. Chronic hyponatremia, multifactorial. 3. 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 OPERATIONS, PROCEDURES, COMPLICATIONS, CONSULTATIONS: None. DISPOSITION: Continue Lasix 40 mg daily as her only diuretic. She did not tolerate spironolactone and we will stop her sodium bicarbonate as ineffective and worsening her heart failure problem. Rest of meds remains the same. Prognosis is very guarded because of severe systolic dysfunction and comfort care measures as she remains a DNR. CHARLIE GERMAN MD DR: ÁNGEL/parish JOB#: [id number] / [id number]
[2020-10-09 11:00] VITALS: BP 133/56
--- NOTE | 2020-10-09 13:36 | NUR ---
DISCHARGED PATIENT TO HOME. DISCHARGE INSTRUCTIONS GIVEN. PIV AND HEART MONITOR REMOVED. ESCORTED PATIENT OFF UNIT PER WHEELCHAIR INTO A PRIVATE VEHICLE.
--- NOTE | 2020-10-10 10:17 | EKG ---
[facility] [address] [place] [address] Test Date: 2020-10-07 Test Time: 12:15:13 Pat Name: MARCIN SMITH Department: Room: Gender: F [employer] Tender: : 1935 Requested By: JONG STEVENSON Order Number: [id number] Reading MD: Measurements Intervals [place] Rate: 65 P: [place]: QRS: 127 QRSD: 170 T: -30 QT: 444 QTc: 467 Interpretive Statements IRREGULAR RHYTHM, NO P-WAVE FOUND VENTRICULAR PREMATURE COMPLEX(ES) ABNORMAL RIGHT AXIS DEVIATION NON SPECIFIC INTRAVENTRICULAR BLOCK CONSIDER RIGHT VENTRICULAR HYPERTROPHY QRS(T) CONTOUR ABNORMALITY CONSIDER ANTEROLATERAL INFARCT ABNORMAL ECG RI6.02 No previous ECG available for comparison
== END 2020-10-09 13:30 | disposition home or self-care (01) | DRG 292 ==
LOC: ER 11:57 → 2 NORTH 15:28 → ER 17:34
PROVIDERS: ADMIT Family Medicine; ATTEND Family Medicine
DX: I11.0 Hypertensive heart disease with heart failure (principal); E87.1 Hypo-osmolality and hyponatremia; R18.8 Other ascites; E27.8 Other specified disorders of adrenal gland; I42.9 Cardiomyopathy, unspecified; I48.91 Unspecified atrial fibrillation; I50.9 Heart failure, unspecified; I70.1 Atherosclerosis of renal artery; K74.60 Unspecified cirrhosis of liver; Z90.49 Acquired absence of other specified parts of digestive tract; Z90.710 Acquired absence of both cervix and uterus; D64.9 Anemia, unspecified; G89.29 Other chronic pain; K21.9 Gastro-esophageal reflux disease without esophagitis; Z66 Do not resuscitate; Z60.2 Problems related to living alone; I50.23 Acute on chronic systolic (congestive) heart failure
CPT/HCPCS: 36415; 74177; 80048; 80053; 80162; 81001; 83690; 83880; 84484; 85025; 93005; 96374; 96375; 99285; J1940; J2405; Q9967; G0378